=== PATIENT | male | born 1965 | race Caucasian/White ===

== ENCOUNTER 2018-05-28 10:03 | Emergency (ER) | payer OTHER, SELFPAY ==
[2018-05-28 10:16] VITALS: BP 144/79; PULSE 80; RESP 20; TEMP 36.7; O2SAT 100; BMI 21.6
--- NOTE | 2018-05-28 11:35 | ED.LOWEXIN ---
HPI - Extremity Injury (Lower) General Chief Complaint: Extremity Injury, Lower Stated Complaint: DEEP PAIN IN LEG AFTER SURGERY Time Seen by Provider: 05/28/18 11:19 Source: patient Mode of arrival: ambulatory Limitations: no limitations History of Present Illness HPI Narrative: Patient is a 52-year-old male who presents with left leg pain. He had the umbilical hernia surgery as an outpatient at [facility] 4 days ago. He also had some lipoma removed from his arms so an IV was placed in his left leg. He also compression socks and SCD's in place. He now has a spasm are sharp tingling in his left leg progressively is getting worse. He has no significant swelling in his legs. He denies fever or chills. Related Data Home Medications Medication Instructions Recorded Confirmed omeprazole 20 mg capsule,delayed 20 mg PO BID PRN cap 01/24/18 05/02/18 release Previous Rx's Medication Instructions Recorded pregabalin [Lyrica] 150 mg PO BID #60 cap 09/19/17 benzonatate 100 mg capsule 100 mg PO TID PRN #30 cap 12/20/17 beclomethasone dipropionate 80 1 puff INHALATION BID #8.7 gram 01/24/18 mcg/actuation aerosol inhaler ondansetron 8 mg disintegrating 8 mg PO TID PRN #30 tab 05/02/18 tablet zolpidem 10 mg tablet 10 mg PO HS #30 tab 05/18/18 Allergies Allergy/AdvReac Type Severity Reaction Status Date / Time amitriptyline [AMITRIPTYLINE] Allergy Unknown Verified 05/11/18 16:47 quetiapine [From SEROQUEL] Allergy Unknown Verified 05/11/18 16:47 tetracycline Allergy Verified 05/28/18 10:19 Review of Systems Review of Systems All systems reviewed & are unremarkable except as noted in HPI and below Constitutional Denies chills, Denies fever(s), Denies lethargy and Denies weakness Cardiovascular Denies chest pain, Denies irregular heart rhythm, Denies lightheadedness, Denies palpitations, Denies dyspnea, Denies dyspnea on exertion and Denies orthopnea Respiratory Denies cough, Denies dyspnea, Denies dyspnea on exertion and Denies wheezing Gastrointestinal Gastrointestinal: Denies abdominal pain, Denies change in bowel habits, Denies diarrhea, Denies nausea and Denies vomiting Musculoskeletal Reports as per HPI Integumentary/Breasts Denies pruritus, Denies erythema, Denies rash and Denies wounds Neurologic Denies weakness Endocrine Denies palpitations Allergic/Immunologic Denies wheezing [facility] Medical History Lipoma of arm (Acute) Umbilical hernia (Acute) Chronic back pain (Chronic Unknown) Elevated PSA (Chronic Unknown) GERD (gastroesophageal reflux disease) (Chronic Unknown) Insomnia (Chronic Unknown) Obstructive sleep apnea (Chronic Unknown) Restless leg syndrome (Chronic Unknown) Esophageal candidiasis (Resolved Unknown) Kidney stones (Resolved Unknown) Surgical History History of carpal tunnel release (Resolved) History of lumbar fusion (Resolved) History of tonsillectomy (Resolved) Social History Smoking Status: Never smoker alcohol intake: current (Rare) Exam Initial Vital Signs Initial Vital Signs: Vital Signs Temperature 98.1 F 05/28/18 10:16 Pulse Rate 80 05/28/18 10:16 Respiratory Rate 20 05/28/18 10:16 Blood Pressure 144/79 H 05/28/18 10:16 Pulse Oximetry 100 05/28/18 10:16 GENERAL: Well-appearing, well-nourished and in no acute distress. HEENT: Head atraumatic,EOMI, pupils reactive, face symmetric CARDIOVASCULAR: Regular rate and rhythm without murmurs, rubs or gallops. RESPIRATORY: Breath sounds equal bilaterally, no wheezes rales or rhonchi. ABDOMEN: Soft, nondistended incision site has clean dressing is no guarding no rebound normal bowel sounds. EXTREMITIES: Normal range of motion, no clubbing or edema. Neurovascularly intact. Left leg no significant swelling almost pinpoint like pain. There is no erythema. NEUROLOGICAL: Alert and oriented x4.Normal gait and speech. SKIN: Warm, dry, no laceration, no petechiae, no rashes or lesions. Course Orders Ordered: ED Orders 05/28/18 11:36 periph venous low extrem lt Stat Discontinued Medications Ibuprofen (Advil) 800 mg PO NOW ONE Stop: 05/28/18 11:37 Last Admin: 05/28/18 11:44 Dose: 800 mg Vital Signs - 8 hr 05/28/18 10:16 05/28/18 12:53 Temperature 98.1 F Pulse Rate 80 66 Respiratory Rate 20 15 Blood Pressure 144/79 H Blood Pressure [Left Arm] 148/86 H Pulse Oximetry 100 100 [facility] - Extremity Injury (Lower) Imaging Data Venous US: Radiologist's impression: PROCEDURE: US PERIPH VENOUS LOW EXTREM LT INDICATIONS: pain, recent surgery TECHNIQUE: Real-time imaging, as well as color and pulse Doppler interrogation, were performed of the lower extremity deep veins from the inguinal ligament to the popliteal fossa. COMPARISON: None. FINDINGS: The deep veins are normally compressible, and free of intraluminal thrombus. Color and pulse Doppler demonstrate normal phasic intraluminal flow. There is normal augmentation response to distal compression maneuver. IMPRESSION: No visualized deep venous thrombosis. Dictated by: Elizabeth Villareal M.D. on 05/28/2018 at 13:25 MDM Narrative Medical decision making narrative: MORE LIKELY TO BE OF NERVE OR MUSCLE IRRITATION. THERE IS NO OBVIOUS SWELLING ULTRASOUND IS NEGATIVE. INCISION SITES APPEAR CLEAN AND DRY. Discharge Plan Departure Patient Disposition: Home Clinical Impression: Acute pain of left lower extremity Discharge Date/Time: 05/28/18 13:03 Interventions: ED Discharge Assessment Last Done: 05/28/18 13:03 Instructions: DI for Leg Pain Activity Restrictions/Additional Instructions: *You have been diagnosed with left leg pain *What to do: Ultrasound is negative for blood, likely irritation from IV. Elevate, ice or heat as needed *Continue to take medications as directed Motrin 600 mg every 6-8 hours if needed *Follow up with your primary care provider in 2-3 days *Return to ER if you should have swelling, redness, pain or any new, worsening or concerning symptoms Prescriptions: No Action omeprazole 20 mg capsule,delayed release(DR/EC) 20 mg PO BID PRNRF: 0 beclomethasone dipropionate [Qvar] 80 mcg/actuation aerosol 1 puff INHALATION BID Qty: 8.7 RF: 2 benzonatate [Tessalon Perles] 100 mg capsule 100 mg PO TID PRN (Reason: cough) Qty: 30 RF: 1 ondansetron [Zofran ODT] 8 mg tablet,disintegrating 8 mg PO TID PRN (Reason: nausea and vomiting) Qty: 30 RF: 0 pregabalin [Lyrica] 150 MG capsule 150 mg PO BID Qty: 60 RF: 3 zolpidem [Ambien] 10 mg tablet 10 mg PO HS Qty: 30 RF: 3 Referrals: Haven Guerin DO [Primary Care Provider] -
[2018-05-28] MEDS: IBUPROFEN 400 MG TABLET 800 MG PO (11:44)
[2018-05-28 12:53] VITALS: BP 148/86; PULSE 66; RESP 15; O2SAT 100
--- NOTE | 2018-06-01 17:25 | PC.NURSE ---
Pt states that he has a blood clot in his leg,pt went to pcp to find that out. pt states that we messed up and missed a blood clot. Pt states that Tan Rothman did 300% better.
== END 2018-05-28 13:03 | disposition home or self-care (01) ==
PROVIDERS: Emergency Provider Emergency Medicine; PCP Family Medicine
DX: M79.605 Pain in left leg (principal)
CPT/HCPCS: 93971; 99282; 99284

== ENCOUNTER → 2018-09-02 09:37 | Outpatient (CLI) | payer OTHER, SELFPAY ==
[2018-09-02 10:42] LABS: Cholesterol 206 mg/dL (140-199); HDL Cholesterol 66 mg/dL (40-60); LDL Cholesterol Calculated 128 mg/dL (<100); Triglycerides 61 mg/dL (35-150)
== END ==
PROVIDERS: PCP Student in an Organized Health Care Education/Training Program; Visit Provider Internal Medicine Cardiovascular Disease
DX: Z12.5 Encounter for screening for malignant neoplasm of prostate (principal); R07.89 Other chest pain
CPT/HCPCS: 36415; 80061; 84153

== ENCOUNTER 2018-12-02 21:49 | Emergency (ER) | payer OTHER, SELFPAY ==
[2018-12-02 22:03] VITALS: BP 139/72; PULSE 81; RESP 28; O2SAT 98; BMI 21.9
--- NOTE | 2018-12-02 22:14 | DI.CT.S_ITS ---
PROCEDURE: CT HEAD/BRAIN WO CON INDICATIONS: Right-sided facial numbness TECHNIQUE: Noncontrast 4.5 mm thick angled axial sections acquired from the foramen magnum to the vertex, with coronal and sagittal reformats. For radiation dose reduction, the following was used: automated exposure control, adjustment of mA and/or kV according to patient size. COMPARISON: None. FINDINGS: Image quality: Excellent. CSF spaces: Basal cisterns are patent. No extra-axial fluid collections. Ventricles are normal in size and shape. Brain: No midline shift. No intracranial masses or hemorrhage. Shore-white matter interface is normal. Skull and face: Calvarium and visualized facial bones are intact, without suspicious lesions. Sinuses: Visualized sinuses and mastoids are clear. IMPRESSION: Mild microvascular atherosclerotic change in the deep white matter of each hemisphere but no acute disease. Depending on the clinical status followup by MR scanning may be warranted. Dictated by: Scott Kingsley M.D. on 12/03/2018 at 8:47 Approved by: Scott Kingsley M.D. on 12/03/2018 at 8:48
--- NOTE | 2018-12-02 22:14 | ED_ITS ---
HPI - Neuro Symptoms/Deficit General Chief Complaint: Neuro Symptoms/Deficit Stated Complaint: right side of face numbness Time Seen by Provider: 12/02/18 22:13 Source: patient Mode of arrival: ambulatory Limitations: no limitations History of Present Illness HPI Narrative: Patient is a 53-year-old male here for evaluation of multiple symptoms. He stated that yesterday he was not feeling well. He states that he had a migraine headache. he states that he went to sleep last night with a headache. When he woke up this morning he was ?unsure ?if he had a headache. He states that he is currently having the headache. He is unsure when the headache came on today. He states that he did not think about the headache because he was doing other things. He also states that he was waiting in line to pay at a store when he noticed he was drooling out of the right side of his mouth. The triage report states that he was complaining of right-sided facial numbness however he told me that he was not numb on the right side of his face he just had drool coming out the right side of his mouth. He states that has now resolved. He also states that he has pain in his left calf. He states that it feels like a prior DVT that he had in the past. He is not currently on any anticoagulation. He states that the pain feels similar to his prior DVT but not as bad as when he was diagnosed with a DVT. Difficult to obtain HPI from the patient as he is fairly vague on his symptoms and very often states ?I do not know? or ?I do not remember ?when asked about onset of symptoms in other associated symptoms. On Anticoagulants: No Related Data Previous Rx's Medication Instructions Recorded ondansetron 8 mg disintegrating 8 mg PO TID PRN #30 tab 05/02/18 tablet pregabalin 150 mg capsule 150 mg PO BID #60 cap 07/05/18 apixaban 5 mg tablet 5 mg PO BID #60 tab 08/09/18 benzonatate 100 mg capsule 100 mg PO TID PRN #30 cap 08/09/18 omeprazole 20 mg capsule,delayed 20 mg PO BID #60 cap 08/09/18 release zolpidem 10 mg tablet 10 mg PO BEDTIME PRN #30 tab 09/15/18 beclomethasone dipropionate 80 1 mcg INHALATION BID #8.7 gram 10/12/18 mcg/actuation aerosol inhaler Allergies Allergy/AdvReac Type Severity Reaction Status Date / Time amitriptyline [AMITRIPTYLINE] Allergy Unknown Verified 08/09/18 16:14 quetiapine [From SEROQUEL] Allergy Unknown Verified 08/09/18 16:14 tetracycline Allergy Verified 08/09/18 16:14 Review of Systems Constitutional Reports fatigue, Denies fever(s), Denies frequent falls, Reports headache(s) and Denies weakness Eyes Denies change in vision and Denies itchy eyes ENT Ears, Nose, Mouth, and Throat: Denies dizziness, Reports headache(s), Denies disequilibrium and Denies sore throat Cardiovascular Denies chest pain, Denies syncope and Denies dyspnea Respiratory Denies dyspnea Gastrointestinal Gastrointestinal: Denies abdominal pain, Denies nausea and Denies vomiting Musculoskeletal Comments: Pain in his left calf Integumentary/Breasts Denies rash Neurologic Denies behavioral changes, Denies burning sensations, Denies confusion, Denies dizziness, Denies syncope, Denies frequent falls, Reports headache(s), Denies radicular pain, Denies restless legs, Denies sensory deficit, Denies paresthesias, Denies disequilibrium and Denies weakness Psychiatric Denies behavioral changes and Denies confusion Endocrine Reports fatigue Hematologic/Lymphatic Denies easy bleeding and Denies easy bruising Allergic/Immunologic Denies itchy eyes [facility] Medical History Lipoma of arm (Acute) Umbilical hernia (Acute) Chronic back pain (Chronic Unknown) Elevated PSA (Chronic Unknown) GERD (gastroesophageal reflux disease) (Chronic Unknown) Insomnia (Chronic Unknown) Obstructive sleep apnea (Chronic Unknown) Restless leg syndrome (Chronic Unknown) Esophageal candidiasis (Resolved Unknown) Kidney stones (Resolved Unknown) Surgical History History of carpal tunnel release (Resolved) History of lumbar fusion (Resolved) History of tonsillectomy (Resolved) Social History Smoking Status: Never smoker alcohol intake: current (Rare) Social History Smoking Status: Never smoker alcohol intake: current (Rare) Exam Initial Vital Signs Initial Vital Signs: Vital Signs Pulse Rate 81 12/02/18 22:03 Respiratory Rate 28 H 12/02/18 22:03 Blood Pressure 139/72 12/02/18 22:03 Pulse Oximetry 98 12/02/18 22:03 Const General: cooperative, healthy appearing, comfortable, well developed, well groomed and No acute distress Orientation: alert, awake and oriented x3 HENMT Head: normal to inspection and normocephalic Ears: hearing grossly normal bilaterally Nose: external nose normal Face and sinus: normal facial exam Mouth: oral mucosae normal Eyes Pupils: PERRL EOM: EOM intact bilaterally Resp Effort & Inspection: normal respiratory effort Auscultation: clear to auscultation bilaterally Cardio Rate: regular rate Rhythm: regular rhythm GI Inspection: non-distended Palpation: soft, No firm and No tender Skin Lesions: no lesions Rashes: no rashes Neuro General: alert, awake and oriented x3 Cranial Nerves: CN's II-XI intact bilaterally Cognition: normal cognition Speech: speech normal Gait: normal gait Motor: muscle tone normal throughout Sensory Exam: no sensory deficits noted Extrem General: normal to inspection, capillary refill normal and No edema Psych Appearance: grossly normal and well kempt Course Orders Ordered: ED Orders 12/02/18 22:14 CT head/brain wo con Stat 12/02/18 23:06 US periph venous low extrem lt Stat Vital Signs - 8 hr 12/02/18 22:03 12/03/18 00:57 Temperature 97.9 F Pulse Rate 81 73 Respiratory Rate 28 H 19 Blood Pressure 139/72 106/59 L Pulse Oximetry 98 97 MDM - Neuro Symptoms/Deficit Imaging Data CT scan - head: Radiologist's impression: No acute intracranial disease. Bilateral white matter low attenuation noted, chronic in appearance, distributed mostly in the frontal and parietal lobes: Overall mild. Considerations would include sequela of remote trauma or information, or early onset chronic ischemic demyelination. Other considerations would include demyelinating disease including multiple sclerosis. Consider MRI brain without and with contrast when clinically appropriate Venous US: Radiologist's impression: No DVT noted right lower extremity MDM Narrative Medical decision making narrative: Patient has a normal neurologic exam here in the emergency department. I did discuss his CT scan findings with him and informed him he needed to follow up with his primary doctor regarding these to obtain an outpatient MRI. He has no left lower extremity DVT however this was a proximal venous study. Informed him that he needed to talk to his primary doctor about a full vascular ultrasound of his symptoms worsen. Will hold on further workup for now. Low suspicion for CVA. Patient was given return precautions. He expressed understanding and agreement with plan. Discharge Plan Departure Patient Disposition: Home Clinical Impression: Headache Qualifiers: Headache type: unspecified Headache chronicity pattern: unspecified pattern Intractability: not intractable Qualified Code(s): R51 - Headache Discharge Date/Time: 12/03/18 01:02 Interventions: ED Discharge Assessment Last Done: 12/03/18 00:57 Instructions: DI for Headache Activity Restrictions/Additional Instructions: Continue all of your medications as directed. Contact your primary doctor on Tuesday for a follow-up. Return to the emergency department for any new or worse gera symptoms Prescriptions: No Action ondansetron [Zofran ODT] 8 mg tablet,disintegrating 8 mg PO TID PRN (Reason: nausea and vomiting) Qty: 30 RF: 0 pregabalin [Lyrica] 150 mg capsule 150 mg PO BID Qty: 60 RF: 3 zolpidem 10 mg tablet 10 mg PO BEDTIME PRN (Reason: insomnia) Qty: 30 RF: 5 Qvar 80 mcg/actuation aerosol 1 mcg INHALATION BID Qty: 8.7 RF: 3 apixaban [Eliquis] 5 mg tablet 5 mg PO BID Qty: 60 RF: 0 benzonatate [Tessalon Perles] 100 mg capsule 100 mg PO TID PRN (Reason: cough) Qty: 30 RF: 1 omeprazole 20 mg capsule,delayed release(DR/EC) 20 mg PO BID Qty: 60 RF: 5 Referrals: Garry Regan MD [Primary Care Provider] -
--- NOTE | 2018-12-02 23:06 | DI.US.S_ITS ---
PROCEDURE: US [facility] VENOUS LOW EXTREM LT INDICATIONS: LEFT LEG PAIN; HISTORY DVT TECHNIQUE: Real-time imaging, as well as color and pulse Doppler interrogation, were performed of the lower extremity deep veins from the inguinal ligament to the popliteal fossa. COMPARISON: [facility], [facility] VENOUS LOW EXTREM LT, 05/28/2018, 12:39. FINDINGS: The common femoral, femoral and popliteal veins are normally compressible, and free of intraluminal thrombus. Color and pulse Doppler demonstrate normal phasic intraluminal flow. There is normal augmentation response to distal compression maneuver. IMPRESSION: No DVT found. Note: These findings are concordant with the preliminary interpretation. Dictated by: Scott Kingsley M.D. on 12/03/2018 at 8:48 Approved by: Scott Kingsley M.D. on 12/03/2018 at 8:48
[2018-12-03 00:57] VITALS: BP 106/59; PULSE 73; RESP 19; TEMP 36.6; O2SAT 97
== END 2018-12-03 01:02 | disposition home or self-care (01) ==
PROVIDERS: Emergency Provider Emergency Medicine; PCP Student in an Organized Health Care Education/Training Program
DX: R51 Headache (principal); M79.662 Pain in left lower leg; R20.0 Anesthesia of skin
CPT/HCPCS: 70450; 93971; 99283; 99284; 99291

== ENCOUNTER 2018-12-04 16:52 | Emergency (ER) | payer OTHER, SELFPAY ==
[2018-12-04 16:58] VITALS: BP 128/76; PULSE 99; RESP 14; TEMP 36.8; O2SAT 97
--- NOTE | 2018-12-04 17:04 | DI.CT.S_ITS ---
PROCEDURE: CT HEAD/BRAIN WO CON INDICATIONS: sudden onset headache / difficulty verbalizing history TECHNIQUE: Noncontrast 4.5 mm thick angled axial sections acquired from the foramen magnum to the vertex, with coronal and sagittal reformats. For radiation dose reduction, the following was used: automated exposure control, adjustment of mA and/or kV according to patient size. COMPARISON: [facility], CT, CT HEAD/BRAIN WO CON, 12/02/2018, 22:15. FINDINGS: Image quality: Excellent. CSF spaces: Basal cisterns are patent. No extra-axial fluid collections. Ventricles are normal in size and shape. Brain: No midline shift. No intracranial masses or hemorrhage. Shore-white matter interface is normal. Skull and face: Calvarium and visualized facial bones are intact, without suspicious lesions. Sinuses: Visualized sinuses and mastoids are clear. IMPRESSION: No acute intracranial disease process. Dictated by: Renuka العلي MD, PhD on 12/04/2018 at 17:34 Approved by: Renuka العلي MD, PhD on 12/04/2018 at 17:35
[2018-12-04 18:15] LABS: Bacteria Urine None Seen; WBC Urine None Seen (0-5/HPF)
[2018-12-04 18:24] LABS: Culture Indicated Urine Cult Not Indicated; RBC Urine 0-1/HPF (0-5/HPF)
[2018-12-04 20:30] VITALS: BP 131/81; PULSE 66; RESP 12; O2SAT 97
--- NOTE | 2018-12-04 20:42 | ED.HA ---
HPI - Headache <RAQUEL Cueva - Last Filed: 12/04/18 22:42> General Chief Complaint: Headache Stated Complaint: MIGRAINE Time Seen by Provider: 12/04/18 20:20 Source: patient Mode of arrival: ambulatory Limitations: no limitations History of Present Illness HPI Narrative: The patient is a 53-year-old male with history of hernia repair who presents for a chief complaint of a headache. He states he does not have a history of headaches, but have 1 today. However chart review a straight that he was seen in this facility yesterday for headache. he states he had a sudden headache, but denies thunderclap sensation. He does have various other complaints including chest pain, swollen throat, light sensitivity. The patient did drive himself here. Upon interview, the patient states ?I do not know when symptoms started and replies ?I do not know regarding his history. He is very unclear is for as when his symptoms started. He does complain of lower back pain, but then states that this has been going on for weeks. He states he goes up and down his legs. He states this comes and goes, staying for weeks. He states that this has been going on for years. He did recently stop taking Lyrica in July. He does take Ambien and states that is his only daily medication. Related Data Home Medications Medication Instructions Recorded Confirmed beclomethasone dipropionate [Qvar 1 puff INHALATION BID 12/04/18 12/04/18 RediHaler] nitroglycerin 0.4 mg SUBLINGUAL PRN PRN 12/04/18 12/04/18 Previous Rx's Medication Instructions Recorded pregabalin 150 mg capsule 150 mg PO BID #60 cap 07/05/18 omeprazole 20 mg capsule,delayed 20 mg PO BID #60 cap 08/09/18 release zolpidem 10 mg tablet 10 mg PO BEDTIME PRN #30 tab 09/15/18 Allergies Allergy/AdvReac Type Severity Reaction Status Date / Time amitriptyline [AMITRIPTYLINE] Allergy Unknown Verified 08/09/18 16:14 quetiapine [From SEROQUEL] Allergy Unknown Verified 08/09/18 16:14 tetracycline Allergy Verified 08/09/18 16:14 Review of Systems <RAQUEL Cueva - Last Filed: 12/04/18 22:42> Review of Systems GENERAL: See HPI HEENT: Denies sinus pain, ear pain, sore throat, difficulty swallowing, dizziness. RESPIRATORY: Denies dyspnea, cough, wheezing, hemoptysis, sputum. CARDIOVASCULAR: See HPI GASTROINTESTINAL: Denies nausea, vomiting, abdominal pain, diarrhea, constipation, melena. : Denies dysuria, frequency, incontinence, hematuria, urinary retention. MUSCULOSKELETAL: denies weakness, joint pain, or bony pain SKIN: Denies rash, skin lesions, or other NEUROLOGIC: See HPI PSYCHIATRIC: No concerning psychosocial issues. 12 point review of systems is negative except for those stated above PFSH <RAQUEL Cueva - Last Filed: 12/04/18 22:42> Medical History Lipoma of arm (Acute) Umbilical hernia (Acute) Chronic back pain (Chronic Unknown) Elevated PSA (Chronic Unknown) GERD (gastroesophageal reflux disease) (Chronic Unknown) Insomnia (Chronic Unknown) Obstructive sleep apnea (Chronic Unknown) Restless leg syndrome (Chronic Unknown) Esophageal candidiasis (Resolved Unknown) Kidney stones (Resolved Unknown) Surgical History History of carpal tunnel release (Resolved) History of lumbar fusion (Resolved) History of tonsillectomy (Resolved) Social History Smoking Status: Never smoker alcohol intake: current (Rare) Social History Smoking Status: Never smoker alcohol intake: current (Rare) Exam <RAQUEL Cueva - Last Filed: 12/04/18 22:42> Narrative Exam Narrative: GENERAL: Thin male lying on stretcher HEAD: Atraumatic. Normocephalic. No temporal or scalp tenderness. EYES: Pupils equal round and reactive. Extraocular motions intact. No scleral icterus. No injection or drainage. no nystagmus. ENT: Nose without bleeding, purulent drainage or septal hematoma. Throat without erythema, tonsillar hypertrophy or exudate. Uvula midline. Airway patent. NECK: Trachea midline. No JVD or lymphadenopathy. Supple, nontender, no meningeal signs. CARDIOVASCULAR: Regular rate and rhythm without murmurs, gallops, or rubs. RESPIRATORY: Clear to auscultation. Breath sounds equal bilaterally. No wheezes, rales, or rhonchi. No cough. No increased respiratory effort. GASTROINTESTINAL: Abdomen soft, non-tender, nondistended. No hepato-splenomegaly, or palpable masses. No guarding. active bowel sounds. EXTREMITIES: No clubbing, cyanosis, or edema. No joint tenderness, effusion, or edema noted. BACK: Nontender without deformity or crepitance. No flank tenderness. NEURO: AOx3. Strength is equal upper and lower extremities bilaterally. no cranial nerve deficits. Steady gait. SKIN: No rash or erythema. Initial Vital Signs Initial Vital Signs: Vital Signs Temperature 98.3 F 12/04/18 16:58 Pulse Rate 99 H 12/04/18 16:58 Respiratory Rate 14 12/04/18 16:58 Blood Pressure 128/76 12/04/18 16:58 Pulse Oximetry 97 12/04/18 16:58 <Kevin Estes MD - Last Filed: 12/05/18 02:04> Initial Vital Signs Initial Vital Signs: Vital Signs Temperature 98.3 F 12/04/18 16:58 Pulse Rate 99 H 12/04/18 16:58 Respiratory Rate 14 12/04/18 16:58 Blood Pressure 128/76 12/04/18 16:58 Pulse Oximetry 97 12/04/18 16:58 Course <JAHAIRA Cueva-BC - Last Filed: 12/04/18 22:42> Orders Ordered: ED Orders 12/04/18 17:50 Urine Microscopic Stat 12/04/18 18:30 Urine Drug Screen, Rapid Stat 12/04/18 20:48 EKG-12 Lead Stat 12/04/18 21:05 Complete Blood Count AUTO DIFF Stat Comprehensive Metabolic Panel Stat Ethanol (ETOH) Stat Lactate (Lactic Acid) Stat Troponin & CK Cardiac Panel Stat Discontinued Medications Dexamethasone (Decadron) 10 mg IV NOW ONE Stop: 12/04/18 21:58 Last Admin: 12/04/18 22:04 Dose: 10 mg Sodium Chloride (Normal Saline 0.9%) 1,000 mls @ 1,000 mls/hr IV BOLUS ONE Stop: 12/04/18 21:47 Last Infusion: 12/04/18 22:32 Dose: 0 mls/hr Admin: 12/04/18 21:15 Dose: 1,000 mls/hr Ketorolac Tromethamine (Toradol) 30 mg IV NOW ONE Stop: 12/04/18 20:49 Last Admin: 12/04/18 21:15 Dose: 30 mg Ondansetron HCl (Zofran) 4 mg IV NOW ONE Stop: 12/04/18 20:49 Last Admin: 12/04/18 21:15 Dose: 4 mg Vital Signs - 8 hr 12/04/18 20:30 12/04/18 21:01 12/04/18 22:00 Pulse Rate 66 67 65 Respiratory Rate 12 20 8 L Blood Pressure [Right Arm] 131/81 140/93 H 125/85 Pulse Oximetry 97 100 99 <Kevin Estes MD - Last Filed: 12/05/18 02:04> Orders Ordered: ED Orders 12/04/18 17:50 Urine Microscopic Stat 12/04/18 18:30 Urine Drug Screen, Rapid Stat 12/04/18 20:48 EKG-12 Lead Stat 12/04/18 21:05 Complete Blood Count AUTO DIFF Stat Comprehensive Metabolic Panel Stat Ethanol (ETOH) Stat Lactate (Lactic Acid) Stat Troponin & CK Cardiac Panel Stat Discontinued Medications Dexamethasone (Decadron) 10 mg IV NOW ONE Stop: 12/04/18 21:58 Last Admin: 12/04/18 22:04 Dose: 10 mg Sodium Chloride (Normal Saline 0.9%) 1,000 mls @ 1,000 mls/hr IV BOLUS ONE Stop: 12/04/18 21:47 Last Infusion: 12/04/18 22:32 Dose: 0 mls/hr Admin: 12/04/18 21:15 Dose: 1,000 mls/hr Ketorolac Tromethamine (Toradol) 30 mg IV NOW ONE Stop: 12/04/18 20:49 Last Admin: 12/04/18 21:15 Dose: 30 mg Ondansetron HCl (Zofran) 4 mg IV NOW ONE Stop: 12/04/18 20:49 Last Admin: 12/04/18 21:15 Dose: 4 mg Vital Signs - 8 hr 12/04/18 20:30 12/04/18 21:01 12/04/18 22:00 Pulse Rate 66 67 65 Respiratory Rate 12 20 8 L Blood Pressure [Right Arm] 131/81 140/93 H 125/85 Pulse Oximetry 97 100 99 MDM - Headache <Catherine Jackson, [employer]- - Last Filed: 12/04/18 22:42> Lab Data Result diagrams: 12/04/18 21:05 12/04/18 21:05 Lab Results 12/04/18 12/04/18 12/04/18 Range/Units 17:50 18:30 21:05 WBC 6.0 (4.5-11.0) X10^3/uL RBC 4.77 (4.5-5.9) X10^6/uL Hgb 14.5 (13.5-17.5) g/dL Hct 42.4 (41-53) % MCV 89.1 (80-100) fL MCH 30.5 (26-34) PG MCHC 34.3 (30-36) % RDW 13.8 (11.6-14.8) % Plt Count 282 (150-400) X10^3/uL Neut % (Auto) 55.3 (50-75) % Lymph % (Auto) 36.1 (25-40) % [place] % (Auto) 6.5 (3-14) % Eos % (Auto) 1.5 L (2-4) % Baso % (Auto) 0.6 (0-2) % Neut # (Auto) 3300 (1259-3007) /uL Lymph # (Auto) 2200 (2872-6369) /uL [place] # (Auto) 400 (0-900) /uL Eos # (Auto) 100 (0-450) /uL Baso # (Auto) 0 (0-100) /uL Sodium (137-145) mmol/L Potassium (3.4-5.1) mmol/L Chloride (98-107) mmol/L Carbon Dioxide (22-32) mmol/L BUN (9-20) mg/dL Creatinine (0.66-1.25) mg/dL Estimated GFR (>60) mL/min BUN/Creatinine Ratio (6-22) Glucose (70-100) mg/dL Lactate (0.7-2.1) mmol/L Calcium (8.4-10.2) mg/dL Total Bilirubin (0.2-1.3) mg/dL AST (17-59) IU/L ALT (21-72) IU/L Alkaline Phosphatase (38-126) U/L Total Creatine Kinase (55-170) U/L CK-MB (CK-2) CK-MB (CK-2) Rel Index Troponin I (0.01-0.034) ng/mL Total Protein (6.3-8.2) g/dL Albumin (3.5-5.0) g/dL Globulin (1.7-4.1) g/dL Albumin/Globulin Ratio (1.0-2.8) Urine RBC 0-1/hpf (0-5/HPF) Urine WBC None seen (0-5/HPF) Urine Bacteria None seen (None) Ur Culture Indicated? Cult not indicated Urine Opiates Screen Negative (Negative) Ur Oxycodone Screen Negative (Negative) Urine Methadone Screen Negative (Negative) Ur Barbiturates Screen Negative (Negative) U Tricyclic Antidepress Negative (Negative) Ur Phencyclidine Scrn Negative (Negative) Ur Amphetamines Screen Negative (Negative) U Methamphetamines Scrn Negative (Negative) Ur MDMA Scrn (Ecstasy) Negative (Negative) U Benzodiazepines Scrn Negative (Negative) Urine Cocaine Screen Negative (Negative) U Marijuana (THC) Screen Negative (Negative) Ethyl Alcohol mg/dL 12/04/18 12/04/18 12/04/18 Range/Units 21:05 21:05 21:05 WBC (4.5-11.0) X10^3/uL RBC (4.5-5.9) X10^6/uL Hgb (13.5-17.5) g/dL Hct (41-53) % MCV (80-100) fL MCH (26-34) PG MCHC (30-36) % RDW (11.6-14.8) % Plt Count (150-400) X10^3/uL Neut % (Auto) (50-75) % Lymph % (Auto) (25-40) % [place] % (Auto) (3-14) % Eos % (Auto) (2-4) % Baso % (Auto) (0-2) % Neut # (Auto) (5035-3236) /uL Lymph # (Auto) (1339-5013) /uL [place] # (Auto) (0-900) /uL Eos # (Auto) (0-450) /uL Baso # (Auto) (0-100) /uL Sodium 138 (137-145) mmol/L Potassium 3.8 (3.4-5.1) mmol/L Chloride 102 (98-107) mmol/L Carbon Dioxide 26 (22-32) mmol/L BUN 10 (9-20) mg/dL Creatinine 0.80 (0.66-1.25) mg/dL Estimated GFR > 60.0 (>60) mL/min BUN/Creatinine Ratio 12.5 (6-22) Glucose 89 (70-100) mg/dL Lactate 0.8 (0.7-2.1) mmol/L Calcium 9.5 (8.4-10.2) mg/dL Total Bilirubin 0.9 (0.2-1.3) mg/dL AST 19 (17-59) IU/L ALT 23 (21-72) IU/L Alkaline Phosphatase 57 (38-126) U/L Total Creatine Kinase 80 (55-170) U/L CK-MB (CK-2) TNP CK-MB (CK-2) Rel Index TNP Troponin I < 0.012 (0.01-0.034) ng/mL Total Protein 7.4 (6.3-8.2) g/dL Albumin 4.6 (3.5-5.0) g/dL Globulin 2.8 (1.7-4.1) g/dL Albumin/Globulin Ratio 1.6 (1.0-2.8) Urine RBC (0-5/HPF) Urine WBC (0-5/HPF) Urine Bacteria (None) Ur Culture Indicated? Urine Opiates Screen (Negative) Ur Oxycodone Screen (Negative) Urine Methadone Screen (Negative) Ur Barbiturates Screen (Negative) U Tricyclic Antidepress (Negative) Ur Phencyclidine Scrn (Negative) Ur Amphetamines Screen (Negative) U Methamphetamines Scrn (Negative) Ur MDMA Scrn (Ecstasy) (Negative) U Benzodiazepines Scrn (Negative) Urine Cocaine Screen (Negative) U Marijuana (THC) Screen (Negative) Ethyl Alcohol < 10 mg/dL Urine Dip Bedside Urine Glucose Negative Bedside Urine Bilirubin - Negative Bedside Urine Ketone - Negative Urine Specific [place] 1.015 Bedside Urine Occult Blood +/- Bedside Urine pH 6.0 Bedside Urine Protein - Negative Bedside Urine Urobilinogen - Negative Bedside Urine Nitrite - Negative Bedside Urine Leukocytes - Negative Esterase Imaging Data CT scan - head: Radiologist's impression: [address] [address] [address] Scan Report Signed Patient: Kervin Webb BMR#: [id number] : 1965Acct:[id number] Age/Sex: 53 / MDate of Service: 12/04/18 Loc: ED Accession Number: [id number] Procedure: CT head/brain wo con Ordering Provider: Catherine Blake D.O. PROCEDURE: CT HEAD/BRAIN WO CON INDICATIONS: sudden onset headache / difficulty verbalizing history TECHNIQUE: Noncontrast 4.5 mm thick angled axial sections acquired from the foramen magnum to the vertex, with coronal and sagittal reformats. For radiation dose reduction, the following was used: automated exposure control, adjustment of mA and/or kV according to patient size. COMPARISON: [facility], CT, CT HEAD/BRAIN WO CON, 12/02/2018, 22:15. FINDINGS: Image quality: Excellent. CSF spaces: Basal cisterns are patent. No extra-axial fluid collections. Ventricles are normal in size and shape. Brain: No midline shift. No intracranial masses or hemorrhage. Shore-white matter interface is normal. Skull and face: Calvarium and visualized facial bones are intact, without suspicious lesions. Sinuses: Visualized sinuses and mastoids are clear. IMPRESSION: No acute intracranial disease process. Dictated by: Renuka العلي MD, PhD on 12/04/2018 at 17:34 Approved by: Renuka العلي MD, PhD on 12/04/2018 at 17:35 ECG Data Interpretation: Sinus rhythm. Ventricular rate 65. No ST elevation or depression noted. No ectopy noted. artifact present. MDM Narrative Medical decision making narrative: The patient is a 53-year-old male who presents with chief complaint of headache and very symptoms. He had a normal lactate, normal EKG negative troponin normal CBC and CMP. He had a normal CT scan. He also had a normal neurologic exam throughout his stay in the emergency department. I elected to treat his headache with Zofran, Toradol and dexamethasone and the patient felt much improved after this cocktail medications. It is possible that he is having a migraine. Chart review illustrates that Dr. Morrell spoke with him yesterday regarding following up with his primary care provider for an outpatient MRI. I discussed this with him again and ensure that he would follow up with his PCP. Patient does not want any further workup tonight and does not want any invasive procedures done at this point time. Discussed at length return precautions of concern of heart attack or stroke. Patient has no questions or concerns upon discharge. <Kevin Estes MD - Last Filed: 12/05/18 02:04> Lab Data Lab Results 12/04/18 12/04/18 12/04/18 Range/Units 17:50 18:30 21:05 WBC 6.0 (4.5-11.0) X10^3/uL RBC 4.77 (4.5-5.9) X10^6/uL Hgb 14.5 (13.5-17.5) g/dL Hct 42.4 (41-53) % MCV 89.1 (80-100) fL MCH 30.5 (26-34) PG MCHC 34.3 (30-36) % RDW 13.8 (11.6-14.8) % Plt Count 282 (150-400) X10^3/uL Neut % (Auto) 55.3 (50-75) % Lymph % (Auto) 36.1 (25-40) % [place] % (Auto) 6.5 (3-14) % Eos % (Auto) 1.5 L (2-4) % Baso % (Auto) 0.6 (0-2) % Neut # (Auto) 3300 (6717-9630) /uL Lymph # (Auto) 2200 (7433-0854) /uL [place] # (Auto) 400 (0-900) /uL Eos # (Auto) 100 (0-450) /uL Baso # (Auto) 0 (0-100) /uL Sodium (137-145) mmol/L Potassium (3.4-5.1) mmol/L Chloride (98-107) mmol/L Carbon Dioxide (22-32) mmol/L BUN (9-20) mg/dL Creatinine (0.66-1.25) mg/dL Estimated GFR (>60) mL/min BUN/Creatinine Ratio (6-22) Glucose (70-100) mg/dL Lactate (0.7-2.1) mmol/L Calcium (8.4-10.2) mg/dL Total Bilirubin (0.2-1.3) mg/dL AST (17-59) IU/L ALT (21-72) IU/L Alkaline Phosphatase (38-126) U/L Total Creatine Kinase (55-170) U/L CK-MB (CK-2) CK-MB (CK-2) Rel Index Troponin I (0.01-0.034) ng/mL Total Protein (6.3-8.2) g/dL Albumin (3.5-5.0) g/dL Globulin (1.7-4.1) g/dL Albumin/Globulin Ratio (1.0-2.8) Urine RBC 0-1/hpf (0-5/HPF) Urine WBC None seen (0-5/HPF) Urine Bacteria None seen (None) Ur Culture Indicated? Cult not indicated Urine Opiates Screen Negative (Negative) Ur Oxycodone Screen Negative (Negative) Urine Methadone Screen Negative (Negative) Ur Barbiturates Screen Negative (Negative) U Tricyclic Antidepress Negative (Negative) Ur Phencyclidine Scrn Negative (Negative) Ur Amphetamines Screen Negative (Negative) U Methamphetamines Scrn Negative (Negative) Ur MDMA Scrn (Ecstasy) Negative (Negative) U Benzodiazepines Scrn Negative (Negative) Urine Cocaine Screen Negative (Negative) U Marijuana (THC) Screen Negative (Negative) Ethyl Alcohol mg/dL 12/04/18 12/04/18 12/04/18 Range/Units 21:05 21:05 21:05 WBC (4.5-11.0) X10^3/uL RBC (4.5-5.9) X10^6/uL Hgb (13.5-17.5) g/dL Hct (41-53) % MCV (80-100) fL MCH (26-34) PG MCHC (30-36) % RDW (11.6-14.8) % Plt Count (150-400) X10^3/uL Neut % (Auto) (50-75) % Lymph % (Auto) (25-40) % [place] % (Auto) (3-14) % Eos % (Auto) (2-4) % Baso % (Auto) (0-2) % Neut # (Auto) (8491-8022) /uL Lymph # (Auto) (3642-5396) /uL [place] # (Auto) (0-900) /uL Eos # (Auto) (0-450) /uL Baso # (Auto) (0-100) /uL Sodium 138 (137-145) mmol/L Potassium 3.8 (3.4-5.1) mmol/L Chloride 102 (98-107) mmol/L Carbon Dioxide 26 (22-32) mmol/L BUN 10 (9-20) mg/dL Creatinine 0.80 (0.66-1.25) mg/dL Estimated GFR > 60.0 (>60) mL/min BUN/Creatinine Ratio 12.5 (6-22) Glucose 89 (70-100) mg/dL Lactate 0.8 (0.7-2.1) mmol/L Calcium 9.5 (8.4-10.2) mg/dL Total Bilirubin 0.9 (0.2-1.3) mg/dL AST 19 (17-59) IU/L ALT 23 (21-72) IU/L Alkaline Phosphatase 57 (38-126) U/L Total Creatine Kinase 80 (55-170) U/L CK-MB (CK-2) TNP CK-MB (CK-2) Rel Index TNP Troponin I < 0.012 (0.01-0.034) ng/mL Total Protein 7.4 (6.3-8.2) g/dL Albumin 4.6 (3.5-5.0) g/dL Globulin 2.8 (1.7-4.1) g/dL Albumin/Globulin Ratio 1.6 (1.0-2.8) Urine RBC (0-5/HPF) Urine WBC (0-5/HPF) Urine Bacteria (None) Ur Culture Indicated? Urine Opiates Screen (Negative) Ur Oxycodone Screen (Negative) Urine Methadone Screen (Negative) Ur Barbiturates Screen (Negative) U Tricyclic Antidepress (Negative) Ur Phencyclidine Scrn (Negative) Ur Amphetamines Screen (Negative) U Methamphetamines Scrn (Negative) Ur MDMA Scrn (Ecstasy) (Negative) U Benzodiazepines Scrn (Negative) Urine Cocaine Screen (Negative) U Marijuana (THC) Screen (Negative) Ethyl Alcohol < 10 mg/dL Urine Dip Bedside Urine Glucose Negative Bedside Urine Bilirubin - Negative Bedside Urine Ketone - Negative Urine Specific [place] 1.015 Bedside Urine Occult Blood +/- Bedside Urine pH 6.0 Bedside Urine Protein - Negative Bedside Urine Urobilinogen - Negative Bedside Urine Nitrite - Negative Bedside Urine Leukocytes - Negative Esterase Discharge Plan Departure Patient Disposition: Home Clinical Impression: Headache Qualifiers: Headache type: unspecified Headache chronicity pattern: acute headache Intractability: not intractable Qualified Code(s): R51 - Headache Discharge Date/Time: 12/04/18 23:02 Interventions: ED Discharge Assessment Last Done: 12/04/18 23:02 Instructions: DI for Migraine, DI for Headache Activity Restrictions/Additional Instructions: Please go home and rest. It is imperative that you follow up with your primary care provider. Please call them tomorrow. Please come back to emergency department for any acute concerns such as chest pain or shortness of breath. please rest and push fluids. Prescriptions: No Action pregabalin [Lyrica] 150 mg capsule 150 mg PO BID Qty: 60 RF: 3 zolpidem 10 mg tablet 10 mg PO BEDTIME PRN (Reason: insomnia) Qty: 30 RF: 5 omeprazole 20 mg capsule,delayed release(DR/EC) 20 mg PO BID Qty: 60 RF: 5 nitroglycerin 0.4 mg tablet, sublingual 0.4 mg Sublingual PRN PRN (Reason: Chest Pain) RF: 0 Qvar RediHaler 80 mcg/actuation HFA aerosol breath activated 1 puff Inhalation BID RF: 0 Referrals: Garry Regan MD [Primary Care Provider] - <Kevin Estes MD - Last Filed: 12/05/18 02:04> Cosign ED Attending Jayceature Attestation: I was present in the ER at the time this patient's care. I was available for consultation or to see the patient directly if required. I agree with the evaluation, assessment and treatment plan.
[2018-12-04 21:01] VITALS: BP 140/93; PULSE 67; RESP 20; O2SAT 100
[2018-12-04] MEDS: KETOROLAC 60 MG/2 ML VIAL 30 MG IV (21:15)
[2018-12-04] MEDS: SODIUM CHLORIDE 0.9% 1,000 ML 1000 ML IV (21:15)
[2018-12-04] MEDS: ONDANSETRON 4 MG/2 ML INJ IV (21:15)
[2018-12-04 21:19] LABS: Add Manual Diff / Slide Review NO; Basophils Absolute Auto 0 /uL (0-100); Basophils Percent Auto 0.6 % (0-2); Eosinophils Absolute Auto 100 /uL (0-450); Eosinophils Percent Auto 1.5 % (2-4); Hematocrit 42.4 % (41-53); Hemoglobin 14.5 g/dL (13.5-17.5); Lymphocytes Absolute Auto 2200 /uL (1100-4500); Lymphocytes Percent Auto 36.1 % (25-40); Mean Corpuscular HGB Conc 34.3 % (30-36); Mean Corpuscular Hemoglobin 30.5 PG (26-34); Mean Corpuscular Volume 89.1 fL (80-100); Monocytes Absolute Auto 400 /uL (0-900); Monocytes Percent Auto 6.5 % (3-14); Neutrophils Absolute Auto 3300 /uL (1500-7000); Neutrophils Percent Auto 55.3 % (50-75); Platelet Count 282 X10^3/uL (150-400); Red Blood Cell Count 4.77 X10^6/uL (4.5-5.9); Red Cell Distribution Width 13.8 % (11.6-14.8)
[2018-12-04 21:24] LABS: Lactate (Lactic Acid) 0.8 mmol/L (0.7-2.1)
[2018-12-04 21:25] LABS: Alanine Aminotransferase 23 IU/L (21-72); Albumin 4.6 g/dL (3.5-5.0); Albumin Globulin Ratio 1.6 (1.0-2.8); Alkaline Phosphatase 57 U/L (38-126); Aspartate Aminotransferase 19 IU/L (17-59); BUN Creatinine Ratio 12.5 (6-22); Bilirubin Total 0.9 mg/dL (0.2-1.3); Blood Urea Nitrogen 10 mg/dL (9-20); Calcium 9.5 mg/dL (8.4-10.2); Carbon Dioxide 26 mmol/L (22-32); Chloride 102 mmol/L (98-107); Creatine Kinase 80 U/L (55-170); Estimated Glomerular Filt Rate > 60.0 mL/min (>60); Globulin 2.8 g/dL (1.7-4.1); Glucose 89 mg/dL (70-100); HEMOLYSIS < 15 (0-50); Potassium 3.8 mmol/L (3.4-5.1); Sodium 138 mmol/L (137-145); Total Protein 7.4 g/dL (6.3-8.2)
[2018-12-04 21:32] LABS: Ethanol (ETOH) < 10 mg/dL
[2018-12-04 21:36] LABS: Troponin I < 0.012 ng/mL (0.01-0.034)
[2018-12-04 22:00] VITALS: BP 125/85; PULSE 65; RESP 8; O2SAT 99
[2018-12-04 22:01] LABS: Urine Amphetamines Negative (Negative); Urine Barbiturates Negative (Negative); Urine Benzodiazepines Negative (Negative); Urine Cocaine Negative (Negative); Urine MDMA Negative (Negative); Urine Methadone Negative (Negative); Urine Methamphetamines Negative (Negative); Urine Morphine/Opi cutoff 2000 Negative (Negative); Urine Oxycodone Negative (Negative); Urine Phencyclidine Negative (Negative); Urine Tetrahydrocannabinol Negative (Negative); Urine Tricyclic Antidepressant Negative (Negative)
[2018-12-04] MEDS: DEXAMETHASONE 10 MG/ML VIAL IV (22:04)
== END 2018-12-04 23:02 | disposition home or self-care (01) ==
PROVIDERS: Emergency Medicine; Emergency Provider Nurse Practitioner Family; PCP Student in an Organized Health Care Education/Training Program
DX: R51 Headache (principal); R07.89 Other chest pain; J02.9 Acute pharyngitis, unspecified; H53.71 Glare sensitivity
CPT/HCPCS: 36591; 70450; 80053; 80305; 80320; 81003; 81015; 82550; 83605; 84484; 85025; 93005; 93010; 96361; 96374; 96375; 99283; 99285; J1100; J1885; J2405

== ENCOUNTER → 2018-12-18 16:55 | Outpatient (CLI) | payer OTHER, SELFPAY ==
--- NOTE | 2018-12-18 16:56 | DI.MRI.S_ITS ---
PROCEDURE: MR HEAD/BRAIN WO CON INDICATIONS: Headache, right facial paralysis, altered mental status TECHNIQUE: Noncontrast axial T1 spin echo, axial T2 fast spin echo, sagittal and axial FLAIR, coronal T2 fast spin echo, axial gradient echo, axial diffusion and ADC through the brain. COMPARISON: None. FINDINGS: Image quality: Excellent. CSF Spaces: Basal cisterns are patent. No extra-axial fluid collections. Ventricles are normal in size and shape. Brain: No intracranial masses or hemorrhage. There is mild diffuse cerebral volume loss. There are mild periventricular and subcortical white matter chronic microvascular ischemic changes. Shore/white matter interface is normal. Brainstem appears normal. Diffusion-weighted images demonstrate no acute ischemic insult. No chronic ischemic insults. Normal intravascular flow voids are present. Skull and face: Calvarium has normal marrow signal. Orbits appear normal. Sinuses: Sinuses and mastoids are clear. IMPRESSION: 1. No acute intracranial disease process. 2. No intracranial hemorrhage. 3. Mild, diffuse cerebral white loss. 4. Mild periventricular and subcortical white matter chronic microvascular ischemic changes. Dictated by: Renuka العلي MD, PhD on 12/18/2018 at 17:44 Approved by: Renuka العلي MD, PhD on 12/18/2018 at 17:47
== END ==
PROVIDERS: PCP Student in an Organized Health Care Education/Training Program; Visit Provider Student in an Organized Health Care Education/Training Program
DX: R41.82 Altered mental status, unspecified (principal); R51 Headache; G51.0 Bell's palsy
CPT/HCPCS: 70551

== ENCOUNTER → 2019-05-17 16:30 | Outpatient (CLI) | payer OTHER, SELFPAY ==
[2019-05-17 19:07] LABS: Hep C Virus Ab w/Reflex Quant NEGATIVE s/c (NEGATIVE)
== END ==
PROVIDERS: PCP Student in an Organized Health Care Education/Training Program; Visit Provider Urology
DX: R97.20 Elevated prostate specific antigen [PSA] (principal)
CPT/HCPCS: 36415; 84153; 86803

== ENCOUNTER 2019-07-11 13:31 | Day surgery (SDC) | payer OTHER, SELFPAY ==
[2019-07-11] VITALS (7 sets, daily range): BP systolic 99–137; BP diastolic 65–87; PULSE 68–77; RESP 15–16; TEMP 36.4–36.7; O2SAT 97–99; BMI 20.9
[2019-07-11] MEDS: SODIUM CHLORIDE 0.9% 1,000 ML 21 ML IV (14:04)
--- NOTE | 2019-07-11 14:46 | PM.HP.1 ---
History of Present Illness History of Present Illness Date Patient Seen: 07/11/19 Time Patient Seen: 14:47 Chief complaint: [id number] Narrative: GE reflux with a family history of esophageal cancer and need for colorectal cancer screening Patient History Family & Social History Tobacco & Substance use: Smoking Status Never smoker alcohol intake current alcohol intake frequency holiday/special occasion Substance Use Type does not use Meds Home Medications and Allergies Home Medications Medication Instructions Recorded Confirmed Type zolpidem 10 mg tablet 10 mg PO BEDTIME PRN #30 tab 03/16/19 07/11/19 Rx Allergies Allergy/AdvReac Type Severity Reaction Status Date / Time amitriptyline [AMITRIPTYLINE] Allergy Unknown Verified 07/11/19 13:51 quetiapine [From SEROQUEL] Allergy Unknown Verified 07/11/19 13:51 tetracycline Allergy Blister Verified 07/11/19 13:51 Exam Vital Signs (past 8 hours): - 07/11/19 13:52 Temperature 97.5 F L Pulse Rate 75 Respiratory Rate 16 Blood Pressure 125/87 Pulse Oximetry 98 Oxygen Delivery Method Room Air Narrative Exam Narrative: Oropharynx free of lesions Chest clear to auscultation percussion Cardiac exam reveals no S3 or murmur Assessment & Plan Assessment & Plan narrative: We will plan to perform EGD and colonoscopy under anesthesia. He has had difficulty with sedation in the past. Risks, benefits, alternatives have been explained.
--- NOTE | 2019-07-11 14:48 | PM.OP.ENDO ---
Operative Date/Time/Diagnoses Date of procedure: 07/11/19 Time of procedure: 14:48 Pre-op diagnosis: See indication and findings Procedure & Clinicians Study performed: EGD and colonoscopy Indications: GE reflux and family history of esophageal cancer in his father, need for colorectal cancer screening Surgeon: Karthik Hills Procedure Notes Procedure in detail: After informed consent was obtained the patient was placed in left lateral decubitus position. The video upper scope was placed into the oropharynx and with the patient's health swallowed into the esophagus. The esophagus, stomach, duodenum were carefully examined. On withdrawal, retroflexed view the GE junction was performed. The scope was removed. The patient tolerated the procedure well. Then the patient was turned and the colonoscope was substituted. This was introduced to the rectum easily passed the cecum. Preparation was good. On slow withdrawal mucosa was carefully examined. The scope was removed. The patient tolerated procedure well. Blood loss none Complications none Sedation MAC with anesthesia support Findings EGD 1. Cervical inlet patch with protestant. There was no clear ulceration here. Biopsies taken to rule out oxyntic mucosa 2. Grade B esophagitis at the GE junction with least 2 erosions present 3. Sensation of some esophageal rings present in the distal esophagus biopsies taken to rule out eosinophilic esophagitis 4. No substantial intra arytenoid erythema 5. Normal stomach 6. Normal duodenal bulb and sweep Colonoscopy 1. Moderate sigmoid left-sided diverticular disease 2. Otherwise negative colonoscopy to cecum other than a scar on the IC valve from previous polypectomy Will await biopsies and discuss with patient by telephone. He should have follow-up colonoscopy in 5 years.
--- NOTE | 2019-07-11 16:58 | SUR.PHASEII ---
verbal order received from avtar Suero for pt to be dc to home via taxi. pt left via taxi in stable condition, vss.
--- NOTE | 2019-07-27 | PATH_ITS ---
[facility] Accession Number: [id number] . 01 Material submitted: . PART A: esophagus - PROXIMAL ESOPHAGEAL PART B: esophagus - ESOPHAGEAL BIOPSY . 02 Diagnosis: A. Proximal Esophagus, Biopsy: Squamous mucosa with no diagnostic abnormality. Negative for intestinal metaplasia. Negative for dysplasia and malignancy. . B. Esophagus, Biopsy: Squamous mucosa with no diagnostic abnormality. Intraepithelial eosinophils are not increased. Negative for dysplasia and malignancy. MRV 07/13/2019 0944 Local . 02 Electronically signed: . Luz Garnett MD, Pathologist NPI- [id number] . 01 Gross description: . Part A: PROXIMAL ESOPHAGEAL: Received in formalin are 2 fragment(s) of mcallister, soft tissue measuring 0.2 x 0.1 x 0.1 cm to 0.1 x 0.1 x 0.1 cm submitted entirely in 1 cassette(s) Part B: ESOPHAGEAL BIOPSY: Received in formalin are 2 fragment(s) of mcallister, soft tissue measuring 0.2 x 0.1 x 0.1 cm to 0.1 x 0.1 x 0.1 cm submitted entirely in 1 cassette(s) /QBJ 07/12/2019 0711 Local . 02 Pathologist provided ICD-10: R13.10 . 02 CPT . 109087, [id number] Performed at: 01 [facility] [address] [facility], [place], [place] [id number] MD Anthony Hammond MD Phone: [phone] Performed at: 02 [facility] [address] [place], [place] [id number] MD Luz Garnett MD Phone: [phone]
== END 2019-07-11 16:59 | disposition home or self-care (01) ==
PROVIDERS: Family Provider Student in an Organized Health Care Education/Training Program; PCP Student in an Organized Health Care Education/Training Program; Visit Provider Internal Medicine Gastroenterology
PROC: 0DJ08ZZ Inspection of Upper Intestinal Tract, Via Natural or Artificial Opening Endoscopic (ICD-10-PCS; CPT 43235; principal; 2019-07-11 15:00)
PROC: 0DJD8ZZ Inspection of Lower Intestinal Tract, Via Natural or Artificial Opening Endoscopic (ICD-10-PCS; CPT 45378; 2019-07-11 15:00)
DX: Z12.11 Encounter for screening for malignant neoplasm of colon (principal); K57.30 Diverticulosis of large intestine without perforation or abscess without bleeding; Z80.0 Family history of malignant neoplasm of digestive organs; K20.9 Esophagitis, unspecified; J45.909 Unspecified asthma, uncomplicated; K21.9 Gastro-esophageal reflux disease without esophagitis
CPT/HCPCS: 43239; 45378; J2250; J2704; J3010

== ENCOUNTER → 2020-04-12 12:31 | Outpatient (CLI) | payer OTHER, SELFPAY ==
[2020-04-12 13:53] LABS: Prostate Specific Antigen 4.86 ng/mL (0.10-4.00)
[2020-04-12 13:53] LABS: TSH w/ Reflex to FT4 1.09 uIU/mL (0.47-4.68)
[2020-04-14 10:25] LABS: Cholesterol 235 mg/dL (140-199); HDL Cholesterol 62 mg/dL (40-60); LDL Cholesterol Calculated 147 mg/dL (<100); Triglycerides 132 mg/dL (35-150)
== END ==
PROVIDERS: Family Provider Student in an Organized Health Care Education/Training Program; PCP Student in an Organized Health Care Education/Training Program; Referring Provider Urology; Visit Provider Urology
DX: R97.20 Elevated prostate specific antigen [PSA] (principal); R68.89 Other general symptoms and signs; Z12.5 Encounter for screening for malignant neoplasm of prostate
CPT/HCPCS: 36415; 80061; 84153; 84443

== ENCOUNTER → 2021-04-13 07:03 | Outpatient (CLI) | payer OTHER, SELFPAY ==
--- NOTE | 2021-04-13 | DI.MRI.S_ITS ---
PROCEDURE: MR LUMBAR SPINE WO CON INDICATIONS: Postlaminectomy syndrome, not elsewhere classified TECHNIQUE: Noncontrast sagittal T1 spin echo and T2 fast echo, sagittal STIR, axial T1 and T2 fast spin echo through the lumbar spine. In cases with scoliosis, additional coronal T2 fast spin echo may be performed. COMPARISON: [facility] , , LUMBAR SPINE W/O CONTRAST, 02/26/2009, 15:22. [facility], CR, SPINE LUMB 2 OR 3VW, 11/16/2012, 18:26. FINDINGS: Image quality: Excellent. Alignment and Curvature: 5 lumbar type vertebral bodies are present by plain film. Mild grade 1 retrolisthesis of L1 on L2, L2 on L3, and L3 on L4. Mild lower thoracic kyphosis. Bone Marrow: Marrow is of normal overall signal. No acute vertebral body compression fractures. Posterior fusion of L4-S1, as before. Mild reactive signal within the endplates adjacent to the T10-T11, T11-T12, T12-L1, L1-L2, L2-L3, and L3-L4 intervertebral discs. Spinal Cord: Conus medullaris terminates at the L1-L2 disc space level. Visualized cord demonstrates normal signal and size. Paraspinous Soft Tissues: No paravertebral masses. T12-L1: Moderate disc height loss and desiccation. Mild diffuse disc bulge. Mild facet and ligamentum flavum hypertrophy. Mild canal stenosis. No foraminal stenosis. No significant change. L1-L2: Moderate disc height loss and desiccation. Mild diffuse disc bulge. Mild facet and ligamentum flavum hypertrophy. Mild canal stenosis. Mild bilateral foraminal stenosis. No significant change. L2-L3: Moderate disc height loss and desiccation. Mild diffuse disc bulge. Mild facet and ligamentum flavum hypertrophy. Mild canal stenosis. Mild bilateral foraminal stenosis. No significant change. L3-L4: Moderate disc height loss and desiccation. Mild diffuse disc bulge/osteophyte. Mild bilateral facet hypertrophy. Increased, mild canal stenosis. Increased, moderate bilateral foraminal stenosis. L4-L5: Status post fusion. No significant canal, or foraminal stenosis. No significant change. L5-S1: Status post fusion. Mild bilateral facet hypertrophy. No significant canal stenosis. Mild bilateral foraminal stenosis. No significant change. IMPRESSION: 1. Postsurgical sequelae. 2. Multilevel degenerative disc and facet disease, as well as ligamentum flavum hypertrophy and epidural lipomatosis. 3. Mild multilevel canal stenosis. 4. Multilevel foraminal stenosis, worst at L3-L4, where there are moderate foraminal stenoses. Dictated by: Robert Bryan M.D. on 04/13/2021 at 9:39 Approved by: Robert Bryan M.D. on 04/13/2021 at 9:42
== END ==
PROVIDERS: Family Provider Student in an Organized Health Care Education/Training Program; PCP Student in an Organized Health Care Education/Training Program; Referring Provider Anesthesiology Pain Medicine; Visit Provider Anesthesiology Pain Medicine
DX: M96.1 Postlaminectomy syndrome, not elsewhere classified (principal); M51.36 Other intervertebral disc degeneration, lumbar region; M48.061 Spinal stenosis, lumbar region without neurogenic claudication; M48.07 Spinal stenosis, lumbosacral region; Z98.1 Arthrodesis status
CPT/HCPCS: 72148

== ENCOUNTER → 2021-04-24 13:37 | Outpatient (CLI) | payer OTHER, SELFPAY ==
--- NOTE | 2021-04-24 | DI.MRI.S_ITS ---
PROCEDURE: MR CERVICAL SPINE WO CON INDICATIONS: Cervicalgia TECHNIQUE: Noncontrast sagittal T1 spin echo and T2 fast spin echo, sagittal STIR, foraminal oblique sagittal T2 fast spin echo, and axial gradient echo or T2 fast spin echo through the cervical spine. COMPARISON: None. FINDINGS: Image quality: Excellent. Alignment and Curvature: Trace retrolisthesis of C4 on C5 Bone Marrow: Multilevel degenerative endplate sclerosis and spurring. Diffuse facet arthropathy. No evidence of acute fracture Spinal Cord: Visualized spinal cord has normal size and signal. No cerebellar tonsillar herniation. Paraspinous Soft Tissues: No paravertebral masses. Prevertebral soft tissues are normal in thickness. C2-C3: Normal appearance. C3-C4: Normal appearance. C4-C5: Mild canal narrowing with effacement of the anterior thecal sac and slight mass effect on the cord. Moderate right foraminal stenosis. Severe left foraminal stenosis with nerve root compression. C5-C6: Minimal canal narrowing. Moderate foraminal stenosis. Severe left foraminal stenosis with nerve root compression. C6-C7: No definite high-grade canal stenosis. Mild to moderate foraminal narrowing. Severe left foraminal stenosis with nerve root compression C7-T1: No canal or right foraminal stenosis. Mild left foraminal narrowing. IMPRESSION: Mild C4-C5 canal narrowing. Severe left C4-C5 and C5-C6 foraminal narrowing. Dictated by: Bryan Carpio M.D. on 04/24/2021 at 16:00 Approved by: Bryan Carpio M.D. on 04/24/2021 at 16:06
== END ==
PROVIDERS: Family Provider Student in an Organized Health Care Education/Training Program; PCP Student in an Organized Health Care Education/Training Program; Referring Provider Anesthesiology Pain Medicine; Visit Provider Anesthesiology Pain Medicine
DX: M54.2 Cervicalgia (principal); M48.02 Spinal stenosis, cervical region
CPT/HCPCS: 72141

== ENCOUNTER 2022-03-16 03:58 | Emergency (ER) | payer OTHER, MEDICAID, SELFPAY ==
[2022-03-16 04:05] VITALS: BP 155/95; PULSE 72; RESP 20; TEMP 36.6; O2SAT 96
--- NOTE | 2022-03-16 04:10 | ED.MALEGU ---
HPI - Male Genitourinary General Chief complaint: Back Pain/Injury Stated complaint: kidney stone Time Seen by Provider: 03/16/22 04:02 History of Present Illness HPI Narrative: 56-year-old male nonsmoker with history of kidney stones presents with a chief complaint of severe left flank pain that started a few hours ago. Denies obvious provocation or palliation and states it radiates around his side and into his groin. He states it feels like prior kidney stones. He took no medications at home. He is not dizzy nor weak or lightheaded. He denies nausea or vomiting. Denies fever or chills. Related Data Home Medications Medication Instructions Recorded Confirmed pantoprazole 20 mg tablet,delayed 20 mg PO DAILY 05/25/21 08/10/21 release Previous Rx's Medication Instructions Recorded duloxetine 20 mg capsule,delayed 20 mg PO BID #180 caps 06/19/21 release (Cymbalta) pregabalin 75 mg capsule (Lyrica) 75 mg PO TID #90 caps 02/02/22 flurazepam 30 mg capsule 30 mg PO BEDTIME PRN insomnia #30 02/05/22 caps Parking Permit... #1 ea 02/11/22 hydrocodone 5 mg-acetaminophen 325 1 tab PO Q4-6H PRN pain #10 tabs 03/16/22 mg tablet ketorolac 10 mg tablet 10 mg PO Q6H PRN pain #14 tabs 03/16/22 ondansetron 4 mg disintegrating 4 mg PO TID-QID PRN nausea and 03/16/22 tablet vomiting #10 tabs tamsulosin 0.4 mg capsule (Flomax) 0.4 mg PO DAILY #30 caps 03/16/22 Allergies Allergy/AdvReac Type Severity Reaction Status Date / Time amitriptyline [AMITRIPTYLINE] Allergy Unknown Verified 08/10/21 15:26 quetiapine [From SEROQUEL] Allergy Unknown Verified 08/10/21 15:26 tetracycline Allergy Blister Verified 08/10/21 15:26 Review of Systems Review of Systems Narrative: GENERAL: Denies chills, fatigue, malaise, fever, sweats. HEENT: Denies sinus pain, ear pain, sore throat, difficulty swallowing, dizziness. RESPIRATORY: Denies dyspnea, cough, wheezing, hemoptysis, sputum. CARDIOVASCULAR: Denies chest pain, palpitations, orthopnea, edema, GASTROINTESTINAL: Denies nausea, vomiting, abdominal pain, diarrhea, constipation, melena. : See HPI MUSCULOSKELETAL: denies weakness, joint pain, or bony pain SKIN: Denies rash, skin lesions, or other NEUROLOGIC: Denies weakness, headache, numbness, change in speech, confusion, seizures, incoordination. PSYCHIATRIC: No concerning psychosocial issues. 12 point review of systems is negative except for those stated above Patient History Medical History Chronic back pain (Unknown) DVT of leg (deep venous thrombosis) Elevated PSA (Unknown) Esophageal candidiasis (Unknown) GERD (gastroesophageal reflux disease) (Unknown) Insomnia (Unknown) Kidney stones (Unknown) Lipoma of arm Obstructive sleep apnea (Unknown) Restless leg syndrome (Unknown) Umbilical hernia Surgical History History of carpal tunnel release History of lumbar fusion History of tonsillectomy Social History Smoking Status: Never smoker alcohol intake: current (Rare) Smoking Status: Never smoker alcohol intake frequency: holidays/special occasions only Substance Use Type: does not use Exam Narrative Exam Narrative: GENERAL: [56] year old patient appears stated age. Well-developed patient, in mild distress. Obviously uncomfortable, pacing in his room and rubbing his left flank HEAD: Atraumatic. Normocephalic. EYES: Pupils equal round and reactive. Extraocular motions intact. No scleral icterus. No injection or drainage. ENT: Nose without bleeding, purulent drainage. Throat without erythema, tonsillar hypertrophy or exudate. Airway patent. NECK: Trachea midline. Non tender CARDIOVASCULAR: Regular rate and rhythm without murmurs, gallops, or rubs. RESPIRATORY: Clear to auscultation. Breath sounds equal bilaterally. No wheezes, rales, or rhonchi. GASTROINTESTINAL: Abdomen soft, non-tender, nondistended. EXTREMITIES: No edema or joint tenderness. BACK: Nontender without deformity or crepitance. No flank tenderness. NEURO: AOx3. SKIN: No rash or erythema of visible areas Initial Vital Signs Initial Vital Signs: Vital Signs Temperature 97.9 F 03/16/22 04:05 Pulse Rate 72 07/26/22 04:05 Respiratory Rate 20 03/16/22 04:05 Blood Pressure 155/95 H 03/16/22 04:05 Pulse Oximetry 96 03/16/22 04:05 Oxygen Delivery Method 03/16/22 04:05 Course Orders Ordered: ED Orders 03/16/22 04:10 Urinalysis and Microscopic Stat 03/16/22 04:11 CT kidney ureter bladder (KUB) Stat 03/16/22 04:20 Complete Blood Count AUTO DIFF Stat Comprehensive Metabolic Panel Stat Discontinued Medications Hydrocodone Bitart/Acetaminophen (Hydrocodone/Acet 5/325 Prepack) 1 bottle MISC SEEINSTR ONE Stop: 03/16/22 05:12 Sodium Chloride (Normal Saline 0.9%) 1,000 mls @ 1,000 mls/hr IV BOLUS ONE Stop: 03/16/22 05:09 Last Admin: 03/16/22 04:35 Dose: 1,000 mls/hr Documented By: ENMANUEL Ketorolac Tromethamine (Ketorolac 30 Mg/Ml Vial) 15 mg IV NOW ONE Stop: 03/16/22 04:11 Last Admin: 03/16/22 04:35 Dose: 15 mg Documented By: ENMANUEL Ondansetron HCl (Ondansetron 4 Mg Odt Prepack) 1 bottle MISC SEEINSTR ONE Stop: 03/16/22 05:12 Tamsulosin HCl (Tamsulosin 0.4 Mg Capsule) 0.4 mg PO NOW ONE Stop: 03/16/22 04:57 Vital Signs Vital signs: Vital Signs - 8 hr 03/16/22 04:05 Temperature 97.9 F Pulse Rate 72 Respiratory Rate 20 Blood Pressure 155/95 H Pulse Oximetry 96 Oxygen Delivery Method Room Air MDM - Male Genitourinary Lab Data Result diagrams: 03/16/22 04:20 03/16/22 04:20 Labs: Lab Results 03/16/22 03/16/22 03/16/22 Range/Units 04:10 04:20 04:20 WBC 5.7 (4.5-11.0) X10^3/uL RBC 4.61 (4.5-5.9) X10^6/uL Hgb 14.3 (13.5-17.5) g/dL Hct 41.6 (41-53) % MCV 90.4 (80-100) fL MCH 31.1 (26-34) PG MCHC 34.4 (30-36) % RDW 13.9 (11.6-14.8) % Plt Count 256 (150-400) X10^3/uL Neut % (Auto) 45.8 L (50-75) % Lymph % (Auto) 36.3 (25-40) % [place] % (Auto) 8.1 (3-14) % Eos % (Auto) 8.8 H (2-4) % Baso % (Auto) 1.0 (0-2) % Neut # (Auto) 2600 (7202-6246) /uL Lymph # (Auto) 2100 (6181-7975) /uL [place] # (Auto) 500 (0-900) /uL Eos # (Auto) 500 H (0-450) /uL Baso # (Auto) 100 (0-100) /uL Sodium 138 (137-145) mmol/L Potassium 3.9 (3.4-5.1) mmol/L Chloride 100 (98-107) mmol/L Carbon Dioxide 27 (22-32) mmol/L BUN 23 H (9-20) mg/dL Creatinine 1.09 (0.66-1.25) mg/dL Estimated GFR > 60 (>60) mL/min BUN/Creatinine Ratio 21.1 (6-22) Glucose 90 (70-100) mg/dL Calcium 8.9 (8.4-10.2) mg/dL Total Bilirubin 0.7 (0.2-1.3) mg/dL AST 25 (17-59) IU/L ALT 17 (<50) IU/L Alkaline Phosphatase 74 (38-126) U/L Total Protein 7.2 (6.3-8.2) g/dL Albumin 4.4 (3.5-5.0) g/dL Globulin 2.8 (1.7-4.1) g/dL Albumin/Globulin Ratio 1.6 (1.0-2.8) Urine Color Dark yellow Urine Appearance Slightly cloudy Urine pH 5.5 (4.5-8.0) Ur Specific [place] 1.025 (1.000-1.035) Urine Protein 1+ H (Negative) Urine Glucose (UA) Negative (Negative) g/dL Urine Ketones Negative (NEGATIVE) Urine Occult Blood 3+ H (Negative) Urine Nitrate Negative (Negative) Urine Bilirubin Negative (NEGATIVE) Urine Urobilinogen 1.0 (0.2) E.U./dL Ur Leukocyte Esterase Negative (NEGATIVE) Urine RBC 30-100/hpf H (0-5/HPF) Urine WBC None seen (0-5/HPF) Ur Squamous Epith Cells 0-1 /hpf (0-5/HPF) Ur Transition Epith Cell 0-1/hpf (0-5/HPF) Calcium Oxalate Crystal Occasional H Urine Bacteria None seen (None) Urine Mucus 1+ H (Negative) Ur Culture Indicated? Cult not indicated Urine Dip Bedside Urine Glucose Negative Bedside Urine Bilirubin + 1 Bedside Urine Ketone - Negative Urine Specific [place] 1.030 Bedside Urine Occult Blood +++ Bedside Urine pH 6.0 Bedside Urine Protein + 30 Bedside Urine Urobilinogen +/- 1mg Bedside Urine Nitrite - Negative Bedside Urine Leukocytes - Negative Esterase Imaging Data CT scan - abdomen/pelvis: Radiologist's Impression: Moderate left hydroureteronephrosis and perinephric inflammatory change with an obstructing 5 mm mid ureteral calculus MDM Narrative Medical decision making narrative: Patient with reassuring history and physical exam shows no signs of sepsis, pain is well controlled and he is tolerating oral hydration. There is no alteration in renal function. Patient given return precautions and questions answered to his apparent satisfaction Discharge Plan Departure Patient Disposition: Home Clinical Impression: Kidney stone on left side Instructions: DI for Kidney Stones Activity Restrictions/Additional Instructions: *You have been diagnosed with [left-sided kidney stone measuring 5 mm and causing moderate hydronephrosis. There is no evidence of infection or decreased kidney function.] *What to do: *Please continue to take your regular medications as directed. [x ] New medication prescriptions sent to your pharmacy: [ [facility]] [ ] New medication written as a paper prescription [ ] No new medications given *Please follow up with your primary care provider in 2-3 days, call for an appointment. Let them know you were seen in the Emergency Department and that we ask that you be seen in follow up. We will electronically transmit a record of today's note if your PCP is in our system *If you do not have a primary care provider please contact the [facility] Resource line at [phone]. They will ask some questions about your medical history and help get you set up with a doctor in the community. *Return to Emergency Department if you should have any new, worsening or concerning symptoms, such as [fever greater than 101 F, shaking chills, worsening pain, persistent vomiting or other bothersome symptoms] Prescriptions: New hydrocodone-acetaminophen 5-325 mg tablet 1 tab PO Q4-6H PRN (Reason: pain) Qty: 10 0RF ketorolac 10 mg tablet 10 mg PO Q6H PRN (Reason: pain) Qty: 14 0RF tamsulosin [Flomax] 0.4 mg capsule 0.4 mg PO DAILY Qty: 30 0RF ondansetron 4 mg tablet,disintegrating 4 mg PO TID-QID PRN (Reason: nausea and vomiting) Qty: 10 0RF No Action pregabalin [Lyrica] 75 mg capsule 75 mg PO TID Qty: 90 3RF flurazepam 30 mg capsule 30 mg PO BEDTIME PRN (Reason: insomnia) Qty: 30 3RF (DME) Parking Permit... See Rx Instructions .ROUTE .MEDSUPPLY Qty: 1 0RF Rx Instructions: As directed pantoprazole 20 mg tablet,delayed release (DR/EC) 20 mg PO DAILY duloxetine [Cymbalta] 20 mg capsule,delayed release(DR/EC) 20 mg PO BID Qty: 180 3RF Referrals: Garry Regan MD [Primary Care Provider] - Maurice Ruiz MD [Physician] -
--- NOTE | 2022-03-16 04:11 | DI.CT.S_ITS ---
PROCEDURE: CT KIDNEY URETER BLADDER (KUB) INDICATIONS: severe flank pain, hx of stones TECHNIQUE: Axial sections were acquired from the lung bases to the pubic symphysis. Coronal and sagittal reformats were performed. For radiation dose reduction, the following was used: automated exposure control, adjustment of mA and/or kV according to patient size. COMPARISON: [facility], CT, CT ANGIO CHEST PE, 06/13/2018, 20:05. FINDINGS: Image quality: Excellent. Lung bases: Mild bibasilar atelectasis. Heart: No significant findings. Size appears normal. Small hiatal hernia. URINARY: Right Kidney: A few punctate nonobstructing renal stones identified in the right kidney measuring up to 3 mm in size. No perinephric stranding. A 2.3 cm partially exophytic renal hypodensity measures fluid attenuation is compatible with a renal cyst. Right Ureter: No hydroureter. No ureteral stone. Left Kidney/ureter: A few punctate left-sided renal stones are present measuring up to 4 mm in size. Mild-moderate left hydroureteronephrosis secondary to an obstructing 5 mm distal left ureteral stone which measures 550 Hounsfield units. Minimal perinephric and periureteral stranding. Bladder: Normal wall thickness. No stones. ABDOMEN: Liver: Unremarkable. Gallbladder: Unremarkable Biliary ducts: Unremarkable. Pancreas: Unremarkable. Spleen: Unremarkable. Adrenal Glands: Stable subcentimeter left adrenal nodule. Adrenal glands are otherwise unremarkable. Stomach and Bowel: Stomach, small bowel loops, and colon are unremarkable. Scattered colonic diverticulosis without acute diverticulitis. Normal appearing appendix. Peritoneum: No abnormal intraperitoneal fluid. No free air. Ventral Wall: There is a fat-containing umbilical hernia without acute inflammation. Abdominal Nodes: No enlarged retroperitoneal or mesenteric lymph nodes. Vessels: Aorta and inferior vena cava are normal in size. PELVIS: Pelvic Organs: Prostate is prominent in size measuring 5.4 x 4.3 cm in axial cross-sectional dimension. Coarse prosthetic calcifications are present. Pelvic Nodes: Unremarkable. Miscellaneous: No inguinal hernias are seen. Bones: No acute vertebral body compression fractures. Multilevel spondylitic changes throughout the imaged spine. No suspicious osseous lesions. Status post fusion L4 through S1. IMPRESSION: 1. Obstructing 5 mm distal left ureteral stone with associated mild-moderate left hydroureteronephrosis. Additional nonobstructing punctate left renal stones measuring up to 4 mm in size. 2. Multiple nonobstructing right renal stones measuring up to 3 mm. 3. Colonic diverticulosis without acute diverticulitis. 4. Normal appendix. Other chronic findings as above. No significant discrepancy with the caustic cresylate shift superintendent radiology preliminary report. Dictated by: Elijah Mello M.D. on 03/16/2022 at 7:22 Approved by: Elijah Mello M.D. on 03/16/2022 at 7:32
[2022-03-16 04:23] LABS: Bilirubin Urine UA NEGATIVE (NEGATIVE); Glucose Urine UA NEGATIVE (Negative); Ketones Urine UA NEGATIVE (NEGATIVE); Leukocyte Esterase Urine UA NEGATIVE (NEGATIVE); Nitrite Urine UA NEGATIVE (Negative); Occult Blood Urine UA 3+ (Negative); Protein Urine UA 1+ (Negative); Specific Gravity Urine UA 1.025 (1.000-1.035); pH Urine UA 5.5 (4.5-8.0)
[2022-03-16 04:25] LABS: Appearance Urine UA Slightly Cloudy; Color Urine UA Dark Yellow
[2022-03-16 04:32] LABS: Calcium Oxalate Crystals Urine Occasional; RBC Urine 30-100/HPF (0-5/HPF); WBC Urine None Seen (0-5/HPF)
[2022-03-16 04:33] LABS: Bacteria Urine None Seen; Culture Indicated Urine Cult Not Indicated; Mucus Urine 1+ (Negative); Squamous Epithelial Cell Urine 0-1 /HPF (0-5/HPF); Transitional Epi Cells Urine 0-1/HPF (0-5/HPF)
[2022-03-16 04:33] LABS: Add Manual Diff / Slide Review NO; Basophils Absolute Auto 100 /uL (0-100); Eosinophils Absolute Auto 500 /uL (0-450); Eosinophils Percent Auto 8.8 % (2-4); Hematocrit 41.6 % (41-53); Hemoglobin 14.3 g/dL (13.5-17.5); Lymphocytes Absolute Auto 2100 /uL (1100-4500); Lymphocytes Percent Auto 36.3 % (25-40); Mean Corpuscular HGB Conc 34.4 % (30-36); Mean Corpuscular Hemoglobin 31.1 PG (26-34); Mean Corpuscular Volume 90.4 fL (80-100); Monocytes Absolute Auto 500 /uL (0-900); Monocytes Percent Auto 8.1 % (3-14); Neutrophils Absolute Auto 2600 /uL (1500-7000); Neutrophils Percent Auto 45.8 % (50-75); Platelet Count 256 X10^3/uL (150-400); Red Blood Cell Count 4.61 X10^6/uL (4.5-5.9); Red Cell Distribution Width 13.9 % (11.6-14.8); White Blood Cell Count 5.7 X10^3/uL (4.5-11.0)
[2022-03-16] MEDS: SODIUM CHLORIDE 0.9% 1,000 ML 1000 ML IV (04:35)
[2022-03-16] MEDS: KETOROLAC 30 MG/ML VIAL 15 MG IV (04:35)
[2022-03-16 04:48] LABS: Alanine Aminotransferase 17 IU/L (<50); Albumin 4.4 g/dL (3.5-5.0); Albumin Globulin Ratio 1.6 (1.0-2.8); Alkaline Phosphatase 74 U/L (38-126); Aspartate Aminotransferase 25 IU/L (17-59); BUN Creatinine Ratio 21.1 (6-22); Bilirubin Total 0.7 mg/dL (0.2-1.3); Blood Urea Nitrogen 23 mg/dL (9-20); Calcium 8.9 mg/dL (8.4-10.2); Carbon Dioxide 27 mmol/L (22-32); Chloride 100 mmol/L (98-107); Estimated Glomerular Filt Rate > 60 mL/min (>60); Globulin 2.8 g/dL (1.7-4.1); Glucose 90 mg/dL (70-100); HEMOLYSIS < 15 (0-50); Potassium 3.9 mmol/L (3.4-5.1); Sodium 138 mmol/L (137-145); Total Protein 7.2 g/dL (6.3-8.2)
[2022-03-16] MEDS: HYDROCODONE/ACET 5/325 PREPACK 1 BOTTLE MISC (05:16)
[2022-03-16] MEDS: TAMSULOSIN 0.4 MG CAPSULE PO (05:16)
[2022-03-16] MEDS: ONDANSETRON 4 MG ODT PREPACK 1 BOTTLE MISC (05:16)
[2022-03-16 05:28] VITALS: PULSE 76; RESP 18; O2SAT 97
== END 2022-03-16 05:36 | disposition home or self-care (01) ==
PROVIDERS: Emergency Provider Emergency Medicine; Family Provider Student in an Organized Health Care Education/Training Program; PCP Student in an Organized Health Care Education/Training Program
DX: N20.0 Calculus of kidney (principal)
CPT/HCPCS: 36415; 74176; 80053; 81001; 81003; 85025; 96361; 96374; 99284; J1885

== ENCOUNTER → 2022-04-22 14:56 | Outpatient (CLI) | payer OTHER, MEDICAID, SELFPAY ==
--- NOTE | 2022-04-22 14:58 | DI.RAD.S_ITS ---
PROCEDURE: XR KUB INDICATIONS: kidney stones TECHNIQUE: One view of the abdomen acquired. COMPARISON: [facility], CT, CT KIDNEY URETER BLADDER (KUB), 03/16/2022, 4:26. FINDINGS: Surgical changes and devices: Lower lumbar spine fixation hardware incompletely evaluated. Bowel: Bowel gas pattern is normal. Soft tissues: No suspicious abdominal calcifications. Visualized solid organ contours appear normal in size. Bones: No suspicious bony lesions. IMPRESSION: No radiopaque renal, ureteral or bladder calculi. Dictated by: Ean Vazquez [facility] Interpreted: Luis Carlos Billingsley MD on 04/22/2022 at 15:48 Approved by: Luis Carlos Billingsley M.D. on 04/22/2022 at 16:34
== END ==
PROVIDERS: Family Provider Student in an Organized Health Care Education/Training Program; PCP Student in an Organized Health Care Education/Training Program; Referring Provider Urology; Visit Provider Urology
DX: N20.0 Calculus of kidney (principal)
CPT/HCPCS: 74018

== ENCOUNTER → 2022-04-23 11:40 | Outpatient (CLI) | payer OTHER, MEDICAID, SELFPAY ==
[2022-04-24 07:47] LABS: PSA Free % 13.6 % (.); PSA, Total 10.3 ng/mL (0.0-4.0)
== END ==
PROVIDERS: Family Provider Student in an Organized Health Care Education/Training Program; PCP Student in an Organized Health Care Education/Training Program; Referring Provider Urology; Visit Provider Urology
DX: R97.20 Elevated prostate specific antigen [PSA] (principal)
CPT/HCPCS: 36415; 84153; 84154

== ENCOUNTER → 2022-05-12 12:40 | Outpatient (CLI) | payer OTHER, MEDICAID, SELFPAY ==
--- NOTE | 2022-05-12 12:43 | DI.MRI.S_ITS ---
PROCEDURE: MR PELVIS WO/W CON INDICATIONS: Elevated/rising PSA rule out PI-RADS lesion TECHNIQUE: Coronal HASTE, axial T1 FSE with fat saturation, 3-plane nonbreath-hold T2 FSE. After the administration of contrast, dynamic axial, delayed axial and coronal VIBE or 2-D FLASH with fat saturation through the pelvis. Optional diffusion weighted imaging and ADC may be performed. COMPARISON: [facility], CT, CT KIDNEY URETER BLADDER (KUB), 03/16/2022, 4:26. [facility], CT, CT IVP A/P W/WO, 05/12/2022, 13:24. FINDINGS: Image quality: Diffusion weighted and dynamic contrast enhanced images are diagnostic. Prostate: Gland size is 5.4 x 3.6 x 5.5 cm; ellipsoid gland volume is 56 mL. Mild linear and wedge-shaped ADC hypointensities present within the prostate peripheral zone with indistinct T2 correlates (PI-RADS 2 findings). Enlargement of the prostate transitional zone with findings typical of benign prostatic hyperplasia. No large lesion strongly stands out against background parenchymal changes of BPH on T2 weighted images (PI-RADS 2 findings). Genitourinary system: Bladder wall thickness is normal. Distal ureters are non distended. Bowel and peritoneum: No pathologic free pelvic fluid. Inferior colon and small bowel loops are normal in caliber. Nodes and vessels: No pelvic or inguinal adenopathy by size criteria. Iliac vessels are normal in caliber. Soft tissues: No inguinal hernias. Bones: Marrow demonstrates normal overall signal, without lesions to suggest metastases. Lower lumbar fusion hardware is present. IMPRESSION: 1. No large or highly suspicious focal prostate lesion to direct biopsy. There is enlargement of the prostate transitional zone with findings typical of benign prostatic hyperplasia, with prostate volume estimated at 56 cc. 2. No suspicious lymph nodes visualized in the imaged pelvis. Dictated by: Osman Canas M.D. on 05/12/2022 at 15:56 Approved by: Osman Canas M.D. on 05/12/2022 at 16:16
--- NOTE | 2022-05-12 12:43 | DI.CT.S_ITS ---
PROCEDURE: CT IVP A/P W/WO INDICATIONS: Kidney stones history of left ureteral calculus TECHNIQUE: Optional 5 mm thick noncontrast images acquired from the diaphragm to the symphysis pubis. After the administration of intravenous contrast, 5 mm thick images acquired from the diaphragm to the symphysis pubis after a 10-minute delay. 2 mm thick coronal and sagittal reformats were then performed of the kidneys and ureters. For radiation dose reduction, the following was used: automated exposure control, adjustment of mA and/or kV according to patient size. COMPARISON: [facility], CT, CT KIDNEY URETER BLADDER (KUB), 03/16/2022, 4:26. FINDINGS: Image quality: Excellent. Lung bases: Mild posterior dependent atelectasis in the lung bases. Urinary system: Both kidneys are normal in size. A 3 mm nonobstructing calculus is seen in the inferior pole of the right kidney. There is a 3 mm nonobstructing calculus at the inferior pole of the left kidney. Additional faint calcifications are seen in the renal calices bilaterally that likely represent smaller calculi. No hydronephrosis. No perinephric fat stranding. There is normal bilateral renal enhancement. Bilateral simple renal cysts are present. Renal calyces appear normal in morphology when filled with contrast. Opacified portions of both ureters demonstrate normal caliber. Bladder wall thickness is normal. A 5 mm calculus is seen in the left posterior bladder that likely corresponds to the previously seen left ureteral calculus on CT from 03/16/2022. Attenuation values within this calculus are approximately 600-700 Hounsfield units. Other solid organs: Subcentimeter hypodensity in the central liver is too small to characterize, but is most likely a cyst. Gallbladder is unremarkable. Biliary system is non dilated. Pancreas enhances normally. Spleen is normal in size and enhancement. Subcentimeter nodular thickening of the left adrenal gland is seen, which is hypoattenuating on non-contrast images. Peritoneum and bowel: Multiple diverticula are seen in the colon without signs of acute diverticulitis. Small bowel loops and stomach are unremarkable. No free fluid or air. Nodes and vessels: No retroperitoneal or mesenteric adenopathy by size criteria. Aorta and inferior vena cava are normal in size. Abdominal wall: No ventral hernias. Pelvis: Prostate is mildly enlarged. No pathologic free pelvic fluid. No inguinal hernias or adenopathy. Bones: Postsurgical changes are seen in the spine from L4 through S1. Multilevel degenerative changes are seen in the remainder of the spine. IMPRESSION: 1. Previously seen left distal ureteral 5 mm calculus now appears to be located in the left posterior bladder. No hydronephrosis. 2. Additional nonobstructing bilateral renal calculi measuring up to 3 mm in each kidney. 3. No suspicious urothelial lesion. 4. Mild prostatomegaly. 5. Colonic diverticulosis. Dictated by: Osman Angela M.D. on 05/12/2022 at 15:16 Approved by: Osman Angela M.D. on 05/12/2022 at 15:38
== END ==
PROVIDERS: Family Provider Student in an Organized Health Care Education/Training Program; PCP Student in an Organized Health Care Education/Training Program; Referring Provider Urology; Visit Provider Urology
DX: N20.0 Calculus of kidney (principal); N21.0 Calculus in bladder; N40.0 Benign prostatic hyperplasia without lower urinary tract symptoms; R97.20 Elevated prostate specific antigen [PSA]; K57.90 Diverticulosis of intestine, part unspecified, without perforation or abscess without bleeding
CPT/HCPCS: 72197; 74178; Q9967

== ENCOUNTER → 2022-05-13 07:36 | Outpatient (CLI) | payer OTHER, MEDICAID, SELFPAY ==
--- NOTE | 2022-05-13 07:37 | DI.MRI.S_ITS ---
PROCEDURE: MR CERVICAL SPINE WO CON INDICATIONS: reassess cervical radiculopathy TECHNIQUE: Noncontrast sagittal T1 spin echo and T2 fast spin echo, sagittal STIR, foraminal oblique sagittal T2 fast spin echo, and axial gradient echo or T2 fast spin echo through the cervical spine. COMPARISON: [facility], MR, MR CERVICAL SPINE WO CON, 04/24/2021, 13:50. FINDINGS: Image quality: Excellent. Alignment and Curvature: There is mild retrolisthesis seen at C4-C5. Bone Marrow: Marrow demonstrates normal overall signal. Spinal Cord: Visualized spinal cord has normal size and signal. No cerebellar tonsillar herniation. Paraspinous Soft Tissues: No paravertebral masses. Prevertebral soft tissues are normal in thickness. C2-C3: Normal appearance. C3-C4: No significant abnormality is seen. C4-C5: Moderate loss of disc height is seen. Loss of disc signal is seen. Moderate disc osteophyte complex is seen, which is eccentric to the right. Uncovertebral joint hypertrophy is seen at this level. Moderate facet joint hypertrophy is seen. There is moderate to severe right-sided and moderate left-sided neural foraminal narrowing. Moderate central canal narrowing is seen. There is associated mass effect upon the ventral spinal cord. When comparison is made with the prior images, these findings are similar. C5-C6: Moderate loss of disc height is seen. Loss of disc signal is seen. Moderate generalized disc osteophyte complex is seen. Moderate facet hypertrophy is seen, left worse than right. There is at least moderate right-sided and moderate to severe left-sided neural foraminal narrowing. Mild central canal narrowing is seen. C6-C7: Twmb-gy-rfjhaffs loss of disc height and disc signal can be seen. Moderate generalized disc osteophyte complex is seen. Moderate facet joint hypertrophy is seen. There is moderate to severe bilateral neural foraminal narrowing seen. No significant central canal narrowing is seen at this level. When comparison is made with the prior images, these findings are similar. C7-T1: No significant abnormality is seen. IMPRESSION: Multiple levels of cervical spine degenerative change are seen, which are overall worst at the C4-C5 level. No significant progression can be seen compared to 2020. Dictated by: Redd Arauz M.D. on 05/13/2022 at 10:41 Approved by: Redd Arauz M.D. on 05/13/2022 at 10:45
== END ==
PROVIDERS: Family Provider Student in an Organized Health Care Education/Training Program; PCP Student in an Organized Health Care Education/Training Program; Referring Provider Student in an Organized Health Care Education/Training Program; Visit Provider Student in an Organized Health Care Education/Training Program
DX: M54.12 Radiculopathy, cervical region (principal); R41.3 Other amnesia; N20.0 Calculus of kidney; R97.20 Elevated prostate specific antigen [PSA]; R39.9 Unspecified symptoms and signs involving the genitourinary system
CPT/HCPCS: 36415; 72141; 81002; 82365; 82607; 82652; 82746; 84443; 99214

== ENCOUNTER → 2022-05-13 08:22 | Outpatient (CLI) | payer OTHER, MEDICAID, SELFPAY ==
[2022-05-13 11:20] LABS: Thyroid Stimulating Hormone 1.36 uIU/mL (0.47-4.68)
[2022-05-13 11:50] LABS: Folate 7.4 ng/mL (2.76-20.0); Vitamin B12 326 pg/mL (239-931)
[2022-05-18 17:45] LABS: Ca oxalate dihydrate 50 % (.); Ca oxalate monohydr 50 % (.); Size 7x6 mm (.)
[2022-05-21 17:06] LABS: 1,25-Dihydroxy, Vitamin D-2 <10 pg/mL (.)
== END ==
PROVIDERS: Urology; Family Provider Student in an Organized Health Care Education/Training Program; PCP Student in an Organized Health Care Education/Training Program; Referring Provider Psychiatry & Neurology Neurology; Visit Provider Psychiatry & Neurology Neurology
DX: R41.3 Other amnesia (principal); N20.0 Calculus of kidney
CPT/HCPCS: 36415; 82365; 82607; 82652; 82746; 84443

== ENCOUNTER → 2022-06-12 12:42 | Outpatient (CLI) | payer OTHER, MEDICAID, SELFPAY ==
--- NOTE | 2022-06-12 13:08 | DI.MRI.S_ITS ---
PROCEDURE: MR HEAD/BRAIN WO CON INDICATIONS: MEMORY LOSS TECHNIQUE: Noncontrast axial T1 spin echo, axial T2 fast spin echo, sagittal and axial FLAIR, coronal T2 fast spin echo, axial gradient echo, axial diffusion and ADC through the brain. COMPARISON: [facility], CT, CT HEAD/BRAIN WO CON, 12/04/2018, 17:20. [facility], MR, MR HEAD/BRAIN WO CON, 12/18/2018, 17:15. [facility], CT, CT HEAD/BRAIN WO CON, 12/02/2018, 22:15. FINDINGS: Image quality: Excellent. CSF Spaces: Basal cisterns are patent. No extra-axial fluid collections. Ventricles are normal in size and shape. Brain: No intracranial masses or hemorrhage. Shore/white matter interface is normal. Brainstem appears normal. Diffusion-weighted images demonstrate no acute ischemic insult. Brain parenchymal volume loss and chronic small vessel ischemic change can be seen. No prior territorial infarcts can be seen. Normal intravascular flow voids are present. Skull and face: Calvarium has normal marrow signal. Orbits appear normal. Sinuses: Focal moderate to prominent mucosal thickening can be seen within the left frontal sinuses. Moderate mucosal thickening is seen within the anterior left ethmoid air cells. Mild mucosal thickening is seen elsewhere within the paranasal sinuses. A small amount of left mastoid air cell fluid can be seen. IMPRESSION: Brain parenchymal volume loss and chronic small vessel ischemic change are seen, which are slightly more prominent than would be expected for a patient of this age. The appearance is similar to 2019. Incidental note is made of: Left-sided paranasal sinus disease Dictated by: Redd Arauz M.D. on 06/14/2022 at 8:33 Approved by: Redd Arauz M.D. on 06/14/2022 at 8:37
== END ==
PROVIDERS: Family Provider Student in an Organized Health Care Education/Training Program; PCP Student in an Organized Health Care Education/Training Program; Referring Provider Psychiatry & Neurology Neurology; Visit Provider Psychiatry & Neurology Neurology
DX: R41.3 Other amnesia (principal)
CPT/HCPCS: 70551

== ENCOUNTER → 2022-09-01 16:02 | Outpatient (CLI) | payer OTHER, MEDICAID, SELFPAY ==
--- NOTE | 2022-09-01 16:05 | DI.RAD.S_ITS ---
PROCEDURE: XR KUB INDICATIONS: Kidney stone TECHNIQUE: One view of the abdomen acquired. COMPARISON: [facility], CR, XR KUB, 04/22/2022, 15:02. FINDINGS: Surgical changes and devices: Patient is status post fusion of lower lumbar spine at L4 through S1 levels. Bowel: Bowel gas pattern is normal. Soft tissues: No suspicious abdominal calcifications. Visualized solid organ contours appear normal in size. Bones: No suspicious bony lesions. IMPRESSION: No gross renal calcification is seen. No bowel obstruction or gross free air. Dictated by: Wes Small M.D. on 09/01/2022 at 17:14 Approved by: Wes Small M.D. on 09/01/2022 at 17:15
[2022-09-03 16:12] LABS: PSA Free % 21.8 % (.); PSA, Total 4.5 ng/mL (0.0-4.0)
== END ==
PROVIDERS: Family Provider Student in an Organized Health Care Education/Training Program; PCP Student in an Organized Health Care Education/Training Program; Referring Provider Urology; Visit Provider Urology
DX: N20.0 Calculus of kidney (principal); R97.20 Elevated prostate specific antigen [PSA]
CPT/HCPCS: 36415; 74018; 84153; 84154

== ENCOUNTER → 2022-12-21 12:17 | Outpatient (CLI) | payer OTHER, MEDICAID, SELFPAY | PROVIDERS: Family Provider Student in an Organized Health Care Education/Training Program; PCP Student in an Organized Health Care Education/Training Program; Referring Provider Otolaryngology Facial Plastic Surgery; Visit Provider Otolaryngology Facial Plastic Surgery | DX: J30.1 Allergic rhinitis due to pollen (principal); J30.89 Other allergic rhinitis | CPT/HCPCS: 86003 ==

== ENCOUNTER 2023-02-10 16:23 | Emergency (ER) | payer OTHER, MEDICAID, SELFPAY ==
[2023-02-10 16:27] VITALS: BP 142/82; PULSE 82; RESP 18; O2SAT 99
--- NOTE | 2023-03-09 11:26 | ED.SKABFB ---
HPI - Skin/Abscess/Foreign Bdy <Tim Cobos PA-C - Last Filed: 03/09/23 11:28> General Chief complaint: Skin/Abscess/Foreign Body Stated complaint: possible infection lt elbow, diarrhea,head pain Time Seen by Provider: 02/10/23 16:25 Source: patient Mode of arrival: Ambulatory Limitations: no limitations History of Present Illness HPI narrative: Patient elected to leave against medical advice during triage. Related Data Home Medications Medication Instructions Recorded Confirmed apixaban 5 mg tablet (Eliquis) 5 mg PO BID 03/02/23 03/07/23 Previous Rx's Medication Instructions Recorded tamsulosin 0.4 mg capsule 0.4 mg PO DAILY #30 caps 04/29/22 pregabalin 100 mg capsule 100 mg PO TID #90 caps 10/23/22 duloxetine 60 mg capsule,delayed 60 mg PO DAILY #90 caps 11/02/22 release trazodone 50 mg tablet 50 - 100 mg PO BEDTIME PRN 11/02/22 insomnia #60 tabs temazepam 30 mg capsule 30 mg PO BEDTIME PRN sleep #30 caps 01/12/23 loratadine 10 mg tablet (Claritin) 10 mg PO DAILY PRN allergy 01/13/23 symptoms #30 tabs olopatadine 0.1 % eye drops 1 drp EYE-BOTH ONCE allergy eyes 01/13/23 #5 mL Disabled Parking Permit #1 ea 01/20/23 montelukast 10 mg tablet 10 mg PO DAILY allergies #90 tabs 02/09/23 (Singulair) ondansetron HCl 4 mg tablet 4 mg PO QID #120 tabs 02/10/23 azithromycin 250 mg tablet See Rx Instructions PO .COMPLEX #6 03/03/23 tabs Allergies Allergy/AdvReac Type Severity Reaction Status Date / Time amitriptyline [AMITRIPTYLINE] Allergy Unknown Verified 03/07/23 13:59 quetiapine [From SEROQUEL] Allergy Unknown Verified 03/07/23 13:59 tetracycline Allergy Blister Verified 03/07/23 13:59 Patient History <Tim Cobos PA-C - Last Filed: 03/09/23 11:28> Medical History (Updated 03/03/23 @ 10:48 by Jose Miguel Scott MD) Acute joint pain Allergic conjunctivitis Allergic rhinitis Bronchitis Chronic back pain (Unknown) Costochondritis Diverticulitis DVT of leg (deep venous thrombosis) Elevated PSA Esophageal candidiasis (Unknown) Fatigue GERD (gastroesophageal reflux disease) (Unknown) History of depression History of DVT (deep vein thrombosis) Hx of nephrolithotomy with removal of calculi Insomnia (Unknown) Kidney stones (Unknown) Lipoma of arm Lower urinary tract symptoms Obstructive sleep apnea (Unknown) Phlebitis Restless leg syndrome (Unknown) Umbilical hernia Surgical History History of carpal tunnel release History of lumbar fusion History of tonsillectomy History of ureter stent Hx of circumcision Hx of hernia repair Family History Father Cancer Migraine Kidney stones Mother Hearing impairment Inflammatory bowel disease Urinary tract infection Brother Diabetes mellitus Hyperlipidemia Migraine Kidney stones Social History marital status: Smoking Status: Never smoker alcohol intake: never caffeine: Yes Type(s) of exercise: none Smoking Status: Never smoker alcohol intake frequency: holidays/special occasions only Substance Use Type: does not use Exam <Tim Cobos PA-C - Last Filed: 03/09/23 11:28> Initial Vital Signs Initial Vital Signs: Vital Signs Pulse Rate 82 02/10/23 16:27 Respiratory Rate 18 02/10/23 16:27 Blood Pressure 142/82 H 02/10/23 16:27 Pulse Oximetry 99 02/10/23 16:27 Oxygen Delivery Method Room Air 02/10/23 16:27 <Catherine Blake DO - Last Filed: 03/09/23 19:53> Initial Vital Signs Initial Vital Signs: Vital Signs Pulse Rate 82 02/10/23 16:27 Respiratory Rate 18 02/10/23 16:27 Blood Pressure 142/82 H 02/10/23 16:27 Pulse Oximetry 99 02/10/23 16:27 Oxygen Delivery Method Room Air 02/10/23 16:27 Discharge Plan Departure Patient Disposition: Left Against Medical Advice Clinical Impression: Cellulitis Prescriptions: No Action Eliquis 5 mg tablet 5 mg PO BID pregabalin 100 mg capsule 100 mg PO TID Qty: 90 5RF temazepam 30 mg capsule 30 mg PO BEDTIME PRN (Reason: sleep) Qty: 30 1RF (DME) Disabled Parking Permit See Rx Instructions .ROUTE .MEDSUPPLY Qty: 1 0RF Rx Instructions: Patient qualifies for disabled parking as per the attached form. montelukast [Singulair] 10 mg tablet 10 mg PO DAILY Qty: 90 0RF Rx Instructions: Call for #90 scripts if helps and tolerated over a month olopatadine 0.1 % drops 1 drp EYE-BOTH ONCE Qty: 5 3RF loratadine [Claritin] 10 mg tablet 10 mg PO DAILY PRN (Reason: allergy symptoms) Qty: 30 3RF ondansetron HCl 4 mg tablet 4 mg PO QID Qty: 120 0RF azithromycin 250 mg tablet See Rx Instructions PO .COMPLEX Qty: 6 0RF Rx Instructions: For 250 mg dose pack: take 500 mg today (day 1), then 250 mg for 4 days (days 2-5) duloxetine 60 mg capsule,delayed release(DR/EC) 60 mg PO DAILY Qty: 90 3RF trazodone 50 mg tablet 50 - 100 mg PO BEDTIME PRN (Reason: insomnia) Qty: 60 5RF tamsulosin 0.4 mg capsule 0.4 mg PO DAILY Qty: 30 12RF Stand Alone Forms: Against Medical Advice <Catherine Blake DO - Last Filed: 03/09/23 19:53> Cosign ED Attending Cosignature Attestation: Patient left without being seen.
== END 2023-02-10 16:43 | disposition left against medical advice (07) ==
PROVIDERS: Emergency Provider Physician Assistant Medical; Family Provider Student in an Organized Health Care Education/Training Program; PCP Pediatrics
DX: R19.7 Diarrhea, unspecified (principal)
CPT/HCPCS: 99281

== ENCOUNTER → 2023-02-14 16:26 | Outpatient (CLI) | payer OTHER, MEDICAID, SELFPAY ==
[2023-02-14 17:47] LABS: Appearance Urine UA CLEAR; Bilirubin Urine UA NEGATIVE (NEGATIVE); Color Urine UA YELLOW; Glucose Urine UA NEGATIVE (Negative); Ketones Urine UA NEGATIVE (NEGATIVE); Leukocyte Esterase Urine UA NEGATIVE (NEGATIVE); Nitrite Urine UA NEGATIVE (Negative); Occult Blood Urine UA NEGATIVE (Negative); Protein Urine UA NEGATIVE (Negative); Urobilinogen Urine UA 0.2 E.U./dL (0.2)
[2023-02-14 17:48] LABS: Erythrocyte Sedimentation Rate 12 MM/HR (0-15)
[2023-02-14 17:49] LABS: C-Reactive Protein Quant < 0.5 mg/dL (<1.0)
[2023-02-14 18:03] LABS: INR 0.9 (0.9-1.3); Prothrombin Time 10.6 SECONDS (10.1-12.7)
[2023-02-14 18:05] LABS: D Dimer 1625 ng/ml (<500)
[2023-02-14 18:18] LABS: Bacteria Urine None Seen; Culture Indicated Urine Cult Not Indicated; RBC Urine 0-1/HPF (0-5/HPF); Squamous Epithelial Cell Urine 0-1 /HPF (0-5/HPF); TSH w/ Reflex to FT4 0.72 uIU/mL (0.47-4.68); WBC Urine 0-1/HPF (0-5/HPF)
[2023-02-17 16:51] LABS: PSA Free % 20.2 % (.); PSA, Total 4.8 ng/mL (0.0-4.0)
== END ==
PROVIDERS: Family Provider Student in an Organized Health Care Education/Training Program; PCP Pediatrics; Referring Provider Pediatrics; Visit Provider Pediatrics
DX: M25.50 Pain in unspecified joint (principal); R53.83 Other fatigue; I80.9 Phlebitis and thrombophlebitis of unspecified site; F41.1 Generalized anxiety disorder; R97.20 Elevated prostate specific antigen [PSA]; Z86.718 Personal history of other venous thrombosis and embolism; G47.00 Insomnia, unspecified; K21.9 Gastro-esophageal reflux disease without esophagitis
CPT/HCPCS: 36415; 81001; 84153; 84154; 84443; 85379; 85610; 85651; 86140

== ENCOUNTER 2023-03-02 11:58 | Emergency (ER) | payer OTHER, MEDICAID, SELFPAY ==
[2023-03-02 12:02] VITALS: BP 118/70; PULSE 70; RESP 18; TEMP 36.5; O2SAT 98; BMI 22.5
--- NOTE | 2023-03-02 12:07 | DI.RAD.S_ITS ---
PROCEDURE: XR CHEST 1V INDICATIONS: chest pain TECHNIQUE: One view of the chest was acquired. COMPARISON: [facility], CR, XR CHEST 2V, 12/21/2017, 15:31. FINDINGS: Surgical changes and devices: None. Lungs and pleura: Lungs are clear. No pleural effusions or pneumothorax. Mediastinum: Mediastinal contours appear normal. Heart size is normal. Bones and chest wall: No suspicious bony lesions. Overlying soft tissues appear unremarkable. IMPRESSION: No acute cardiopulmonary pathology. Dictated by: Wes Small M.D. on 03/02/2023 at 13:14 Approved by: Wes Small M.D. on 03/02/2023 at 13:14
[2023-03-02 12:39] LABS: Add Manual Diff / Slide Review NO; Basophils Absolute Auto 0 /uL (0-100); Basophils Percent Auto 0.3 % (0-2); Eosinophils Absolute Auto 100 /uL (0-450); Eosinophils Percent Auto 1.9 % (2-4); Hematocrit 40.7 % (41-53); Hemoglobin 13.9 g/dL (13.5-17.5); Lymphocytes Absolute Auto 1100 /uL (1100-4500); Lymphocytes Percent Auto 14.9 % (25-40); Mean Corpuscular HGB Conc 34.2 % (30-36); Mean Corpuscular Hemoglobin 30.5 PG (26-34); Mean Corpuscular Volume 89.2 fL (80-100); Monocytes Absolute Auto 500 /uL (0-900); Monocytes Percent Auto 6.7 % (3-14); Neutrophils Absolute Auto 5800 /uL (1500-7000); Neutrophils Percent Auto 76.2 % (50-75); Platelet Count 256 X10^3/uL (150-400); Red Blood Cell Count 4.56 X10^6/uL (4.5-5.9); Red Cell Distribution Width 13.8 % (11.6-14.8); White Blood Cell Count 7.6 X10^3/uL (4.5-11.0)
[2023-03-02 12:41] LABS: INR 1.1 (0.9-1.3); Prothrombin Time 12.1 SECONDS (10.1-12.7)
[2023-03-02 12:44] LABS: PTT Partial Thromboplastin Tim 33 SECONDS (26-36)
[2023-03-02 13:01] LABS: Alanine Aminotransferase 19 IU/L (<50); Albumin 4.1 g/dL (3.5-5.0); Albumin Globulin Ratio 1.4 (1.0-2.8); Alkaline Phosphatase 79 U/L (38-126); Aspartate Aminotransferase 26 IU/L (17-59); BUN Creatinine Ratio 14.6 (6-22); Bilirubin Total 0.9 mg/dL (0.2-1.3); Blood Urea Nitrogen 12 mg/dL (9-20); Calcium 9.1 mg/dL (8.4-10.2); Carbon Dioxide 25 mmol/L (22-32); Chloride 106 mmol/L (98-107); Creatine Kinase 73 U/L (55-170); Estimated Glomerular Filt Rate > 60 mL/min (>60); Glucose 87 mg/dL (70-100); HEMOLYSIS < 15 (0-50); Lipase 79 U/L (23-300); Magnesium 2.4 mg/dL (1.6-2.3); Potassium 4.2 mmol/L (3.4-5.1); Sodium 138 mmol/L (137-145); Total Protein 7.1 g/dL (6.3-8.2)
[2023-03-02 13:11] LABS: Troponin I < 0.012 ng/mL (0.01-0.034)
[2023-03-02 14:00] VITALS: BP 118/76; PULSE 63; RESP 16; O2SAT 99
[2023-03-02 14:30] VITALS: BP 125/81; PULSE 63; RESP 16; O2SAT 99
--- NOTE | 2023-03-02 14:58 | PC.NURSE ---
patient reports epigastric pain that radiates into throat. Known DVT, on blood clots.
[2023-03-02 15:00] VITALS: BP 117/76; PULSE 61; RESP 20; O2SAT 99
--- NOTE | 2023-03-02 18:53 | ED.CHESTPAIN ---
HPI - Chest Pain <Sandee Guerrero PA-C - Last Filed: 03/02/23 19:06> General Chief Complaint: Chest Pain Stated Complaint: sent by wic/blood clots/weakness Time Seen by Provider: 03/02/23 13:27 History of Present Illness HPI narrative: 57-year-old male with past medical history DVT, phlebitis, kidney stones, neurocognitive disorder, GERD, cervical radiculopathy, lumbar radiculopathy presents to the ED with weakness and throat discomfort. Patient states that he has been having diarrhea for the past several weeks, has been checked out by his doctor for it. Patient also has a longstanding history of GERD, has had throat discomfort and globus sensation in the past. Patient has been evaluated for it by his PCP Lorene Mason, who has ordered a EGD for further evaluation. Patient is waiting for the EGD which is scheduled for the 14 of March. Patient denies fever, chills, chest pain, shortness of breath, nausea, vomiting, abdominal pain, lightheadedness, dizziness, syncope. Related Data Home Medications Medication Instructions Recorded Confirmed apixaban 5 mg tablet (Eliquis) 5 mg PO BID 03/02/23 03/02/23 Previous Rx's Medication Instructions Recorded tamsulosin 0.4 mg capsule 0.4 mg PO DAILY #30 caps 04/29/22 pregabalin 100 mg capsule 100 mg PO TID #90 caps 10/23/22 duloxetine 60 mg capsule,delayed 60 mg PO DAILY #90 caps 11/02/22 release trazodone 50 mg tablet 50 - 100 mg PO BEDTIME PRN 11/02/22 insomnia #60 tabs temazepam 30 mg capsule 30 mg PO BEDTIME PRN sleep #30 caps 01/12/23 loratadine 10 mg tablet (Claritin) 10 mg PO DAILY PRN allergy 01/13/23 symptoms #30 tabs olopatadine 0.1 % eye drops 1 drp EYE-BOTH ONCE allergy eyes 01/13/23 #5 mL Disabled Parking Permit #1 ea 01/20/23 montelukast 10 mg tablet 10 mg PO DAILY allergies #90 tabs 02/09/23 (Singulair) ondansetron HCl 4 mg tablet 4 mg PO QID #120 tabs 02/10/23 Allergies Allergy/AdvReac Type Severity Reaction Status Date / Time amitriptyline [AMITRIPTYLINE] Allergy Unknown Verified 03/02/23 12:07 quetiapine [From SEROQUEL] Allergy Unknown Verified 03/02/23 12:07 tetracycline Allergy Blister Verified 03/02/23 12:07 Review of Systems <Sandee Gurerero PA-C - Last Filed: 03/02/23 19:06> Review of Systems ROS Unobtainable: All systems reviewed & are unremarkable except as noted in HPI and below Constitutional Constitutional: Denies chills, Reports fatigue, Denies fever(s), Denies frequent falls, Denies lethargy and Reports weakness Eyes Eyes: Denies change in vision, Denies eye discharge, Denies irritation and Denies loss of vision ENT Ears, Nose, Mouth, and Throat: Denies change in voice, Denies dizziness, Denies neck pain, Reports sore throat and Denies throat swelling Cardiovascular Cardiovascular: Denies chest pain, Denies irregular heart rhythm, Denies lightheadedness, Denies palpitations, Denies dyspnea, Denies dyspnea on exertion and Denies orthopnea Respiratory Respiratory: Denies cough, Denies dyspnea, Denies dyspnea on exertion and Denies wheezing Gastrointestinal Gastrointestinal: Denies abdominal pain, Denies change in bowel habits, Denies diarrhea, Denies nausea and Denies vomiting Genitourinary Genitourinary: Denies hematuria, Denies flank pain, Denies urinary incontinence and Denies urinary urgency Musculoskeletal Musculoskeletal: Denies back pain, Denies muscle weakness, Denies neck pain, Denies numbness and Denies tingling Integumentary/Breasts Skin/Breast: Denies pruritus, Denies erythema, Denies rash and Denies wounds Neurologic Neurologic: Denies behavioral changes, Denies confusion, Denies dizziness, Denies frequent falls, Denies loss of vision, Denies numbness, Denies tingling and Reports weakness Psychiatric Psychiatric: Denies anxiety, Denies behavioral changes, Denies confusion, Denies depression, Denies homicidal ideation and Denies suicidal ideation Endocrine Endocrine: Reports fatigue, Denies flushing and Denies palpitations Hematologic/Lymphatic Hematologic/Lymphatic: Denies easy bruising Allergic/Immunologic Allergic/Immunologic: Denies urticaria, Denies throat swelling and Denies wheezing Patient History <Sandee Guerrero PA-C - Last Filed: 03/02/23 19:06> Medical History Acute joint pain Allergic conjunctivitis Allergic rhinitis Chronic back pain (Unknown) Diverticulitis DVT of leg (deep venous thrombosis) Elevated PSA Esophageal candidiasis (Unknown) Fatigue GERD (gastroesophageal reflux disease) (Unknown) History of depression History of DVT (deep vein thrombosis) Hx of nephrolithotomy with removal of calculi Insomnia (Unknown) Kidney stones (Unknown) Lipoma of arm Lower urinary tract symptoms Obstructive sleep apnea (Unknown) Phlebitis Restless leg syndrome (Unknown) Umbilical hernia Surgical History History of carpal tunnel release History of lumbar fusion History of tonsillectomy History of ureter stent Hx of circumcision Hx of hernia repair Family History Father Cancer Migraine Kidney stones Mother Hearing impairment Inflammatory bowel disease Urinary tract infection Brother Diabetes mellitus Hyperlipidemia Migraine Kidney stones Social History marital status: Smoking Status: Never smoker alcohol intake: never caffeine: Yes Type(s) of exercise: none Smoking Status: Never smoker alcohol intake frequency: holidays/special occasions only Substance Use Type: does not use Exam <Sandee Guerrero PA-C - Last Filed: 03/02/23 19:06> Narrative Exam Narrative: Const General:?cooperative, healthy appearing and comfortable [facility] Head:?normal to inspection Ears:?hearing grossly normal bilaterally Nose:?external nose normal Face and sinus:?normal facial exam and sinuses nontender Mouth:?oral mucosae normal Throat:?posterior oropharynx normal Eyes General:?appearance normal, both eyes and all related structures Neck Neck:?normal visual inspection and no lymphadenopathy noted Resp Effort & Inspection:?normal respiratory effort Auscultation:?clear to auscultation bilaterally Cardio Rate:?regular rate Rhythm:?regular rhythm GI Abdomen is soft, nondistended, nontender to palpation. Neuro General:?patient alert, patient awake and patient oriented x3 Initial Vital Signs Initial Vital Signs: Vital Signs Temperature 97.7 F 03/02/23 12:02 Pulse Rate 70 03/02/23 12:02 Respiratory Rate 18 03/02/23 12:02 Blood Pressure 118/70 07/12/23 12:02 Pulse Oximetry 98 03/02/23 12:02 Oxygen Delivery Method Room Air 03/02/23 12:02 <DO Graciela Pimentel Last Filed: 03/02/23 19:14> Initial Vital Signs Initial Vital Signs: Vital Signs Temperature 97.7 F 03/02/23 12:02 Pulse Rate 70 03/02/23 12:02 Respiratory Rate 18 03/02/23 12:02 Blood Pressure 118/70 03/02/23 12:02 Pulse Oximetry 98 03/02/23 12:02 Oxygen Delivery Method Room Air 03/02/23 12:02 Course <Sandee Guerrero PA-C - Last Filed: 03/02/23 19:06> Orders Ordered: ED Orders 03/02/23 12:07 XR chest 1V Stat 03/02/23 12:10 Complete Blood Count AUTO DIFF Stat Comprehensive Metabolic Panel Stat Lipase Stat Magnesium Stat PTT Partial Thromboplastin Balaji Stat Prothrombin Time INR Stat Troponin & CK Cardiac Panel Stat 03/02/23 12:14 EKG-12 Lead Stat Vital Signs Vital signs: Vital Signs - 8 hr 03/02/23 12:02 03/02/23 14:00 03/02/23 14:30 Temperature 97.7 F Pulse Rate 70 63 63 Respiratory Rate 18 16 16 Blood Pressure 118/70 118/76 125/81 Pulse Oximetry 98 99 99 Oxygen Delivery Method Room Air 03/02/23 15:00 Temperature Pulse Rate 61 Respiratory Rate 20 Blood Pressure 117/76 Pulse Oximetry 99 Oxygen Delivery Method Room Air <DO Graciela Pimentel Last Filed: 03/02/23 19:14> Orders Ordered: ED Orders 03/02/23 12:07 XR chest 1V Stat 03/02/23 12:10 Complete Blood Count AUTO DIFF Stat Comprehensive Metabolic Panel Stat Lipase Stat Magnesium Stat PTT Partial Thromboplastin Balaji Stat Prothrombin Time INR Stat Troponin & CK Cardiac Panel Stat 03/02/23 12:14 EKG-12 Lead Stat Vital Signs Vital signs: Vital Signs - 8 hr 03/02/23 12:02 03/02/23 14:00 03/02/23 14:30 Temperature 97.7 F Pulse Rate 70 63 63 Respiratory Rate 18 16 16 Blood Pressure 118/70 118/76 125/81 Pulse Oximetry 98 99 99 Oxygen Delivery Method Room Air 03/02/23 15:00 Temperature Pulse Rate 61 Respiratory Rate 20 Blood Pressure 117/76 Pulse Oximetry 99 Oxygen Delivery Method Room Air MDM - Chest Pain <Sandee Guerrero PA-C - Last Filed: 03/02/23 19:06> Lab Data 03/02/23 12:10 03/02/23 12:10 Labs: Lab Results 03/02/23 03/02/23 03/02/23 Range/Units 12:10 12:10 12:10 WBC 7.6 (4.5-11.0) X10^3/uL RBC 4.56 (4.5-5.9) X10^6/uL Hgb 13.9 (13.5-17.5) g/dL Hct 40.7 L (41-53) % MCV 89.2 (80-100) fL MCH 30.5 (26-34) PG MCHC 34.2 (30-36) % RDW 13.8 (11.6-14.8) % Plt Count 256 (150-400) X10^3/uL Neut % (Auto) 76.2 H (50-75) % Lymph % (Auto) 14.9 L (25-40) % [place] % (Auto) 6.7 (3-14) % Eos % (Auto) 1.9 L (2-4) % Baso % (Auto) 0.3 (0-2) % Neut # (Auto) 5800 (3981-8206) /uL Lymph # (Auto) 1100 (4679-0373) /uL [place] # (Auto) 500 (0-900) /uL Eos # (Auto) 100 (0-450) /uL Baso # (Auto) 0 (0-100) /uL PT 12.1 (10.1-12.7) SECONDS INR 1.1 (0.9-1.3) APTT 33 (26-36) SECONDS Sodium 138 (137-145) mmol/L Potassium 4.2 (3.4-5.1) mmol/L Chloride 106 (98-107) mmol/L Carbon Dioxide 25 (22-32) mmol/L BUN 12 (9-20) mg/dL Creatinine 0.82 (0.66-1.25) mg/dL Estimated GFR > 60 (>60) mL/min BUN/Creatinine Ratio 14.6 (6-22) Glucose 87 (70-100) mg/dL Calcium 9.1 (8.4-10.2) mg/dL Magnesium 2.4 H (1.6-2.3) mg/dL Total Bilirubin 0.9 (0.2-1.3) mg/dL AST 26 (17-59) IU/L ALT 19 (<50) IU/L Alkaline Phosphatase 79 (38-126) U/L Total Creatine Kinase 73 (55-170) U/L Troponin I < 0.012 (0.01-0.034) ng/mL Total Protein 7.1 (6.3-8.2) g/dL Albumin 4.1 (3.5-5.0) g/dL Globulin 3.0 (1.7-4.1) g/dL Albumin/Globulin Ratio 1.4 (1.0-2.8) Lipase 79 (23-300) U/L MDM Narrative Medical decision making narrative: 57-year-old male with past medical history DVT, phlebitis, kidney stones, neurocognitive disorder, GERD, cervical radiculopathy, lumbar radiculopathy presents to the ED with weakness and throat discomfort. Concern for dehydration versus pharyngitis versus globus sensation due to GERD versus electrolyte derangements versus other. Obtained labs, EKG, chest x-ray, KUB x-ray, UA. Workup largely unremarkable. EKG is normal sinus rhythm with no acute ST-T changes. Chest x-ray without acute findings. Labs were within normal limits. UA without UTI. KUB x-ray with no nephrolithiasis. Patient's weakness likely due to prolonged diarrhea and dehydration. Recommend good hydration, possible supplementation with electrolytes. Throat discomfort likely due to globus sensation from GERD or other etiology. Recommend follow-up with the GI specialist for the EGD as scheduled. ED return precautions were discussed with patient. Patient verbalized understanding. Medical records reviewed: Yes <Catherine Blake, - Last Filed: 03/02/23 19:14> Lab Data Labs: Lab Results 03/02/23 03/02/23 03/02/23 Range/Units 12:10 12:10 12:10 WBC 7.6 (4.5-11.0) X10^3/uL RBC 4.56 (4.5-5.9) X10^6/uL Hgb 13.9 (13.5-17.5) g/dL Hct 40.7 L (41-53) % MCV 89.2 (80-100) fL MCH 30.5 (26-34) PG MCHC 34.2 (30-36) % RDW 13.8 (11.6-14.8) % Plt Count 256 (150-400) X10^3/uL Neut % (Auto) 76.2 H (50-75) % Lymph % (Auto) 14.9 L (25-40) % [place] % (Auto) 6.7 (3-14) % Eos % (Auto) 1.9 L (2-4) % Baso % (Auto) 0.3 (0-2) % Neut # (Auto) 5800 (9896-3344) /uL Lymph # (Auto) 1100 (4378-3478) /uL [place] # (Auto) 500 (0-900) /uL Eos # (Auto) 100 (0-450) /uL Baso # (Auto) 0 (0-100) /uL PT 12.1 (10.1-12.7) SECONDS INR 1.1 (0.9-1.3) APTT 33 (26-36) SECONDS Sodium 138 (137-145) mmol/L Potassium 4.2 (3.4-5.1) mmol/L Chloride 106 (98-107) mmol/L Carbon Dioxide 25 (22-32) mmol/L BUN 12 (9-20) mg/dL Creatinine 0.82 (0.66-1.25) mg/dL Estimated GFR > 60 (>60) mL/min BUN/Creatinine Ratio 14.6 (6-22) Glucose 87 (70-100) mg/dL Calcium 9.1 (8.4-10.2) mg/dL Magnesium 2.4 H (1.6-2.3) mg/dL Total Bilirubin 0.9 (0.2-1.3) mg/dL AST 26 (17-59) IU/L ALT 19 (<50) IU/L Alkaline Phosphatase 79 (38-126) U/L Total Creatine Kinase 73 (55-170) U/L Troponin I < 0.012 (0.01-0.034) ng/mL Total Protein 7.1 (6.3-8.2) g/dL Albumin 4.1 (3.5-5.0) g/dL Globulin 3.0 (1.7-4.1) g/dL Albumin/Globulin Ratio 1.4 (1.0-2.8) Lipase 79 (23-300) U/L Discharge Plan Departure Patient Disposition: Home Clinical Impression: Weakness, Globus sensation Instructions: DI for Dehydration -- Adult, DI for Gastroesophageal Reflux Disease (GERD) Activity Restrictions/Additional Instructions: You were evaluated in the ED today for throat discomfort, weakness. It appears that you have several days of diarrhea for which you have already been evaluated by your doctor. Your weakness is most likely related to dehydration from the diarrhea. Please continue to drink lots of water and supplement with Gatorade. It appears that the throat discomfort that you are experiencing has also been evaluated by your PCP, an endoscopy has been ordered. The endoscopy will be done by your microelectronics assembler. The throat discomfort can also sometimes be caused by acid reflux or GERD which you have been diagnosed with as well. Please follow-up with your PCP and GI specialist as soon as possible. The ED if you experience chest pain, shortness of breath. Prescriptions: No Action Eliquis 5 mg tablet 5 mg PO BID pregabalin 100 mg capsule 100 mg PO TID Qty: 90 5RF temazepam 30 mg capsule 30 mg PO BEDTIME PRN (Reason: sleep) Qty: 30 1RF (DME) Disabled Parking Permit See Rx Instructions .ROUTE .MEDSUPPLY Qty: 1 0RF Rx Instructions: Patient qualifies for disabled parking as per the attached form. montelukast [Singulair] 10 mg tablet 10 mg PO DAILY Qty: 90 0RF Rx Instructions: Call for #90 scripts if helps and tolerated over a month olopatadine 0.1 % drops 1 drp EYE-BOTH ONCE Qty: 5 3RF loratadine [Claritin] 10 mg tablet 10 mg PO DAILY PRN (Reason: allergy symptoms) Qty: 30 3RF ondansetron HCl 4 mg tablet 4 mg PO QID Qty: 120 0RF duloxetine 60 mg capsule,delayed release(DR/EC) 60 mg PO DAILY Qty: 90 3RF trazodone 50 mg tablet 50 - 100 mg PO BEDTIME PRN (Reason: insomnia) Qty: 60 5RF tamsulosin 0.4 mg capsule 0.4 mg PO DAILY Qty: 30 12RF Referrals: Jose Miguel Scott MD [Primary Care Provider] - Stand Alone Forms: Patient Portal/API <Catherine Blake DO - Last Filed: 03/02/23 19:14> Cosign ED Attending Anthony Attestation: I was immediately available in the department for consultation. Documentation has been reviewed.
== END 2023-03-02 15:21 | disposition home or self-care (01) ==
PROVIDERS: Emergency Medicine; Emergency Provider Student in an Organized Health Care Education/Training Program; Family Provider Student in an Organized Health Care Education/Training Program; PCP Pediatrics
DX: R53.1 Weakness (principal); R09.89 Other specified symptoms and signs involving the circulatory and respiratory systems; R19.7 Diarrhea, unspecified; N20.0 Calculus of kidney; Z98.1 Arthrodesis status
CPT/HCPCS: 36415; 71045; 74018; 80053; 82550; 83690; 83735; 84484; 85025; 85610; 85730; 93005; 99283

== ENCOUNTER → 2023-03-02 12:44 | Outpatient (CLI) | payer OTHER, MEDICAID, SELFPAY ==
--- NOTE | 2023-03-02 12:47 | DI.RAD.S_ITS ---
PROCEDURE: XR KUB INDICATIONS: History of kidney stones TECHNIQUE: One view of the abdomen acquired. COMPARISON: [facility], CR, XR KUB, 09/01/2022, 16:43. [facility], CR, XR KUB, 04/22/2022, 15:02. FINDINGS: Surgical changes and devices: Patient is status post L4 through S1 posterior spinal fusion. Bowel: Bowel gas pattern is normal. Soft tissues: No suspicious abdominal calcifications. Visualized solid organ contours appear normal in size. Bones: No suspicious bony lesions. IMPRESSION: No definite renal calcifications are seen. No bowel obstruction. Dictated by: Shon Parra M.D. on 03/02/2023 at 16:30 Approved by: Shon Parra M.D. on 03/02/2023 at 16:31
== END ==
PROVIDERS: Family Provider Student in an Organized Health Care Education/Training Program; PCP Pediatrics; Referring Provider Urology; Visit Provider Urology
DX: N20.0 Calculus of kidney (principal); Z98.1 Arthrodesis status
CPT/HCPCS: 74018

== ENCOUNTER 2023-04-19 11:44 | Day surgery (SDC) | payer OTHER, MEDICAID, SELFPAY ==
--- NOTE | 2023-04-19 | PATH_ITS ---
[facility] Accession Number: [id number] No. of containers..02 Tissue . 01 Material submitted: . PART A: gastrointestinal site - GASTRIC BIOPSY PART B: esophagus - ESOPHAGEAL BIOPSY . 01 Diagnosis: A. Stomach, Biopsy: Gastric body mucosa with mild features of reactive gastropathy. Negative for Helicobacter organisms by immunohistochemistry. Negative for intestinal metaplasia. Negative for dysplasia or malignancy. . B. Esophagus, Biopsy: Squamous epithelium with increased intraepithelial eosinophils (up to 20 eosinophils per high-power field). Please see comment. Negative for dysplasia and malignancy. [facility] 04/28/2023 1627 Local . 01 Comment: B. In the proper clinical setting, the histopathologic appearance would support a clinical impression of eosinophilic esophagitis. The differential diagnosis includes drug reaction, gastroesophageal reflux, and food allergies. . . 01 Electronically signed: . Corby Henry MD, PhD, Pathologist NPI- [id number] . 01 Gross description: . Part A: GASTRIC BIOPSY: Received in formalin is 1 fragment(s) of mcallister, soft tissue measuring 0.2 x 0.2 x 0.1 cm submitted entirely in 1 cassette(s) Part B: ESOPHAGEAL BIOPSY: Received in formalin are 2 fragment(s) of mcallister, soft tissue measuring 0.2 x 0.2 x 0.2 cm to 0.4 x 0.3 x 0.2 cm submitted entirely in 1 cassette(s) /LINDA 04/21/2023 0036 Local . 01 Microscopic: . A. An immunohistochemical stain is performed to evaluate for Helicobacter organisms, and is negative. A control stain shows appropriate reactivity. . B. An AB/PAS stain is performed to evaluate for fungal organisms and is negative. A control stain shows appropriate reactivity. . * This test was developed and its performance characteristics determined by [facility]. It has not been cleared or approved by the U.S. Food and Drug Administration. The FDA has determined that such clearance or approval is not necessary. This test is used for clinical purposes. It should not be regarded as investigational or for research. . 01 Pathologist provided ICD-10: K29.60, K20.0 . 01 CPT . 705654, 920093, F54628, 782183 Specimen Comment: A courtesy copy of this report has been sent to [phone] Performed at: 01 [facility] [address] [place] [address] [id number] MD Anthony Hammond MD Phone: [phone]
[2023-04-19 12:10] VITALS: BP 130/92; PULSE 82; RESP 20; TEMP 36.9; O2SAT 100; BMI 23.0
[2023-04-19] MEDS: LACTATED RINGERS 1,000 ML 42 ML IV (12:28)
--- NOTE | 2023-04-19 12:50 | P.HP_ITS ---
History of Present Illness History of Present Illness Date Patient Seen: 04/19/23 Time Patient Seen: 12:50 Chief complaint: EGD/Colonoscopy Narrative: 57-year-old man with difficulty swallowing and chronic diarrhea here for diagnostic EGD and colonoscopy. Please refer to the H and P from January 2023 for further detail. [facility] Medical History Acute joint pain Allergic conjunctivitis Allergic rhinitis Bronchitis Chronic back pain (Unknown) Costochondritis Diverticulitis DVT of leg (deep venous thrombosis) Elevated PSA Esophageal candidiasis (Unknown) Fatigue GERD (gastroesophageal reflux disease) (Unknown) History of depression History of DVT (deep vein thrombosis) Hx of nephrolithotomy with removal of calculi Insomnia (Unknown) Kidney stones (Unknown) Lipoma of arm Lower urinary tract symptoms Obstructive sleep apnea (Unknown) Phlebitis Restless leg syndrome (Unknown) Umbilical hernia Surgical History History of carpal tunnel release History of lumbar fusion History of tonsillectomy History of ureter stent Hx of circumcision Hx of hernia repair Family History Father Cancer Migraine Kidney stones Mother Hearing impairment Inflammatory bowel disease Urinary tract infection Brother Diabetes mellitus Hyperlipidemia Migraine Kidney stones Social History marital status: household members: none lives independently: Yes occupational status: other Smoking Status: Never smoker alcohol intake: former substance use type: does not use caffeine: Yes Type(s) of exercise: none Meds Home Medications and Allergies Home Medications Medication Instructions Recorded Confirmed Type tamsulosin 0.4 mg capsule 0.4 mg PO DAILY #30 caps 04/29/22 04/19/23 Rx trazodone 50 mg tablet 50 - 100 mg PO BEDTIME PRN 11/02/22 04/19/23 Rx insomnia #60 tabs loratadine 10 mg tablet (Claritin) 10 mg PO DAILY PRN allergy 01/13/23 04/19/23 Rx symptoms #30 tabs olopatadine 0.1 % eye drops 1 drp EYE-BOTH ONCE allergy eyes 01/13/23 04/19/23 Rx #5 mL Disabled Parking Permit #1 ea 01/20/23 03/11/23 Rx montelukast 10 mg tablet 10 mg PO DAILY allergies #90 tabs 02/09/23 04/19/23 Rx (Singulair) ondansetron HCl 4 mg tablet 4 mg PO QID #120 tabs 02/10/23 04/19/23 Rx apixaban 5 mg tablet (Eliquis) 5 mg PO BID #180 tabs 03/16/23 04/19/23 Rx duloxetine 60 mg capsule,delayed 60 mg PO DAILY #90 caps 03/18/23 04/19/23 Rx release pregabalin 100 mg capsule 100 mg PO TID #90 caps 03/18/23 04/19/23 Rx temazepam 30 mg capsule 30 mg PO BEDTIME PRN sleep #30 caps 04/14/23 04/19/23 Rx Allergies Allergy/AdvReac Type Severity Reaction Status Date / Time amitriptyline [AMITRIPTYLINE] Allergy Unknown Verified 04/19/23 12:03 quetiapine [From SEROQUEL] Allergy Unknown Verified 04/19/23 12:03 tetracycline Allergy Blister Verified 04/19/23 12:03 Exam Vital Signs (past 8 hours): - 04/19/23 12:10 Temperature 98.4 F Pulse Rate 82 Respiratory Rate 20 Blood Pressure 130/92 H Pulse Oximetry 100 Oxygen Delivery Method Room Air Oxygen Delivery Method Room Air Narrative Exam Narrative: General adult man alert oriented no acute distress Abdomen soft nontender nondistended Assessment & Plan Assessment and plan (1) Globus sensation: Status: Acute Assessment & Plan narrative: 57-year-old male with chronic diarrhea, globus sensation and esophageal dysphagia here for diagnostic EGD and colonoscopy. Overview of the procedure was discussed. Procedural risks including hemorrhage, missed diagnosis, intestinal injury discussed. Questions have been answered he is in agreement with this plan.
[2023-04-19 13:18] VITALS: BP 103/58; PULSE 71; RESP 22; TEMP 36.1; O2SAT 91
[2023-04-19 13:23] VITALS: BP 111/65; PULSE 72; RESP 18; O2SAT 92
--- NOTE | 2023-04-19 13:25 | PM.OP.EC ---
Operative Date/Time/Diagnoses Date of procedure: 04/19/23 Time of procedure: 13:25 Pre-op diagnosis: Esophageal dysphagia globus sensation diarrhea Post-op diagnosis: other (Mass pre epiglottic space, Gastritis) Procedure & Clinicians Study performed: Diagnostic esophagoduodenoscopy and colonoscopy Same procedure as scheduled: Yes Indications: 57-year-old man with globus sensation and esophageal dysphagia with a history of recent unprovoked DVT who is here for diagnostic esophagoduodenoscopy and colonoscopy Surgeon: Junior Pina Procedure Notes Procedure in detail: The history and physical was performed/updated and the patient is ASA class is 2. The procedure was discussed in detail with the patient. Potential risks complications including infection, bleeding, missed diagnosis, perforation, need for surgery, and were explained. Their questions were answered and informed consent was obtained. Patient placed in left lateral decubitus position. Time out was performed. Procedural sedation was administered by Anesthesia. A bite block was placed. the scope was inserted into the mouth and advanced through the esophagus and into the stomach. The stomach was notable for gastritis within the gastric body no distinct ulcer. Biopsies of the gastritis were performed with forceps.. The pylorus was intubated and the duodenum was normal to the 2nd portion. The scope was withdrawn into the esophagus the Z line was seen at 40 cm from the incisions. There was no Shaw's esophagitis, esophageal masses or strictures. Random esophageal biopsies were performed. The scope was slowly withdrawn and an approximately 1 cm mass was identified directly adjacent to the epiglottis. It does not appear to be emanating from the epiglottis but rather is distinct. No biopsy was performed at this time as this should be done within endotracheal tube in place and preferably by ENT. Examination began with a thorough inspection of the perianal area there was no evidence of fissures, fistulae, external hemorrhoids or cutaneous malignancy. The colonoscopy scope was then placed into the anal canal and was advanced to the cecum, which was identified by the ileocecal valve, the appendiceal orifice and the confluence of the taenia. The scope was then slowly withdrawn examining colon thoroughly in all directions, irrigating it of any residual stool. Normal colonoscopy. No masses or polyps The patient tolerated the procedure well. They will be discharged once criteria are met. The prep was of good/excellent quality. The withdrawl time was 6 minutes. Findings: gastritis and other findings (para epigglotic mass) Specimen(s): other (Gastric, esophageal biopsy) Impression: Pharyngeal mass Post-procedure Plan for aftercare: Urgent referral to ENT. Start omeprazole 20 mg daily Disposition: same day surgery
[2023-04-19 13:29] VITALS: BP 100/77; PULSE 66; RESP 22; O2SAT 91
[2023-04-19 13:33] VITALS: BP 124/81; PULSE 73; RESP 22; O2SAT 96
[2023-04-19] MEDS: ALBUTEROL/IPRATROPIUM 3 ML AMPUL INH (13:33)
[2023-04-19 13:45] VITALS: BP 111/82; PULSE 73; RESP 18; TEMP 36.6; O2SAT 95
== END 2023-04-19 14:50 | disposition home or self-care (01) ==
PROVIDERS: Family Provider Pediatrics; PCP Pediatrics; Referring Provider Surgery; Visit Provider Surgery
PROC: 0DJ08ZZ Inspection of Upper Intestinal Tract, Via Natural or Artificial Opening Endoscopic (ICD-10-PCS; CPT 43235; principal; 2023-04-19 12:45)
PROC: 0DJD8ZZ Inspection of Lower Intestinal Tract, Via Natural or Artificial Opening Endoscopic (ICD-10-PCS; CPT 45378; 2023-04-19 12:45)
DX: R19.7 Diarrhea, unspecified (principal); R13.10 Dysphagia, unspecified; K29.70 Gastritis, unspecified, without bleeding; K22.89 Other specified disease of esophagus; K31.9 Disease of stomach and duodenum, unspecified
CPT/HCPCS: 45378; 43239; J1100; J2405; J2704

== ENCOUNTER 2023-04-22 11:41 | Emergency (ER) | payer OTHER, MEDICAID, SELFPAY ==
[2023-04-22 11:45] VITALS: BP 123/81; PULSE 74; RESP 14; TEMP 36.5; O2SAT 97; BMI 22.7
--- NOTE | 2023-04-22 12:32 | DI.CT.S_ITS ---
PROCEDURE: CT SOFT TISSUE NECK W CON INDICATIONS: fullness in throat, recent EGD, sent by PCP for CT TECHNIQUE: After the administration of intravenous contrast, 3.0 mm axial sections acquired from the sella to the aortic arch. Additional oblique axial 3.0 mm sections acquired through the pharynx. 3 mm thick coronal and sagittal reformats were generated. For radiation dose reduction, the following was used: automated exposure control. COMPARISON: Merged With [facility], CT, CT ANGIO CHEST PE, 06/13/2018, 20:05. FINDINGS: Image quality: Excellent. Lymph nodes: No enlarged lymph nodes seen throughout the neck. Vessels: Visualized vasculature appears patent. Neck spaces: There is asymmetric appearance of the left piriform sinus, without left sided aeration. Right side is pneumatized. Glands: The parotid and submandibular glands appear normal. Thyroid gland is unremarkable. Miscellaneous: Visualized brain and orbits appear normal. Lung apices demonstrate patchy areas opacity in the left upper lobe. Superficial soft tissues appear normal. Bones: No suspicious bony lesions. Visualized sinuses and mastoids appear unremarkable. IMPRESSION: Asymmetric appearance of the piriform sinuses. Mass cannot be excluded. Direct visualization with ENT. Patchy left upper lobe opacity. Recommend interval followup to document resolution. Dictated by: Elizabeth Villareal M.D. on 04/22/2023 at 14:43 Approved by: Elizabeth Villareal M.D. on 04/22/2023 at 15:04
[2023-04-22 13:32] LABS: Add Manual Diff / Slide Review NO; Basophils Absolute Auto 0 /uL (0-100); Basophils Percent Auto 0.4 % (0-2); Eosinophils Absolute Auto 100 /uL (0-450); Eosinophils Percent Auto 1.7 % (2-4); Hematocrit 39.8 % (41-53); Hemoglobin 13.7 g/dL (13.5-17.5); Lymphocytes Absolute Auto 1500 /uL (1100-4500); Lymphocytes Percent Auto 20.9 % (25-40); Mean Corpuscular HGB Conc 34.4 % (30-36); Mean Corpuscular Hemoglobin 30.6 PG (26-34); Monocytes Absolute Auto 500 /uL (0-900); Monocytes Percent Auto 6.7 % (3-14); Neutrophils Absolute Auto 4900 /uL (1500-7000); Neutrophils Percent Auto 70.3 % (50-75); Platelet Count 231 X10^3/uL (150-400); Red Blood Cell Count 4.47 X10^6/uL (4.5-5.9); Red Cell Distribution Width 14.2 % (11.6-14.8); White Blood Cell Count 6.9 X10^3/uL (4.5-11.0)
[2023-04-22] MEDS: SODIUM CHLORIDE 0.9% 1,000 ML 1000 ML IV (13:41)
[2023-04-22 13:51] LABS: BUN Creatinine Ratio 13.1 (6-22); Blood Urea Nitrogen 11 mg/dL (9-20); Calcium 9.2 mg/dL (8.4-10.2); Carbon Dioxide 28 mmol/L (22-32); Chloride 103 mmol/L (98-107); Estimated Glomerular Filt Rate > 60 mL/min (>60); Glucose 77 mg/dL (70-100); HEMOLYSIS < 15 (0-50); Potassium 3.7 mmol/L (3.4-5.1); Sodium 137 mmol/L (137-145)
--- NOTE | 2023-04-22 14:35 | PC.NURSE ---
Addendum entered by Ti Holden R.N. 04/22/23 14:47: continued: Patient uses call light @ 1435 stating he has left sided chest pain. EKG was called immediately and I was in the assess patient. Patient describes 8/10 sharp and dull left sided chest pain which radiates under his left arm. Patient does not appear diaphoretic. Auscultated heart sounds and lung sounds but patient jerking away from my stethoscope on his chest. I asked patient if the weight of my stethoscope was causing pain, patient responded yes. Even on right side of chest patient had pain. He has a history of left sided arm blood clots and is taking eliquis for this. Provider was made aware of patients condition and EKG. No further orders at this time. Original Note: Patient
--- NOTE | 2023-04-22 15:02 | ED.RECABL ---
HPI - Recheck/Abnormal Lab/Rx General Chief Complaint: Recheck/Abnormal Lab/Rx Stated Complaint: dr ref/poss cancer in throat or infection Time Seen by Provider: 04/22/23 12:26 Mode of arrival: Ambulatory History of Present Illness HPI narrative: 57M nonsmoker with history of GERD, chronic cough, generalized anxiety disorder, cervical and lumbar radiculopathies and a recently diagnosed mass adjacent to his epiglottis. He had been having trouble with a fullness sensation in his throat, generalized weakness and even had been diagnosed with a DVT and is on anticoagulation. He recently had an EGD and colonoscopy and EGD demonstrates a 1 cm mass adjacent to his epiglottis. He has an upcoming appointment with ENT to discuss further options including possible procedure for tissue diagnosis. Patient is here because there was some discussion about whether this mass may be infectious versus a mass in his primary care provider was hoping to acquire a CT scan with IV contrast of the soft tissue and had been unsuccessful as an outpatient and feared extensive delay given the holiday weekend. The patient has a fullness but no inability to eat or drink. No fever or chills. No shortness of breath or cough. Related Data Previous Rx's Medication Instructions Recorded tamsulosin 0.4 mg capsule 0.4 mg PO DAILY #30 caps 04/29/22 trazodone 50 mg tablet 50 - 100 mg PO BEDTIME PRN 11/02/22 insomnia #60 tabs loratadine 10 mg tablet (Claritin) 10 mg PO DAILY PRN allergy 01/13/23 symptoms #30 tabs olopatadine 0.1 % eye drops 1 drp EYE-BOTH ONCE allergy eyes 01/13/23 #5 mL Disabled Parking Permit #1 ea 01/20/23 montelukast 10 mg tablet 10 mg PO DAILY allergies #90 tabs 02/09/23 (Singulair) ondansetron HCl 4 mg tablet 4 mg PO QID #120 tabs 02/10/23 apixaban 5 mg tablet (Eliquis) 5 mg PO BID #180 tabs 03/16/23 duloxetine 60 mg capsule,delayed 60 mg PO DAILY #90 caps 03/18/23 release pregabalin 100 mg capsule 100 mg PO TID #90 caps 03/18/23 temazepam 30 mg capsule 30 mg PO BEDTIME PRN sleep #30 caps 04/14/23 omeprazole 20 mg capsule,delayed 20 mg PO DAILY #30 caps 04/19/23 release Allergies Allergy/AdvReac Type Severity Reaction Status Date / Time amitriptyline [AMITRIPTYLINE] Allergy Unknown Verified 04/22/23 11:45 quetiapine [From SEROQUEL] Allergy Unknown Verified 04/22/23 11:45 tetracycline Allergy Blister Verified 04/22/23 11:45 Review of Systems Review of Systems Narrative: GENERAL: Denies chills, fatigue, malaise, fever, sweats. HEENT: See HPI RESPIRATORY: Denies dyspnea, cough, wheezing, hemoptysis, sputum. CARDIOVASCULAR: Denies chest pain, palpitations, orthopnea, edema, GASTROINTESTINAL: See HPI : Denies dysuria, frequency, incontinence, hematuria, urinary retention. MUSCULOSKELETAL: denies weakness, joint pain, or bony pain SKIN: Denies rash, skin lesions, or other NEUROLOGIC: Denies weakness, headache, numbness, change in speech, confusion, seizures, incoordination. PSYCHIATRIC: No concerning psychosocial issues. 12 point review of systems is negative except for those stated above Patient History Medical History Acute joint pain Allergic conjunctivitis Allergic rhinitis Bronchitis Chronic back pain (Unknown) Costochondritis Diverticulitis DVT of leg (deep venous thrombosis) Elevated PSA Esophageal candidiasis (Unknown) Fatigue GERD (gastroesophageal reflux disease) (Unknown) History of depression History of DVT (deep vein thrombosis) Hx of nephrolithotomy with removal of calculi Insomnia (Unknown) Kidney stones (Unknown) Lipoma of arm Lower urinary tract symptoms Neck mass Obstructive sleep apnea (Unknown) Phlebitis Restless leg syndrome (Unknown) Umbilical hernia Surgical History History of carpal tunnel release History of lumbar fusion History of tonsillectomy History of ureter stent Hx of circumcision Hx of hernia repair Family History Father Cancer Migraine Kidney stones Mother Hearing impairment Inflammatory bowel disease Urinary tract infection Brother Diabetes mellitus Hyperlipidemia Migraine Kidney stones Social History marital status: household members: none lives independently: Yes occupational status: other Smoking Status: Never smoker alcohol intake: former substance use type: does not use caffeine: Yes Type(s) of exercise: none Smoking Status: Never smoker alcohol intake frequency: holidays/special occasions only Substance Use Type: does not use Exam Narrative Exam Narrative: GENERAL: 57 year old patient appears stated age. Well-developed patient, in mild distress. HEAD: Atraumatic. Normocephalic. EYES: Pupils equal round and reactive. Extraocular motions intact. No scleral icterus. No injection or drainage. ENT: Nose without bleeding, purulent drainage. Throat without erythema, tonsillar hypertrophy or exudate. Airway patent. NECK: Trachea midline. Non tender CARDIOVASCULAR: Regular rate and rhythm without murmurs, gallops, or rubs. RESPIRATORY: Clear to auscultation. Breath sounds equal bilaterally. No wheezes, rales, or rhonchi. GASTROINTESTINAL: Abdomen soft, non-tender, nondistended. EXTREMITIES: No edema or joint tenderness. BACK: Nontender without deformity or crepitance. No flank tenderness. NEURO: AOx3. SKIN: No rash or erythema of visible areas Initial Vital Signs Initial Vital Signs: Vital Signs Temperature 97.7 F 04/22/23 11:45 Pulse Rate 74 04/22/23 11:45 Respiratory Rate 14 04/22/23 11:45 Blood Pressure 123/81 04/22/23 11:45 Pulse Oximetry 97 04/22/23 11:45 Oxygen Delivery Method Room Air 04/22/23 11:45 Course Orders Ordered: Discontinued Medications Sodium Chloride (Normal Saline 0.9%) 1,000 mls @ 1,000 mls/hr IV BOLUS ONE Stop: 04/22/23 13:31 Last Infusion: 04/22/23 14:52 Dose: 0 mls/hr Documented By: JOSE G Admin: 04/22/23 13:41 Dose: 1,000 mls/hr Documented By: [employer] Vital Signs Vital signs: Vital Signs - 8 hr 04/22/23 11:45 Temperature 97.7 F Pulse Rate 74 Respiratory Rate 14 Blood Pressure 123/81 Pulse Oximetry 97 Oxygen Delivery Method Room Air MDM - Recheck/Abnormal Lab/Rx Lab Data 04/22/23 13:25 04/22/23 13:25 Labs: Lab Results 04/22/23 04/22/23 Range/Units 13:25 13:25 WBC 6.9 (4.5-11.0) X10^3/uL RBC 4.47 L (4.5-5.9) X10^6/uL Hgb 13.7 (13.5-17.5) g/dL Hct 39.8 L (41-53) % MCV 89.0 (80-100) fL MCH 30.6 (26-34) PG MCHC 34.4 (30-36) % RDW 14.2 (11.6-14.8) % Plt Count 231 (150-400) X10^3/uL Neut % (Auto) 70.3 (50-75) % Lymph % (Auto) 20.9 L (25-40) % [place] % (Auto) 6.7 (3-14) % Eos % (Auto) 1.7 L (2-4) % Baso % (Auto) 0.4 (0-2) % Neut # (Auto) 4900 (1656-0181) /uL Lymph # (Auto) 1500 (5137-7458) /uL [place] # (Auto) 500 (0-900) /uL Eos # (Auto) 100 (0-450) /uL Baso # (Auto) 0 (0-100) /uL Sodium 137 (137-145) mmol/L Potassium 3.7 (3.4-5.1) mmol/L Chloride 103 (98-107) mmol/L Carbon Dioxide 28 (22-32) mmol/L BUN 11 (9-20) mg/dL Creatinine 0.84 (0.66-1.25) mg/dL Estimated GFR > 60 (>60) mL/min BUN/Creatinine Ratio 13.1 (6-22) Glucose 77 (70-100) mg/dL Calcium 9.2 (8.4-10.2) mg/dL [facility] Narrative Medical decision making narrative: [57] year old patient presents with throat mass Multiple etiologies for patient's symptoms considered including, but not limited to: [Mass versus infectious vs. other Prior Charts reviewed in our EMR Primary Historian: patient Labs reviewed and interpreted by myself: No significant abnormal findings Imaging reviewed: Asymmetric appearance of the piriform sinuses, mass can not be excluded, no sign of infection noted Consultations: Discussed with radiology (Dr. Villareal) see details in description of imaging findings Patient's symptoms improved over duration of stay with above-stated therapies. Findings and discharge diagnosis discussed with patient/family followed by verbalization of understanding Return precautions discussed with patient/family whom verbalize understanding of diagnosis and plan Discharge Plan Departure Patient Disposition: Home Clinical Impression: Mass of pyriform sinus Activity Restrictions/Additional Instructions: *You have been diagnosed with [mass in the piriform sinus, as we discussed there is no sign of an infectious process. ] *What to do: *Please continue to take your regular medications as directed. [ ] New medication prescriptions sent to your pharmacy: [ ] [ ] New medication written as a paper prescription [ ] No new medications given *Please follow up with Dr. Desai as previously planned next week, I will electronically transmitted a copy of today's note *Return to Emergency Department if you should have any new, worsening or concerning symptoms, such as [fever greater than 101 F, shaking chills, worsening pain, persistent vomiting or other bothersome symptoms] Prescriptions: No Action (DME) Disabled Parking Permit See Rx Instructions .ROUTE .MEDSUPPLY Qty: 1 0RF Rx Instructions: Patient qualifies for disabled parking as per the attached form. montelukast [Singulair] 10 mg tablet 10 mg PO DAILY Qty: 90 0RF Rx Instructions: Call for #90 scripts if helps and tolerated over a month Eliquis 5 mg tablet 5 mg PO BID Qty: 180 0RF duloxetine 60 mg capsule,delayed release(DR/EC) 60 mg PO DAILY Qty: 90 3RF pregabalin 100 mg capsule 100 mg PO TID Qty: 90 1RF temazepam 30 mg capsule 30 mg PO BEDTIME PRN (Reason: sleep) Qty: 30 0RF olopatadine 0.1 % drops 1 drp EYE-BOTH ONCE Qty: 5 3RF loratadine [Claritin] 10 mg tablet 10 mg PO DAILY PRN (Reason: allergy symptoms) Qty: 30 3RF ondansetron HCl 4 mg tablet 4 mg PO QID Qty: 120 0RF trazodone 50 mg tablet 50 - 100 mg PO BEDTIME PRN (Reason: insomnia) Qty: 60 5RF omeprazole 20 mg capsule,delayed release(DR/EC) 20 mg PO DAILY Qty: 30 3RF tamsulosin 0.4 mg capsule 0.4 mg PO DAILY Qty: 30 12RF Referrals: Garry Regan MD [Primary Care Provider] - Cuate Desai MD [Physician] - Stand Alone Forms: Patient Portal/API
[2023-04-22 15:28] VITALS: BP 148/84; PULSE 68; RESP 20; O2SAT 98
== END 2023-04-22 15:33 | disposition home or self-care (01) ==
PROVIDERS: Emergency Provider Emergency Medicine; Family Provider Pediatrics; PCP Student in an Organized Health Care Education/Training Program
DX: J34.89 Other specified disorders of nose and nasal sinuses (principal); R07.9 Chest pain, unspecified
CPT/HCPCS: 36415; 70491; 80048; 85025; 93005; 96360; 99284; Q9967

== ENCOUNTER 2023-04-28 16:48 | Outpatient (RCR) | payer OTHER, MEDICAID, SELFPAY ==
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
--- NOTE | 2023-04-29 08:04 | PT.OPPOC ---
Physical, Occupational & Speech Therapy At [facility] Current Diagnoses Cervicalgia (04/28/23) Low back pain, unspecified (04/28/23) Anesthesia of skin (04/28/23) Paresthesia of skin (04/28/23) Visit Care Team Role Provider Type Garry Regan MD Primary Care Provider Physician Specialty: Internal Medicine Address: [address] [place] [address], [address], [place], [address] Email: [email or web address] Jose Miguel Scott MD Family Provider Physician Specialty: Internal Medicine Pediatrics Address: [address] [place] [address], [address] Email: [email or web address] Kana Proctor DO Attending Provider Non-Staff Referring Provider Specialty: Orthopedic Surgery Address: [facility] Annika Villagomez, [place], [address] Email: Plan Of Care PT-OP-T Assessment and Plan Start: 04/28/23 16:49 Freq: Status: Active Protocol: Document 04/28/23 17:34 ED (Rec: 04/28/23 17:50 ED [id number]) Physical Therapy Plan Therapeutic Interventions Therapeutic Interventions Balance Training,Gait Training ,Home Exercise Program,Joint Mobilizations,Manual Therapy, Neuromuscular Re-education, Patient/Caregiver Education, Taping,Therapeutic Activities, Therapeutic Exercises Plan of Care Dates Plan of Care Start Date 04/28/23 Plan of Care End Date 07/27/23 Electronically Signed by: Samuel Thomas, PT 04/29/23 0804 If you are in agreement with this Plan of Care, please return a signed and dated copy. I have reviewed this Plan of Care and certify that the skilled therapy services above are required to meet the patient?s needs. Physician Signature Date Printed Name and Credentials Clinical Instructor Signature Printed Name and Credentials
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
== END 2023-05-11 13:19 ==
LOC: PHYS 16:48
PROVIDERS: Absent Provider Orthopaedic Surgery Orthopaedic Surgery of the Spine; Family Provider Pediatrics; PCP Student in an Organized Health Care Education/Training Program; Referring Provider Orthopaedic Surgery Orthopaedic Surgery of the Spine; Visit Provider Orthopaedic Surgery Orthopaedic Surgery of the Spine
DX: M54.2 Cervicalgia (principal); M54.50 Low back pain, unspecified; R20.0 Anesthesia of skin; R20.2 Paresthesia of skin
CPT/HCPCS: 97163

== ENCOUNTER → 2023-05-04 14:39 | Outpatient (CLI) | payer OTHER, MEDICAID, SELFPAY ==
[2023-05-04 15:23] LABS: Add Manual Diff / Slide Review NO; Basophils Absolute Auto 0 /uL (0-100); Basophils Percent Auto 0.7 % (0-2); Eosinophils Absolute Auto 100 /uL (0-450); Eosinophils Percent Auto 2.3 % (2-4); Hematocrit 40.8 % (41-53); Hemoglobin 13.9 g/dL (13.5-17.5); Lymphocytes Absolute Auto 1500 /uL (1100-4500); Mean Corpuscular HGB Conc 34.1 % (30-36); Mean Corpuscular Hemoglobin 30.5 PG (26-34); Mean Corpuscular Volume 89.5 fL (80-100); Monocytes Absolute Auto 400 /uL (0-900); Monocytes Percent Auto 7.7 % (3-14); Neutrophils Absolute Auto 3500 /uL (1500-7000); Neutrophils Percent Auto 62.3 % (50-75); Platelet Count 260 X10^3/uL (150-400); Red Blood Cell Count 4.56 X10^6/uL (4.5-5.9); Red Cell Distribution Width 14.2 % (11.6-14.8); White Blood Cell Count 5.6 X10^3/uL (4.5-11.0)
[2023-05-04 15:47] LABS: D Dimer 313 ng/ml (<500)
[2023-05-04 15:59] LABS: Alanine Aminotransferase 23 IU/L (<50); Albumin 4.2 g/dL (3.5-5.0); Albumin Globulin Ratio 1.6 (1.0-2.8); Alkaline Phosphatase 67 U/L (38-126); Aspartate Aminotransferase 24 IU/L (17-59); BUN Creatinine Ratio 14.4 (6-22); Blood Urea Nitrogen 14 mg/dL (9-20); C-Reactive Protein Quant < 0.5 mg/dL (<1.0); Calcium 9.6 mg/dL (8.4-10.2); Carbon Dioxide 26 mmol/L (22-32); Chloride 102 mmol/L (98-107); Estimated Glomerular Filt Rate > 60 mL/min (>60); Globulin 2.7 g/dL (1.7-4.1); Glucose 76 mg/dL (70-100); HEMOLYSIS < 15 (0-50); Potassium 4.4 mmol/L (3.4-5.1); Sodium 136 mmol/L (137-145); Total Protein 6.9 g/dL (6.3-8.2)
[2023-05-04 16:21] LABS: Prostate Specific Antigen 7.23 ng/mL (0.10-4.00)
[2023-05-04 16:55] LABS: Vitamin D 25 Hydroxy (D3) 50.2 ng/mL (30.0-100.0)
[2023-05-04 16:57] LABS: Vitamin B12 > 1000 pg/mL (239-931)
[2023-05-12 07:10] LABS: Vitamin B1 193.4 nmol/L (66.5-200.0)
== END ==
PROVIDERS: Family Provider Pediatrics; PCP Pediatrics; Referring Provider Psychiatry & Neurology Neurology; Visit Provider Psychiatry & Neurology Neurology
DX: R41.3 Other amnesia (principal); R53.83 Other fatigue; E55.9 Vitamin D deficiency, unspecified; K57.92 Diverticulitis of intestine, part unspecified, without perforation or abscess without bleeding; N20.0 Calculus of kidney; R41.9 Unspecified symptoms and signs involving cognitive functions and awareness; Z86.718 Personal history of other venous thrombosis and embolism; R97.20 Elevated prostate specific antigen [PSA]; I80.9 Phlebitis and thrombophlebitis of unspecified site; R39.9 Unspecified symptoms and signs involving the genitourinary system
CPT/HCPCS: 36415; 80053; 82306; 82607; 82746; 84153; 84425; 84443; 85025; 85379; 86140

== ENCOUNTER → 2023-06-10 11:00 | Outpatient (CLI) | payer MEDICARE, SELFPAY ==
--- NOTE | 2023-06-10 | DI.CT.S_ITS ---
PROCEDURE: CT SINUS SCREEN WO CON INDICATIONS: Chronic pansinusitis TECHNIQUE: Noncontrast 3.0 mm axial images acquired from the frontal sinuses to the mid-sella, with coronal and sagittal reformats. For radiation dose reduction, the following was used: automated exposure control, adjustment of mA and/or kV according to patient size. COMPARISON: [facility], CT, CT SOFT TISSUE NECK W CON, 04/22/2023, 14:03. FINDINGS: Image quality: Excellent. Maxillary Sinuses: No bony remodeling or destruction. The there is a likely mucous retention cyst seen within the inferior aspect of the right maxillary sinus. Sinuses are otherwise relatively clear. Ethmoid Air Cells: There is focal opacification seen involving the anterior left ethmoid air cells. Mild bony remodeling change can be seen. Sphenoid Sinuses: No bony remodeling or destruction. Sinuses are clear. Frontal Sinuses: There is complete opacification of the left frontal sinus. No significant bony remodeling change can be seen. The right frontal sinus appears clear. Ostiomeatal Complexes: The ostiomeatal complexes are patent, yet they are constitutionally narrowed, with bilateral Lori cells. Miscellaneous: Visualized intra-orbital contents are normal. There is a tiny right-sided kaye bullosa. There is moderate leftward nasal septal deviation, with a leftward directed bony nasal septal spur. IMPRESSION: Focal left frontal sinus disease, with involvement of the anterior left ethmoid air cells. The ostiomeatal complexes are patent, yet they are constitutionally narrowed, with bilateral Lori cells. There is moderate leftward nasal septal deviation, with a leftward directed bony nasal septal spur. Dictated by: Redd Arauz M.D. on 06/10/2023 at 10:38 Approved by: Redd Arauz M.D. on 06/10/2023 at 10:41
== END ==
PROVIDERS: Family Provider Pediatrics; PCP Pediatrics; Referring Provider Otolaryngology; Visit Provider Otolaryngology
DX: J32.4 Chronic pansinusitis (principal); J34.2 Deviated nasal septum; J34.89 Other specified disorders of nose and nasal sinuses
CPT/HCPCS: 70486

== ENCOUNTER → 2023-07-06 09:50 | Outpatient (CLI) | payer MEDICARE, MEDICAID, SELFPAY ==
--- NOTE | 2023-07-06 | DI.RAD.S_ITS ---
PROCEDURE: FL BARIUM SWALLOW W SPEECH INDICATIONS: Dysphagia, pharyngeal phase COMPARISON: None. TECHNIQUE: Examination was conducted in conjunction with speech pathology per standard protocol. In the lateral projection, filming was performed of the patient swallowing. AP projection filming may also be performed with patient swallowing. COMPARISON: FINDINGS: Function: The oral preparatory phase appears normal, with proper containment. The subsequent oral propulsive phase, pharyngeal phase, and esophageal phase of swallowing also appear normal with all proffered substances. No laryngotracheal penetration or aspiration. No pathologic vallecular pooling. Morphology: The left vallecular/supraglottic lesion seen on recent CT is not identified on this exam. Mild variable soft tissue prominence along the dorsal margin of the esophagus due to cervical spine osteophytes. No cricopharyngeal bar is identified. No cervical esophageal webs. No Zenker's diverticulum. No strictures. IMPRESSION: 1. No evidence of aspiration. 2. Supraglottic laryngeal mass on CT is not identified on this exam. Dictated by: Mariama Naik M.D. on 07/06/2023 at 12:33 Approved by: Mariama Naik M.D. on 07/06/2023 at 12:42
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
== END ==
PROVIDERS: Family Provider Pediatrics; PCP Family Medicine; Referring Provider Otolaryngology; Visit Provider Otolaryngology
DX: R13.13 Dysphagia, pharyngeal phase (principal)
CPT/HCPCS: 74230; 92611

== ENCOUNTER → 2023-07-07 10:54 | Outpatient (CLI) | payer MEDICARE, MEDICAID, SELFPAY ==
--- NOTE | 2023-07-07 | DI.CT.S_ITS ---
PROCEDURE: CT SINUS SCREEN WO CON INDICATIONS: Chronic frontal sinusitis TECHNIQUE: Noncontrast 3.0 mm axial images acquired from the frontal sinuses to the mid-sella, with coronal and sagittal reformats. For radiation dose reduction, the following was used: automated exposure control, adjustment of mA and/or kV according to patient size. COMPARISON: [facility], CT, CT HEAD/BRAIN WO CON, 12/04/2018, 17:20. [facility], CT, CT SOFT TISSUE NECK W CON, 04/22/2023, 14:03. [facility], CT, CT SINUS SCREEN WO CON, 06/10/2023, 11:05. FINDINGS: Image quality: Excellent. Maxillary Sinuses: No bony remodeling or destruction. Focal moderate mucosal thickening can be seen involving the inferior right maxillary sinus. Ethmoid Air Cells: There is moderate mucosal thickening within the anterior left ethmoid air cells. Mild bony demineralization can be seen. Sphenoid Sinuses: No bony remodeling or destruction. Sinuses are clear. Frontal Sinuses: There is complete opacification of the left frontal sinus. The right frontal sinus appears clear. No significant bony changes are seen. Ostiomeatal Complexes: The right ostiomeatal complex is patent, yet they are constitutionally narrowed, with bilateral Lori cells. The left ostiomeatal complex is not well seen. Miscellaneous: Visualized intra-orbital contents are normal. No kaye bullosa or paradoxical turbinate curvature. There is moderate left nasal septal deviation, with a mild leftward directed bony nasal septal spur. IMPRESSION: Paranasal sinus disease is seen, left worse than right. The degree of paranasal sinus disease is not significantly changed compared to 06/10/2023. The right ostiomeatal complex is constitutionally narrowed. The left ostiomeatal complex is not well seen and may be poorly formed or potentially previously resected. Dictated by: Redd Arauz M.D. on 07/07/2023 at 11:30 Approved by: Redd Arauz M.D. on 07/07/2023 at 11:35
== END ==
PROVIDERS: Family Provider Pediatrics; PCP Family Medicine; Referring Provider Otolaryngology; Visit Provider Otolaryngology
DX: J32.8 Other chronic sinusitis (principal); J34.89 Other specified disorders of nose and nasal sinuses
CPT/HCPCS: 70486

== ENCOUNTER → 2023-08-16 | Outpatient (CLI) | payer MEDICARE, MEDICAID, SELFPAY ==
--- NOTE | 2023-08-16 | DI.MRI.S_ITS ---
PROCEDURE: MR LUMBAR SPINE WO CON INDICATIONS: Spondylosis lumbar region Cervicalgia TECHNIQUE: Noncontrast sagittal T1 spin echo and T2 fast echo, sagittal STIR, and T2 fast spin echo through the lumbar spine. In cases with scoliosis, additional coronal T2 fast spin echo may be performed. COMPARISON: [facility], MR, MR CERVICAL SPINE WO CON, 08/16/2023, 15:47. [facility], CT, CT LUMBAR SPINE WO CON, 08/16/2023, 15:42. [facility], MR, MR LUMBAR SPINE WO CON, 04/13/2021, 7:35. FINDINGS: Image quality: There is artifact associated with the metallic hardware. This examination is limited by involuntary motion artifact. Alignment and Curvature: There is mild retrolisthesis seen at L1-L2, L2-L3, and L3-L4. Bone Marrow: Marrow is of normal overall signal. No acute vertebral body compression fractures. Spinal Cord: Conus medullaris terminates at the L1 level. Visualized cord demonstrates normal signal and size. Paraspinous Soft Tissues: No paravertebral masses. Bilateral renal cysts are incidentally noted, with the largest seen on the right medially, measuring 2.3 cm. Bilateral pedicle screws can be seen at L4, L5, and S1. Vertical fixation rods are seen. Disc spacers are seen at L4-L5 and L5-S1. T12-L1: Cvec-wp-ncullxmk loss of disc height and disc signal can be seen. Mild to moderate disc bulge is seen. Mild bilateral neural foraminal narrowing is seen. Mild central canal narrowing is seen. These imaging findings have progressed compared to the prior study. L1-L2: At least moderate loss of disc height and disc signal can be seen. Moderate generalized disc bulge is seen. There is a superimposed central disc protrusion. Moderate bilateral neural foraminal narrowing is seen. Mild central canal narrowing is seen. There is slight progression compared to the prior. L2-L3: Moderate loss of disc height is seen. Loss of disc signal is seen. Moderate generalized disc bulge is seen. There is a superimposed central disc protrusion. Mild facet joint hypertrophy is seen. Moderate bilateral neural foraminal narrowing is seen. Minimal central canal narrowing is seen. When comparison is made with the prior images, these findings are similar. L3-L4: At least moderate loss of disc height and disc signal can be seen, which is worst posteriorly. Moderate generalized disc bulge is seen. Moderate facet joint hypertrophy is seen. There is moderate to severe bilateral neural foraminal narrowing seen, with an associated a degree of compression seen upon the exiting nerve roots. Mild central canal narrowing is seen. When comparison is made with the prior images, these findings are similar. L4-L5: Postoperative changes are seen at this level. Mild generalized disc bulge is seen. Mild facet joint hypertrophy is seen. There is no significant neural foraminal narrowing. No central canal narrowing is seen. Stable from the prior study. L5-S1: Postoperative changes are seen at this level. No significant neural foraminal or central canal narrowing can be seen. Stable from the prior study. IMPRESSION: Multiple levels of lumbar spine degenerative change can be seen, which are slightly progressed superiorly compared to 202. Stable L4 through S1 postoperative change. Dictated by: Redd Arauz M.D. on 08/16/2023 at 16:33 Approved by: Redd Arauz M.D. on 08/16/2023 at 16:38
--- NOTE | 2023-08-16 | DI.MRI.S_ITS ---
PROCEDURE: MR CERVICAL SPINE WO CON INDICATIONS: Spondylosis lumbar region Cervicalgia TECHNIQUE: Noncontrast sagittal T1 spin echo and T2 fast spin echo, sagittal STIR, foraminal oblique sagittal T2 fast spin echo, and axial gradient echo or T2 fast spin echo through the cervical spine. COMPARISON: [facility], MR, MR CERVICAL SPINE WO CON, 05/13/2022, 7:53. [facility], MR, MR LUMBAR SPINE WO CON, 08/16/2023, 16:05. [facility], CT, CT LUMBAR SPINE WO CON, 08/16/2023, 15:42. [facility], MR, MR CERVICAL SPINE WO CON, 04/24/2021, 13:50. FINDINGS: Image quality: This examination is limited by involuntary motion artifact. Alignment and Curvature: There is mild retrolisthesis seen at the C4-C5 level. Bone Marrow: Marrow demonstrates normal overall signal. Spinal Cord: Visualized spinal cord has normal size and signal. No cerebellar tonsillar herniation. Paraspinous Soft Tissues: No paravertebral masses. Prevertebral soft tissues are normal in thickness. C2-C3: Normal appearance. C3-C4: The disc height is well-preserved. Loss of disc signal is seen at this level. No significant neural foraminal or central canal narrowing can be seen. When comparison is made with the prior images, these findings are similar. C4-C5: Moderate loss of disc height is seen. Loss of disc signal is seen. Reactive marrow endplate changes are seen, which are hyperintense on T1-weighted and T2-weighted imaging and most consistent with fatty metaplasia (Modic type II changes). Moderate generalized disc bulge is seen. Moderate facet joint hypertrophy is seen. There is moderate to severe right-sided and at least moderate left-sided neural foraminal narrowing. Moderate central canal narrowing is seen. There is associated mass effect upon the ventral spinal cord. These imaging findings have progressed compared to the prior study. C5-C6: Moderate loss of disc height is seen. Loss of disc signal is seen. Moderate generalized disc osteophyte complex is seen. Uncovertebral joint hypertrophy is seen at this level. Moderate facet joint hypertrophy is seen. There is at least moderate right-sided and moderate to severe left-sided neural foraminal narrowing. Mild central canal narrowing is seen. When comparison is made with the prior images, these findings are similar. C6-C7: The disc height is well-preserved. Loss of disc signal is seen at this level. A mild degree of generalized disc osteophyte complex is seen. Moderate facet joint hypertrophy is seen. There is moderate to severe bilateral neural foraminal narrowing seen, with an associated a degree of compression seen upon the exiting nerve roots. No significant central canal narrowing is seen. No significant change from the prior. C7-T1: Normal appearance. IMPRESSION: Multiple levels of cervical spine degenerative change can be seen, which are worst at the C4-C5 level. There is mild progression of degenerative change at C4-C5 compared to the prior MRI. Dictated by: Redd Arauz M.D. on 08/16/2023 at 16:05 Approved by: Redd Arauz M.D. on 08/16/2023 at 16:09
--- NOTE | 2023-08-16 15:43 | DI.CT.S_ITS ---
PROCEDURE: CT LUMBAR SPINE WO CON INDICATIONS: Spondylosis lumbar region Cervicalgia TECHNIQUE: Noncontrast 3 mm thick sections acquired from the T12 level to the sacrum. Sagittal and coronal reformats were constructed. For radiation dose reduction, the following was used: automated exposure control. COMPARISON: [facility], CT, CT KIDNEY URETER BLADDER (KUB), 03/16/2022, 4:26. [facility], MR, MR LUMBAR SPINE WO CON, 08/16/2023, 16:05. FINDINGS: Image quality: Excellent. Bones: No acute vertebral body compression fractures. No suspicious lytic or blastic bony lesions. No pars defects. L4 through S1 postoperative hardware is seen, with bilateral pedicle screws and vertical fixation rods. Disc spacers are seen at L4-L5 and L5-S1. No findings of hardware failure or hardware loosening are seen. There has been removal of portions of the posterior elements. Mild retrolisthesis can be seen at L1-L2, L2-L3, and L3-L4. Multiple levels of lumbar spine degenerative change can be seen, which are most prominent superiorly. No significant central canal narrowing or neural foraminal narrowing can be seen at L4-L5 and L5-S1. Soft tissues: No retroperitoneal masses or hematomas. Visualized aorta is normal in caliber. IMPRESSION: Intact L4 through S1 postoperative hardware. Multiple levels of lumbar spine degenerative change can be seen, which are worst superiorly and are better demonstrated on the accompanying lumbar spine MRI. Dictated by: Redd Arauz M.D. on 08/16/2023 at 16:39 Approved by: Redd Arauz M.D. on 08/16/2023 at 16:41
== END ==
LOC: CT 15:30
PROVIDERS: Family Provider Pediatrics; PCP Family Medicine; Referring Provider Orthopaedic Surgery Orthopaedic Surgery of the Spine; Visit Provider Orthopaedic Surgery Orthopaedic Surgery of the Spine
DX: M47.812 Spondylosis without myelopathy or radiculopathy, cervical region (principal); M47.816 Spondylosis without myelopathy or radiculopathy, lumbar region; M54.2 Cervicalgia; Z98.1 Arthrodesis status
CPT/HCPCS: 72131; 72141; 72148

== ENCOUNTER → 2023-09-01 13:40 | Outpatient (CLI) | payer MEDICARE, MEDICAID, SELFPAY ==
--- NOTE | 2023-09-01 13:46 | DI.RAD.S_ITS ---
PROCEDURE: XR KUB INDICATIONS: Follow-up kidney stones TECHNIQUE: One view of the abdomen acquired. COMPARISON: [facility], CR, XR KUB, 03/02/2023, 13:02. FINDINGS: Surgical changes and devices: Lumbosacral fixation hardware is unchanged. Bowel: Bowel gas pattern is normal. Soft tissues: No suspicious abdominal calcifications. Visualized solid organ contours appear normal in size. Bones: No suspicious bony lesions. IMPRESSION: No suspicious soft tissue calcifications. Dictated by: Chiqui Beltran M.D. on 09/01/2023 at 16:36 Approved by: Chiqui Beltran M.D. on 09/01/2023 at 16:38
[2023-09-06 07:13] LABS: PSA Free % 18.6 % (.); PSA, Total 4.3 ng/mL (0.0-4.0)
== END ==
LOC: RAD 13:44
PROVIDERS: Family Provider Pediatrics; PCP Family Medicine; Referring Provider Urology; Visit Provider Urology
DX: N20.0 Calculus of kidney (principal); R97.20 Elevated prostate specific antigen [PSA]
CPT/HCPCS: 36415; 74018; 84153; 84154

== ENCOUNTER 2023-09-16 13:14 | Day surgery (SDC) | payer MEDICARE, MEDICAID, SELFPAY ==
--- NOTE | 2023-09-16 | PATH_ITS ---
[facility] Accession Number: [id number] No. of containers..01 Tissue . 01 Material submitted: . esophagus - BIOPSY ESOPHAGUS . 01 Diagnosis: Esophagus, Biopsy: Squamous epithelium with increased intraepithelial eosinophils Negative for dysplasia and malignancy. [facility] 09/20/2023 1133 Local . 01 Electronically signed: . Gina Mercado MD, Pathologist NPI- [id number] . 01 Gross description: . The specimen is received in formalin labeled with the patient's name, , and esophagus biopsy, and consists of four fragments of white-mcallister soft tissue ranging from 0.2 to 0.5 cm in greatest dimension. The tissue is entirely submitted in cassette A1. ([id number]) /ELEAZAR 09/19/2023 1132 Local . 01 Pathologist provided ICD-10: K20.0 . 01 CPT . 390275 Specimen Comment: A courtesy copy of this report has been sent to [phone] Performed at: 01 [facility] [address] [place] [address], [place], [place] [id number] MD Anthony Hammond MD Phone: [phone]
[2023-09-16 14:26] VITALS: BP 125/78; PULSE 82; RESP 16; TEMP 36.8; O2SAT 96
[2023-09-16] MEDS: LACTATED RINGERS 1,000 ML 42 ML IV (14:32)
--- NOTE | 2023-09-16 14:45 | PM.PREOP ---
Pre-operative Note Interval Note History & Physical reviewed/Exam performed by Physician: Yes Changes to H&P: No
[2023-09-16 15:06] VITALS: BP 122/81; PULSE 87; RESP 20; TEMP 36.9; O2SAT 94
[2023-09-16 15:11] VITALS: BP 124/83; PULSE 71; RESP 20; O2SAT 93
--- NOTE | 2023-09-16 15:11 | SUR.PHASEI ---
Received to PACU after MAC. Report from PETROS Tong and Dr Spicer. O2 sats 90% on room air despite cough and deep breath. Placed on 2LNC.
[2023-09-16 15:16] VITALS: BP 130/84; PULSE 69; RESP 20; O2SAT 95
[2023-09-16 15:21] VITALS: BP 136/83; PULSE 64; RESP 20; O2SAT 94
--- NOTE | 2023-09-16 15:22 | PM.OP.EGD ---
Operative Date/Time/Diagnoses Date of procedure: 09/16/23 Time of procedure: 15:22 Pre-op diagnosis: Globus sensation Post-op diagnosis: other (Esophagitis) Procedure & Clinicians Study performed: Esophagoduodenoscopy Same procedure as scheduled: Yes Indications: History eosinophilic esophagitis Globus sensation Surgeon: Junior Pina Procedure Notes Procedure in detail: The history and physical was performed/updated and the patient is ASA class is 2. The procedure was discussed in detail with the patient. Potential risks complications including infection, bleeding, missed diagnosis, perforation, need for surgery, and were explained. Their questions were answered and informed consent was obtained. Patient was positioned supine on the bed. Time out was performed. Procedural sedation was administered by Anesthesia. A bite block was placed. the scope was inserted into the mouth and advanced through the esophagus and into the stomach. The pylorus was intubated and the duodenum was examined to the 2nd portion. The scope was then withdrawn into the stomach and was retroflexed. The stomach was decompressed and scope was withdrawn slowly through the esophagus. FINDINGS GE junction 40 cm from teeth Mild distal esophagitis. Biopsies performed with forceps. Small hiatal hernia The patient tolerated the procedure well and will be discharged when they meet criteria. Specimen(s): other (Esophageal biopsy) Impression: Esophagitis Post-procedure Plan for aftercare: Continue omeprazole and fluticasone Disposition: same day surgery
[2023-09-16 15:23] VITALS: BP 131/86; PULSE 65; RESP 18; TEMP 36.9; O2SAT 95
== END 2023-09-16 16:07 | disposition home or self-care (01) ==
PROVIDERS: Family Provider Pediatrics; PCP Family Medicine; Referring Provider Surgery; Visit Provider Surgery
PROC: 0DJ08ZZ Inspection of Upper Intestinal Tract, Via Natural or Artificial Opening Endoscopic (ICD-10-PCS; CPT 43235; principal; 2023-09-16 14:15)
DX: K20.0 Eosinophilic esophagitis (principal); K44.9 Diaphragmatic hernia without obstruction or gangrene
CPT/HCPCS: 43239; J2704

== ENCOUNTER 2023-11-16 12:25 | Day surgery (SDC) | payer MEDICARE, MEDICAID, SELFPAY ==
[2023-11-14 12:02] VITALS: BMI 23.3
[2023-11-16] VITALS (7 sets, daily range): BP systolic 121–137; BP diastolic 77–89; PULSE 60–80; RESP 13–18; TEMP 36.6; O2SAT 94–98; BMI 23.5
--- NOTE | 2023-11-16 | PATH_ITS ---
[facility] Accession Number: [id number] No. of containers..01 Tissue . 01 Material submitted: . gallbladder - GALLBLADDER . 01 Diagnosis: GALLBLADDER, CHOLECYSTECTOMY: Chronic cholecystitis, cholesterolosis, and cholelithiasis. [facility] 11/21/2023 1123 Local . 01 Electronically signed: . Gina Mercado MD, Pathologist NPI- [id number] . 01 Gross description: . Received in formalin with two identifiers and gallbladder, is an intact gallbladder measuring 8.1 x 4.0 x 3.5 cm with an unremarkable external surface. The cystic duct margin is inked blue, and no pericystic lymph node is identified. The lumen contains dark green viscous bile with multiple yellow polypoid structures measuring up to 0.3 cm in greatest dimension. The mucosa is green and velvety with no additional lesions identified. The blancas average 0.2 cm thick. Song [employer] sections to include the cystic duct margin and full thickness sections with polyps are submitted in cassette A1. ([id number]) /MRV 11/17/2023 1248 Local . 01 Pathologist provided ICD-10: K81.1, K80.10 . 01 CPT . 306591 Specimen Comment: A courtesy copy of this report has been sent to [phone] Performed at: 01 [facility] [address] [place] [address], [place], [place] [id number] MD Anthony Hammond MD Phone: [phone]
[2023-11-16] MEDS: LACTATED RINGERS 1,000 ML 21 ML IV (12:43)
--- NOTE | 2023-11-16 13:36 | PM.PREOP ---
Pre-operative Note Interval Note History & Physical reviewed/Exam performed by Physician: Yes Changes to H&P: No
[2023-11-16] MEDS: CEFAZOLIN 2 GM/100 ML PREMIX 100 ML IV (14:32)
--- NOTE | 2023-11-16 14:41 | SUR.OPER ---
Supine on padded OR bed, head on pillow, RIGHT arm secured on padded arm board at <90 degrees abduction, LEFT ARM PADDED AND TUCKED AT PATIENTS SIDE. legs uncrossed, safety belt at thigh, tape over blanket over lower legs.
[2023-11-16] MEDS: BUPIVACAINE 0.25% (PF) VIAL 30 ML INJ (14:47)
--- NOTE | 2023-11-16 15:10 | P.OP_ITS ---
Operative Date/Time/Diagnoses Date of procedure: 11/16/23 Time of procedure: 15:10 Pre-op diagnosis: Biliary colic Post-op diagnosis: same Procedure & Clinicians Procedure: Laparoscopic cholecystectomy Same procedure as scheduled: Yes Indications: 58-year-old man with symptoms and radiographic findings consistent with biliary colic Surgeon: Junior [employer] Associate: Duncan Rodríguez Anesthesia Type: General Operative Notes Findings: Critical view of safety established. No signs of acute cholecystitis Specimen(s): other (Gallbladder) Estimated Blood Loss (mL): 20 Procedure in detail: The patient was placed supine on the table and bilateral lower extremity compression devices were applied. Anesthesia was induced they were intubated with an endotracheal tube and received 2g of Ancef. A time-out was performed. They were prepped and draped in sterile fashion. An infraumbilical incision was made. The fascia was elevated incised and the abdomen was entered atraumatically. A blunt tip 12mm balloon trocar was then inserted, pneumoperitoneum was established and inspection of the abdomen demonstrated no evidence of injury. They were placed head up and right side up and then a 11 mm port was placed high in the epigastrium and two 5mm in the right upper quadrant. The gallbladder was grasped by the fundus and retracted over the liver and retracted laterally by the infundibulum. Using electrocautery the lateral plane between the gallbladder and the liver was opened towards the fundus. The gallbladder was then retracted laterally and the medial plane was developed in the same manner. With the gallbladder mobilized the bottom of the cystic plate was visualized. The hepatocystic triangle was meticulosly skeletonized with blunt dissection of fat and fibrous tissue from both the front and the back. Only two structures were then clearly seen entering the gallbladder the cystic duct and the cystic artery. With the critical view of safety fully established the cystic duct was clipped twice proximally and once distally using the 10 mm Weck hemoclip applied under direct visualization and then sharply divided. The cystic artery was divided in the same fashion. The gallbladder was removed from the liver bed using electro cautery. The liver bed was then inspected for he mostasis and this was achieved. The abdomen was irrigated with sterile saline and inspection was made that showed the clips in good position. The specimen was removed using Endo-Catch. The abdomen was desufflated. The umbilical fascia was closed with 0 Vicryl in a [id number] fashion under direct visualization. Skin incisions were irrigated and closed with 4-0 Monocryl. 30 ml of 0.25% bupivacaine was infiltrated into the subcutaneous tissue of the incisions. The wounds were sealed with Dermabond. Patient emerged from anesthesia was extubated and transferred to recovery in stable condition. The sponge and instrument count at the end of the operation was correct. Complications: none Post-operative Condition: stable Disposition: same day surgery
[2023-11-16] MEDS: fentaNYL 100 MCG/2 ML INJ IV (15:45)
[2023-11-16] MEDS: OXYCODONE IR 5 MG TABLET PO ×2 (15:45→16:16)
[2023-11-16] MEDS: HYDROMORPHONE 1 MG INJ IV (15:46)
[2023-11-16] MEDS: ONDANSETRON 4 MG/2 ML INJ IV (16:30)
== END 2023-11-16 17:04 | disposition home or self-care (01) ==
PROVIDERS: Family Provider Pediatrics; PCP Internal Medicine; Referring Provider Surgery; Visit Provider Surgery
PROC: 0FT44ZZ Resection of Gallbladder, Percutaneous Endoscopic Approach (ICD-10-PCS; CPT 47562; principal; 2023-11-16 13:45)
DX: K80.10 Calculus of gallbladder with chronic cholecystitis without obstruction (principal); D68.51 Activated protein C resistance; G47.33 Obstructive sleep apnea (adult) (pediatric); Z86.718 Personal history of other venous thrombosis and embolism; Z79.01 Long term (current) use of anticoagulants
CPT/HCPCS: 47562; J0690; J1100; J1170; J2250; J2405; J2704; J3010

== ENCOUNTER → 2024-01-11 16:46 | Outpatient (CLI) | payer MEDICARE, MEDICAID, SELFPAY ==
--- NOTE | 2024-01-11 16:52 | DI.RAD.S_ITS ---
PROCEDURE: XR KUB INDICATIONS: kidney stones TECHNIQUE: One view of the abdomen acquired. COMPARISON: [facility], CT, CT ABDOMEN PELVIS WITH CONTRAST, 01/02/2024, 15:19. [facility], CR, XR KUB, 09/01/2023, 13:47. FINDINGS: Surgical changes and devices: L4 through S1 fusion hardware. Bowel: Bowel gas pattern is normal. Soft tissues: Calcification is present overlying the left renal shadow. The left renal shadow is obscured by significant colonic stool. Visualized solid organ contours appear normal in size. Bones: No suspicious bony lesions. IMPRESSION: Focus of calcification is identified overlying the right renal shadow. It is noted 2 calcifications were present on the 01/02/2024 exam. Left Kidney is unable to be assessed secondary to significant overlying stool filled bowel loops. Dictated by: Elizabeth Villareal M.D. on 01/12/2024 at 11:21 Approved by: Elizabeth Villareal M.D. on 01/12/2024 at 11:23
== END ==
PROVIDERS: Family Provider Pediatrics; PCP Internal Medicine; Referring Provider Urology; Visit Provider Urology
DX: R31.29 Other microscopic hematuria (principal); Z87.442 Personal history of urinary calculi; Z98.1 Arthrodesis status
CPT/HCPCS: 74018

== ENCOUNTER 2024-01-14 02:28 | Emergency (ER) | payer MEDICARE, MEDICAID, SELFPAY ==
[2024-01-14] VITALS (8 sets, daily range): BP systolic 136–150; BP diastolic 84–87; PULSE 59–78; RESP 12–24; TEMP 36.9; O2SAT 94–100; BMI 23.5
--- NOTE | 2024-01-14 02:46 | ED.ABDPAIN ---
HPI - Abdominal Pain General Chief Complaint: Abdominal Pain Stated Complaint: right side abdominal pain Time Seen by Provider: 01/14/24 02:45 Source: patient Mode of arrival: Ambulatory Limitations: no limitations History of Present Illness HPI narrative: 58-year-old male with history of factor 5 Leiden with prior DVT on Eliquis, kidney stones, neurocognitive disorder, GERD, cervical and lumbar radiculopathy with recent cholecystectomy for gallstone 2 months ago. Patient had the surgery performed in [place]. Patient states he has been having pain for approximately a week he describes it as right upper quadrant/lateral belly. He states occasionally it goes to his back but is mostly in the front. States it seems to be more localized area. Worse when he pushes on it. Has been increasing over the past week. He took his regularly Lyrica pregabalin tonight without any improvement. He did take a [place] 1st thing in the morning yesterday. Patient denies any fevers or chills. He denies any nausea or vomiting. Denies any chest pain or shortness of breath. States that he has not had a bowel movement about 2 days, states he has been passing gas. He states he does have issues with weak stream when urinating but no dysuria, urgency or frequency otherwise. He has had hematuria on and off but has had known kidney stones which he states all seemed to be on the left. He states this does feel different than his typical kidney stones. Patient has had cholecystectomy for gallstone 2 months ago, he has had prior back surgeries with lower lumbar fusion, orthopedic surgeries but no other intra-abdominal surgeries. Patient states no tobacco, no regular alcohol or recreational drugs. His primary care is Dr. Lopez. He is accompanied by his fiancee. He is in process of following up with Urology. Related Data Home Medications Medication Instructions Recorded Confirmed montelukast 10 mg tablet 10 mg PO DAILY PRN for allergies 11/08/23 12/01/23 olopatadine 0.1 % eye drops 1 drp EYE-BOTH ONCE PRN allergy 11/08/23 12/01/23 eyes ondansetron HCl 4 mg tablet 4 mg PO QID PRN Nausea 11/08/23 12/01/23 trazodone 100 mg tablet 100 mg PO BEDTIME PRN Insomnia 11/08/23 12/01/23 Previous Rx's Medication Instructions Recorded Disabled Parking Permit #1 ea 01/20/23 apixaban 5 mg tablet (Eliquis) 5 mg PO BID #180 tabs 09/09/23 loratadine 10 mg tablet (Claritin) 10 mg PO DAILY PRN allergy 09/09/23 symptoms #90 tabs omeprazole 20 mg capsule,delayed 20 mg PO BID #180 caps 09/09/23 release tamsulosin 0.4 mg capsule 0.4 mg PO DAILY #90 caps 09/20/23 duloxetine 60 mg capsule,delayed 60 mg PO BID #180 caps 11/08/23 release hydrocodone 5 mg-acetaminophen 325 1 tab PO Q12H PRN pain #30 tabs 11/08/23 mg tablet lorazepam 2 mg tablet 2 mg PO BEDTIME PRN sleep #30 tabs 11/08/23 acetaminophen 325 mg capsule 650 mg (2 x 325 mg) PO QID PRN 11/16/23 (Tylenol) pain #60 caps docusate sodium 100 mg capsule 100 mg PO BID #30 caps 11/16/23 (Colace) oxycodone 5 mg tablet 5 mg PO Q6H PRN pain #20 tabs 11/16/23 fluticasone furoate 200 1 inh inhalation DAILY #90 ea 12/06/23 mcg/actuation blister powder for inhalation (Arnuity Ellipta) pregabalin 100 mg capsule 100 mg PO TID #90 caps 12/06/23 Wheelchair lift for car #1 ea 12/13/23 nortriptyline 10 mg capsule 10 mg PO BEDTIME #90 caps 12/22/23 apixaban 5 mg tablet (Eliquis) 5 mg PO BID #6 tabs 12/29/23 Allergies Allergy/AdvReac Type Severity Reaction Status Date / Time amitriptyline [AMITRIPTYLINE] Allergy Unknown Verified 12/01/23 10:03 quetiapine [From SEROQUEL] Allergy Unknown Verified 12/01/23 10:03 tetracycline Allergy Blister Verified 12/01/23 10:03 celecoxib [From Celebrex] AdvReac Severe lose his Verified 12/01/23 10:03 voice fluoxetine [From Prozac] AdvReac Unknown No Verified 12/01/23 10:03 emotion, pain becomes really sharp Review of Systems Review of Systems ROS Unobtainable: All systems reviewed & are unremarkable except as noted in HPI and below Patient History Medical History Microscopic hematuria History of kidney stones Cholelithiasis Chronic, continuous use of opioids Chronic embolism and thrombosis of unspecified deep veins of right lower extremity Major depressive disorder, single episode, mild Primary osteoarthritis involving multiple joints Chronic anticoagulation Bladder outlet obstruction Eosinophilic esophagitis Factor 5 Leiden mutation, heterozygous Neck mass Bronchitis Costochondritis History of DVT (deep vein thrombosis) Diverticulitis Allergic conjunctivitis Allergic rhinitis Hx of nephrolithotomy with removal of calculi History of depression Elevated PSA Lipoma of arm Umbilical hernia Chronic back pain (Unknown) Insomnia (Unknown) Restless leg syndrome (Unknown) Obstructive sleep apnea (Unknown) GERD (gastroesophageal reflux disease) (Unknown) Surgical History Hx of circumcision History of ureter stent Hx of hernia repair History of lumbar fusion History of carpal tunnel release History of tonsillectomy Family History Father Cancer Migraine Kidney stones Mother Hearing impairment Inflammatory bowel disease Urinary tract infection Brother Diabetes mellitus Hyperlipidemia Migraine Kidney stones Social History marital status: unknown details: Mary Ann Sierar) household members: significant other, none and other lives independently: Yes occupational status: previously employed and disabled Smoking Status: Never smoker alcohol intake: current substance use type: does not use caffeine: Yes Type(s) of exercise: none Smoking Status: Never smoker alcohol intake frequency: holidays/special occasions only Substance Use Type: does not use Exam Narrative Exam Narrative: GENERAL: Alert and oriented x three, male in mild distress. HEENT: Head normocephalic, atraumatic, EOMI, pupils reactive, face symmetric, moist mucous membranes NECK: Supple, full range of motion CARDIOVASCULAR: Regular rate and rhythm without murmurs, rubs or gallops. RESPIRATORY: Breath sounds equal bilaterally, no wheezes rales or rhonchi. ABDOMEN: Soft, patient is slightly distended. He is quite tender in his right upper quadrant, no real tenderness in the right lower quadrant or left lower upper quadrant. No obvious hernias. Normoactive bowel sounds all 4 quadrants. No guarding or rebound, rigidity, no mass, no rash, erythema, no vesicles. : No CVA tenderness bilaterally. EXTREMITIES: Normal range of motion, no clubbing or edema. Neurovascularly intact NEUROLOGICAL: Cranial nerves II through XII grossly intact. Moving all extremities SKIN: Warm, dry, no petechiae, no rashes or lesions. Initial Vital Signs Initial Vital Signs: Vital Signs Temperature 98.5 F 01/14/24 02:38 Pulse Rate 72 01/14/24 02:38 Respiratory Rate 16 01/14/24 02:38 Blood Pressure 150/86 H 01/14/24 02:38 Pulse Oximetry 97 01/14/24 02:38 Oxygen Delivery Method Room Air 01/14/24 02:38 Course Orders Ordered: ED Orders 01/14/24 03:02 CT abdomen pelvis w con Stat 01/14/24 03:15 Complete Blood Count AUTO DIFF Stat Comprehensive Metabolic Panel Stat Lipase Stat Troponin & CK Cardiac Panel Stat 01/14/24 03:51 EKG-12 Lead Stat Discontinued Medications Sodium Chloride (Normal Saline 0.9%) 1,000 mls @ 1,000 mls/hr IV BOLUS ONE Stop: 01/14/24 04:01 Last Infusion: 01/14/24 04:28 Dose: Infused Documented By: Admin: 01/14/24 03:21 Dose: 1,000 mls/hr Documented By: BAUTISTA Morphine Sulfate (Morphine 4 Mg/Ml Inj) 4 mg IV NOW ONE Stop: 01/14/24 03:03 Last Admin: 01/14/24 03:21 Dose: 4 mg Documented By: BAUTISTA Ondansetron HCl (Ondansetron 4 Mg/2 Ml Inj) 4 mg IV NOW ONE Stop: 01/14/24 03:03 Last Admin: 01/14/24 03:21 Dose: 4 mg Documented By: BAUTISTA Pantoprazole Sodium (Pantoprazole 40 Mg Vial) 40 mg IV NOW ONE Stop: 01/14/24 03:03 Last Admin: 01/14/24 03:20 Dose: 40 mg Documented By: BAUTISTA Vital Signs Vital signs: Vital Signs - 8 hr 01/14/24 02:38 01/14/24 02:43 01/14/24 03:00 Temperature 98.5 F Pulse Rate 72 71 78 Respiratory Rate 16 Blood Pressure 150/86 H Pulse Oximetry 97 96 99 Oxygen Delivery Method Room Air 01/14/24 03:00 01/14/24 03:35 01/14/24 04:00 Temperature Pulse Rate 74 65 Respiratory Rate Blood Pressure 140/87 Pulse Oximetry 100 100 Oxygen Delivery Method 01/14/24 04:31 01/14/24 04:32 01/14/24 04:32 Temperature Pulse Rate 59 L 60 Respiratory Rate 24 21 Blood Pressure 148/85 H Pulse Oximetry 94 100 Oxygen Delivery Method 01/14/24 05:00 01/14/24 05:00 Temperature Pulse Rate 59 L Respiratory Rate 12 Blood Pressure 136/84 Pulse Oximetry 96 Oxygen Delivery Method MDM - Abdominal Pain Lab Data 01/14/24 03:15 01/14/24 03:15 Labs: Lab Results 01/14/24 Range/Units 03:15 WBC 5.7 (4.5-11.0) X10^3/uL RBC 4.35 L (4.5-5.9) X10^6/uL Hgb 13.4 L (13.5-17.5) g/dL Hct 39.5 L (41-53) % MCV 90.8 (80-100) fL MCH 30.8 (26-34) PG MCHC 33.9 (30-36) % RDW 14.3 (11.6-14.8) % Plt Count 270 (150-400) X10^3/uL Neut % (Auto) 50.2 (50-75) % Lymph % (Auto) 35.9 (25-40) % Osborne % (Auto) 9.1 (3-14) % Eos % (Auto) 3.3 (2-4) % Baso % (Auto) 1.5 (0-2) % Neut # (Auto) 2800 (1856-8335) /uL Lymph # (Auto) 2000 (0348-9248) /uL Osborne # (Auto) 500 (0-900) /uL Eos # (Auto) 200 (0-450) /uL Baso # (Auto) 100 (0-100) /uL Sodium 135 L (137-145) mmol/L Potassium 4.2 (3.4-5.1) mmol/L Chloride 104 (98-107) mmol/L Carbon Dioxide 24 (22-32) mmol/L BUN 17 (9-20) mg/dL Creatinine 1.12 (0.66-1.25) mg/dL Estimated GFR > 60 (>60) mL/min BUN/Creatinine Ratio 15.2 (6-22) Glucose 101 (80-110) mg/dL Calcium 9.0 (8.4-10.2) mg/dL Total Bilirubin 0.5 (0.2-1.3) mg/dL AST 28 (17-59) IU/L ALT 20 (<50) IU/L Alkaline Phosphatase 71 (38-126) U/L Total Creatine Kinase 96 (55-170) U/L Troponin I < 0.012 (0.01-0.034) ng/mL Total Protein 6.7 (6.3-8.2) g/dL Albumin 4.1 (3.5-5.0) g/dL Globulin 2.6 (1.7-4.1) g/dL Albumin/Globulin Ratio 1.6 (1.0-2.8) Lipase 95 (23-300) U/L Point of care testing: Urine Dip Bedside Urine Glucose Negative Bedside Urine Bilirubin - Negative Bedside Urine Ketone +/- 5 Urine Specific Kaiser 1.005 Bedside Urine Occult Blood - Negative Bedside Urine pH 7 Bedside Urine Protein - Negative Bedside Urine Urobilinogen - Negative Bedside Urine Nitrite - Negative Bedside Urine Leukocytes - Negative Esterase Imaging Data CT scan - abdomen/pelvis: Radiologist's Impression: Rad read, slightly dependent atelectasis, 1 point cm lesion with discontinuous nodular peripheral enhancement inferior posterior segment right lobe liver unchanged in size compared to hypodense lesion on prior noncontrast CT probably hemangioma, couple other tiny hypodensity in the liver probably cyst or hemangioma has been nonspecific. Eighteen point sent 4 cm mild hepatomegaly inflammatory infiltration. Renal cysts no hydro, 0.2 cm nodule left adrenal gland slightly increased. Minimal umbilical hernia contains fat only. Subcutaneous stranding umbilicus not seen on prior study maybe scarring can not exclude inflammatory or infectious process. Minimally patulous inguinal canals with no herniated bowel, large prostate slightly increased. No diverticulitis, redundant colon with moderate to moderately severe fecal retention increased. He unremarkable appendix. Infusion unchanged. Spondylosis. ECG Data Attestation: I personally reviewed and interpreted this ECG as follows: Prior ECG tracings: available for review Interpretation: NSR rate of 62, OK 180, QRS 96, Qtc 410. No acute ST changes. Patient has prior from 04/22/2023 appears similar. MDM Narrative Medical decision making narrative: This is a 58-year-old male with complaint of abdominal pain that he describes as right-sided. Patient notes he had a cholecystectomy and resolved for 7 cm gallstone, he states that they had [place] with the ultrasound and CT but did not find it and then was found in [place] while visiting. His surgery was 2 months ago. Labs show white count of 5.7 hemoglobin of 13 platelets of 270, sodium 135 potassium of 4.2, chloride of 104 CO2 of 24 BUN 17 creatinine 1.12, glucose is 101, LFTs are negative, troponin was negative. EKG was no acute change. CT shows some subcutaneous stranding in the umbilicus patient did have fairly recent surgery does not have any obvious inflammatory infectious changes on examination show possible lesion on the liver likely hemangioma, mild hepatomegaly and fatty infiltration. 0.2 cm left adrenal gland slightly increased. Enlarged prostate slightly increased. No other clear source of patient's pain but does have moderate to moderately severe fecal retention as well. Patient states that his symptoms have improved significantly he thinks he may have passed a kidney stone. Patient is feeling much improved here in the department. Reviewed his labs as well as imaging changes. Reviewed has incidental findings as well that are less likely to be source of his pain including likely hemangioma, some mild hepatomegaly and fatty infiltrate, renal cysts, 1.2 cm nodule left adrenal gland slightly increased large prostate. Patient has been concerned about his PSA level but we did clarify his level and he had read some of the comments for the lab level and misunderstood that it med he should have a radical prostatectomy but we discussed that it is reading that he should have negative levels if he had had a radical prostatectomy. Discharge Plan Departure Patient Disposition: Home Clinical Impression: Abdominal pain Instructions: DI for Abdominal Pain-Adult Activity Restrictions/Additional Instructions: Follow-up with your physician. Your imaging today did show some changes in her likely hemangioma and some mild hepatomegaly, left adrenal gland is slightly increased in size, prostate is enlarged on her imaging, and there is moderate to severe fecal retention. You may continue with your home medications as prescribed. Make sure staying well hydrated, if you are having any stools that are harder or smaller amounts so would recommend a stool softener 1 or 2 times daily. Please return for fevers, rapidly worsening pain new rashes or skin changes, passing out, persistent vomiting, black or bloody stools or other new or concerning changes. Prescriptions: No Action (DME) Disabled Parking Permit See Rx Instructions .ROUTE .MEDSUPPLY Qty: 1 0RF Rx Instructions: Patient qualifies for disabled parking as per the attached form. Eliquis 5 mg tablet 5 mg PO BID Qty: 180 3RF loratadine [Claritin] 10 mg tablet 10 mg PO DAILY PRN (Reason: allergy symptoms) Qty: 90 3RF omeprazole 20 mg capsule,delayed release(DR/EC) 20 mg PO BID Qty: 180 3RF Arnuity Ellipta 200 mcg/actuation blister with device 1 inh inhalation DAILY Qty: 90 3RF pregabalin 100 mg capsule 100 mg PO TID Qty: 90 1RF (DME) Wheelchair lift for car See Rx Instructions .Route .MEDSUPPLY Qty: 1 0RF Rx Instructions: As directed nortriptyline 10 mg capsule 10 mg PO BEDTIME Qty: 90 3RF Eliquis 5 mg tablet 5 mg PO BID Qty: 6 0RF Rx Instructions: HOLD ELIQUIS X72 HOURS FOR INJECTION TREATMENT PER DR. RIVERA WITH [facility]. montelukast 10 mg tablet 10 mg PO DAILY PRN (Reason: for allergies) olopatadine 0.1 % drops 1 drp EYE-BOTH ONCE PRN (Reason: allergy eyes) ondansetron HCl 4 mg tablet 4 mg PO QID PRN (Reason: Nausea) trazodone 100 mg tablet 100 mg PO BEDTIME PRN (Reason: Insomnia) hydrocodone-acetaminophen 5-325 mg tablet 1 tab PO Q12H PRN (Reason: pain) Qty: 30 0RF duloxetine 60 mg capsule,delayed release(DR/EC) 60 mg PO BID Qty: 180 3RF lorazepam 2 mg tablet 2 mg PO BEDTIME PRN (Reason: sleep) Qty: 30 5RF docusate sodium [Colace] 100 mg capsule 100 mg PO BID Qty: 30 0RF oxycodone 5 mg tablet 5 mg PO Q6H PRN (Reason: pain) Qty: 20 0RF acetaminophen [Tylenol] 325 mg capsule 650 mg PO QID PRN (Reason: pain) Qty: 60 0RF tamsulosin 0.4 mg capsule 0.4 mg PO DAILY Qty: 90 3RF Referrals: Jerry Lopez MD [Primary Care Provider] - Stand Alone Forms: Patient Portal/API
--- NOTE | 2024-01-14 03:02 | DI.CT.S_ITS ---
PROCEDURE: CT ABDOMEN PELVIS W CON INDICATIONS: RUQ/flank pain x 1wk, s/p barry 2 months TECHNIQUE: After the administration of intravenous contrast, axial sections acquired from the lung bases to the pubic symphysis. Coronal and sagittal reformats were performed. For radiation dose reduction, the following was used: automated exposure control, adjustment of mA and/or kV according to patient size. COMPARISON: None. FINDINGS: Image quality: Diagnostic. Lower Chest: No significant findings. ABDOMEN: Liver: Vascular shunt at the liver dome. Segment 6 hemangioma. Additional subcentimeter hypoattenuating lesions, too small to characterize by CT. Gallbladder: Absent. Biliary ducts: No biliary dilation. Pancreas: No ductal dilation. Spleen: Size is within normal limits. Adrenal Glands: No adrenal nodules. Kidneys and Ureters: No hydronephrosis. No solid mass. No complex renal cystic lesion which requires follow up. Small burden of punctate nonobstructing right-sided nephrolithiasis. Stomach and Bowel: Normal colonic caliber, without significant wall thickening. Normal appendix. Moderate colonic stool load. Colonic diverticulosis without evidence of diverticulitis. Peritoneum: No abnormal intraperitoneal fluid. No free air. Ventral Wall: Small umbilical hernia containing fat. Trace fat stranding adjacent to the umbilicus. Abdominal Nodes: No retroperitoneal or mesenteric adenopathy by size criteria. Vessels: Aorta and inferior vena cava are normal in size. PELVIS: Pelvic Organs: Unremarkable. Bladder: No bladder wall thickening, accounting for underdistention. Pelvic Nodes: No enlarged lymph nodes. Miscellaneous: No inguinal hernias are seen. Fat within the proximal inguinal canals. Bones: No aggressive osseous abnormality. IMPRESSION: Trace fat stranding adjacent to the umbilicus, which could indicate cellulitis. Moderate colonic stool load. Colonic diverticulosis without evidence of diverticulitis. A couple of punctate nonobstructing right-sided nephrolithiasis. Agree with preliminary report. Dictated by: Ed Lam M.D. on 01/14/2024 at 7:36 Approved by: Ed Lam M.D. on 01/14/2024 at 7:39
[2024-01-14] MEDS: PANTOPRAZOLE 40 MG VIAL IV (03:20)
[2024-01-14] MEDS: SODIUM CHLORIDE 0.9% 1,000 ML 1000 ML IV (03:21)
[2024-01-14] MEDS: MORPHINE 4 MG/ML INJ IV (03:21)
[2024-01-14] MEDS: ONDANSETRON 4 MG/2 ML INJ IV (03:21)
[2024-01-14 03:24] LABS: Add Manual Diff / Slide Review NO; Basophils Absolute Auto 100 /uL (0-100); Basophils Percent Auto 1.5 % (0-2); Eosinophils Absolute Auto 200 /uL (0-450); Eosinophils Percent Auto 3.3 % (2-4); Hematocrit 39.5 % (41-53); Hemoglobin 13.4 g/dL (13.5-17.5); Lymphocytes Absolute Auto 2000 /uL (1100-4500); Lymphocytes Percent Auto 35.9 % (25-40); Mean Corpuscular HGB Conc 33.9 % (30-36); Mean Corpuscular Hemoglobin 30.8 PG (26-34); Mean Corpuscular Volume 90.8 fL (80-100); Monocytes Absolute Auto 500 /uL (0-900); Monocytes Percent Auto 9.1 % (3-14); Neutrophils Absolute Auto 2800 /uL (1500-7000); Neutrophils Percent Auto 50.2 % (50-75); Platelet Count 270 X10^3/uL (150-400); Red Blood Cell Count 4.35 X10^6/uL (4.5-5.9); Red Cell Distribution Width 14.3 % (11.6-14.8); White Blood Cell Count 5.7 X10^3/uL (4.5-11.0)
[2024-01-14 03:35] LABS: Alanine Aminotransferase 20 IU/L (<50); Albumin 4.1 g/dL (3.5-5.0); Albumin Globulin Ratio 1.6 (1.0-2.8); Alkaline Phosphatase 71 U/L (38-126); Aspartate Aminotransferase 28 IU/L (17-59); BUN Creatinine Ratio 15.2 (6-22); Bilirubin Total 0.5 mg/dL (0.2-1.3); Blood Urea Nitrogen 17 mg/dL (9-20); Carbon Dioxide 24 mmol/L (22-32); Chloride 104 mmol/L (98-107); Estimated Glomerular Filt Rate > 60 mL/min (>60); Globulin 2.6 g/dL (1.7-4.1); Glucose 101 mg/dL (80-110); HEMOLYSIS 19 (0-50); Lipase 95 U/L (23-300); Potassium 4.2 mmol/L (3.4-5.1); Sodium 135 mmol/L (137-145); Total Protein 6.7 g/dL (6.3-8.2)
--- NOTE | 2024-01-14 03:45 | PC.NURSE ---
called to room by , pt states he is having cp that is described as sharp in nature, with nothing making it worse or better Dr Blake notified and EKG obtained
--- NOTE | 2024-01-14 04:00 | PC.NURSE ---
called to pt's room by . pt now states he knows what the pain is, I know it is kidney stones, this feels like it did before and the pain is moving to my side and the pain makes it where it hurts to take a deep breathe informed pt will let Dr Blake aware
[2024-01-14 04:06] LABS: Creatine Kinase 96 U/L (55-170)
[2024-01-14 04:19] LABS: Troponin I < 0.012 ng/mL (0.01-0.034)
== END 2024-01-14 05:29 | disposition home or self-care (01) ==
PROVIDERS: Emergency Provider Emergency Medicine; Family Provider Pediatrics; PCP Internal Medicine
DX: R10.11 Right upper quadrant pain (principal); R03.0 Elevated blood-pressure reading, without diagnosis of hypertension; Z90.49 Acquired absence of other specified parts of digestive tract
CPT/HCPCS: 36415; 74177; 80053; 81003; 82550; 83690; 84484; 85025; 93005; 96374; 96375; 99284; C9113; J2270; J2405; Q9967

== ENCOUNTER → 2024-01-23 17:10 | Outpatient (CLI) | payer MEDICARE, MEDICAID, SELFPAY ==
[2024-01-23 18:43] LABS: Prostate Specific Antigen 6.36 ng/mL (0.10-4.00)
[2024-01-24 12:16] LABS: PSA Free % 18.3 % (.); PSA, Total 6.9 ng/mL (0.0-4.0)
== END ==
PROVIDERS: Family Provider Pediatrics; PCP Internal Medicine; Referring Provider Urology; Visit Provider Urology
DX: R97.20 Elevated prostate specific antigen [PSA] (principal)
CPT/HCPCS: 36415; 84153; 84154

== ENCOUNTER → 2024-03-13 13:18 | Outpatient (CLI) | payer MEDICARE, MEDICAID, SELFPAY ==
--- NOTE | 2024-03-13 13:20 | DI.RAD.S_ITS ---
PROCEDURE: XR KUB INDICATIONS: Follow-up kidney stones TECHNIQUE: One view of the abdomen acquired. COMPARISON: [facility], CR, XR KUB, 01/11/2024, 16:55. FINDINGS: Surgical changes and devices: None. Bowel: Bowel gas pattern is normal. Soft tissues: 2 mm calculus projected over the right kidney, unchanged from prior study of 01/11/24. . Visualized solid organ contours appear normal in size. Bones: With surgical hardware in the lower lumbar spine with posterior fusion from L4 to S1.. IMPRESSION: Non-obstructing 2 mm calculus in the right kidney. Dictated by: Aiden Mann M.D. on 03/13/2024 at 14:22 Approved by: Aiden Mann M.D. on 03/13/2024 at 14:26
[2024-03-15 07:37] LABS: PSA, Total 5.9 ng/mL (0.0-4.0)
== END ==
PROVIDERS: Family Provider Pediatrics; PCP Internal Medicine; Referring Provider Urology; Visit Provider Urology
DX: N20.0 Calculus of kidney (principal); Z87.442 Personal history of urinary calculi; R97.20 Elevated prostate specific antigen [PSA]
CPT/HCPCS: 36415; 74018; 84153; 84154

== ENCOUNTER → 2024-04-03 14:41 | Outpatient (CLI) | payer MEDICARE, MEDICAID, SELFPAY ==
[2024-04-03 15:40] LABS: C-Reactive Protein Quant 2.4 mg/dL (<1.0)
[2024-04-03 16:12] LABS: Erythrocyte Sedimentation Rate 9 MM/HR (0-15)
== END ==
LOC: LAB 14:44
PROVIDERS: Family Provider Pediatrics; PCP Internal Medicine; Referring Provider Internal Medicine; Visit Provider Internal Medicine
DX: K52.9 Noninfective gastroenteritis and colitis, unspecified (principal)
CPT/HCPCS: 36415; 85651; 86140

== ENCOUNTER → 2024-04-10 16:26 | Outpatient (CLI) | payer MEDICARE, MEDICAID, SELFPAY ==
[2024-04-10 17:36] LABS: Add Manual Diff / Slide Review NO; Basophils Absolute Auto 0 /uL (0-100); Basophils Percent Auto 0.6 % (0-2); Eosinophils Absolute Auto 100 /uL (0-450); Eosinophils Percent Auto 2.2 % (2-4); Hematocrit 41.7 % (41-53); Hemoglobin 13.8 g/dL (13.5-17.5); Lymphocytes Absolute Auto 1300 /uL (1100-4500); Lymphocytes Percent Auto 26.6 % (25-40); Mean Corpuscular HGB Conc 33.2 % (30-36); Mean Corpuscular Hemoglobin 30.6 PG (26-34); Mean Corpuscular Volume 92.2 fL (80-100); Monocytes Absolute Auto 300 /uL (0-900); Neutrophils Absolute Auto 3100 /uL (1500-7000); Neutrophils Percent Auto 64.6 % (50-75); Platelet Count 247 X10^3/uL (150-400); Red Blood Cell Count 4.53 X10^6/uL (4.5-5.9); Red Cell Distribution Width 13.7 % (11.6-14.8); White Blood Cell Count 4.8 X10^3/uL (4.5-11.0)
[2024-04-10 17:56] LABS: Alanine Aminotransferase 16 IU/L (<50); Albumin 4.3 g/dL (3.5-5.0); Albumin Globulin Ratio 1.7 (1.0-2.8); Alkaline Phosphatase 78 U/L (38-126); Aspartate Aminotransferase 21 IU/L (17-59); BUN Creatinine Ratio 9.9 (6-22); Bilirubin Total 0.5 mg/dL (0.2-1.3); Blood Urea Nitrogen 10 mg/dL (9-20); C-Reactive Protein Quant < 0.5 mg/dL (<1.0); Calcium 9.4 mg/dL (8.4-10.2); Carbon Dioxide 25 mmol/L (22-32); Chloride 105 mmol/L (98-107); Estimated Glomerular Filt Rate > 60 mL/min (>60); Globulin 2.5 g/dL (1.7-4.1); Glucose 105 mg/dL (80-110); HEMOLYSIS < 15 (0-50); Sodium 139 mmol/L (137-145); Total Protein 6.8 g/dL (6.3-8.2)
[2024-04-10 18:57] LABS: Erythrocyte Sedimentation Rate 6 MM/HR (0-15)
== END ==
PROVIDERS: Family Provider Pediatrics; PCP Internal Medicine; Referring Provider Internal Medicine; Visit Provider Internal Medicine
DX: I82.409 Acute embolism and thrombosis of unspecified deep veins of unspecified lower extremity (principal)
CPT/HCPCS: 36415; 80053; 82656; 83993; 85025; 85651; 86140

== ENCOUNTER → 2024-05-20 10:49 | Outpatient (CLI) | payer MEDICARE, MEDICAID, SELFPAY ==
--- NOTE | 2024-05-20 | DI.MRI.S_ITS ---
PROCEDURE: MR LUMBAR SPINE WO CON INDICATIONS: HX OF LUMBAR SURGERY,LUMBAR RADICULOPATHY TECHNIQUE: Noncontrast sagittal T1 spin echo and T2 fast echo, sagittal STIR, and T2 fast spin echo through the lumbar spine. In cases with scoliosis, additional coronal T2 fast spin echo may be performed. COMPARISON: [facility], , MR LUMBAR SPINE WO CON, 08/16/2023, 16:05. FINDINGS: Image quality: Excellent. Alignment and Curvature: Grade 1 retrolisthesis of L1 on L2, L2 on L3, L3 on L4 are unchanged. Posterior fusion at L4 through S1 is stable. Bone Marrow: Marrow is of normal overall signal. Reactive endplate changes are present L1-L2 with Schmorl's node slightly more prominent. No acute vertebral body compression fractures. Spinal Cord: Conus medullaris terminates at the L1 level. Visualized cord demonstrates normal signal and size. Paraspinous Soft Tissues: No paravertebral masses. Simple bilateral renal cysts. Discs: Multilevel moderate to severe disc desiccation. T12-L1: Mild disc bulge with mild spinal stenosis. Mild bilateral foraminal narrowing unchanged. L1-L2: Mild disc bulge with mild spinal stenosis. Moderate narrowing with facet and ligamentum flavum hypertrophy. No interval change. L2-L3: Mild disc bulge with minimal spinal stenosis. Moderate bilateral foraminal narrowing with facet and ligamentum flavum hypertrophy. No interval change. L3-L4: Mild disc bulge with mild spinal stenosis. Moderate to severe bilateral foraminal narrowing with mild compression of the exiting nerve roots bilaterally. Facet and ligamentum flavum hypertrophy are present. No interval change. L4-L5: Postsurgical changes are present. No significant spinal stenosis or foraminal narrowing. Interval change. L5-S1: Postsurgical changes are present. No significant spinal stenosis or foraminal narrowing. IMPRESSION: Stable postsurgical fusion from L4 through S1. Stable scattered areas of disc bulges, spinal stenosis and foraminal narrowing most severe at L3-4. Dictated by: Elizabeth Villareal M.D. on 05/21/2024 at 16:08 Approved by: Elizabeth Villareal M.D. on 05/21/2024 at 16:29
== END ==
LOC: MRI 10:50
PROVIDERS: Family Provider Pediatrics; PCP Internal Medicine; Referring Provider Orthopaedic Surgery Orthopaedic Surgery of the Spine; Visit Provider Orthopaedic Surgery Orthopaedic Surgery of the Spine
DX: M51.16 Intervertebral disc disorders with radiculopathy, lumbar region (principal); M47.26 Other spondylosis with radiculopathy, lumbar region; M48.061 Spinal stenosis, lumbar region without neurogenic claudication; Z98.890 Other specified postprocedural states; Z98.1 Arthrodesis status
CPT/HCPCS: 72148

== ENCOUNTER 2024-05-22 09:17 | Day surgery (SDC) | payer MEDICARE, SELFPAY ==
--- NOTE | 2024-05-22 | PATH_ITS ---
[facility] Accession Number: [id number] No. of containers..02 Tissue . 01 Material submitted: . PART A: esophagus - ESOPHAGEAL BIOPSIES PART B: esophagus, E-G Junction - GE JUNCTION . 01 Diagnosis: A. Esophageal, biopsies: - Benign squamous mucosa, negative for increased intraepithelial eosinophils. -- B. GE junction, biopsy: - Columnar epithelium, negative for intestinal metaplasia. - Squamous epithelium, negative for increased intraepithelial eosinophils. - Negative for dysplasia or malignancy. TXN 05/25/2024 1635 Local . 01 Electronically signed: . Tawpenny Smith MD, Pathologist NPI- [id number] . 01 Gross description: . A. Received in formalin with two patient identifiers and esophageal biopsies, are multiple mcallister soft tissue fragments aggregating to 0.8 x 0.4 x 0.1 cm. Filtered and submitted entirely in A1. B. Received in formalin with two patient identifiers and GE junction biopsies, are two mcallister soft tissue fragments, 0.4 cm each in greatest dimension. Submitted in B1. ([id number]) /MRV 05/23/2024 1822 Local . 01 Pathologist provided ICD-10: K21.9 . 01 CPT . 186655, [id number] Specimen Comment: A courtesy copy of this report has been sent to [phone] Performed at: [address] [id number] MD Anthony Hammond MD Phone: [phone]
[2024-05-22 09:47] VITALS: BP 139/85; PULSE 76; RESP 17; TEMP 36.9; O2SAT 96
[2024-05-22] MEDS: LACTATED RINGERS 1,000 ML 42 ML IV (09:59)
--- NOTE | 2024-05-22 10:25 | PM.PREOP ---
Pre-operative Note Interval Note History & Physical reviewed/Exam performed by Physician: Yes Changes to H&P: No
[2024-05-22 10:51] VITALS: BP 121/78; PULSE 69; RESP 20; TEMP 36.5; O2SAT 93
[2024-05-22 10:55] VITALS: BP 134/86; PULSE 72; RESP 18; O2SAT 99
--- NOTE | 2024-05-22 10:55 | PM.OP.EGD ---
Operative Date/Time/Diagnoses Date of procedure: 05/22/24 Time of procedure: 10:55 Pre-op diagnosis: Reflux, history of eosinophilic esophagitis Post-op diagnosis: other (Hiatal hernia) Procedure & Clinicians Study performed: Esophagogastroduodenoscopy Same procedure as scheduled: Yes Indications: 58-year-old man history of eosinophilic esophagitis and GERD here for upper endoscopy. Surgeon: Junior Pina Procedure Notes Procedure in detail: The history and physical was performed/updated and the patient is ASA class is 2. The procedure was discussed in detail with the patient. Potential risks complications including infection, bleeding, missed diagnosis, perforation, need for surgery, and were explained. Their questions were answered and informed consent was obtained. Patient placed in left lateral decubitus position. Time out was performed. Procedural sedation was administered by Anesthesia. A bite block was placed. the scope was inserted into the mouth and advanced through the esophagus and into the stomach. The pylorus was intubated and the duodenum was examined to the 2nd portion. The scope was then withdrawn into the stomach and was retroflexed. The stomach was decompressed and scope was withdrawn slowly through the esophagus. FINDINGS -Hiatal hernia Hill grade 2-3 -normal GE junction biopsied with forceps -no signs of esophagitis or linear erosions. Numerous biopsies of the mid and distal esophagus performed with forceps. The patient tolerated the procedure well and will be discharged when they meet criteria. Specimen(s): other (GE junction, random esophageal biopsies) Impression: Hiatal hernia Post-procedure Plan for aftercare: Follow up biopsy pathology Disposition: same day surgery
[2024-05-22 11:00] VITALS: BP 128/88; PULSE 68; RESP 16; O2SAT 98
[2024-05-22] MEDS: BENZOCAINE/MENTHOL 1 LOZ PKT 1 EACH PO (11:01)
[2024-05-22 11:08] VITALS: BP 125/90; PULSE 76; RESP 12; O2SAT 96
[2024-05-22] MEDS: OXYCODONE IR 5 MG TABLET PO (11:34)
== END 2024-05-22 11:45 | disposition home or self-care (01) ==
PROVIDERS: Family Provider Pediatrics; PCP Internal Medicine; Referring Provider Surgery; Visit Provider Surgery
PROC: 0DJ08ZZ Inspection of Upper Intestinal Tract, Via Natural or Artificial Opening Endoscopic (ICD-10-PCS; CPT 43235; principal; 2024-05-22 10:45)
DX: K21.9 Gastro-esophageal reflux disease without esophagitis (principal); Z87.19 Personal history of other diseases of the digestive system; K44.9 Diaphragmatic hernia without obstruction or gangrene
CPT/HCPCS: 43239; J2704

== ENCOUNTER 2024-05-26 00:23 | Emergency (ER) | payer MEDICARE, SELFPAY ==
[2024-05-26 00:27] VITALS: BP 148/90; PULSE 76; RESP 20; TEMP 36.5; O2SAT 99; BMI 23.5
--- NOTE | 2024-05-26 00:36 | PC.NURSE ---
Pt states that on 05/22/24 had a endoscopy, with biopsies. Waiting for authorization for Barium Swallow
--- NOTE | 2024-05-26 00:48 | ED.GENADULT ---
HPI - General Adult General Chief complaint: Dental/Oral Stated complaint: throat pain Time Seen by Provider: 05/26/24 00:33 Source: patient Mode of arrival: Ambulatory History of Present Illness HPI narrative: Patient a 58-year-old male 3 days ago underwent an upper endoscopy if more longstanding history of reflux disease. He was states he would multiple biopsies taken. Since that time he was had sore throat. Has tried sore throat lozenges and topical agents without improvement. He also took an oxycodone which does not help his symptoms either. No problems breathing. Does have pain with swallowing. No fevers. Related Data Home Medications Medication Instructions Recorded Confirmed montelukast 10 mg tablet 10 mg PO DAILY PRN for allergies 11/08/23 05/22/24 olopatadine 0.1 % eye drops 1 drp EYE-BOTH ONCE PRN allergy 11/08/23 04/26/24 eyes ondansetron HCl 4 mg tablet 4 mg PO QID PRN Nausea 11/08/23 05/22/24 L. acidophilus/Bifid. animalis 1 tab PO DAILY 01/24/24 04/26/24 [Daily Probiotic] omeprazole 40 mg capsule,delayed 40 mg PO BID 01/24/24 05/22/24 release colestipol 1 gram tablet 2 g PO BID 02/07/24 05/22/24 Previous Rx's Medication Instructions Recorded Disabled Parking Permit #1 ea 01/20/23 apixaban 5 mg tablet (Eliquis) 5 mg PO BID #180 tabs 09/09/23 loratadine 10 mg tablet (Claritin) 10 mg PO DAILY PRN allergy 09/09/23 symptoms #90 tabs tamsulosin 0.4 mg capsule 0.4 mg PO DAILY #90 caps 09/20/23 duloxetine 60 mg capsule,delayed 60 mg PO BID #180 caps 11/08/23 release Wheelchair lift for car #1 ea 12/13/23 nortriptyline 10 mg capsule 10 mg PO BEDTIME #90 caps 12/22/23 trazodone 100 mg tablet 100 mg PO BEDTIME PRN Insomnia #90 01/31/24 tabs hydrocodone 5 mg-acetaminophen 325 1 tab PO TID PRN pain #90 tabs 04/16/24 mg tablet fluticasone propionate 220 2 puff inhalation BID PRN SOB #36 05/11/24 mcg/actuation HFA aerosol inhaler grams lorazepam 2 mg tablet 2 mg PO BEDTIME PRN sleep #30 tabs 05/21/24 pregabalin 100 mg capsule 100 mg PO TID #90 caps 05/21/24 fluconazole 200 mg tablet 200 mg PO DAILY #15 tabs 05/25/24 sucralfate 100 mg/mL oral 10 ml PO QACHS #420 mL 05/26/24 suspension (Carafate) Allergies Allergy/AdvReac Type Severity Reaction Status Date / Time amitriptyline [AMITRIPTYLINE] Allergy Unknown Verified 04/26/24 11:36 quetiapine [From SEROQUEL] Allergy Unknown Verified 04/26/24 11:36 tetracycline Allergy Blister Verified 04/26/24 11:36 celecoxib [From Celebrex] AdvReac Severe lose his Verified 04/26/24 11:36 voice fluoxetine [From Prozac] AdvReac Unknown No Verified 04/26/24 11:36 emotion, pain becomes really sharp Review of Systems Review of Systems Narrative: See HPI Patient History Medical History Kidney stones Benign prostatic hyperplasia with lower urinary tract symptoms Microscopic hematuria History of kidney stones Slow transit constipation Cholelithiasis Chronic, continuous use of opioids Chronic embolism and thrombosis of unspecified deep veins of right lower extremity Major depressive disorder, single episode, mild Primary osteoarthritis involving multiple joints Chronic anticoagulation Bladder outlet obstruction Eosinophilic esophagitis Factor 5 Leiden mutation, heterozygous Neck mass Bronchitis Costochondritis History of DVT (deep vein thrombosis) Diverticulitis Allergic conjunctivitis Allergic rhinitis Hx of nephrolithotomy with removal of calculi History of depression Elevated PSA Lipoma of arm Umbilical hernia Chronic back pain (Unknown) Insomnia (Unknown) Restless leg syndrome (Unknown) Obstructive sleep apnea (Unknown) GERD (gastroesophageal reflux disease) (Unknown) Surgical History Hx of circumcision History of ureter stent Hx of hernia repair History of lumbar fusion History of carpal tunnel release History of tonsillectomy Family History Father Cancer Migraine Kidney stones Mother Hearing impairment Inflammatory bowel disease Urinary tract infection Brother Diabetes mellitus Hyperlipidemia Migraine Kidney stones Social History (Reviewed 05/26/24 @ 01:15 by LESLEY Keith marital status: unknown details: Mary Ann (Krupa) household members: significant other, none and other lives independently: Yes occupational status: previously employed and disabled Smoking Status: Never smoker alcohol intake: current substance use type: does not use caffeine: Yes Type(s) of exercise: none Smoking Status: Never smoker alcohol intake frequency: holidays/special occasions only Substance Use Type: does not use Exam Initial Vital Signs Initial Vital Signs: Vital Signs Temperature 97.7 F 05/26/24 00:27 Pulse Rate 76 05/26/24 00:27 Respiratory Rate 20 05/26/24 00:27 Blood Pressure 148/90 H 05/26/24 00:27 Pulse Oximetry 99 05/26/24 00:27 Oxygen Delivery Method Room Air 05/26/24 00:27 HENMT Mouth: oral mucosae normal and moist mucous membranes HENMT Other: posterior oropharynx has erythema and abrasions Resp Effort & Inspection: normal respiratory effort Course Orders Ordered: Discontinued Medications Sucralfate (Sucralfate 1 Gm/10 Ml Oral Susp) 1 gm PO NOW ONE Stop: 05/26/24 00:58 Last Admin: 05/26/24 01:00 Dose: 1 gm Documented By: AB Vital Signs Vital signs: Vital Signs - 8 hr 05/26/24 00:27 Temperature 97.7 F Pulse Rate 76 Respiratory Rate 20 Blood Pressure 148/90 H Pulse Oximetry 99 Oxygen Delivery Method Room Air Medical Decision Making MDM Narrative Medical decision making narrative: superficial abrasions to the posterior oropharynx that are consistent with his endoscopy that he had 3 days ago. There was no signs of infection. He was no chest pain. Does have painful swallowing. No fevers. No problems breathing. he stated that he has had a reaction in the past viscous lidocaine so he would like to avoid this. Will try Carafate to try to help soothe his sore throat and protect the esophagus. No indication for imaging studies I have low suspicion for any perforations. Will discharge patient home with return precautions. He expressed understanding and agreement. Discharge Plan Departure Patient Disposition: Home Clinical Impression: Sore throat Activity Restrictions/Additional Instructions: recommend that you continue to follow all of the postoperative instructions given to you by the general surgeons and keep all of your scheduled follow-up appointments. The Carafate can be used as directed for the next couple days. Once your feeling better you can either decrease the amount that you are using every day or stop it altogether. Return to the emergency department for new or worsening symptoms. Prescriptions: New sucralfate [Carafate] 100 mg/mL suspension 10 ml PO QACHS Qty: 420 0RF No Action (DME) Disabled Parking Permit See Rx Instructions .ROUTE .MEDSUPPLY Qty: 1 0RF Rx Instructions: Patient qualifies for disabled parking as per the attached form. Eliquis 5 mg tablet 5 mg PO BID Qty: 180 3RF loratadine [Claritin] 10 mg tablet 10 mg PO DAILY PRN (Reason: allergy symptoms) Qty: 90 3RF (DME) Wheelchair lift for car See Rx Instructions .Route .MEDSUPPLY Qty: 1 0RF Rx Instructions: As directed nortriptyline 10 mg capsule 10 mg PO BEDTIME Qty: 90 3RF trazodone 100 mg tablet 100 mg PO BEDTIME PRN (Reason: Insomnia) Qty: 90 3RF fluticasone propionate 220 mcg/actuation HFA aerosol inhaler 2 puff inhalation BID PRN (Reason: SOB) Qty: 36 6RF pregabalin 100 mg capsule 100 mg PO TID Qty: 90 1RF lorazepam 2 mg tablet 2 mg PO BEDTIME PRN (Reason: sleep) Qty: 30 5RF fluconazole 200 mg tablet 200 mg PO DAILY Qty: 15 0RF Rx Instructions: Day 1-Take 2 tabs 400 mg Day 2-14 Take 1 tab daily omeprazole 40 mg capsule,delayed release(DR/EC) 40 mg PO BID L. acidophilus/Bifid. animalis [Daily Probiotic] 1 tab PO DAILY montelukast 10 mg tablet 10 mg PO DAILY PRN (Reason: for allergies) olopatadine 0.1 % drops 1 drp EYE-BOTH ONCE PRN (Reason: allergy eyes) ondansetron HCl 4 mg tablet 4 mg PO QID PRN (Reason: Nausea) duloxetine 60 mg capsule,delayed release(DR/EC) 60 mg PO BID Qty: 180 3RF hydrocodone-acetaminophen 5-325 mg tablet 1 tab PO TID PRN (Reason: pain) Qty: 90 0RF colestipol 1 gram tablet 2 g PO BID tamsulosin 0.4 mg capsule 0.4 mg PO DAILY Qty: 90 3RF Referrals: Jerry Lopez MD [Primary Care Provider] - Stand Alone Forms: Patient Portal/API
[2024-05-26] MEDS: SUCRALFATE 1 GM/10 ML ORAL SUSP PO (01:00)
== END 2024-05-26 01:03 | disposition home or self-care (01) ==
PROVIDERS: Emergency Provider Emergency Medicine; Family Provider Pediatrics; PCP Internal Medicine
DX: J02.9 Acute pharyngitis, unspecified (principal)
CPT/HCPCS: 99283

== ENCOUNTER → 2024-06-11 11:15 | Outpatient (CLI) | payer MEDICARE, MEDICAID, SELFPAY ==
--- NOTE | 2024-06-11 11:16 | DI.RAD.S_ITS ---
PROCEDURE: [place] BARIUM SWALLOW INDICATIONS: Hiatal hernia COMPARISON: [facility], CT, CT ABDOMEN PELVIS W CON, 01/14/2024, 3:27. [facility], RF, [place] BARIUM SWALLOW W SPEECH, 07/06/2023, 11:42. FINDINGS: Function: There is normal esophageal peristalsis. No elicited gastroesophageal reflux. There is normal transit of a calibrated barium tablet through the esophagus into the stomach. Morphology: Possible tiny reducible hiatal hernia. Air-contrast images demonstrate normal mucosal morphology. Single contrast views show no esophageal strictures, extrinsic mass effects, or diverticula. Limited images of the stomach demonstrate normal appearance. IMPRESSION: Possible tiny reducible hiatal hernia. Otherwise, normal exam. Dictated by: Shon Parra M.D. on 06/11/2024 at 12:24 Approved by: Shon Parra M.D. on 06/11/2024 at 12:25
== END ==
PROVIDERS: Family Provider Pediatrics; PCP Internal Medicine; Referring Provider Surgery; Visit Provider Surgery
DX: K21.9 Gastro-esophageal reflux disease without esophagitis (principal)
CPT/HCPCS: 74220

== ENCOUNTER 2024-06-15 03:09 | Emergency (ER) | payer MEDICARE, MEDICAID, SELFPAY ==
[2024-06-15 03:17] VITALS: BP 171/88; PULSE 69; RESP 20; TEMP 36.7; O2SAT 95; BMI 23.5
--- NOTE | 2024-06-15 03:17 | ED_ITS ---
HPI - General Adult General Chief complaint: Shortness of Breath/Dyspnea Stated complaint: can't speak throat pain Time Seen by Provider: 06/15/24 03:13 History of Present Illness HPI narrative: 58-year-old male with history of gastroesophageal reflux, recurrent laryngitis felt to be due to erosions from acid reflux, recent visit with Otolaryngology, taking omeprazole and Carafate antacid regimen, this evening had sore throat discomfort and as a brackish taste in the back of his mouth, with increased shortness of breath. Occasional cough. He does not think he was choking on his secretions, no foreign body aspiration suspected. No injury or trauma. No recent cough. Related Data Home Medications Medication Instructions Recorded Confirmed montelukast 10 mg tablet 10 mg PO DAILY PRN for allergies 11/08/23 05/31/24 olopatadine 0.1 % eye drops 1 drp EYE-BOTH ONCE PRN allergy 11/08/23 05/31/24 eyes ondansetron HCl 4 mg tablet 4 mg PO QID PRN Nausea 11/08/23 05/31/24 L. acidophilus/Bifid. animalis 1 tab PO DAILY 01/24/24 05/31/24 [Daily Probiotic] omeprazole 40 mg capsule,delayed 40 mg PO BID 01/24/24 05/31/24 release colestipol 1 gram tablet 2 g PO BID 02/07/24 05/31/24 Previous Rx's Medication Instructions Recorded Disabled Parking Permit #1 ea 01/20/23 apixaban 5 mg tablet (Eliquis) 5 mg PO BID #180 tabs 09/09/23 loratadine 10 mg tablet (Claritin) 10 mg PO DAILY PRN allergy 09/09/23 symptoms #90 tabs tamsulosin 0.4 mg capsule 0.4 mg PO DAILY #90 caps 09/20/23 duloxetine 60 mg capsule,delayed 60 mg PO BID #180 caps 11/08/23 release Wheelchair lift for car #1 ea 12/13/23 nortriptyline 10 mg capsule 10 mg PO BEDTIME #90 caps 12/22/23 trazodone 100 mg tablet 100 mg PO BEDTIME PRN Insomnia #90 01/31/24 tabs hydrocodone 5 mg-acetaminophen 325 1 tab PO TID PRN pain #90 tabs 04/16/24 mg tablet fluticasone propionate 220 2 puff inhalation BID PRN SOB #36 05/11/24 mcg/actuation HFA aerosol inhaler grams lorazepam 2 mg tablet 2 mg PO BEDTIME PRN sleep #30 tabs 05/21/24 pregabalin 100 mg capsule 100 mg PO TID #90 caps 05/21/24 fluconazole 200 mg tablet 200 mg PO DAILY #15 tabs 05/25/24 sucralfate 100 mg/mL oral 10 ml PO QACHS #420 mL 05/26/24 suspension (Carafate) amoxicillin 875 mg tablet 875 mg PO BID dental infection 10 06/15/24 days #20 tabs amoxicillin 875 mg tablet 875 mg PO BID dental infection 7 06/15/24 days #14 tabs azithromycin 500 mg tablet See Rx Instructions PO .COMPLEX #3 06/15/24 (Zithromax TRI-GUICHO) tabs levofloxacin 500 mg tablet 500 mg PO DAILY #10 tabs 06/15/24 Allergies Allergy/AdvReac Type Severity Reaction Status Date / Time amitriptyline [AMITRIPTYLINE] Allergy Unknown Verified 05/31/24 08:53 quetiapine [From SEROQUEL] Allergy Unknown Verified 05/31/24 08:53 tetracycline Allergy Blister Verified 05/31/24 08:53 celecoxib [From Celebrex] AdvReac Severe lose his Verified 05/31/24 08:53 voice fluoxetine [From Prozac] AdvReac Unknown No Verified 05/31/24 08:53 emotion, pain becomes really sharp Review of Systems Review of Systems Narrative: see HPI Patient History Medical History (Updated 06/15/24 @ 05:01 by Tacho Goldstein MD) Hearing loss Kidney stones Benign prostatic hyperplasia with lower urinary tract symptoms Microscopic hematuria History of kidney stones Slow transit constipation Cholelithiasis Chronic, continuous use of opioids Chronic embolism and thrombosis of unspecified deep veins of right lower extremity Major depressive disorder, single episode, mild Primary osteoarthritis involving multiple joints Chronic anticoagulation Bladder outlet obstruction Eosinophilic esophagitis Factor 5 Leiden mutation, heterozygous Neck mass Bronchitis Costochondritis History of DVT (deep vein thrombosis) Diverticulitis Allergic conjunctivitis Allergic rhinitis Hx of nephrolithotomy with removal of calculi History of depression Elevated PSA Lipoma of arm Umbilical hernia Chronic back pain (Unknown) Insomnia (Unknown) Restless leg syndrome (Unknown) Obstructive sleep apnea (Unknown) GERD (gastroesophageal reflux disease) (Unknown) Surgical History Hx of circumcision History of ureter stent Hx of hernia repair History of lumbar fusion History of carpal tunnel release History of tonsillectomy Family History Father Cancer Migraine Kidney stones Mother Hearing impairment Inflammatory bowel disease Urinary tract infection Brother Diabetes mellitus Hyperlipidemia Migraine Kidney stones Social History marital status: unknown details: Mary Ann (Krupa) household members: significant other, none and other lives independently: Yes occupational status: previously employed and disabled Smoking Status: Never smoker alcohol intake: current substance use type: does not use caffeine: Yes Type(s) of exercise: none Smoking Status: Never smoker alcohol intake frequency: holidays/special occasions only Substance Use Type: does not use Exam Narrative Exam Narrative: GENERAL: Well-developed patient, in mild distress. Soft whisper voice HEAD: Atraumatic. Normocephalic. EYES: Pupils equal round and reactive. Extraocular motions intact. No scleral icterus. No injection or drainage. ENT: Nose without bleeding, purulent drainage. Throat without erythema, tonsillar hypertrophy or exudate. Airway patent. NECK: Trachea midline. Non tender. No abnormal masses, no asymmetry, moves neck well. Able to swallow his oral secretions CARDIOVASCULAR: Regular rate and rhythm without murmurs, gallops, or rubs. RESPIRATORY: Clear to auscultation. Breath sounds equal bilaterally. No wheezes, rales, or rhonchi. GASTROINTESTINAL: Abdomen soft, non-tender, nondistended. EXTREMITIES: No edema or joint tenderness. BACK: Nontender without deformity or crepitance. No flank tenderness. NEURO: AOx3. Motor functions grossly nonfocal SKIN: No rash or erythema of visible areas Initial Vital Signs Initial Vital Signs: Vital Signs Temperature 98.1 F 06/15/24 03:17 Pulse Rate 69 06/15/24 03:17 Respiratory Rate 20 06/15/24 03:17 Blood Pressure 171/88 H 06/15/24 03:17 Pulse Oximetry 95 06/15/24 03:17 Oxygen Delivery Method Room Air 06/15/24 03:17 Course Orders Ordered: ED Orders 06/15/24 03:30 Covid-19 + FLU A/B + RSV - PCR Stat Strep Grp A by PCR Rapid Stat Strep Screen Stat 06/15/24 04:02 XR chest 2V Stat Discontinued Medications Albuterol (Albuterol 2.5 Mg/3 Ml Neb (Adult)) 2.5 mg INH NOW ONE Stop: 06/15/24 03:25 Last Admin: 06/15/24 03:42 Dose: 2.5 mg Azithromycin (Azithromycin 250 Mg Tablet) 500 mg PO NOW ONE Stop: 06/15/24 05:29 Last Admin: 06/15/24 05:30 Dose: 500 mg Al Hydrox/Mg Hydrox/Simethicone 20 ml/ Lidocaine HCl 15 ml 0 ml PO NOW ONE Stop: 06/15/24 03:30 Last Admin: 06/15/24 03:41 Dose: 35 ml Levofloxacin (Levofloxacin 250 Mg Tablet) 500 mg PO NOW ONE Stop: 06/15/24 04:56 Last Admin: 06/15/24 05:05 Dose: Not Given Pantoprazole Sodium (Pantoprazole Dr 20 Mg Tablet) 20 mg PO NOW ONE Stop: 06/15/24 03:25 Last Admin: 06/15/24 03:28 Dose: 20 mg Vital Signs Vital signs: Vital Signs - 8 hr 06/15/24 03:17 06/15/24 05:32 Temperature 98.1 F 99.2 F Pulse Rate 69 87 Respiratory Rate 20 19 Blood Pressure 171/88 H 133/78 Pulse Oximetry 95 98 Oxygen Delivery Method Room Air Room Air Medical Decision Making Lab Data Labs: Lab Results 06/15/24 Range/Units 03:30 SARS-CoV-2 (PCR) Negative (Negative) Influenza A (RT-PCR) Flu a negative (NEGATIVE) Influenza B (RT-PCR) Flu b negative (NEGATIVE) RSV (PCR) Negative (Negative) Group A Strep (PCR) Negative (Negative) MDM Narrative Medical decision making narrative: 58-year-old male with laryngitis, vocal cord erosions due to severe GE reflux, on PPI/Carafate oral antacid regimen, with laryngitis tonight, cough, shortness of breath. DDx suspect related to refractory reflux irritation of the vocal cords, consider associated bronchospasm, consider aspiration pneumonia, consider primary viral illness, other. COVID/flu swab, chest x-ray, oral GI cocktail solution, oral Protonix dose, SVN albuterol. Rapid strep screen negative. COVID/influenza/RSV negative. Chest x-ray PA and lateral study. Impressions: ?Multifocal bilateral pulmonary infiltrates. Follow up chest radiograph after appropriate treatment to document resolution.? See teleradiology report Speaking more comfortably after GI cocktail and oral Protonix doses prior. History of tetracycline allergy, avoid doxycycline. Consider levofloxacin, patient refused as he believes this will interact with his medications. Patient has had azithromycin antibiotics before, also has had amoxicillin before, we will give these antibiotics. Amoxicillin and azithromycin prescription sent to his pharmacy. Discharge Plan Departure Patient Disposition: Home Clinical Impression: Laryngitis, GERD (gastroesophageal reflux disease), Sore throat, Pneumonia Activity Restrictions/Additional Instructions: Shortness of breath, sore throat symptoms, history of severe reflux. Chest x- ray suspicious for pneumonia. Oral antibiotics amoxicillin and azithromycin, prescription sent to pharmacy. Take your anti-reflux medications as planned. Follow up with Otolaryngology as planned. Recheck lung symptoms Tuesday early this week with your regular doctor. Return earlier this/nearest emergency department for any change worsening symptoms or any concerns prior Prescriptions: New levofloxacin 500 mg tablet 500 mg PO DAILY Qty: 10 0RF azithromycin [Zithromax TRI-GUICHO] 500 mg tablet See Rx Instructions PO .COMPLEX Qty: 3 0RF Rx Instructions: For 500 mg dose pack: take 500 mg once daily for 3 days amoxicillin 875 mg tablet 875 mg PO BID 7 Days Qty: 14 0RF amoxicillin 875 mg tablet 875 mg PO BID 10 Days Qty: 20 0RF No Action (DME) Disabled Parking Permit See Rx Instructions .ROUTE .MEDSUPPLY Qty: 1 0RF Rx Instructions: Patient qualifies for disabled parking as per the attached form. Eliquis 5 mg tablet 5 mg PO BID Qty: 180 3RF loratadine [Claritin] 10 mg tablet 10 mg PO DAILY PRN (Reason: allergy symptoms) Qty: 90 3RF (DME) Wheelchair lift for car See Rx Instructions .Route .MEDSUPPLY Qty: 1 0RF Rx Instructions: As directed nortriptyline 10 mg capsule 10 mg PO BEDTIME Qty: 90 3RF trazodone 100 mg tablet 100 mg PO BEDTIME PRN (Reason: Insomnia) Qty: 90 3RF fluticasone propionate 220 mcg/actuation HFA aerosol inhaler 2 puff inhalation BID PRN (Reason: SOB) Qty: 36 6RF pregabalin 100 mg capsule 100 mg PO TID Qty: 90 1RF lorazepam 2 mg tablet 2 mg PO BEDTIME PRN (Reason: sleep) Qty: 30 5RF fluconazole 200 mg tablet 200 mg PO DAILY Qty: 15 0RF Rx Instructions: Day 1-Take 2 tabs 400 mg Day 2-14 Take 1 tab daily omeprazole 40 mg capsule,delayed release(DR/EC) 40 mg PO BID L. acidophilus/Bifid. animalis [Daily Probiotic] 1 tab PO DAILY montelukast 10 mg tablet 10 mg PO DAILY PRN (Reason: for allergies) olopatadine 0.1 % drops 1 drp EYE-BOTH ONCE PRN (Reason: allergy eyes) ondansetron HCl 4 mg tablet 4 mg PO QID PRN (Reason: Nausea) duloxetine 60 mg capsule,delayed release(DR/EC) 60 mg PO BID Qty: 180 3RF hydrocodone-acetaminophen 5-325 mg tablet 1 tab PO TID PRN (Reason: pain) Qty: 90 0RF sucralfate [Carafate] 100 mg/mL suspension 10 ml PO QACHS Qty: 420 0RF colestipol 1 gram tablet 2 g PO BID tamsulosin 0.4 mg capsule 0.4 mg PO DAILY Qty: 90 3RF Referrals: Jerry Lopez MD [Primary Care Provider] - Stand Alone Forms: Patient Portal/API
[2024-06-15] MEDS: PANTOPRAZOLE DR 20 MG TABLET PO (03:28)
[2024-06-15] MEDS: MAG HYDROX/ALUMINUM/SIMETH SUS 20 ML, LIDOCAINE VISCOUS 2% 15 ML PO (03:41)
[2024-06-15] MEDS: ALBUTEROL 2.5 MG/3 ML NEB (ADULT) INH (03:42)
[2024-06-15 03:52] LABS: Strep Grp A by PCR Rapid Negative (Negative)
--- NOTE | 2024-06-15 04:02 | DI.RAD.S_ITS ---
PROCEDURE: XR CHEST 2V INDICATIONS: dyspnea TECHNIQUE: 2 views of the chest were acquired. COMPARISON: Located Within [facility], CR, XR CHEST 1V, 03/02/2023, 13:05. FINDINGS: Surgical changes and devices: None. Lungs and pleura: Subtle hazy opacities are seen scattered in right upper lobe and bilateral lower lung borges. No pleural effusions or pneumothorax. Mediastinum: Mildly tortuous thoracic aorta is seen.. Heart size is mildly enlarged. Bones and chest wall: No suspicious bony abnormalities. Soft tissues appear unremarkable. IMPRESSION: Finding is concerning for subtle scattered bilateral multilobar infiltrates. Clinical correlation and follow-up is recommended. No pleural effusion or pneumothorax. No significant discrepancies. Dictated by: Wes Small M.D. on 06/15/2024 at 8:39 Approved by: Wes Small M.D. on 06/15/2024 at 8:41
[2024-06-15 04:16] LABS: Influenza A - CEPHEID Flu A NEGATIVE (NEGATIVE); Influenza B - CEPHEID Flu B NEGATIVE (NEGATIVE); Respiratory Syncytial Virus Negative (Negative)
[2024-06-15 04:22] LABS: COVID-19 CEPHEID 4-PLEX PCR Negative (Negative)
[2024-06-15] MEDS: AZITHROMYCIN 250 MG TABLET 500 MG PO (05:30)
[2024-06-15 05:32] VITALS: BP 133/78; PULSE 87; RESP 19; TEMP 37.3; O2SAT 98
== END 2024-06-15 05:33 | disposition home or self-care (01) ==
PROVIDERS: Emergency Provider Emergency Medicine; Family Provider Pediatrics; PCP Internal Medicine
DX: J18.9 Pneumonia, unspecified organism (principal); J02.9 Acute pharyngitis, unspecified; K21.9 Gastro-esophageal reflux disease without esophagitis; Z11.52 Encounter for screening for COVID-19; Z79.01 Long term (current) use of anticoagulants
CPT/HCPCS: 0241U; 71046; 87081; 87651; 99283; J7613

== ENCOUNTER 2024-06-16 17:24 | Emergency (ER) | payer MEDICARE, SELFPAY ==
[2024-06-16] VITALS (12 sets, daily range): BP systolic 118–142; BP diastolic 68–104; PULSE 71–81; RESP 15–24; TEMP 36.6; O2SAT 92–99; BMI 25.0
--- NOTE | 2024-06-16 18:02 | ED.SOB ---
HPI - SOB/Dyspnea General Chief Complaint: Shortness of Breath/Dyspnea Stated Complaint: pneumonia/coughing up blood x3 days Time Seen by Provider: 06/16/24 18:01 History of Present Illness HPI Narrative: 58-year-old male with chart PMHx of neurocognitive disorder seen by me here yesterday with laryngitis and shortness of breath recent cough, chest x-ray at that time showed bilateral lung infiltrates per radiology report, has numerous drug allergies, was discharged ultimately on regimen of amoxicillin and azithromycin, filled his Rx for azithromycin, complains of increasing cough and shortness of breath today, believes he is spitting up blood now, unclear if he is coughing up blood. He has not been vomiting. No abdominal discomfort. Has increased shortness of breath since yesterday. And some chest discomfort particularly with coughing. He takes Eliquis chronic anticoagulation. No blunt trauma or injuries. Related Data Home Medications Medication Instructions Recorded Confirmed montelukast 10 mg tablet 10 mg PO DAILY PRN for allergies 11/08/23 05/31/24 olopatadine 0.1 % eye drops 1 drp EYE-BOTH ONCE PRN allergy 11/08/23 05/31/24 eyes ondansetron HCl 4 mg tablet 4 mg PO QID PRN Nausea 11/08/23 05/31/24 L. acidophilus/Bifid. animalis 1 tab PO DAILY 01/24/24 05/31/24 [Daily Probiotic] omeprazole 40 mg capsule,delayed 40 mg PO BID 01/24/24 05/31/24 release colestipol 1 gram tablet 2 g PO BID 02/07/24 05/31/24 Previous Rx's Medication Instructions Recorded Disabled Parking Permit #1 ea 01/20/23 apixaban 5 mg tablet (Eliquis) 5 mg PO BID #180 tabs 09/09/23 loratadine 10 mg tablet (Claritin) 10 mg PO DAILY PRN allergy 09/09/23 symptoms #90 tabs tamsulosin 0.4 mg capsule 0.4 mg PO DAILY #90 caps 09/20/23 duloxetine 60 mg capsule,delayed 60 mg PO BID #180 caps 11/08/23 release Wheelchair lift for car #1 ea 12/13/23 nortriptyline 10 mg capsule 10 mg PO BEDTIME #90 caps 12/22/23 trazodone 100 mg tablet 100 mg PO BEDTIME PRN Insomnia #90 01/31/24 tabs hydrocodone 5 mg-acetaminophen 325 1 tab PO TID PRN pain #90 tabs 04/16/24 mg tablet fluticasone propionate 220 2 puff inhalation BID PRN SOB #36 05/11/24 mcg/actuation HFA aerosol inhaler grams lorazepam 2 mg tablet 2 mg PO BEDTIME PRN sleep #30 tabs 05/21/24 pregabalin 100 mg capsule 100 mg PO TID #90 caps 05/21/24 fluconazole 200 mg tablet 200 mg PO DAILY #15 tabs 05/25/24 sucralfate 100 mg/mL oral 10 ml PO QACHS #420 mL 05/26/24 suspension (Carafate) amoxicillin 875 mg tablet 875 mg PO BID dental infection 10 06/15/24 days #20 tabs amoxicillin 875 mg tablet 875 mg PO BID dental infection 7 06/15/24 days #14 tabs azithromycin 500 mg tablet See Rx Instructions PO .COMPLEX #3 06/15/24 (Zithromax TRI-GUICHO) tabs levofloxacin 500 mg tablet 500 mg PO DAILY #10 tabs 06/15/24 albuterol sulfate 90 mcg/actuation 2 puff inhalation Q6H PRN 06/16/24 aerosol inhaler shortness of breath or wheezing #8.5 grams azithromycin 250 mg tablet 250 mg PO DAILY four more days 4 06/16/24 days #4 tabs benzonatate 200 mg capsule 200 mg PO BID-TID PRN cough #20 06/16/24 caps Allergies Allergy/AdvReac Type Severity Reaction Status Date / Time amitriptyline [AMITRIPTYLINE] Allergy Unknown Verified 05/31/24 08:53 quetiapine [From SEROQUEL] Allergy Unknown Verified 05/31/24 08:53 tetracycline Allergy Blister Verified 05/31/24 08:53 celecoxib [From Celebrex] AdvReac Severe lose his Verified 05/31/24 08:53 voice fluoxetine [From Prozac] AdvReac Unknown No Verified 05/31/24 08:53 emotion, pain becomes really sharp Review of Systems Review of Systems Narrative: see HPI Patient History Medical History (Updated 06/16/24 @ 23:33 by Tacho Goldstein MD) Hearing loss Kidney stones Benign prostatic hyperplasia with lower urinary tract symptoms Microscopic hematuria History of kidney stones Slow transit constipation Cholelithiasis Chronic, continuous use of opioids Chronic embolism and thrombosis of unspecified deep veins of right lower extremity Major depressive disorder, single episode, mild Primary osteoarthritis involving multiple joints Chronic anticoagulation Bladder outlet obstruction Eosinophilic esophagitis Factor 5 Leiden mutation, heterozygous Neck mass Bronchitis Costochondritis History of DVT (deep vein thrombosis) Diverticulitis Allergic conjunctivitis Allergic rhinitis Hx of nephrolithotomy with removal of calculi History of depression Elevated PSA Lipoma of arm Umbilical hernia Chronic back pain (Unknown) Insomnia (Unknown) Restless leg syndrome (Unknown) Obstructive sleep apnea (Unknown) GERD (gastroesophageal reflux disease) (Unknown) Surgical History Hx of circumcision History of ureter stent Hx of hernia repair History of lumbar fusion History of carpal tunnel release History of tonsillectomy Family History Father Cancer Migraine Kidney stones Mother Hearing impairment Inflammatory bowel disease Urinary tract infection Brother Diabetes mellitus Hyperlipidemia Migraine Kidney stones Social History marital status: unknown details: Mary Ann (Krupa) household members: significant other, none and other lives independently: Yes occupational status: previously employed and disabled Smoking Status: Never smoker alcohol intake: current substance use type: does not use caffeine: Yes Type(s) of exercise: none Smoking Status: Never smoker alcohol intake frequency: holidays/special occasions only Substance Use Type: does not use Exam Narrative Exam Narrative: GENERAL: Well-developed patient, in mild distress. HEAD: Atraumatic. Normocephalic. EYES: Pupils equal round and reactive. Extraocular motions intact. No scleral icterus. No injection or drainage. ENT: Nose without bleeding, purulent drainage. Throat without erythema, tonsillar hypertrophy or exudate. Airway patent. NECK: Trachea midline. Non tender CARDIOVASCULAR: Regular rate and rhythm without murmurs, gallops, or rubs. RESPIRATORY: Clear to auscultation. Breath sounds equal bilaterally. No wheezes, rales, or rhonchi. GASTROINTESTINAL: Abdomen soft, non-tender, nondistended. EXTREMITIES: No edema or joint tenderness. BACK: Nontender without deformity or crepitance. No flank tenderness. NEURO: AOx3. Motor functions grossly nonfocal SKIN: No rash or erythema of visible areas Initial Vital Signs Initial Vital Signs: Vital Signs Temperature 97.8 F 06/16/24 17:35 Pulse Rate 76 06/16/24 17:35 Respiratory Rate 16 06/16/24 17:35 Blood Pressure 118/74 06/16/24 17:35 Pulse Oximetry 97 06/16/24 17:35 Oxygen Delivery Method Room Air 06/16/24 17:35 Course Orders Ordered: Discontinued Medications Albuterol (Albuterol 2.5 Mg/3 Ml Neb (Adult)) 2.5 mg INH NOW ONE Stop: 06/16/24 18:06 Last Admin: 06/16/24 18:18 Dose: 2.5 mg Documented By: RANDY Benzonatate (Benzonatate 100 Mg Capsule) 100 mg PO NOW ONE Stop: 06/16/24 18:07 Last Admin: 06/16/24 18:15 Dose: 100 mg Documented By: TYLOR Hydroxyzine HCl (Hydroxyzine Hcl 25 Mg Tablet) 50 mg PO NOW ONE Stop: 06/16/24 21:27 Last Admin: 06/16/24 21:47 Dose: Not Given Documented By: TYLOR Vital Signs Vital signs: Vital Signs - 8 hr 06/16/24 17:35 06/16/24 18:18 06/16/24 18:30 Temperature 97.8 F Pulse Rate 76 76 81 Respiratory Rate 16 16 24 Blood Pressure 118/74 122/77 Pulse Oximetry 97 96 93 Oxygen Delivery Method Room Air Room Air Room Air 06/16/24 18:45 06/16/24 19:00 06/16/24 19:00 Temperature Pulse Rate 78 79 Respiratory Rate 23 15 Blood Pressure 123/72 Pulse Oximetry 92 98 Oxygen Delivery Method 06/16/24 19:30 06/16/24 20:00 Temperature Pulse Rate 72 71 Respiratory Rate Blood Pressure 125/75 120/68 Pulse Oximetry 99 98 Oxygen Delivery Method Room Air MDM - SOB/Dyspnea Lab Data Attestation: I reviewed the patient's lab results. Lab results narrative: White blood cell count 7900, hemoglobin 13.6, platelets adequate. Basic metabolic panel unremarkable. LFTs normal. Lactate normal 06/16/24 18:30 06/16/24 18:30 Labs: Lab Results 06/16/24 Range/Units 18:30 WBC 7.9 (4.5-11.0) X10^3/uL RBC 4.41 L (4.5-5.9) X10^6/uL Hgb 13.6 (13.5-17.5) g/dL Hct 40.8 L (41-53) % MCV 92.3 (80-100) fL MCH 30.8 (26-34) PG MCHC 33.4 (30-36) % RDW 13.8 (11.6-14.8) % Plt Count 204 (150-400) X10^3/uL Neut % (Auto) 77.7 H (50-75) % Lymph % (Auto) 13.8 L (25-40) % Harney % (Auto) 5.8 (3-14) % Eos % (Auto) 2.4 (2-4) % Baso % (Auto) 0.3 (0-2) % Neut # (Auto) 6200 (1764-0559) /uL Lymph # (Auto) 1100 (0119-2202) /uL Harney # (Auto) 500 (0-900) /uL Eos # (Auto) 200 (0-450) /uL Baso # (Auto) 0 (0-100) /uL PT 11.0 (9.4-12.5) SECONDS INR 1.0 (0.9-1.3) Sodium 137 (137-145) mmol/L Potassium 4.4 (3.4-5.1) mmol/L Chloride 103 (98-107) mmol/L Carbon Dioxide 28 (22-32) mmol/L BUN 9 (9-20) mg/dL Creatinine 0.99 (0.66-1.25) mg/dL Estimated GFR > 60 (>60) mL/min BUN/Creatinine Ratio 9.1 (6-22) Glucose 95 (80-110) mg/dL Lactate 1.2 (0.7-2.1) mmol/L Calcium 9.0 (8.4-10.2) mg/dL Total Bilirubin 0.6 (0.2-1.3) mg/dL AST 27 (17-59) IU/L ALT 29 (<50) IU/L Alkaline Phosphatase 89 (38-126) U/L Troponin I < 0.012 (0.01-0.034) ng/mL Total Protein 6.6 (6.3-8.2) g/dL Albumin 4.1 (3.5-5.0) g/dL Globulin 2.5 (1.7-4.1) g/dL Albumin/Globulin Ratio 1.6 (1.0-2.8) Imaging Data Chest x-ray: Radiologist's Impression: [address] [address] XRay Report Signed Patient: Kervin Webb MR#: [id number] : 1965 Acct:[id number] Age/Sex: 58 / M Date of Service: 06/16/24 Loc: ED Accession Number: [id number] Procedure: XR chest 1V Ordering Provider: Tacho Goldstein MD PROCEDURE: XR CHEST 1V INDICATIONS: SOBG, dx pneumonia on 06/15 TECHNIQUE: One view of the chest was acquired. COMPARISON: [facility], CR, XR CHEST 2V, 06/15/2024, 4:21. [facility], CR, XR CHEST 1V, 03/02/2023, 13:05. FINDINGS: Surgical changes and devices: None. Lungs and pleura: Lungs are clear. No pleural effusions or pneumothorax. Mediastinum: Mediastinal contours appear normal. Heart size is normal. Bones and chest wall: No suspicious bony lesions. Overlying soft tissues appear unremarkable. IMPRESSION: No acute cardiopulmonary abnormality is seen. Dictated by: Ed Lam M.D. on 06/16/2024 at 19:12 Approved by: Ed Lam M.D. on 06/16/2024 at 19:12 CT angiogram chest: Radiologist's Impression: [address] [address] [address] Scan Report Signed Patient: Kervin Webb MR#: [id number] : 1965 Acct:[id number] Age/Sex: 58 / M Date of Service: 06/16/24 Loc: ED Accession Number: [id number] Procedure: CT angio chest Ordering Provider: Tacho Goldstein MD PROCEDURE: CT ANGIO CHEST PE PROTOCOL INDICATIONS: hemoptysis, recent dx pneumonia, eliquis TECHNIQUE: After the administration of intravenous contrast, 2 mm thick sections acquired from the pulmonary apices to the posterior costophrenic angles. 3-dimensional maximum intensity projection (MIP) coronal and sagittal reformats were then acquired through the thorax. For radiation dose reduction, the following was used: automated exposure control, adjustment of mA and/or kV according to patient size. COMPARISON: None. FINDINGS: Image quality: Diagnostic. Pulmonary arteries: Pulmonary arteries are normal in size, and demonstrate no intraluminal filling defects to suggest central pulmonary embolism. Lower Neck: No enlarged lymph nodes. Thyroid: No thyroid nodules which require sonographic follow up, per consensus guidelines. Axillae: No enlarged lymph nodes. Chest Wall: Unremarkable. Bones: Unremarkable. Lungs and Pleura: No pneumothorax or pleural effusions. Bronchial thickening. No consolidation. Heart: Heart size is enlarged. No pericardial effusion. Three-vessel coronary calcifications. Thoracic Vessels: No aortic aneurysm. Mediastinum and Malorie: No enlarged lymph nodes. Esophagus: No wall thickening. Small hiatal hernia. Upper Abdomen: lobulation of the kidneys. IMPRESSION: No pulmonary embolus. Bronchial thickening, which may indicate infectious or inflammatory bronchitis or early pulmonary edema. Marked coronary artery calcifications for age. Correlate with risk factors and advise counseling. Dictated by: Ed Lam M.D. on 06/16/2024 at 20:03 Approved by: Ed Lam M.D. on 06/16/2024 at 20:05 CT soft tissue neck with IV contrast: Radiologist's Impression: Close Soft Tissue Neck CT (Signed) Ed Lam - 06/16/24 Chest CTA (Signed) Ed Lam - 06/16/24 Chest X-Ray (Signed) Ed Lam - 06/16/24 Launch?[place] [address] CT Scan Report Signed Patient: Kervin Webb MR#: [id number] : 1965 Acct:[id number] Age/Sex: 58 / M Date of Service: 06/16/24 Loc: ED Accession Number: [id number] Procedure: CT soft tissue neck w con Ordering Provider: Tacho Goldstein MD PROCEDURE: CT SOFT TISSUE NECK W CON INDICATIONS: sore throat, cough or spitting up blood, on Eliquis TECHNIQUE: After the administration of intravenous contrast, 3.0 mm axial sections acquired from the sella to the aortic arch. Additional oblique axial 3.0 mm sections acquired through the pharynx. 3 mm thick coronal and sagittal reformats were generated. For radiation dose reduction, the following was used: automated exposure control. COMPARISON: [facility], CT, CT SOFT TISSUE NECK W CON, 04/22/2023, 14:03. FINDINGS: Image quality: Excellent. Lymph nodes: No enlarged lymph nodes seen throughout the neck. Vessels: Visualized vasculature appears patent. Neck spaces: The oropharynx, nasopharynx, and pharynx demonstrate no mucosal lesions. The vocal cords, false vocal cords, pyriform sinuses, epiglottis, vallecula, and tongue base all appear normal. Extramucosal spaces appear unremarkable. Glands: The parotid and submandibular glands appear normal. Thyroid gland is unremarkable. Miscellaneous: Visualized brain and orbits appear normal. Lung apices appear clear. Superficial soft tissues appear normal. Bones: No suspicious bony lesions. Visualized sinuses and mastoids appear unremarkable. IMPRESSION: No tonsillar or peritonsillar abscess. No cervical adenopathy by size criteria. Dictated by: Ed Lam M.D. on 06/16/2024 at 20:06 Approved by: Ed Lam M.D. on 06/16/2024 at 20:08 ECG Data Attestation: I personally reviewed and interpreted this ECG as follows: Interpretation: Normal sinus rhythm with rate of 68, no obvious ST segment elevation or depression changes. T-wave flattening in lead 3, upright in leads 2 and F. ME 170, QRS 96, QTC 433. [facility] Narrative Medical decision making narrative: 58-year-old male diagnosed by chest x-ray yesterday with bilateral infiltrates, started on amoxicillin and azithromycin, numerous other drug allergies or intolerances. He takes Eliquis blood thinner medication. Denies trauma to chest or neck. He has been coughing or spitting up blood last night. History of anxiety noted. We will repeat chest x-ray. Labs pending. Chest x-ray read as negative today, showed infiltrates yesterday. Renal function adequate. CTA chest PE protocol requested. Patient thinks he had laryngitis and throat pain, unclear if he is spitting up blood from neck source. CT soft tissue neck with IV contrast ordered as well. No hemoptysis or respiratory distress or laryngitis or stridor evident now. Trial of breathing treatment. SVN albuterol. CTA chest shows no infiltrates or pulmonary embolus, possible bronchitis changes. See radiology report. CT soft tissue neck IV contrast, no lesions masses noted. See radiology report. Patient requesting something for anxiety, given dose of oral hydroxyzine. No coughing or respiratory distress here. We will add albuterol/spacer to use as outpatient regimen. Patient encouraged to continue his oral azithromycin course, prescribed yesterday. Hold Eliquis for the next couple of days, recheck with his regular doctor advised on Tuesday for possible restart then. Return precautions discussed. Discharge Plan Departure Patient Disposition: Home Clinical Impression: Cough with hemoptysis, Bronchitis Activity Restrictions/Additional Instructions: Recent diagnosis pneumonia by chest x-ray, having started azithromycin antibiotic yesterday, taking chronic blood thinner medication Eliquis, still coughing, having cough or spitting up of blood. Chest x-ray today showed no infiltrates. CT angiogram of the chest showed bronchitis like changes but no blood clots to the lungs or masses or tumors or infiltrate pneumonia like changes, but did show bronchitis like changes. You had concerned that you might be spitting up blood, had laryngitis yesterday, CT soft tissue neck imaging with IV contrast was also done, no lesions noted. You were observed in the emergency department for multiple hours and had no coughing up of blood. You might be having some expectorated coughing up of blood due to bronchitis in context of Eliquis use. Continue the antibiotic azithromycin for now. Hold your Eliquis for the next couple of days and then likely restart. Use albuterol to help with control of coughing. Tessalon to help control coughing. Recheck symptoms with your regular doctor Tuesday or Tuesday early next week. Return to this/nearest emergency department for any change worsening symptoms or any concerns prior You need further refills of your azithromycin, 4 day course sent to your pharmacy. Do not take the amoxicillin. Did not take the levofloxacin. Prescriptions: New benzonatate 200 mg capsule 200 mg PO BID-TID PRN (Reason: cough) Qty: 20 0RF albuterol sulfate 90 mcg/actuation HFA aerosol inhaler 2 puff inhalation Q6H PRN (Reason: shortness of breath or wheezing) Qty: 8.5 0RF azithromycin 250 mg tablet 250 mg PO DAILY 4 Days Qty: 4 0RF Rx Instructions: start on day 2 of therapy No Action (DME) Disabled Parking Permit See Rx Instructions .ROUTE .MEDSUPPLY Qty: 1 0RF Rx Instructions: Patient qualifies for disabled parking as per the attached form. Eliquis 5 mg tablet 5 mg PO BID Qty: 180 3RF loratadine [Claritin] 10 mg tablet 10 mg PO DAILY PRN (Reason: allergy symptoms) Qty: 90 3RF (DME) Wheelchair lift for car See Rx Instructions .Route .MEDSUPPLY Qty: 1 0RF Rx Instructions: As directed nortriptyline 10 mg capsule 10 mg PO BEDTIME Qty: 90 3RF trazodone 100 mg tablet 100 mg PO BEDTIME PRN (Reason: Insomnia) Qty: 90 3RF fluticasone propionate 220 mcg/actuation HFA aerosol inhaler 2 puff inhalation BID PRN (Reason: SOB) Qty: 36 6RF pregabalin 100 mg capsule 100 mg PO TID Qty: 90 1RF lorazepam 2 mg tablet 2 mg PO BEDTIME PRN (Reason: sleep) Qty: 30 5RF fluconazole 200 mg tablet 200 mg PO DAILY Qty: 15 0RF Rx Instructions: Day 1-Take 2 tabs 400 mg Day 2-14 Take 1 tab daily omeprazole 40 mg capsule,delayed release(DR/EC) 40 mg PO BID L. acidophilus/Bifid. animalis [Daily Probiotic] 1 tab PO DAILY montelukast 10 mg tablet 10 mg PO DAILY PRN (Reason: for allergies) olopatadine 0.1 % drops 1 drp EYE-BOTH ONCE PRN (Reason: allergy eyes) ondansetron HCl 4 mg tablet 4 mg PO QID PRN (Reason: Nausea) duloxetine 60 mg capsule,delayed release(DR/EC) 60 mg PO BID Qty: 180 3RF hydrocodone-acetaminophen 5-325 mg tablet 1 tab PO TID PRN (Reason: pain) Qty: 90 0RF levofloxacin 500 mg tablet 500 mg PO DAILY Qty: 10 0RF azithromycin [Zithromax TRI-GUICHO] 500 mg tablet See Rx Instructions PO .COMPLEX Qty: 3 0RF Rx Instructions: For 500 mg dose pack: take 500 mg once daily for 3 days amoxicillin 875 mg tablet 875 mg PO BID 7 Days Qty: 14 0RF amoxicillin 875 mg tablet 875 mg PO BID 10 Days Qty: 20 0RF sucralfate [Carafate] 100 mg/mL suspension 10 ml PO QACHS Qty: 420 0RF colestipol 1 gram tablet 2 g PO BID tamsulosin 0.4 mg capsule 0.4 mg PO DAILY Qty: 90 3RF Referrals: Jerry Lopez MD [Primary Care Provider] - Stand Alone Forms: Patient Portal/API
--- NOTE | 2024-06-16 18:07 | DI.RAD.S_ITS ---
PROCEDURE: XR CHEST 1V INDICATIONS: SOBG, dx pneumonia on 06/15 TECHNIQUE: One view of the chest was acquired. COMPARISON: [facility], CR, XR CHEST 2V, 06/15/2024, 4:21. [facility], CR, XR CHEST 1V, 03/02/2023, 13:05. FINDINGS: Surgical changes and devices: None. Lungs and pleura: Lungs are clear. No pleural effusions or pneumothorax. Mediastinum: Mediastinal contours appear normal. Heart size is normal. Bones and chest wall: No suspicious bony lesions. Overlying soft tissues appear unremarkable. IMPRESSION: No acute cardiopulmonary abnormality is seen. Dictated by: Ed Lam M.D. on 06/16/2024 at 19:12 Approved by: Ed Lam M.D. on 06/16/2024 at 19:12
--- NOTE | 2024-06-16 18:07 | PC.NURSE ---
Patient was here yesterday for throat pain and coughing up blood, dx with pneumonia and sent home with amoxicillin and azithromycin. Patient took all of their z-pack and thinks that they came in 3 days ago
[2024-06-16] MEDS: BENZONATATE 100 MG CAPSULE PO (18:15)
[2024-06-16] MEDS: ALBUTEROL 2.5 MG/3 ML NEB (ADULT) INH (18:18)
--- NOTE | 2024-06-16 18:23 | DI.CT.S_ITS ---
PROCEDURE: CT ANGIO CHEST PE PROTOCOL INDICATIONS: hemoptysis, recent dx pneumonia, eliquis TECHNIQUE: After the administration of intravenous contrast, 2 mm thick sections acquired from the pulmonary apices to the posterior costophrenic angles. 3-dimensional maximum intensity projection (MIP) coronal and sagittal reformats were then acquired through the thorax. For radiation dose reduction, the following was used: automated exposure control, adjustment of mA and/or kV according to patient size. COMPARISON: None. FINDINGS: Image quality: Diagnostic. Pulmonary arteries: Pulmonary arteries are normal in size, and demonstrate no intraluminal filling defects to suggest central pulmonary embolism. Lower Neck: No enlarged lymph nodes. Thyroid: No thyroid nodules which require sonographic follow up, per consensus guidelines. Axillae: No enlarged lymph nodes. Chest Wall: Unremarkable. Bones: Unremarkable. Lungs and Pleura: No pneumothorax or pleural effusions. Bronchial thickening. No consolidation. Heart: Heart size is enlarged. No pericardial effusion. Three-vessel coronary calcifications. Thoracic Vessels: No aortic aneurysm. Mediastinum and Malorie: No enlarged lymph nodes. Esophagus: No wall thickening. Small hiatal hernia. Upper Abdomen: lobulation of the kidneys. IMPRESSION: No pulmonary embolus. Bronchial thickening, which may indicate infectious or inflammatory bronchitis or early pulmonary edema. Marked coronary artery calcifications for age. Correlate with risk factors and advise counseling. Dictated by: Ed Lam M.D. on 06/16/2024 at 20:03 Approved by: Ed Lam M.D. on 06/16/2024 at 20:05
--- NOTE | 2024-06-16 18:24 | EKG_ITS ---
[address] [address] Test Date: 2024-06-16 Pat Name: Kervin Webb Department: Room: Gender: Male [employer]: AMALIA : 1965 Requested By: Order Number: [id number] Reading MD: Kana Watson Measurements Intervals Garita Rate: 68 P: 37 UT: 170 QRS: 18 QRSD: 96 T: 39 QT: 408 QTc: 433 Interpretive Statements Normal sinus rhythm Electronically Signed On 06-19-2024 14:43:11 PDT by Kana Watson
--- NOTE | 2024-06-16 18:25 | DI.CT.S_ITS ---
PROCEDURE: CT SOFT TISSUE NECK W CON INDICATIONS: sore throat, cough or spitting up blood, on Eliquis TECHNIQUE: After the administration of intravenous contrast, 3.0 mm axial sections acquired from the sella to the aortic arch. Additional oblique axial 3.0 mm sections acquired through the pharynx. 3 mm thick coronal and sagittal reformats were generated. For radiation dose reduction, the following was used: automated exposure control. COMPARISON: [facility], CT, CT SOFT TISSUE NECK W CON, 04/22/2023, 14:03. FINDINGS: Image quality: Excellent. Lymph nodes: No enlarged lymph nodes seen throughout the neck. Vessels: Visualized vasculature appears patent. Neck spaces: The oropharynx, nasopharynx, and pharynx demonstrate no mucosal lesions. The vocal cords, false vocal cords, pyriform sinuses, epiglottis, vallecula, and tongue base all appear normal. Extramucosal spaces appear unremarkable. Glands: The parotid and submandibular glands appear normal. Thyroid gland is unremarkable. Miscellaneous: Visualized brain and orbits appear normal. Lung apices appear clear. Superficial soft tissues appear normal. Bones: No suspicious bony lesions. Visualized sinuses and mastoids appear unremarkable. IMPRESSION: No tonsillar or peritonsillar abscess. No cervical adenopathy by size criteria. Dictated by: Ed Lam M.D. on 06/16/2024 at 20:06 Approved by: Ed Lam M.D. on 06/16/2024 at 20:08
[2024-06-16 18:46] LABS: Add Manual Diff / Slide Review NO; Basophils Absolute Auto 0 /uL (0-100); Basophils Percent Auto 0.3 % (0-2); Eosinophils Absolute Auto 200 /uL (0-450); Eosinophils Percent Auto 2.4 % (2-4); Hematocrit 40.8 % (41-53); Hemoglobin 13.6 g/dL (13.5-17.5); Lymphocytes Absolute Auto 1100 /uL (1100-4500); Lymphocytes Percent Auto 13.8 % (25-40); Mean Corpuscular HGB Conc 33.4 % (30-36); Mean Corpuscular Hemoglobin 30.8 PG (26-34); Mean Corpuscular Volume 92.3 fL (80-100); Monocytes Absolute Auto 500 /uL (0-900); Monocytes Percent Auto 5.8 % (3-14); Neutrophils Absolute Auto 6200 /uL (1500-7000); Neutrophils Percent Auto 77.7 % (50-75); Platelet Count 204 X10^3/uL (150-400); Red Blood Cell Count 4.41 X10^6/uL (4.5-5.9); Red Cell Distribution Width 13.8 % (11.6-14.8); White Blood Cell Count 7.9 X10^3/uL (4.5-11.0)
[2024-06-16 18:54] LABS: Alanine Aminotransferase 29 IU/L (<50); Albumin 4.1 g/dL (3.5-5.0); Albumin Globulin Ratio 1.6 (1.0-2.8); Alkaline Phosphatase 89 U/L (38-126); Aspartate Aminotransferase 27 IU/L (17-59); BUN Creatinine Ratio 9.1 (6-22); Bilirubin Total 0.6 mg/dL (0.2-1.3); Blood Urea Nitrogen 9 mg/dL (9-20); Carbon Dioxide 28 mmol/L (22-32); Chloride 103 mmol/L (98-107); Estimated Glomerular Filt Rate > 60 mL/min (>60); Globulin 2.5 g/dL (1.7-4.1); Glucose 95 mg/dL (80-110); HEMOLYSIS < 15 (0-50); Lactate (Lactic Acid) 1.2 mmol/L (0.7-2.1); Potassium 4.4 mmol/L (3.4-5.1); Sodium 137 mmol/L (137-145); Total Protein 6.6 g/dL (6.3-8.2)
[2024-06-16 19:06] LABS: Troponin I < 0.012 ng/mL (0.01-0.034)
--- NOTE | 2024-06-16 21:14 | PC.NURSE ---
Patient requesting food, provider ok'd clear liquids until he could be seen
--- NOTE | 2024-06-16 21:47 | PC.NURSE ---
patient reports that antihistamines make him jittery and shakey and exacerbate his anxiety, refused med see MAR
== END 2024-06-17 00:04 | disposition home or self-care (01) ==
PROVIDERS: Emergency Provider Emergency Medicine; Family Provider Pediatrics; PCP Internal Medicine
DX: R04.2 Hemoptysis (principal); J40 Bronchitis, not specified as acute or chronic; R07.9 Chest pain, unspecified; Z79.01 Long term (current) use of anticoagulants; Z79.899 Other long term (current) drug therapy
CPT/HCPCS: 36415; 70491; 71045; 71275; 80053; 83605; 84484; 85025; 85610; 93005; 94640; 99284; J7613; Q9967

== ENCOUNTER → 2024-06-29 11:18 | Outpatient (CLI) | payer MEDICARE, MEDICAID, SELFPAY ==
--- NOTE | 2024-06-29 11:19 | DI.MRI.S_ITS ---
PROCEDURE: MR CERVICAL SPINE WO CON INDICATIONS: SPONDYLOSIS OF CERVICAL SPINE TECHNIQUE: Noncontrast sagittal T1 spin echo and T2 fast spin echo, sagittal STIR, foraminal oblique sagittal T2 fast spin echo, and axial gradient echo or T2 fast spin echo through the cervical spine. COMPARISON: [facility], MR, MR CERVICAL SPINE WO CON, 05/13/2022, 7:53. [facility], CR, XR CERVICAL SPINE 2 OR 3 VIEWS, 04/25/2024, 14:43. [facility], MR, MR CERVICAL SPINE WO CON, 08/16/2023, 15:47. [facility], CT, CT SOFT TISSUE NECK W CON, 04/22/2023, 14:03. [facility], CT, CT SOFT TISSUE NECK W CON, 06/16/2024, 19:04. FINDINGS: Image quality: Excellent. Alignment and Curvature: There is mild retrolisthesis seen at the C4-C5 level. Bone Marrow: Marrow demonstrates normal overall signal. Spinal Cord: Visualized spinal cord has normal size and signal. No cerebellar tonsillar herniation. Paraspinous Soft Tissues: No paravertebral masses. Prevertebral soft tissues are normal in thickness. C2-C3: Normal appearance. C3-C4: The disc height is well-preserved. Loss of disc signal is seen at this level. A mild degree of generalized disc osteophyte complex is seen. Mild facet joint hypertrophy is seen. No significant neural foraminal or central canal narrowing can be seen. Stable from the prior study. C4-C5: Moderate loss of disc height is seen. Loss of disc signal is seen. Reactive marrow endplate changes are seen, which are hyperintense on T1-weighted and T2-weighted imaging and most consistent with fatty metaplasia (Modic type II changes). Moderate generalized disc osteophyte complex is seen. There is a central/right disc osteophyte protrusion. Uncovertebral joint hypertrophy is seen at this level. Moderate facet joint hypertrophy is seen. There is moderate to severe bilateral neural foraminal narrowing seen. At least moderate central canal narrowing is seen, with associated mass effect upon the ventral spinal cord. No significant change from the prior. C5-C6: Moderate loss of disc height is seen. Loss of disc signal is seen. Moderate generalized disc osteophyte complex is seen. There is a central disc osteophyte protrusion. There is mild right-sided and moderate left-sided facet hypertrophy seen. Moderate loss of disc height is seen. Loss of disc signal is seen. There is moderate to severe bilateral neural foraminal narrowing seen, left worse than right. Moderate central canal narrowing is seen. When comparison is made with the prior images, these findings are similar. C6-C7: Moderate loss of disc height is seen. Loss of disc signal is seen. Moderate disc osteophyte complex is seen, which is eccentric to the right side. Mild facet joint hypertrophy is seen. There is moderate to severe bilateral neural foraminal narrowing. Minimal central canal narrowing is seen. When comparison is made with the prior images, these findings are similar. C7-T1: No significant abnormality is seen. IMPRESSION: Multiple levels of cervical spine degenerative change can be seen, without significant progression compared to the prior MRI. Dictated by: Redd Arauz M.D. on 07/02/2024 at 16:41 Approved by: Redd Arauz M.D. on 07/02/2024 at 16:46
== END ==
PROVIDERS: Family Provider Internal Medicine; PCP Internal Medicine; Referring Provider Orthopaedic Surgery Orthopaedic Surgery of the Spine; Visit Provider Orthopaedic Surgery Orthopaedic Surgery of the Spine
DX: M47.812 Spondylosis without myelopathy or radiculopathy, cervical region (principal)
CPT/HCPCS: 72141

== ENCOUNTER → 2024-07-10 14:44 | Outpatient (CLI) | payer MEDICARE, MEDICAID, SELFPAY ==
--- NOTE | 2024-07-10 14:50 | DI.RAD.S_ITS ---
PROCEDURE: XR KUB INDICATIONS: Kidney Stones TECHNIQUE: One view of the abdomen acquired. COMPARISON: [facility], CR, XR BARIUM SWALLOW, 07/09/2024, 15:16. [facility], CR, XR KUB, 03/13/2024, 12:32. [facility], CR, XR KUB, 01/11/2024, 16:55. FINDINGS: Surgical changes and devices: L4-S1 pedicle screw fixation. Bowel: There is scattered oral contrast in the colon, more so in the proximal colon. No dilated loops of bowel identified. Soft tissues: Possible small kidney stone at the superior pole the right kidney. No suspicious abdominal calcifications. Visualized solid organ contours appear normal in size. Bones: No suspicious bony lesions. IMPRESSION: Scattered oral contrast in the colon. Possible small kidney stone at the superior pole the right kidney. Dictated by: Edwin Cifuentes M.D. on 07/10/2024 at 23:33 Approved by: Edwin Cifuentes M.D. on 07/10/2024 at 23:35
[2024-07-10 15:50] LABS: Cholesterol 235 mg/dL (140-199); HDL Cholesterol 58 mg/dL (40-60); LDL Cholesterol Calculated 139 mg/dL (<100); Triglycerides 192 mg/dL (35-150)
[2024-07-11 08:12] LABS: PSA Free % 19.8 % (.); PSA, Total 4.4 ng/mL (0.0-4.0)
== END ==
PROVIDERS: Urology; Family Provider Internal Medicine; PCP Internal Medicine; Referring Provider Internal Medicine; Visit Provider Internal Medicine
DX: E78.2 Mixed hyperlipidemia (principal); N20.0 Calculus of kidney; Z87.442 Personal history of urinary calculi; R97.20 Elevated prostate specific antigen [PSA]; K21.9 Gastro-esophageal reflux disease without esophagitis; K59.01 Slow transit constipation; D68.51 Activated protein C resistance
CPT/HCPCS: 36415; 74018; 80061; 84153; 84154

== ENCOUNTER 2024-07-17 01:18 | Inpatient (IN) | payer MEDICARE, MEDICAID, SELFPAY ==
[2024-07-17] VITALS (58 sets, daily range): BP systolic 76–181; BP diastolic 50–84; PULSE 37–78; RESP 11–25; TEMP 36.3–36.4; O2SAT 89–99; BMI 24.4
--- NOTE | 2024-07-17 01:37 | ED_ITS ---
HPI - General Adult General Chief complaint: Dizziness Stated complaint: low blood pressure Time Seen by Provider: 07/17/24 01:35 Source: patient, RN notes reviewed and old records reviewed Mode of arrival: Family Vehicle Limitations: no limitations History of Present Illness HPI narrative: 58-year-old male with chart history of neurocognitive disorder, history of DVT, dyslipidemia on apixaban patient presents with complaint of hypotension and feeling dizzy. Patient states he started feeling bad this evening. [place] dizzy checked his blood pressure was low he drank some water rechecked it was still low reached out to in the nursing line who encouraged him to come by ambulance and patient drove himself. States he feels dizzy no syncope. No headache, no chest pain. No shortness of breath. No nausea or vomiting. No abdominal pain. Does note some low back pain for the last 3 days, states he is chronic low back pain but has been a little bit worse. Does not radiate down his legs. No issues with bowel movements or urination. No black or bloody stools. No incontinence. Denies any swelling in his extremities. States he has had some issues on and off with hypotension in the past but not persistently has not been seen in the emergency department for it. Is on apixaban takes Eliquis daily with a history of blood clot for factor 5 Leiden, recently started on a statin for dyslipidemia. Patient has several medication allergies. No tobacco, occasional alcohol, no recreational drugs. States he does not take anything for blood pressure. Dr. Lopez is his primary care physician. Related Data Home Medications Medication Instructions Recorded Confirmed montelukast 10 mg tablet 10 mg PO DAILY PRN for allergies 11/08/23 07/10/24 olopatadine 0.1 % eye drops 1 drp EYE-BOTH ONCE PRN allergy 11/08/23 07/10/24 eyes L. acidophilus/Bifid. animalis 1 tab PO DAILY 01/24/24 07/10/24 [Daily Probiotic] omeprazole 40 mg capsule,delayed 40 mg PO BID 01/24/24 07/10/24 release colestipol 1 gram tablet 2 g PO BID 02/07/24 07/10/24 tizanidine 4 mg tablet 4 mg PO 3XD 07/10/24 07/10/24 Previous Rx's Medication Instructions Recorded Disabled Parking Permit #1 ea 01/20/23 apixaban 5 mg tablet (Eliquis) 5 mg PO BID #180 tabs 09/09/23 loratadine 10 mg tablet (Claritin) 10 mg PO DAILY PRN allergy 09/09/23 symptoms #90 tabs duloxetine 60 mg capsule,delayed 60 mg PO BID #180 caps 11/08/23 release Wheelchair lift for car #1 ea 12/13/23 nortriptyline 10 mg capsule 10 mg PO BEDTIME #90 caps 12/22/23 trazodone 100 mg tablet 100 mg PO BEDTIME PRN Insomnia #90 01/31/24 tabs fluticasone propionate 220 2 puff inhalation BID PRN SOB #36 05/11/24 mcg/actuation HFA aerosol inhaler grams lorazepam 2 mg tablet 2 mg PO BEDTIME PRN sleep #30 tabs 05/21/24 fluconazole 200 mg tablet 200 mg PO DAILY #15 tabs 05/25/24 sucralfate 100 mg/mL oral 10 ml PO QACHS #420 mL 05/26/24 suspension (Carafate) azithromycin 500 mg tablet See Rx Instructions PO .COMPLEX #3 06/15/24 (Zithromax TRI-GUICHO) tabs levofloxacin 500 mg tablet 500 mg PO DAILY #10 tabs 06/15/24 albuterol sulfate 90 mcg/actuation 2 puff inhalation Q6H PRN 06/16/24 aerosol inhaler shortness of breath or wheezing #8.5 grams benzonatate 200 mg capsule 200 mg PO BID-TID PRN cough #20 06/16/24 caps hydrocodone 5 mg-acetaminophen 325 1 tab PO TID PRN pain #90 tabs 07/10/24 mg tablet rosuvastatin 10 mg tablet 10 mg PO DAILY #90 tabs 07/10/24 hydrocodone 5 mg-acetaminophen 325 1 tab PO TID PRN pain #180 tabs 07/12/24 mg tablet ondansetron HCl 4 mg tablet 4 mg PO QID PRN Nausea #30 tabs 07/12/24 tamsulosin 0.4 mg capsule 0.4 mg PO DAILY #90 caps 07/13/24 pregabalin 100 mg capsule 100 mg PO TID #90 caps 07/16/24 Allergies Allergy/AdvReac Type Severity Reaction Status Date / Time amitriptyline [AMITRIPTYLINE] Allergy Unknown Verified 07/10/24 14:05 quetiapine [From SEROQUEL] Allergy Unknown Verified 07/10/24 14:05 tetracycline Allergy Blister Verified 07/10/24 14:05 celecoxib [From Celebrex] AdvReac Severe lose his Verified 07/10/24 14:05 voice fluoxetine [From Prozac] AdvReac Unknown No Verified 07/10/24 14:05 emotion, pain becomes really sharp Review of Systems Review of Systems ROS Unobtainable: All systems reviewed & are unremarkable except as noted in HPI and below Patient History Medical History Mixed hyperlipidemia Coronary artery calcification Irritable bowel syndrome with constipation and diarrhea Hearing loss Kidney stones Benign prostatic hyperplasia with lower urinary tract symptoms Microscopic hematuria History of kidney stones Slow transit constipation Cholelithiasis Chronic, continuous use of opioids Chronic embolism and thrombosis of unspecified deep veins of right lower extremity Major depressive disorder, single episode, mild Primary osteoarthritis involving multiple joints Chronic anticoagulation Bladder outlet obstruction Eosinophilic esophagitis Factor 5 Leiden mutation, heterozygous Neck mass Bronchitis Costochondritis History of DVT (deep vein thrombosis) Diverticulitis Allergic conjunctivitis Allergic rhinitis Hx of nephrolithotomy with removal of calculi History of depression Elevated PSA Lipoma of arm Umbilical hernia Chronic back pain (Unknown) Insomnia (Unknown) Restless leg syndrome (Unknown) Obstructive sleep apnea (Unknown) GERD (gastroesophageal reflux disease) (Unknown) Surgical History Hx of circumcision History of ureter stent Hx of hernia repair History of lumbar fusion History of carpal tunnel release History of tonsillectomy Family History Father Cancer Migraine Kidney stones Mother Hearing impairment Inflammatory bowel disease Urinary tract infection Brother Diabetes mellitus Hyperlipidemia Migraine Kidney stones Social History marital status: unknown details: Mary Ann Sierra) household members: significant other, none and other lives independently: Yes occupational status: previously employed and disabled Smoking Status: Never smoker alcohol intake: current substance use type: does not use caffeine: Yes Type(s) of exercise: none Smoking Status: Never smoker alcohol intake frequency: holidays/special occasions only Substance Use Type: does not use Exam Narrative Exam Narrative: GEN: well nourished, male, alert and oriented x 3, patient appears to be in mild distress. No pallor, no diaphoresis. HEENT: Atraumatic, pupils are equal round reactive to light, extraocular movements are intact, nares are clear, TMs are clear with no fluid, there is no conjunctival pallor. Throat is clear without any exudates, erythema, tonsillar enlargement or uvular deviation HEART: Regular rate and rhythm without murmur, clicks, rubs. No carotid bruits, pulses are equal in upper and lower extremities LUNGS:Lungs clear to auscultation, no wheezes, rales, crackles, chest moves symmetrically ABD:bowel sounds normal, soft, non-tender, no guarding, rebound, rigidity, no masses noted, no hepatosplenomegaly, no bruit or pulsatile mass. :No CVA tenderness MSCL: Non-tender, no muscle atrophy, muscles strength 5/5 upper and lower extremities, full range of motion, normal gait NEURO:CN 2-12 intact, sensation normal SKIN: No rash, erythema or other skin changes noted Initial Vital Signs Initial Vital Signs: Vital Signs Temperature 97.4 F L 07/17/24 01:29 Pulse Rate 72 07/17/24 01:29 Respiratory Rate 16 07/17/24 01:29 Blood Pressure 76/53 L 07/17/24 01:29 Pulse Oximetry 97 07/17/24 01:29 Oxygen Delivery Method Room Air 07/17/24 01:29 Course Orders Ordered: ED Orders 07/17/24 Basic Metabolic Panel Routine Complete Blood Count AUTO DIFF Routine 07/17/24 01:36 EKG-12 Lead Stat 07/17/24 01:38 Complete Blood Count AUTO DIFF Stat Comprehensive Metabolic Panel Stat Lactate (Lactic Acid) Stat Lipase Stat NT-proBNP (BNP-Adult 18+) Stat Procalcitonin Stat Troponin & CK Cardiac Panel Stat 07/17/24 01:57 CT angio chest abdomen pelvis Stat XR chest 1V Stat 07/17/24 02:36 Blood Culture Stat Type and Screen Stat 07/17/24 03:40 Urine Microscopic Stat 07/17/24 04:32 EKG-12 Lead Stat 07/17/24 04:39 Education, smoking cessation ONGOING 07/17/24 04:41 Consult After Hours PICC Line RN Stat NOREPINEPHRINE BITARTRATE/D5W (Levophed) 4 mg in 250 mls @ 26.535 mls/hr IV TITRATE LE; Protocol Last Admin: 07/17/24 04:20 Dose: 0.1 mcg/kg/min, 26.535 mls/hr Documented By: TEGAN Discontinued Medications Sodium Chloride (Normal Saline 0.9%) 1,000 mls @ 1,000 mls/hr IV BOLUS ONE Stop: 07/17/24 02:36 Last Infusion: 07/17/24 02:51 Dose: Infused Documented By: Admin: 07/17/24 01:39 Dose: 1,000 mls/hr Documented By: TEGAN Piperacillin Sod/Tazobactam (Sod 4.5 gm/ Sodium Chloride) 100 mls @ 200 mls/hr IV NOW ONE Stop: 07/17/24 03:28 Last Admin: 07/17/24 03:43 Dose: 200 mls/hr Documented By: TEGAN Sodium Chloride (Normal Saline 0.9%) 1,000 mls @ 1,000 mls/hr IV BOLUS ONE Stop: 07/17/24 04:27 Last Admin: 07/17/24 03:42 Dose: 1,000 mls/hr Documented By: TEGAN Vital Signs Vital signs: Vital Signs - 8 hr 07/17/24 01:29 07/17/24 02:01 07/17/24 02:30 Temperature 97.4 F L Pulse Rate 72 66 Respiratory Rate 16 18 Blood Pressure 76/53 L 85/53 L Pulse Oximetry 97 94 Oxygen Delivery Method Room Air Room Air 07/17/24 02:30 07/17/24 02:51 07/17/24 02:51 Temperature Pulse Rate 62 62 Respiratory Rate 18 16 Blood Pressure 83/50 L Pulse Oximetry 95 92 Oxygen Delivery Method Room Air Room Air Medical Decision Making Lab Data 07/17/24 01:38 07/17/24 01:38 Labs: Lab Results 07/17/24 07/17/24 07/17/24 Range/Units 01:38 02:36 03:40 WBC 5.5 (4.5-11.0) X10^3/uL RBC 4.72 (4.5-5.9) X10^6/uL Hgb 14.7 (13.5-17.5) g/dL Hct 43.2 (41-53) % MCV 91.3 (80-100) fL MCH 31.2 (26-34) PG MCHC 34.2 (30-36) % RDW 13.2 (11.6-14.8) % Plt Count 251 (150-400) X10^3/uL Neut % (Auto) 45.4 L (50-75) % Lymph % (Auto) 44.4 H (25-40) % [place] % (Auto) 6.6 (3-14) % Eos % (Auto) 2.7 (2-4) % Baso % (Auto) 0.9 (0-2) % Neut # (Auto) 2500 (8306-9538) /uL Lymph # (Auto) 2500 (6787-6864) /uL [place] # (Auto) 400 (0-900) /uL Eos # (Auto) 200 (0-450) /uL Baso # (Auto) 100 (0-100) /uL Sodium 137 (137-145) mmol/L Potassium 3.4 (3.4-5.1) mmol/L Chloride 101 (98-107) mmol/L Carbon Dioxide 26 (22-32) mmol/L BUN 16 (9-20) mg/dL Creatinine 1.51 H (0.66-1.25) mg/dL Estimated GFR 53 L (>60) mL/min BUN/Creatinine Ratio 10.6 (6-22) Glucose 131 H (80-110) mg/dL Lactate 1.9 (0.7-2.1) mmol/L Calcium 9.4 (8.4-10.2) mg/dL Total Bilirubin 1.2 (0.2-1.3) mg/dL AST 58 (17-59) IU/L ALT 62 H (<50) IU/L Alkaline Phosphatase 85 (38-126) U/L Total Creatine Kinase 90 (55-170) U/L Troponin I < 0.012 (0.01-0.034) ng/mL NT-Pro-B Natriuret Pep 53 (<125) pg/mL Total Protein 7.4 (6.3-8.2) g/dL Albumin 4.7 (3.5-5.0) g/dL Globulin 2.7 (1.7-4.1) g/dL Albumin/Globulin Ratio 1.7 (1.0-2.8) Lipase 130 (23-300) U/L Procalcitonin 0.064 (<0.5) ng/mL Urine RBC 1-5/hpf (0-5/HPF) Urine WBC None seen (0-5/HPF) Ur Squamous Epith Cells None seen (0-5/HPF) Urine Bacteria Occasional (0-1) (None) Ur Culture Indicated? Cult not indicated Vol Urine Centrifuged 10ml (spun) Blood Type A Positive Antibody Screen Negative Urine Dip Bedside Urine Glucose Negative Bedside Urine Bilirubin - Negative Bedside Urine Ketone - Negative Urine Specific [place] 1.005 Bedside Urine Occult Blood - Negative Bedside Urine pH 6.0 Bedside Urine Protein +/- 15 Bedside Urine Urobilinogen - Negative Bedside Urine Nitrite - Negative Bedside Urine Leukocytes - Negative Esterase Point of care testing: Urine Dip Bedside Urine Glucose Negative Bedside Urine Bilirubin - Negative Bedside Urine Ketone - Negative Urine Specific [place] 1.005 Bedside Urine Occult Blood - Negative Bedside Urine pH 6.0 Bedside Urine Protein +/- 15 Bedside Urine Urobilinogen - Negative Bedside Urine Nitrite - Negative Bedside Urine Leukocytes - Negative Esterase ECG Data Attestation: I personally reviewed and interpreted this ECG as follows: Prior ECG tracings: not available for review Interpretation: Sinus rhythm rate of 67 OK 156 QRS [address] elevation or depression noted. No change from prior. Repeat EKGs sinus bradycardia first-degree AV block, rate of 53, OK 260 QRS 86 QTC of 426. No acute ST changes. [facility] Narrative Medical decision making narrative: 58-year-old male comes in with complaint of dizziness does note some low back pain for the last 3 days and hypotension patient states he checked his blood pressure at home was low drank some water was still low and presents after driving himself. Labs white count of 5.5 hemoglobin of 14 platelets of 251 predominance of lymphocytes. Creatinine is 1.15 was 0.99 on June 16, 2024 has typically ranges between about 1 and 0.9, BUN 16 electrolytes are otherwise appropriate glucose is 131 lactate 1.9. calcium is 9.4 LFTs show an ALT is 62 but normal AST bilirubin and lipase. Troponin is less than 0.012 BNP 53. Procalcitonin 0.064 EKG shows sinus rhythm no acute ST changes CT chest abdomen and pelvis no aortic aneurysm, pulmonary embolism or aortic dissection. Vesicular inflammatory changes can be sitting in his sitting on infection or cystitis. Point of care urine positive for protein, urine microscopy Patient received 1 L of fluid blood pressure improved to 85 systolic with 250mL of NS, received 1L total. Had improvement but still some persistent hypotension. Patient was given an additional L also covered with the antibiotics. Patient systolic consistently 80's after 1.5L normal saline. Finishing L but will start norepinehrine. Patient is started on norepinephrine, blood pressure 1 up to 180 almost immediately. Was paused patient is continuing to get his [address] Canas, he is going to see patient but plan for ICU. Discussed central line versus PICC line feels comfortable having PICC line placed he would like patient to continue fluids at this time. Critical Care Time Critical Care Time Critical Care Time: Yes Total Critical Care Time: 45 Attestation: The high probability of a clinically significant, sudden or life threatening deterioration of the cardiac/pulmonary system(s) required my full and direct attention, intervention and personal management. The aggregate critical care time was [--] minutes. This time is in addition to time spent performing reported procedures but includes the following: [x] Data Review and interpretation [x] Patient assessment and monitoring of vital signs [x] Documentation [x] Medication orders and management Discharge Plan Departure Patient Disposition: Admitted As Inpatient Clinical Impression: Hypotension, YUKO (acute kidney injury) Prescriptions: No Action (DME) Disabled Parking Permit See Rx Instructions .ROUTE .MEDSUPPLY Qty: 1 0RF Rx Instructions: Patient qualifies for disabled parking as per the attached form. Eliquis 5 mg tablet 5 mg PO BID Qty: 180 3RF loratadine [Claritin] 10 mg tablet 10 mg PO DAILY PRN (Reason: allergy symptoms) Qty: 90 3RF (DME) Wheelchair lift for car See Rx Instructions .Route .MEDSUPPLY Qty: 1 0RF Rx Instructions: As directed nortriptyline 10 mg capsule 10 mg PO BEDTIME Qty: 90 3RF trazodone 100 mg tablet 100 mg PO BEDTIME PRN (Reason: Insomnia) Qty: 90 3RF fluticasone propionate 220 mcg/actuation HFA aerosol inhaler 2 puff inhalation BID PRN (Reason: SOB) Qty: 36 6RF lorazepam 2 mg tablet 2 mg PO BEDTIME PRN (Reason: sleep) Qty: 30 5RF fluconazole 200 mg tablet 200 mg PO DAILY Qty: 15 0RF Rx Instructions: Day 1-Take 2 tabs 400 mg Day 2-14 Take 1 tab daily ondansetron HCl 4 mg tablet 4 mg PO QID PRN (Reason: Nausea) Qty: 30 0RF hydrocodone-acetaminophen 5-325 mg tablet 1 tab PO TID PRN (Reason: pain) Qty: 180 0RF Rx Instructions: Patient plans 2 month travel to [place] starting 07/29/2024 and returning 09/26/2024 tamsulosin 0.4 mg capsule 0.4 mg PO DAILY Qty: 90 3RF pregabalin 100 mg capsule 100 mg PO TID Qty: 90 1RF omeprazole 40 mg capsule,delayed release(DR/EC) 40 mg PO BID L. acidophilus/Bifid. animalis [Daily Probiotic] 1 tab PO DAILY tizanidine 4 mg tablet 4 mg PO 3XD hydrocodone-acetaminophen 5-325 mg tablet 1 tab PO TID PRN (Reason: pain) Qty: 90 0RF rosuvastatin 10 mg tablet 10 mg PO DAILY Qty: 90 3RF montelukast 10 mg tablet 10 mg PO DAILY PRN (Reason: for allergies) olopatadine 0.1 % drops 1 drp EYE-BOTH ONCE PRN (Reason: allergy eyes) duloxetine 60 mg capsule,delayed release(DR/EC) 60 mg PO BID Qty: 180 3RF levofloxacin 500 mg tablet 500 mg PO DAILY Qty: 10 0RF azithromycin [Zithromax TRI-GUICHO] 500 mg tablet See Rx Instructions PO .COMPLEX Qty: 3 0RF Rx Instructions: For 500 mg dose pack: take 500 mg once daily for 3 days sucralfate [Carafate] 100 mg/mL suspension 10 ml PO QACHS Qty: 420 0RF benzonatate 200 mg capsule 200 mg PO BID-TID PRN (Reason: cough) Qty: 20 0RF albuterol sulfate 90 mcg/actuation HFA aerosol inhaler 2 puff inhalation Q6H PRN (Reason: shortness of breath or wheezing) Qty: 8.5 0RF colestipol 1 gram tablet 2 g PO BID Referrals: Jerry Lopez MD [Primary Care Provider] - Admit Date/Time: 07/17/24 04:44 Admit Provider: Modesto Canas
[2024-07-17] MEDS: SODIUM CHLORIDE 0.9% 1,000 ML 1000 ML IV ×2 (01:39→03:42)
--- NOTE | 2024-07-17 01:42 | EKG_ITS ---
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
--- NOTE | 2024-07-17 01:57 | DI.CT.S_ITS ---
PROCEDURE: CT ANGIO CHEST ABDOMEN PELVIS INDICATIONS: hypotension, low back pain TECHNIQUE: Precontrast 5 mm thick sections acquired from the lung apices to the iliac crests. After the administration of intravenous contrast, 2.5 mm thick sections again acquired from the lung apices to the iliac crests. Maximum intensity projection (MIP) oblique sagittal and coronal reformats were then acquired. For radiation dose reduction, the following was used: automated exposure control. COMPARISON: [facility], CT, CT ANGIO CHEST PE PROTOCOL, 06/16/2024, 18:30. [facility], CT, CT ABDOMEN PELVIS W CON, 01/14/2024, 3:27. FINDINGS: Image quality: Diagnostic. AORTA: No aortic aneurysm. No acute aortic syndrome. No aortic dissection. CHEST: Lower Neck: No enlarged lymph nodes. Thyroid: No thyroid nodules which require sonographic evaluation. Axillae: No enlarged lymph nodes. Chest Wall: Unremarkable. Lungs and Pleura: No pneumothorax or pleural effusions. No consolidation or suspicious nodules. Mild dependent atelectasis. The previously seen bronchial wall thickening is decreased. The central airways are clear. Heart: Heart size is normal. [id number] coronary artery calcifications. No pericardial effusion. Thoracic Vessels: Pulmonary arteries demonstrate normal size. No central pulmonary embolism. Mediastinum and Malorie: No enlarged lymph nodes. Esophagus: No wall thickening. No hiatal hernia. ABDOMEN: Liver: No solid mass. Gallbladder: Absent. Biliary ducts: No biliary dilation. Pancreas: No ductal dilation. Spleen: Size is within normal limits. Adrenal Glands: Minimal thickening of the left adrenal gland, unchanged. Kidneys and Ureters: No hydronephrosis. Small nonobstructing kidney stones bilaterally. No solid mass. No complex renal cystic lesion which requires follow up. Stomach and Bowel: Stomach is distended. Normal colonic caliber, without significant wall thickening. Diverticulosis with retained barium. No diverticulitis. Normal appendix. Peritoneum: No abnormal intraperitoneal fluid. No free air. Ventral Wall: No hernia. Abdominal Nodes: No retroperitoneal or mesenteric adenopathy by size criteria. Vessels: Inferior vena cava is normal in size. No aortic aneurysm. No dissection. Mesenteric arteries are patent. PELVIS: Pelvic Organs: Prostatomegaly. Bladder: Decompressed. No stone. Minimal stranding near the bladder. Pelvic Nodes: No enlarged lymph nodes. Miscellaneous: No inguinal hernias are seen. Bones: L4-S1 pedicle screw fixation. No suspicious osseous lesion. No compression fracture. IMPRESSION: 1. No acute aortic syndrome. No dissection. No central pulmonary embolism. 2. Minimal stranding near the urinary bladder. This could be seen in the setting of cystitis. 3. Stomach is distended. No small bowel obstruction. No free fluid. 4. Small nonobstructing kidney stones. No hydronephrosis. This report is concordant with the overnight preliminary interpretation. Dictated by: Edwin Cifuentes M.D. on 07/17/2024 at 8:28 Approved by: Edwin Cifuentes M.D. on 07/17/2024 at 8:41
--- NOTE | 2024-07-17 01:57 | DI.RAD.S_ITS ---
PROCEDURE: XR CHEST 1V INDICATIONS: hypotension TECHNIQUE: One view of the chest was acquired. COMPARISON: [facility], CR, XR CHEST 1V, 06/16/2024, 18:27. [facility], CR, XR CHEST 2V, 06/15/2024, 4:21. FINDINGS: Surgical changes and devices: None. Lungs and pleura: Lungs are clear. No pleural effusions or pneumothorax. Mediastinum: Mediastinal contours appear normal. Heart size is normal. Bones and chest wall: No suspicious bony lesions. Overlying soft tissues appear unremarkable. IMPRESSION: No acute cardiopulmonary abnormality is seen. Dictated by: Mina Lyons M.D. on 07/17/2024 at 8:16 Approved by: Mina Lyons M.D. on 07/17/2024 at 8:17
[2024-07-17 02:14] LABS: Add Manual Diff / Slide Review NO; Basophils Absolute Auto 100 /uL (0-100); Basophils Percent Auto 0.9 % (0-2); Eosinophils Absolute Auto 200 /uL (0-450); Eosinophils Percent Auto 2.7 % (2-4); Hematocrit 43.2 % (41-53); Hemoglobin 14.7 g/dL (13.5-17.5); Lymphocytes Absolute Auto 2500 /uL (1100-4500); Lymphocytes Percent Auto 44.4 % (25-40); Mean Corpuscular HGB Conc 34.2 % (30-36); Mean Corpuscular Hemoglobin 31.2 PG (26-34); Mean Corpuscular Volume 91.3 fL (80-100); Monocytes Absolute Auto 400 /uL (0-900); Monocytes Percent Auto 6.6 % (3-14); Neutrophils Absolute Auto 2500 /uL (1500-7000); Neutrophils Percent Auto 45.4 % (50-75); Platelet Count 251 X10^3/uL (150-400); Red Blood Cell Count 4.72 X10^6/uL (4.5-5.9); Red Cell Distribution Width 13.2 % (11.6-14.8); White Blood Cell Count 5.5 X10^3/uL (4.5-11.0)
--- NOTE | 2024-07-17 02:15 | PC.NURSE ---
Pt to imaging via stretcher with tech
[2024-07-17 02:21] LABS: Lactate (Lactic Acid) 1.9 mmol/L (0.7-2.1)
[2024-07-17 02:22] LABS: Alanine Aminotransferase 62 IU/L (<50); Albumin 4.7 g/dL (3.5-5.0); Albumin Globulin Ratio 1.7 (1.0-2.8); Alkaline Phosphatase 85 U/L (38-126); Aspartate Aminotransferase 58 IU/L (17-59); BUN Creatinine Ratio 10.6 (6-22); Bilirubin Total 1.2 mg/dL (0.2-1.3); Blood Urea Nitrogen 16 mg/dL (9-20); Calcium 9.4 mg/dL (8.4-10.2); Carbon Dioxide 26 mmol/L (22-32); Chloride 101 mmol/L (98-107); Creatine Kinase 90 U/L (55-170); Estimated Glomerular Filt Rate 53 mL/min (>60); Globulin 2.7 g/dL (1.7-4.1); Glucose 131 mg/dL (80-110); Lipase 130 U/L (23-300); Potassium 3.4 mmol/L (3.4-5.1); Sodium 137 mmol/L (137-145); Total Protein 7.4 g/dL (6.3-8.2)
[2024-07-17 02:24] LABS: HEMOLYSIS < 15 (0-50)
[2024-07-17 02:34] LABS: Troponin I < 0.012 ng/mL (0.01-0.034)
[2024-07-17 02:39] LABS: Procalcitonin 0.064 ng/mL (<0.5)
[2024-07-17 02:48] LABS: NT-proBNP (BNP-Adult 18+) 53 pg/mL (<125)
--- NOTE | 2024-07-17 02:55 | PC.NURSE ---
Pt resting quietly with eyes closed, resps even and not labored. No distress noted at this time. Pt remains connected to cardiac, resp, pulse ox, and blood pressure monitors with alarms on and audible. Call light within reach. Room near nurses station with frequent nurse rounding.
[2024-07-17] MEDS: PIPERACILLIN/TAZO 4.5 GM in SODIUM CHLORIDE 0.9% 100 ML IV (03:43)
[2024-07-17] MEDS: NOREPINEPHRINE BITARTRATE/D5W 4 MG/250 ML PLAST..BAG 26.535 MG IV (04:20)
[2024-07-17 04:21] LABS: RBC Urine 1-5/HPF (0-5/HPF); Urine Volume 10mL (spun); WBC Urine None Seen (0-5/HPF)
[2024-07-17 04:22] LABS: Bacteria Urine Occasional (0-1); Culture Indicated Urine Cult Not Indicated; Squamous Epithelial Cell Urine None Seen (0-5/HPF)
--- NOTE | 2024-07-17 04:36 | EKG_ITS ---
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
[2024-07-17 06:35] LABS: Add Manual Diff / Slide Review NO; Basophils Absolute Auto 0 /uL (0-100); Basophils Percent Auto 0.6 % (0-2); Eosinophils Absolute Auto 100 /uL (0-450); Eosinophils Percent Auto 3.6 % (2-4); Hematocrit 33.2 % (41-53); Hemoglobin 11.5 g/dL (13.5-17.5); Lymphocytes Absolute Auto 1200 /uL (1100-4500); Lymphocytes Percent Auto 34.1 % (25-40); Mean Corpuscular HGB Conc 34.5 % (30-36); Mean Corpuscular Hemoglobin 31.5 PG (26-34); Mean Corpuscular Volume 91.2 fL (80-100); Monocytes Absolute Auto 300 /uL (0-900); Monocytes Percent Auto 7.8 % (3-14); Neutrophils Absolute Auto 2000 /uL (1500-7000); Neutrophils Percent Auto 53.9 % (50-75); Platelet Count 190 X10^3/uL (150-400); Red Blood Cell Count 3.64 X10^6/uL (4.5-5.9); Red Cell Distribution Width 13.6 % (11.6-14.8); White Blood Cell Count 3.6 X10^3/uL (4.5-11.0)
[2024-07-17 06:51] LABS: BUN Creatinine Ratio 12.7 (6-22); Blood Urea Nitrogen 14 mg/dL (9-20); Calcium 8.1 mg/dL (8.4-10.2); Carbon Dioxide 22 mmol/L (22-32); Chloride 109 mmol/L (98-107); Estimated Glomerular Filt Rate > 60 mL/min (>60); Glucose 112 mg/dL (80-110); HEMOLYSIS < 15 (0-50); Potassium 4.2 mmol/L (3.4-5.1); Sodium 137 mmol/L (137-145)
--- NOTE | 2024-07-17 07:27 | P.HP_ITS ---
History of Present Illness History of Present Illness Chief complaint: low blood pressure Narrative: 58 year-old male with past medical history of DVT on Eliquis, neurocognitive disorder and hyperlipidemia presents with complaints of low blood pressure and feeling lightheadedness. Per the patient report, the patient started to notice lightheadedness this evening. The patient did check his blood pressure and reported to be much lower than his normal. The patient does not take any medication for high blood pressure. Patient states that over the last two days the patient has has chronic back and neck so he did increasing is prn narcotics and muscle relaxant at home. Patient also states that due to pain, the patient did not eat or drink much fluid. Otherwise the patient denies any chest pain, syncope, fever, chills, dysuria, nausea, or diarrhea. The patient does take Eliquis for his DVT. In our emergency room, the patient systolic blood pressure was in the 70s. 1.5 L of IV bolus was given and the patient SBP was still hovering Around 80 to 90 systolic. Levophed was turn on peripherally for a very brief time and systolic blood pressure up to 180s. Cr also was 1.5 (baseline 0.9). Note lab did not shows any sign of infection. UA was not suggestive of UTI. Chest x-ray was pending. [facility] Medical History Mixed hyperlipidemia Coronary artery calcification Irritable bowel syndrome with constipation and diarrhea Hearing loss Kidney stones Benign prostatic hyperplasia with lower urinary tract symptoms Microscopic hematuria History of kidney stones Slow transit constipation Cholelithiasis Chronic, continuous use of opioids Chronic embolism and thrombosis of unspecified deep veins of right lower extremity Major depressive disorder, single episode, mild Primary osteoarthritis involving multiple joints Chronic anticoagulation Bladder outlet obstruction Eosinophilic esophagitis Factor 5 Leiden mutation, heterozygous Neck mass Bronchitis Costochondritis History of DVT (deep vein thrombosis) Diverticulitis Allergic conjunctivitis Allergic rhinitis Hx of nephrolithotomy with removal of calculi History of depression Elevated PSA Lipoma of arm Umbilical hernia Chronic back pain (Unknown) Insomnia (Unknown) Restless leg syndrome (Unknown) Obstructive sleep apnea (Unknown) GERD (gastroesophageal reflux disease) (Unknown) Surgical History Hx of circumcision History of ureter stent Hx of hernia repair History of lumbar fusion History of carpal tunnel release History of tonsillectomy Family History Father Cancer Migraine Kidney stones Mother Hearing impairment Inflammatory bowel disease Urinary tract infection Brother Diabetes mellitus Hyperlipidemia Migraine Kidney stones Social History marital status: unknown details: Mary Ann Sierra) household members: significant other, none and other lives independently: Yes occupational status: previously employed and disabled Smoking Status: Never smoker alcohol intake: current substance use type: does not use caffeine: Yes Type(s) of exercise: none Meds Home Medications and Allergies Home Medications Medication Instructions Recorded Confirmed Type Disabled Parking Permit #1 ea 01/20/23 07/10/24 Rx apixaban 5 mg tablet (Eliquis) 5 mg PO BID #180 tabs 09/09/23 07/10/24 Rx loratadine 10 mg tablet (Claritin) 10 mg PO DAILY PRN allergy 09/09/23 07/10/24 Rx symptoms #90 tabs duloxetine 60 mg capsule,delayed 60 mg PO BID #180 caps 11/08/23 07/10/24 Rx release montelukast 10 mg tablet 10 mg PO DAILY PRN for allergies 11/08/23 07/10/24 History olopatadine 0.1 % eye drops 1 drp EYE-BOTH ONCE PRN allergy 11/08/23 07/10/24 History eyes Wheelchair lift for car #1 ea 12/13/23 07/10/24 Rx nortriptyline 10 mg capsule 10 mg PO BEDTIME #90 caps 12/22/23 07/10/24 Rx L. acidophilus/Bifid. animalis 1 tab PO DAILY 01/24/24 07/10/24 History [Daily Probiotic] omeprazole 40 mg capsule,delayed 40 mg PO BID 01/24/24 07/10/24 History release trazodone 100 mg tablet 100 mg PO BEDTIME PRN Insomnia #90 01/31/24 07/10/24 Rx tabs colestipol 1 gram tablet 2 g PO BID 02/07/24 07/10/24 History fluticasone propionate 220 2 puff inhalation BID PRN SOB #36 05/11/24 07/10/24 Rx mcg/actuation HFA aerosol inhaler grams lorazepam 2 mg tablet 2 mg PO BEDTIME PRN sleep #30 tabs 05/21/24 07/10/24 Rx fluconazole 200 mg tablet 200 mg PO DAILY #15 tabs 05/25/24 07/10/24 Rx sucralfate 100 mg/mL oral 10 ml PO QACHS #420 mL 05/26/24 07/10/24 Rx suspension (Carafate) azithromycin 500 mg tablet See Rx Instructions PO .COMPLEX #3 06/15/24 07/10/24 Rx (Zithromax TRI-GUICHO) tabs levofloxacin 500 mg tablet 500 mg PO DAILY #10 tabs 06/15/24 07/10/24 Rx albuterol sulfate 90 mcg/actuation 2 puff inhalation Q6H PRN 06/16/24 07/10/24 Rx aerosol inhaler shortness of breath or wheezing #8.5 grams benzonatate 200 mg capsule 200 mg PO BID-TID PRN cough #20 06/16/24 07/10/24 Rx caps hydrocodone 5 mg-acetaminophen 325 1 tab PO TID PRN pain #90 tabs 07/10/24 07/10/24 Rx mg tablet rosuvastatin 10 mg tablet 10 mg PO DAILY #90 tabs 07/10/24 07/10/24 Rx tizanidine 4 mg tablet 4 mg PO 3XD 07/10/24 07/10/24 History hydrocodone 5 mg-acetaminophen 325 1 tab PO TID PRN pain #180 tabs 07/12/24 Rx mg tablet ondansetron HCl 4 mg tablet 4 mg PO QID PRN Nausea #30 tabs 07/12/24 Rx tamsulosin 0.4 mg capsule 0.4 mg PO DAILY #90 caps 07/13/24 Rx pregabalin 100 mg capsule 100 mg PO TID #90 caps 07/16/24 Rx Allergies Allergy/AdvReac Type Severity Reaction Status Date / Time amitriptyline [AMITRIPTYLINE] Allergy Unknown Verified 07/10/24 14:05 quetiapine [From SEROQUEL] Allergy Unknown Verified 07/10/24 14:05 tetracycline Allergy Blister Verified 07/10/24 14:05 celecoxib [From Celebrex] AdvReac Severe lose his Verified 07/10/24 14:05 voice fluoxetine [From Prozac] AdvReac Unknown No Verified 07/10/24 14:05 emotion, pain becomes really sharp Review of Systems Review of Systems ROS: Yes All systems reviewed with the patient and are negative except as otherwise documented Exam Vital Signs (past 8 hours): - 07/17/24 01:29 07/17/24 02:01 07/17/24 02:30 Temperature 97.4 F L Pulse Rate 72 66 Respiratory Rate 16 18 Blood Pressure 76/53 L 85/53 L Pulse Oximetry 97 94 Oxygen Delivery Method Room Air Room Air 07/17/24 02:30 07/17/24 02:51 07/17/24 02:51 Temperature Pulse Rate 62 62 Respiratory Rate 18 16 Blood Pressure 83/50 L Pulse Oximetry 95 92 Oxygen Delivery Method Room Air Room Air 07/17/24 03:00 07/17/24 03:00 07/17/24 03:30 Temperature Pulse Rate 62 Respiratory Rate Blood Pressure 76/52 L 80/50 L Pulse Oximetry 91 Oxygen Delivery Method 07/17/24 03:30 07/17/24 03:39 07/17/24 03:39 Temperature Pulse Rate 69 69 Respiratory Rate Blood Pressure 95/57 L Pulse Oximetry 91 98 Oxygen Delivery Method 07/17/24 04:00 07/17/24 04:00 07/17/24 04:15 Temperature Pulse Rate 58 L Respiratory Rate Blood Pressure 77/51 L 82/53 L Pulse Oximetry 91 Oxygen Delivery Method 07/17/24 04:15 07/17/24 04:20 07/17/24 04:20 Temperature Pulse Rate 58 L 62 Respiratory Rate Blood Pressure 81/53 L Pulse Oximetry 92 93 Oxygen Delivery Method 07/17/24 04:25 07/17/24 04:25 07/17/24 04:30 Temperature Pulse Rate 64 37 L Respiratory Rate 13 Blood Pressure 84/53 L Pulse Oximetry 91 98 Oxygen Delivery Method 07/17/24 04:30 07/17/24 04:32 07/17/24 04:32 Temperature Pulse Rate 44 L Respiratory Rate 18 Blood Pressure 178/81 H 181/84 H Pulse Oximetry 99 Oxygen Delivery Method 07/17/24 04:35 07/17/24 04:35 07/17/24 04:45 Temperature Pulse Rate 52 L 58 L Respiratory Rate 17 20 Blood Pressure 143/68 H Pulse Oximetry 97 97 Oxygen Delivery Method 07/17/24 04:45 07/17/24 04:50 07/17/24 04:50 Temperature Pulse Rate 54 L Respiratory Rate 11 L Blood Pressure 105/61 106/60 Pulse Oximetry 97 Oxygen Delivery Method 07/17/24 04:55 07/17/24 04:55 07/17/24 05:00 Temperature Pulse Rate 59 L Respiratory Rate 18 Blood Pressure 110/58 L 101/58 L Pulse Oximetry 98 Oxygen Delivery Method Room Air 07/17/24 05:00 07/17/24 05:05 07/17/24 05:05 Temperature Pulse Rate 71 55 L Respiratory Rate 20 25 H Blood Pressure 103/61 Pulse Oximetry 91 95 Oxygen Delivery Method 07/17/24 05:10 07/17/24 05:10 07/17/24 05:15 Temperature Pulse Rate 58 L Respiratory Rate 17 Blood Pressure 98/58 L 89/54 L Pulse Oximetry 93 Oxygen Delivery Method 07/17/24 05:15 07/17/24 05:20 07/17/24 05:20 Temperature Pulse Rate 59 L 62 Respiratory Rate 16 14 Blood Pressure 87/53 L Pulse Oximetry 94 92 Oxygen Delivery Method 07/17/24 05:25 07/17/24 05:25 07/17/24 05:30 Temperature Pulse Rate 63 Respiratory Rate 14 Blood Pressure 88/54 L 91/54 L Pulse Oximetry 92 Oxygen Delivery Method 07/17/24 05:30 07/17/24 05:35 07/17/24 05:35 Temperature Pulse Rate 71 74 Respiratory Rate 17 25 H Blood Pressure 83/57 L Pulse Oximetry 92 93 Oxygen Delivery Method 07/17/24 05:40 07/17/24 05:40 07/17/24 05:45 Temperature Pulse Rate 74 69 Respiratory Rate 25 H 19 Blood Pressure 91/56 L Pulse Oximetry 92 96 Oxygen Delivery Method 07/17/24 05:45 07/17/24 05:50 07/17/24 05:50 Temperature Pulse Rate 72 Respiratory Rate 20 Blood Pressure 99/58 L 99/52 L Pulse Oximetry 94 Oxygen Delivery Method 07/17/24 05:55 07/17/24 05:55 07/17/24 06:00 Temperature Pulse Rate 69 70 Respiratory Rate 18 18 Blood Pressure 89/52 L Pulse Oximetry 92 94 Oxygen Delivery Method 07/17/24 06:00 07/17/24 06:05 07/17/24 06:05 Temperature Pulse Rate 69 Respiratory Rate 17 Blood Pressure 89/52 L 87/52 L Pulse Oximetry 92 Oxygen Delivery Method 07/17/24 06:10 07/17/24 06:10 07/17/24 06:15 Temperature Pulse Rate 67 66 Respiratory Rate 19 17 Blood Pressure 88/53 L Pulse Oximetry 92 92 Oxygen Delivery Method 07/17/24 06:15 07/17/24 06:20 07/17/24 06:20 Temperature Pulse Rate 63 Respiratory Rate 16 Blood Pressure 88/51 L 82/51 L Pulse Oximetry 92 Oxygen Delivery Method 07/17/24 06:25 07/17/24 06:25 07/17/24 06:30 Temperature Pulse Rate 75 Respiratory Rate 24 Blood Pressure 81/50 L 86/56 L Pulse Oximetry 92 Oxygen Delivery Method 07/17/24 06:30 07/17/24 06:35 07/17/24 06:35 Temperature Pulse Rate 64 66 Respiratory Rate 18 16 Blood Pressure 82/52 L Pulse Oximetry 89 L 91 Oxygen Delivery Method 07/17/24 06:40 07/17/24 06:40 07/17/24 06:45 Temperature Pulse Rate 65 63 Respiratory Rate 14 15 Blood Pressure 89/52 L Pulse Oximetry 91 91 Oxygen Delivery Method 07/17/24 06:45 07/17/24 06:50 07/17/24 06:50 Temperature Pulse Rate 63 Respiratory Rate 15 Blood Pressure 80/52 L 80/52 L Pulse Oximetry 91 Oxygen Delivery Method 07/17/24 06:55 Temperature Pulse Rate 64 Respiratory Rate 15 Blood Pressure Pulse Oximetry 91 Oxygen Delivery Method Oxygen Delivery Method Room Air Narrative Exam Narrative: GENERAL: The patient is not in any acute distressed. Awake and alert. HEENT: Nonicteric sclerae, PERRLA, EOMI. Oropharynx clear. Moist mucous membranes. Conjunctivae appear well perfused. HEART: Regular rate and rhythm without murmurs. No lower extremities edema. LUNGS: Clear to auscultation bilaterally. No wheezing, crackles or rhonchi ABDOMEN: Soft, positive bowel sounds, nontender. SKIN: No rash, no excessive bruising, petechiae, or purpura. NEUROLOGIC: AxO x 3. Cranial nerves II-XII intact without motor/sensory deficit. Objective Labs 07/17/24 06:27 07/17/24 06:27 Labs: Laboratory Results - last 24 hr 07/17/24 07/17/2407/17/24 01:38 02:36 03:40 WBC 5.5 RBC 4.72 Hgb 14.7 Hct 43.2 MCV 91.3 MCH 31.2 MCHC 34.2 RDW 13.2 Plt Count 251 Neut % (Auto) 45.4 L Lymph % (Auto) 44.4 H Sharp % (Auto) 6.6 Eos % (Auto) 2.7 Baso % (Auto) 0.9 Neut # (Auto) 2500 Lymph # (Auto) 2500 Sharp # (Auto) 400 Eos # (Auto) 200 Baso # (Auto) 100 Sodium 137 Potassium 3.4 Chloride 101 Carbon Dioxide 26 BUN 16 Creatinine 1.51 H Estimated GFR 53 L BUN/Creatinine Ratio 10.6 Glucose 131 H Lactate 1.9 Calcium 9.4 Total Bilirubin 1.2 AST 58 ALT 62 H Alkaline Phosphatase 85 Total Creatine Kinase 90 Troponin I < 0.012 NT-Pro-B Natriuret Pep 53 Total Protein 7.4 Albumin 4.7 Globulin 2.7 Albumin/Globulin Ratio 1.7 Lipase 130 Procalcitonin 0.064 Urine RBC 1-5/hpf Urine WBC None seen Ur Squamous Epith Cells None seen Urine Bacteria Occasional (0-1) Ur Culture Indicated? Cult not indicated Vol Urine Centrifuged 10ml (spun) Blood Type A Positive Antibody Screen Negative 07/17/24 06:27 WBC 3.6 L RBC 3.64 L Hgb 11.5 L Hct 33.2 L MCV 91.2 MCH 31.5 MCHC 34.5 RDW 13.6 Plt Count 190 Neut % (Auto) 53.9 Lymph % (Auto) 34.1 Sharp % (Auto) 7.8 Eos % (Auto) 3.6 Baso % (Auto) 0.6 Neut # (Auto) 2000 Lymph # (Auto) 1200 Sharp # (Auto) 300 Eos # (Auto) 100 Baso # (Auto) 0 Sodium 137 Potassium 4.2 Chloride 109 H Carbon Dioxide 22 BUN 14 Creatinine 1.10 Estimated GFR > 60 BUN/Creatinine Ratio 12.7 Glucose 112 H Lactate Calcium 8.1 L Total Bilirubin AST ALT Alkaline Phosphatase Total Creatine Kinase Troponin I NT-Pro-B Natriuret Pep Total Protein Albumin Globulin Albumin/Globulin Ratio Lipase Procalcitonin Urine RBC Urine WBC Ur Squamous Epith Cells Urine Bacteria Ur Culture Indicated? Vol Urine Centrifuged Blood Type Antibody Screen Assessment & Plan Assessment & Plan narrative: Hypotension. Admit the patient to ICU. Patient's hypotension could be from volume depletion as well as increasing narcotics/muscle relaxant taken at home last two days. Note there's no clear signs of sepsis or any sign of infection. Patient now responded to IV fluid after 2 L of IVF bolus. Of note pressors were tried briefly peripherally but systolic went up to 180 and was stopped right away. Will continue to monitor patient closely and will place PICC line just in case patient become hypotensive again. Monitor for any source infection. YUKO. Cr today 1.5. Baseline .09. Likely from volume depletion. IV fluid monitor renal function. History of DVT on Eliquis. Continue home Eliquis. HLD. Resume home medications. DVT prophylaxis Eliquis Code status full code Disposition likely home in 1 to 2 days. Time-Based Coding :: [TOTAL MINUTES] spent with patient and on the chart (including review of chart, obtaining history, exam, reviewing outside data, placing orders, documenting exam and treatment plan, and counseling patient) on [DATE].
--- NOTE | 2024-07-17 07:38 | PM.HP.1 ---
History of Present Illness History of Present Illness Date Patient Seen: 07/17/24 Chief complaint: low blood pressure Narrative: From night doctor: 58 year-old male with past medical history of DVT on Eliquis, neurocognitive disorder and hyperlipidemia presents with complaints of low blood pressure and feeling lightheadedness. Per the patient report, the patient started to notice lightheadedness this evening. The patient did check his blood pressure and reported to be much lower than his normal. The patient does not take any medication for high blood pressure. Patient states that over the last two days the patient has has chronic back and neck so he did increasing is prn narcotics and muscle relaxant at home. Patient also states that due to pain, the patient did not eat or drink much fluid. Otherwise the patient denies any chest pain, syncope, fever, chills, dysuria, nausea, or diarrhea. The patient does take Eliquis for his DVT. In our emergency room, the patient systolic blood pressure was in the 70s. 1.5 L of IV bolus was given and the patient SBP was still hovering Around 80 to 90 systolic. Levophed was turn on peripherally for a very brief time and systolic blood pressure up to 180s. Cr also was 1.5 (baseline 0.9). Note lab did not shows any sign of infection. UA was not suggestive of UTI. Chest x-ray was pending. Additional information: He does believe that he was been somewhat dehydrated. He denies any diarrhea. He was having acute on chronic lower back pain which may have affected his oral fluid and food intake for several days. His urination was less frequent in the urine was darker. He does feel better today. 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 Major depressive disorder, single episode, mild Primary osteoarthritis involving multiple joints Chronic anticoagulation Bladder outlet obstruction Eosinophilic esophagitis Factor 5 Leiden mutation, heterozygous Neck mass Bronchitis Costochondritis History of DVT (deep vein thrombosis) Diverticulitis Allergic conjunctivitis Allergic rhinitis Hx of nephrolithotomy with removal of calculi History of depression Elevated PSA Lipoma of arm Umbilical hernia Chronic back pain (Unknown) Insomnia (Unknown) Restless leg syndrome (Unknown) Obstructive sleep apnea (Unknown) GERD (gastroesophageal reflux disease) (Unknown) Surgical History Hx of circumcision History of ureter stent Hx of hernia repair History of lumbar fusion History of carpal tunnel release History of tonsillectomy Family History Father Cancer Migraine Kidney stones Mother Hearing impairment Inflammatory bowel disease Urinary tract infection Brother Diabetes mellitus Hyperlipidemia Migraine Kidney stones Social History marital status: unknown details: Mary Ann (Krupa) household members: significant other, none and other lives independently: Yes occupational status: previously employed and disabled Smoking Status: Never smoker alcohol intake: current substance use type: does not use caffeine: Yes Type(s) of exercise: none Meds Home Medications and Allergies Home Medications Medication Instructions Recorded Confirmed Type Disabled Parking Permit #1 ea 01/20/23 07/17/24 Rx apixaban 5 mg tablet (Eliquis) 5 mg PO BID #180 tabs 09/09/23 07/17/24 Rx loratadine 10 mg tablet (Claritin) 10 mg PO DAILY PRN allergy 09/09/23 07/17/24 Rx symptoms #90 tabs montelukast 10 mg tablet 10 mg PO DAILY PRN for allergies 11/08/23 07/17/24 History olopatadine 0.1 % eye drops 1 drp EYE-BOTH ONCE PRN allergy 11/08/23 07/17/24 History eyes Wheelchair lift for car #1 ea 12/13/23 07/17/24 Rx nortriptyline 10 mg capsule 10 mg PO BEDTIME #90 caps 12/22/23 07/17/24 Rx L. acidophilus/Bifid. animalis 1 tab PO DAILY 01/24/24 07/17/24 History [Daily Probiotic] omeprazole 40 mg capsule,delayed 40 mg PO BID 01/24/24 07/17/24 History release trazodone 100 mg tablet 100 mg PO BEDTIME PRN Insomnia #90 01/31/24 07/17/24 Rx tabs colestipol 1 gram tablet 2 g PO BID 02/07/24 07/17/24 History fluticasone propionate 220 2 puff inhalation BID PRN SOB #36 05/11/24 07/17/24 Rx mcg/actuation HFA aerosol inhaler grams lorazepam 2 mg tablet 2 mg PO BEDTIME PRN sleep #30 tabs 05/21/24 07/17/24 Rx sucralfate 100 mg/mL oral 10 ml PO QACHS #420 mL 05/26/24 07/17/24 Rx suspension (Carafate) albuterol sulfate 90 mcg/actuation 2 puff inhalation Q6H PRN 06/16/24 07/17/24 Rx aerosol inhaler shortness of breath or wheezing #8.5 grams rosuvastatin 10 mg tablet 10 mg PO DAILY #90 tabs 07/10/24 07/17/24 Rx tizanidine 4 mg tablet 4 mg PO 3XD 07/10/24 07/17/24 History hydrocodone 5 mg-acetaminophen 325 1 tab PO TID PRN pain #180 tabs 07/12/24 07/17/24 Rx mg tablet ondansetron HCl 4 mg tablet 4 mg PO QID PRN Nausea #30 tabs 07/12/24 07/17/24 Rx tamsulosin 0.4 mg capsule 0.4 mg PO DAILY #90 caps 07/13/24 07/17/24 Rx pregabalin 100 mg capsule 100 mg PO TID #90 caps 07/16/24 07/17/24 Rx duloxetine 60 mg capsule,delayed 120 mg PO DAILY 07/17/24 07/17/24 History release Allergies Allergy/AdvReac Type Severity Reaction Status Date / Time amitriptyline [AMITRIPTYLINE] Allergy Unknown Verified 07/10/24 14:05 quetiapine [From SEROQUEL] Allergy Unknown Verified 07/10/24 14:05 tetracycline Allergy Blister Verified 07/10/24 14:05 celecoxib [From Celebrex] AdvReac Severe lose his Verified 07/10/24 14:05 voice fluoxetine [From Prozac] AdvReac Unknown No Verified 07/10/24 14:05 emotion, pain becomes really sharp Review of Systems Review of Systems Narrative: All else reviewed and otherwise unremarkable except as noted in the history and physical. Exam Vital Signs (past 8 hours): - 07/17/24 01:29 07/17/24 02:01 07/17/24 02:30 Temperature 97.4 F L Pulse Rate 72 66 Respiratory Rate 16 18 Blood Pressure 76/53 L 85/53 L Pulse Oximetry 97 94 Oxygen Delivery Method Room Air Room Air 07/17/24 02:30 07/17/24 02:51 07/17/24 02:51 Temperature Pulse Rate 62 62 Respiratory Rate 18 16 Blood Pressure 83/50 L Pulse Oximetry 95 92 Oxygen Delivery Method Room Air Room Air 07/17/24 03:00 07/17/24 03:00 07/17/24 03:30 Temperature Pulse Rate 62 Respiratory Rate Blood Pressure 76/52 L 80/50 L Pulse Oximetry 91 Oxygen Delivery Method 07/17/24 03:30 07/17/24 03:39 07/17/24 03:39 Temperature Pulse Rate 69 69 Respiratory Rate Blood Pressure 95/57 L Pulse Oximetry 91 98 Oxygen Delivery Method 07/17/24 04:00 07/17/24 04:00 07/17/24 04:15 Temperature Pulse Rate 58 L Respiratory Rate Blood Pressure 77/51 L 82/53 L Pulse Oximetry 91 Oxygen Delivery Method 07/17/24 04:15 07/17/24 04:20 07/17/24 04:20 Temperature Pulse Rate 58 L 62 Respiratory Rate Blood Pressure 81/53 L Pulse Oximetry 92 93 Oxygen Delivery Method 07/17/24 04:25 07/17/24 04:25 07/17/24 04:30 Temperature Pulse Rate 64 37 L Respiratory Rate 13 Blood Pressure 84/53 L Pulse Oximetry 91 98 Oxygen Delivery Method 07/17/24 04:30 07/17/24 04:32 07/17/24 04:32 Temperature Pulse Rate 44 L Respiratory Rate 18 Blood Pressure 178/81 H 181/84 H Pulse Oximetry 99 Oxygen Delivery Method 07/17/24 04:35 07/17/24 04:35 07/17/24 04:45 Temperature Pulse Rate 52 L 58 L Respiratory Rate 17 20 Blood Pressure 143/68 H Pulse Oximetry 97 97 Oxygen Delivery Method 07/17/24 04:45 07/17/24 04:50 07/17/24 04:50 Temperature Pulse Rate 54 L Respiratory Rate 11 L Blood Pressure 105/61 106/60 Pulse Oximetry 97 Oxygen Delivery Method 07/17/24 04:55 07/17/24 04:55 07/17/24 05:00 Temperature Pulse Rate 59 L Respiratory Rate 18 Blood Pressure 110/58 L 101/58 L Pulse Oximetry 98 Oxygen Delivery Method Room Air 07/17/24 05:00 07/17/24 05:05 07/17/24 05:05 Temperature Pulse Rate 71 55 L Respiratory Rate 20 25 H Blood Pressure 103/61 Pulse Oximetry 91 95 Oxygen Delivery Method 07/17/24 05:10 07/17/24 05:10 07/17/24 05:15 Temperature Pulse Rate 58 L Respiratory Rate 17 Blood Pressure 98/58 L 89/54 L Pulse Oximetry 93 Oxygen Delivery Method 07/17/24 05:15 07/17/24 05:20 07/17/24 05:20 Temperature Pulse Rate 59 L 62 Respiratory Rate 16 14 Blood Pressure 87/53 L Pulse Oximetry 94 92 Oxygen Delivery Method 07/17/24 05:25 07/17/24 05:25 07/17/24 05:30 Temperature Pulse Rate 63 Respiratory Rate 14 Blood Pressure 88/54 L 91/54 L Pulse Oximetry 92 Oxygen Delivery Method 07/17/24 05:30 07/17/24 05:35 07/17/24 05:35 Temperature Pulse Rate 71 74 Respiratory Rate 17 25 H Blood Pressure 83/57 L Pulse Oximetry 92 93 Oxygen Delivery Method 07/17/24 05:40 07/17/24 05:40 07/17/24 05:45 Temperature Pulse Rate 74 69 Respiratory Rate 25 H 19 Blood Pressure 91/56 L Pulse Oximetry 92 96 Oxygen Delivery Method 07/17/24 05:45 07/17/24 05:50 07/17/24 05:50 Temperature Pulse Rate 72 Respiratory Rate 20 Blood Pressure 99/58 L 99/52 L Pulse Oximetry 94 Oxygen Delivery Method 07/17/24 05:55 07/17/24 05:55 07/17/24 06:00 Temperature Pulse Rate 69 70 Respiratory Rate 18 18 Blood Pressure 89/52 L Pulse Oximetry 92 94 Oxygen Delivery Method 07/17/24 06:00 07/17/24 06:05 07/17/24 06:05 Temperature Pulse Rate 69 Respiratory Rate 17 Blood Pressure 89/52 L 87/52 L Pulse Oximetry 92 Oxygen Delivery Method 07/17/24 06:10 07/17/24 06:10 07/17/24 06:15 Temperature Pulse Rate 67 66 Respiratory Rate 19 17 Blood Pressure 88/53 L Pulse Oximetry 92 92 Oxygen Delivery Method 07/17/24 06:15 07/17/24 06:20 07/17/24 06:20 Temperature Pulse Rate 63 Respiratory Rate 16 Blood Pressure 88/51 L 82/51 L Pulse Oximetry 92 Oxygen Delivery Method 07/17/24 06:25 07/17/24 06:25 07/17/24 06:30 Temperature Pulse Rate 75 Respiratory Rate 24 Blood Pressure 81/50 L 86/56 L Pulse Oximetry 92 Oxygen Delivery Method 07/17/24 06:30 07/17/24 06:35 07/17/24 06:35 Temperature Pulse Rate 64 66 Respiratory Rate 18 16 Blood Pressure 82/52 L Pulse Oximetry 89 L 91 Oxygen Delivery Method 07/17/24 06:40 07/17/24 06:40 07/17/24 06:45 Temperature Pulse Rate 65 63 Respiratory Rate 14 15 Blood Pressure 89/52 L Pulse Oximetry 91 91 Oxygen Delivery Method 07/17/24 06:45 07/17/24 06:50 07/17/24 06:50 Temperature Pulse Rate 63 Respiratory Rate 15 Blood Pressure 80/52 L 80/52 L Pulse Oximetry 91 Oxygen Delivery Method 07/17/24 06:55 Temperature Pulse Rate 64 Respiratory Rate 15 Blood Pressure Pulse Oximetry 91 Oxygen Delivery Method Oxygen Delivery Method Room Air Narrative Exam Narrative: NAD, alert and oriented, fluent speech, calm. Normocephalic skull, EOMI, anicteric sclera, symmetric pupils. Oropharynx unremarkable, no droop. Neck supple, midline trachea, no adenopathy. Lungs clear, normal rate and effort. Heart regular, no murmur gallop or rub. Abdomen is soft, non distended and non tender. Extremities are free of edema. Skin is free of rash or lesions. Joints are not swollen or deformed. Judgment appears to be normal. Objective ECG Impression: Sinus bradycardia with 1st degree AV block Nonspecific ST and T wave abnormality Labs 07/17/24 06:27 07/17/24 06:27 Labs: Laboratory Results - last 24 hr 07/17/24 07/17/24 07/17/24 01:38 02:36 03:40 WBC 5.5 RBC 4.72 Hgb 14.7 Hct 43.2 MCV 91.3 MCH 31.2 MCHC 34.2 RDW 13.2 Plt Count 251 Neut % (Auto) 45.4 L Lymph % (Auto) 44.[address] [place] % (Auto) 6.6 Eos % (Auto) 2.7 Baso % (Auto) 0.9 Neut # (Auto) 2500 Lymph # (Auto) 2500 [facility] # (Auto) 400 Eos # (Auto) 200 Baso # (Auto) 100 Sodium 137 Potassium 3.4 Chloride 101 Carbon Dioxide 26 BUN 16 Creatinine 1.51 H Estimated GFR 53 L BUN/Creatinine Ratio 10.6 Glucose 131 H Lactate 1.9 Calcium 9.4 Total Bilirubin 1.2 AST 58 ALT 62 H Alkaline Phosphatase 85 Total Creatine Kinase 90 Troponin I < 0.012 NT-Pro-B Natriuret Pep 53 Total Protein 7.4 Albumin 4.7 Globulin 2.7 Albumin/Globulin Ratio 1.7 Lipase 130 Procalcitonin 0.064 Urine RBC 1-5/hpf Urine WBC None seen Ur Squamous Epith Cells None seen Urine Bacteria Occasional (0-1) Ur Culture Indicated? Cult not indicated Vol Urine Centrifuged 10ml (spun) Blood Type A Positive Antibody Screen Negative 07/17/24 06:27 WBC 3.6 L RBC 3.64 L Hgb 11.5 L Hct 33.2 L MCV 91.2 MCH 31.5 MCHC 34.5 RDW 13.6 Plt Count 190 Neut % (Auto) 53.9 Lymph % (Auto) 34.1 [facility] % (Auto) 7.8 Eos % (Auto) 3.6 Baso % (Auto) 0.6 Neut # (Auto) 2000 Lymph # (Auto) 1200 [facility] [place] # (Auto) 300 Eos # (Auto) 100 Baso # (Auto) 0 Sodium 137 Potassium 4.2 Chloride 109 H Carbon Dioxide 22 BUN 14 Creatinine 1.10 Estimated GFR > 60 BUN/Creatinine Ratio 12.7 Glucose 112 H Lactate Calcium 8.1 L Total Bilirubin AST ALT Alkaline Phosphatase Total Creatine Kinase Troponin I NT-Pro-B Natriuret Pep Total Protein Albumin Globulin Albumin/Globulin Ratio Lipase Procalcitonin Urine RBC Urine WBC Ur Squamous Epith Cells Urine Bacteria Ur Culture Indicated? Vol Urine Centrifuged Blood Type Antibody Screen Assessment & Plan Assessment & Plan narrative: 1. Hypovolemic shock, present on admission and improved. - Admit the patient to ICU. Patient's hypotension could be from volume depletion as well as increasing narcotics/muscle relaxant taken at home last two days. Note there's no clear signs of sepsis or any sign of infection. Patient now responded to IV fluid after 2 L of IVF bolus. Of note pressors were tried briefly peripherally but systolic went up to 180 and was stopped right away. Will continue to monitor patient closely and will place PICC line just in case patient become hypotensive again. Monitor for any source infection. 2. YUKO. Present on admission and improving. - Cr today 1.5. Baseline .09. Likely from volume depletion. - IV fluid monitor renal function. 3. History of DVT on Eliquis. Present on admission and stable. - Continue home Eliquis. 4. HLD. Present on admission and stable. - Resume home medications. PLAN: -cont IVF -monitor Cr DVT prophylaxis Eliquis Code status full code Anticipate a 2 midnight length of stay for hospital services. Time-Based Coding :: 35 min spent with patient and on the chart (including review of chart, obtaining history, exam, reviewing outside data, placing orders, documenting exam and treatment plan, and counseling patient) on 07/17. Quality MIPS - Admit The patient?s Advance Care plan is not present because I confirmed today that the patient does not wish or was not able to name a surrogate decision maker or provide an Advance Care Plan.: Yes MIPS - Meds 'Current medications' to include all prescriptions, [id number] products, herbals, cannabis/cannabidiol products, and vitamin/mineral/dietary (nutritional) supplements. I have utilized all available resources to obtain, update, or review the patient?s current medications. [If Yes, STOP here]: Yes
[2024-07-17] MEDS: SODIUM CHLORIDE 0.9% 1,000 ML 100 ML IV (09:42)
[2024-07-17 09:48] LABS: MRSA (Nasal) PCR NOT DETECTED (Not Detect)
[2024-07-17] MEDS: APIXABAN 5 MG TABLET PO (12:03)
[2024-07-17] MEDS: LORATADINE 10 MG TABLET PO (12:03)
[2024-07-17] MEDS: PREGABALIN 50 MG CAPSULE 100 MG PO (12:03)
[2024-07-17] MEDS: TIZANIDINE 4 MG TABLET PO (12:03)
[2024-07-17] MEDS: MONTELUKAST 10 MG TABLET PO (12:03)
[2024-07-17] MEDS: DULOXETINE 30 MG CAPSULE 120 MG PO (12:03)
[2024-07-17] MEDS: TAMSULOSIN 0.4 MG CAPSULE PO (12:03)
--- NOTE | 2024-07-17 15:00 | CM.DANOTE ---
Addendum entered by GREGORY Gil 07/17/24 15:51: per chart review, dc order in. HEAD ROSE GROWER messaged TCM OP team with updates. JOSE ANTONIO Original Note: DCP Assessment Note Pt is a 58yo M here with YUKO/hypotensive. PCP Jessica Lindquist [facility] and Medicaid HEAD ROSE GROWER reviewed EMR. Per hospitalist in morning rounds, may dc later today. Per chart review, baseline neurocognitive deficits. HEAD ROSE GROWER entered room and introduced self and role. Pt reports having an OP appt with speech therapy today, stress test tomorrow, and urology appt tomorrow. Pt reports he will contact the office to cancel stress test and urology appt. Pt reports he lives alone in his [place] here in [place] with two small dogs. Uses a walking stick/cane in and power w/c outside of . Son Monster lives in [place] but does not assist him with much. Pt reports having struggles getting food and cooking food. transports self but also uses paratransit. plans to drive self home. HEAD ROSE GROWER provided information for food brito/meals on wheels/local [employer] resources. pt denies other CM/HEAD ROSE GROWER resources at this time. HEAD ROSE GROWER discussed HH as potential option for dc. Pt reports he is going to [place] in Jul for two months to meet his fiance and bring his two dogs, therefore not homebound. No hx of HH. Pt met fiance online, fiance plans to return with him to [place] after two months in [place]. He met her online. Has not heard of community sonographer services, agreeable to referral at this time for home safety eval. HEAD ROSE GROWER updated speech therapist Antoinette that pt was admitted to the floor and to cancel OP appt for the day. HEAD ROSE GROWER spoke with Marlon Martinez Death Claim Clerk and placed online referral for in home safety assessment. P: anticipate return to RV when medically stable. CM team to alert TCM OP team at dc for f/u. CM team will continue to follow as needed GREGORY Gil Discharge Planning/Care Management CM Discharge Assessment Start: 07/17/24 14:54 Freq: Status: Active Protocol: Document 07/17/24 14:54 SL (Rec: 07/17/24 15:00 SL [id number]) Discharge Planning Assessment Assigned Chiropractic Care Nubia L., HEAD ROSE GROWER DPOA/Assigned Designee Name luis Hook Contact Information [phone] Advance Directives? No History Provided By Patient Prior Living Arrangements RV Household Members significant other,none,other Type of transporation used prior to Drives own vehicle admit Comment drives own vehicle but also uses paratransit Independent with ADL's Yes Is patient alert and oriented? Yes Needs Assistance With Home Chores / Shopping Community Services used prior to Speech Language Pathology admission: Comment OP speech therapy DME Already Rented / Owned FWW / [employer]rik Comment electric w/c Discharge Plan Home Transportation Arrangement self in [place] Referrals Initiated Other Additional Comment Marlon Martinez Death Claim Clerk Whiteboard Updated in Patient Room with Yes name and ext. # of Chiropractic Care Review Status In Process Please Provide Date Initial DC 07/17/24 Assessment Was Performed Next Review Type Continued Stay Review
--- NOTE | 2024-07-17 15:25 | P.DS_ITS ---
History of Present Illness History of Present Illness Chief complaint: low blood pressure Narrative: From night doctor: 58 year-old male with past medical history of DVT on Eliquis, neurocognitive disorder and hyperlipidemia presents with complaints of low blood pressure and feeling lightheadedness. Per the patient report, the patient started to notice lightheadedness this evening. The patient did check his blood pressure and reported to be much lower than his normal. The patient does not take any medication for high blood pressure. Patient states that over the last two days the patient has has chronic back and neck so he did increasing is prn narcotics and muscle relaxant at home. Patient also states that due to pain, the patient did not eat or drink much fluid. Otherwise the patient denies any chest pain, syncope, fever, chills, dysuria, nausea, or diarrhea. The patient does take Eliquis for his DVT. In our emergency room, the patient systolic blood pressure was in the 70s. 1.5 L of IV bolus was given and the patient SBP was still hovering Around 80 to 90 systolic. Levophed was turn on peripherally for a very brief time and systolic blood pressure up to 180s. Cr also was 1.5 (baseline 0.9). Note lab did not shows any sign of infection. UA was not suggestive of UTI. Chest x-ray was pending. Additional information: He does believe that he was been somewhat dehydrated. He denies any diarrhea. He was having acute on chronic lower back pain which may have affected his oral fluid and food intake for several days. His urination was less frequent in the urine was darker. He does feel better today. Discharge Providers Provider Date of admission: 07/17/24 04:44 Discharge Date: 07/17/24 Primary care physician: Jerry Lopez MD Consults: None. Discharge provider: Daljit Carr MD Summary Hospital Course Discharge Diagnosis: [address] [address] History & Physical Report Patient: Kervin Webb MR#: [id number] : 1965 Acct:[id number] Age/Sex: 58 / M Admit Date: 07/17/24 Provider: Daljit Carr MD History of Present Illness History of Present Illness Date Patient Seen: 07/17/24 Chief complaint: low blood pressure Narrative: From night doctor: 58 year-old male with past medical history of DVT on Eliquis, neurocognitive disorder and hyperlipidemia presents with complaints of low blood pressure and feeling lightheadedness. Per the patient report, the patient started to notice lightheadedness this evening. The patient did check his blood pressure and reported to be much lower than his normal. The patient does not take any medication for high blood pressure. Patient states that over the last two days the patient has has chronic back and neck so he did increasing is prn narcotics and muscle relaxant at home. Patient also states that due to pain, the patient did not eat or drink much fluid. Otherwise the patient denies any chest pain, syncope, fever, chills, dysuria, nausea, or diarrhea. The patient does take Eliquis for his DVT. In our emergency room, the patient systolic blood pressure was in the 70s. 1.5 L of IV bolus was given and the patient SBP was still hovering Around 80 to 90 systolic. Levophed was turn on peripherally for a very brief time and systolic blood pressure up to 180s. Cr also was 1.5 (baseline 0.9). Note lab did not shows any sign of infection. UA was not suggestive of UTI. Chest x-ray was pending. Additional information: He does believe that he was been somewhat dehydrated. He denies any diarrhea. He was having acute on chronic lower back pain which may have affected his oral fluid and food intake for several days. His urination was less frequent in the urine was darker. He does feel better today. 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 Major depressive disorder, single episode, mild Primary osteoarthritis involving multiple joints Chronic anticoagulation Bladder outlet obstruction Eosinophilic esophagitis Factor 5 Leiden mutation, heterozygous Neck mass Bronchitis Costochondritis History of DVT (deep vein thrombosis) Diverticulitis Allergic conjunctivitis Allergic rhinitis Hx of nephrolithotomy with removal of calculi History of depression Elevated PSA Lipoma of arm Umbilical hernia Chronic back pain (Unknown) Insomnia (Unknown) Restless leg syndrome (Unknown) Obstructive sleep apnea (Unknown) GERD (gastroesophageal reflux disease) (Unknown) Surgical History Hx of circumcision History of ureter stent Hx of hernia repair History of lumbar fusion History of carpal tunnel release History of tonsillectomy Family History Father Cancer Migraine Kidney stonesMother Hearing impairment Inflammatory bowel disease Urinary tract infectionBrother Diabetes mellitus Hyperlipidemia Migraine Kidney stones Social History marital status: unknown details: Mary Ann (Krupa) household members: significant other, none and other lives independently: Yes occupational status: previously employed and disabled Smoking Status: Never smoker alcohol intake: current substance use type: does not use caffeine: Yes Type(s) of exercise: none Meds Home Medications and Allergies Home Medications Medication Instructions Recorded Confirmed Type Disabled Parking Permit #1 ea 01/20/23 07/17/24 Rx apixaban 5 mg tablet (Eliquis) 5 mg PO BID #180 tabs 09/09/23 07/17/24 Rx loratadine 10 mg tablet (Claritin) 10 mg PO DAILY PRN allergy 09/09/23 07/17/24 Rx symptoms #90 tabs montelukast 10 mg tablet 10 mg PO DAILY PRN for allergies 11/08/23 07/17/24 History olopatadine 0.1 % eye drops 1 drp EYE-BOTH ONCE PRN allergy 11/08/23 07/17/24 History eyes Wheelchair lift for car #1 ea 12/13/23 07/17/24 Rx nortriptyline 10 mg capsule 10 mg PO BEDTIME #90 caps 12/22/23 07/17/24 Rx L. acidophilus/Bifid. animalis 1 tab PO DAILY 01/24/24 07/17/24 History [Daily Probiotic] omeprazole 40 mg capsule,delayed 40 mg PO BID 01/24/24 07/17/24 History release trazodone 100 mg tablet 100 mg PO BEDTIME PRN Insomnia #90 01/31/24 07/17/24 Rx tabs colestipol 1 gram tablet 2 g PO BID 02/07/24 07/17/24 History fluticasone propionate 220 2 puff inhalation BID PRN SOB #36 05/11/24 07/17/24 Rx mcg/actuation HFA aerosol inhaler grams lorazepam 2 mg tablet 2 mg PO BEDTIME PRN sleep #30 tabs 05/21/24 07/17/24 Rx sucralfate 100 mg/mL oral 10 ml PO QACHS #420 mL 05/26/24 07/17/24 Rx suspension (Carafate) albuterol sulfate 90 mcg/actuation 2 puff inhalation Q6H PRN 06/16/24 07/17/24 Rx aerosol inhaler shortness of breath or wheezing #8.5 grams rosuvastatin 10 mg tablet 10 mg PO DAILY #90 tabs 07/10/24 07/17/24 Rx tizanidine 4 mg tablet 4 mg PO 3XD 07/10/24 07/17/24 History hydrocodone 5 mg-acetaminophen 325 1 tab PO TID PRN pain #180 tabs 07/12/24 07/17/24 Rx mg tablet ondansetron HCl 4 mg tablet 4 mg PO QID PRN Nausea #30 tabs 07/12/24 07/17/24 Rx tamsulosin 0.4 mg capsule 0.4 mg PO DAILY #90 caps 07/13/24 07/17/24 Rx pregabalin 100 mg capsule 100 mg PO TID #90 caps 07/16/24 07/17/24 Rx duloxetine 60 mg capsule,delayed 120 mg PO DAILY 07/17/24 07/17/24 History release Allergies Allergy/AdvReac Type Severity Reaction Status Date / Time amitriptyline [AMITRIPTYLINE] Allergy Unknown Verified 07/10/24 14:05 quetiapine [From SEROQUEL] Allergy Unknown Verified 07/10/24 14:05 tetracycline Allergy Blister Verified 07/10/24 14:05 celecoxib [From Celebrex] AdvReac Severe lose his Verified 07/10/24 14:05 voice fluoxetine [From Prozac] AdvReac Unknown No Verified 07/10/24 14:05 emotion, pain becomes really sharp Review of Systems Review of Systems Narrative: All else reviewed and otherwise unremarkable except as noted in the history and physical. Exam Vital Signs (past 8 hours): - 07/17/2401:29 07/17/2402:01 07/17/2402:30 Temperature 97.4 F L Pulse Rate 72 66 Respiratory Rate 16 18 Blood Pressure 76/53 L 85/53 L Pulse Oximetry 97 94 Oxygen Delivery Method Room Air Room Air 07/17/2402:30 07/17/2402:51 07/17/2402:51 Temperature Pulse Rate 62 62 Respiratory Rate 18 16 Blood Pressure 83/50 L Pulse Oximetry 95 92 Oxygen Delivery Method Room Air Room Air 07/17/2403:00 07/17/2403:00 07/17/2403:30 Temperature Pulse Rate 62 Respiratory Rate Blood Pressure 76/52 L 80/50 L Pulse Oximetry 91 Oxygen Delivery Method 07/17/2403:30 07/17/2403:39 07/17/2403:39 Temperature Pulse Rate 69 69 Respiratory Rate Blood Pressure 95/57 L Pulse Oximetry 91 98 Oxygen Delivery Method 07/17/2404:00 07/17/2404:00 07/17/2404:15 Temperature Pulse Rate 58 L Respiratory Rate Blood Pressure 77/51 L 82/53 L Pulse Oximetry 91 Oxygen Delivery Method 07/17/2404:15 07/17/2404:20 07/17/2404:20 Temperature Pulse Rate 58 L 62 Respiratory Rate Blood Pressure 81/53 L Pulse Oximetry 92 93 Oxygen Delivery Method 07/17/2404:25 07/17/2404:25 07/17/2404:30 Temperature Pulse Rate 64 37 L Respiratory Rate 13 Blood Pressure 84/53 L Pulse Oximetry 91 98 Oxygen Delivery Method 07/17/2404:30 07/17/2404:32 07/17/2404:32 Temperature Pulse Rate 44 L Respiratory Rate 18 Blood Pressure 178/81 H 181/84 H Pulse Oximetry 99 Oxygen Delivery Method 07/17/2404:35 07/17/2404:35 07/17/2404:45 Temperature Pulse Rate 52 L 58 L Respiratory Rate 17 20 Blood Pressure 143/68 H Pulse Oximetry 97 97 Oxygen Delivery Method 07/17/2404:45 07/17/2404:50 07/17/2404:50 Temperature Pulse Rate 54 L Respiratory Rate 11 L Blood Pressure 105/61 106/60 Pulse Oximetry 97 Oxygen Delivery Method 07/17/2404:55 07/17/2404:55 07/17/2405:00 Temperature Pulse Rate 59 L Respiratory Rate 18 Blood Pressure 110/58 L 101/58 L Pulse Oximetry 98 Oxygen Delivery Method Room Air 07/17/2405:00 07/17/2405:05 07/17/2405:05 Temperature Pulse Rate 71 55 L Respiratory Rate 20 25 H Blood Pressure 103/61 Pulse Oximetry 91 95 Oxygen Delivery Method 07/17/2405:10 07/17/2405:10 07/17/2405:15 Temperature Pulse Rate 58 L Respiratory Rate 17 Blood Pressure 98/58 L 89/54 L Pulse Oximetry 93 Oxygen Delivery Method 07/17/2405:15 07/17/2405:20 07/17/2405:20 Temperature Pulse Rate 59 L 62 Respiratory Rate 16 14 Blood Pressure 87/53 L Pulse Oximetry 94 92 Oxygen Delivery Method 07/17/2405:25 07/17/2405:25 07/17/2405:30 Temperature Pulse Rate 63 Respiratory Rate 14 Blood Pressure 88/54 L 91/54 L Pulse Oximetry 92 Oxygen Delivery Method 07/17/2405:30 07/17/2405:35 07/17/2405:35 Temperature Pulse Rate 71 74 Respiratory Rate 17 25 H Blood Pressure 83/57 L Pulse Oximetry 92 93 Oxygen Delivery Method 07/17/2405:40 07/17/2405:40 07/17/2405:45 Temperature Pulse Rate 74 69 Respiratory Rate 25 H 19 Blood Pressure 91/56 L Pulse Oximetry 92 96 Oxygen Delivery Method 07/17/2405:45 07/17/2405:50 07/17/2405:50 Temperature Pulse Rate 72 Respiratory Rate 20 Blood Pressure 99/58 L 99/52 L Pulse Oximetry 94 Oxygen Delivery Method 07/17/2405:55 07/17/2405:55 07/17/2406:00 Temperature Pulse Rate 69 70 Respiratory Rate 18 18 Blood Pressure 89/52 L Pulse Oximetry 92 94 Oxygen Delivery Method 07/17/2406:00 07/17/2406:05 07/17/2406:05 Temperature Pulse Rate 69 Respiratory Rate 17 Blood Pressure 89/52 L 87/52 L Pulse Oximetry 92 Oxygen Delivery Method 07/17/2406:10 07/17/2406:10 07/17/2406:15 Temperature Pulse Rate 67 66 Respiratory Rate 19 17 Blood Pressure 88/53 L Pulse Oximetry 92 92 Oxygen Delivery Method 07/17/2406:15 07/17/2406:20 07/17/2406:20 Temperature Pulse Rate 63 Respiratory Rate 16 Blood Pressure 88/51 L 82/51 L Pulse Oximetry 92 Oxygen Delivery Method 07/17/2406:25 07/17/2406:25 07/17/2406:30 Temperature Pulse Rate 75 Respiratory Rate 24 Blood Pressure 81/50 L 86/56 L Pulse Oximetry 92 Oxygen Delivery Method 07/17/2406:30 07/17/2406:35 07/17/2406:35 Temperature Pulse Rate 64 66 Respiratory Rate 18 16 Blood Pressure 82/52 L Pulse Oximetry 89 L 91 Oxygen Delivery Method 07/17/2406:40 07/17/2406:40 07/17/2406:45 Temperature Pulse Rate 65 63 Respiratory Rate 14 15 Blood Pressure 89/52 L Pulse Oximetry 91 91 Oxygen Delivery Method 07/17/2406:45 07/17/2406:50 07/17/2406:50 Temperature Pulse Rate 63 Respiratory Rate 15 Blood Pressure 80/52 L 80/52 L Pulse Oximetry 91 Oxygen Delivery Method 07/17/2406:55 Temperature Pulse Rate 64 Respiratory Rate 15 Blood Pressure Pulse Oximetry 91 Oxygen Delivery Method Oxygen Delivery Method Room Air Narrative Exam Narrative: NAD, alert and oriented, fluent speech, calm. Normocephalic skull, EOMI, anicteric sclera, symmetric pupils. Oropharynx unremarkable, no droop. Neck supple, midline trachea, no adenopathy. Lungs clear, normal rate and effort. Heart regular, no murmur gallop or rub. Abdomen is soft, non distended and non tender. Extremities are free of edema. Skin is free of rash or lesions. Joints are not swollen or deformed. Judgment appears to be normal. Objective ECG Impression: Sinus bradycardia with 1st degree AV block Nonspecific ST and T wave abnormality Labs 07/17/24 06:27 07/17/24 06:27 Labs: Laboratory Results - last 24 hr 07/17/24 07/17/24 07/17/24 01:38 02:36 03:40 WBC 5.5 RBC 4.72 Hgb 14.7 Hct 43.2 MCV 91.3 MCH 31.2 MCHC 34.2 RDW 13.2 Plt Count 251 Neut % (Auto) 45.4 L Lymph % (Auto) 44.4 H [place] % (Auto) 6.6 Eos % (Auto) 2.7 Baso % (Auto) 0.9 Neut # (Auto) 2500 Lymph # (Auto) 2500 [place] # (Auto) 400 Eos # (Auto) 200 Baso # (Auto) 100 Sodium 137 Potassium 3.4 Chloride 101 Carbon Dioxide 26 BUN 16 Creatinine 1.51 H Estimated GFR 53 L BUN/Creatinine Ratio 10.6 Glucose 131 H Lactate 1.9 Calcium 9.4 Total Bilirubin 1.2 AST 58 ALT 62 H Alkaline Phosphatase 85 Total Creatine Kinase 90 Troponin I < 0.012 NT-Pro-B Natriuret Pep 53 Total Protein 7.4 Albumin 4.7 Globulin 2.7 Albumin/Globulin Ratio 1.7 Lipase 130 Procalcitonin 0.064 Urine RBC 1-5/hpf Urine WBC None seen Ur Squamous Epith Cells None seen Urine Bacteria Occasional (0-1) Ur Culture Indicated? Cult not indicated Vol Urine Centrifuged 10ml (spun) Blood Type A Positive Antibody Screen Negative 07/17/24 06:27 WBC 3.6 L RBC 3.64 L Hgb 11.5 L Hct 33.2 L MCV 91.2 MCH 31.5 MCHC 34.5 RDW 13.6 Plt Count 190 Neut % (Auto) 53.9 Lymph % (Auto) 34.1 [place] % (Auto) 7.8 Eos % (Auto) 3.6 Baso % (Auto) 0.6 Neut # (Auto) 2000 Lymph # (Auto) 1200 [place] # (Auto) 300 Eos # (Auto) 100 Baso # (Auto) 0 Sodium 137 Potassium 4.2 Chloride 109 H Carbon Dioxide 22 BUN 14 Creatinine 1.10 Estimated GFR > 60 BUN/Creatinine Ratio 12.7 Glucose 112 H Lactate Calcium 8.1 L Total Bilirubin AST ALT Alkaline Phosphatase Total Creatine Kinase Troponin I NT-Pro-B Natriuret Pep Total Protein Albumin Globulin Albumin/Globulin Ratio Lipase Procalcitonin Urine RBC Urine WBC Ur Squamous Epith Cells Urine Bacteria Ur Culture Indicated? Vol Urine Centrifuged Blood Type Antibody Screen Assessment & Plan Assessment & Plan narrative: 1. Hypovolemic shock, present on admission and improved. 2. YUKO. Present on admission and resolved. 3. History of DVT on Eliquis. Present on admission and stable. - Continue home Eliquis. 4. HLD. Present on admission and stable. - Resume home medications. Hospital Course: He was admitted for hypotension and treated with transient pressors and fluid resuscitation. He normalized his blood pressures and he was mild YUKO improved as well. He did seem clinically dehydrated and did seem to normalized with fluids and was able to ambulate without difficulty. He had no fevers and there was no evidence of infection in his workup including a procalcitonin. He was felt to be stable for discharge home with encouragement of fluids. Status at Discharge Cognitive/behavioral status at discharge: oriented Functional status at discharge: independent ambulation Overall status at discharge: patient is back to baseline Time Spent with Patient Time spent: Greater than 30 minutes Exam Vital Signs (past 8 hours): - 07/17/24 07:30 07/17/24 07:30 07/17/24 07:35 Temperature Pulse Rate 70 64 Respiratory Rate 16 15 Blood Pressure 90/55 L Pulse Oximetry 91 92 Oxygen Delivery Method 07/17/24 07:35 07/17/24 07:40 07/17/24 07:40 Temperature Pulse Rate 64 Respiratory Rate 14 Blood Pressure 85/52 L 86/53 L Pulse Oximetry 92 Oxygen Delivery Method 07/17/24 07:45 07/17/24 07:45 07/17/24 07:50 Temperature Pulse Rate 63 63 Respiratory Rate 14 15 Blood Pressure 90/54 L Pulse Oximetry 91 91 Oxygen Delivery Method 07/17/24 07:50 07/17/24 08:47 07/17/24 09:00 Temperature Pulse Rate Respiratory Rate Blood Pressure 89/52 L 103/62 101/63 Pulse Oximetry Oxygen Delivery Method 07/17/24 10:00 07/17/24 10:37 07/17/24 10:51 Temperature 97.6 F Pulse Rate Respiratory Rate Blood Pressure 103/61 Pulse Oximetry Oxygen Delivery Method Room Air 07/17/24 11:00 Temperature 97.6 F Pulse Rate Respiratory Rate 16 Blood Pressure 104/61 Pulse Oximetry Oxygen Delivery Method Oxygen Delivery Method Room Air Narrative Exam Narrative: NAD, alert and oriented. Fluent speech. Lungs are clear, normal rate and effort. Heart is regular, no murmur gallop or rub. Abdomen is soft, non distended. Extremities are free of edema. Objective ECG Impression: Sinus bradycardia with 1st degree AV block Nonspecific ST and T wave abnormality Imaging Multiple studies:: Radiologist's impression: Chest x-ray: No acute cardiopulmonary abnormality is seen. Chest, abdomen, pelvis CT: 1. No acute aortic syndrome. No dissection. No central pulmonary embolism. 2. Minimal stranding near the urinary bladder. This could be seen in the setting of cystitis. 3. Stomach is distended. No small bowel obstruction. No free fluid. 4. Small nonobstructing kidney stones. No hydronephrosis. Labs 07/17/24 06:27 07/17/24 06:27 Labs: Laboratory Results - last 24 hr 07/17/24 07/17/24 07/17/24 01:38 02:36 03:40 WBC 5.5 RBC 4.72 Hgb 14.7 Hct 43.2 MCV 91.3 MCH 31.2 MCHC 34.2 RDW 13.2 Plt Count 251 Neut % (Auto) 45.4 L Lymph % (Auto) 44.4 H [place] % (Auto) 6.6 Eos % (Auto) 2.7 Baso % (Auto) 0.9 Neut # (Auto) 2500 Lymph # (Auto) 2500 [place] # (Auto) 400 Eos # (Auto) 200 Baso # (Auto) 100 Sodium 137 Potassium 3.4 Chloride 101 Carbon Dioxide 26 BUN 16 Creatinine 1.51 H Estimated GFR 53 L BUN/Creatinine Ratio 10.6 Glucose 131 H Lactate 1.9 Calcium 9.4 Total Bilirubin 1.2 AST 58 ALT 62 H Alkaline Phosphatase 85 Total Creatine Kinase 90 Troponin I < 0.012 NT-Pro-B Natriuret Pep 53 Total Protein 7.4 Albumin 4.7 Globulin 2.7 Albumin/Globulin Ratio 1.7 Lipase 130 Procalcitonin 0.064 Urine RBC 1-5/hpf Urine WBC None seen Ur Squamous Epith Cells None seen Urine Bacteria Occasional (0-1) Ur Culture Indicated? Cult not indicated Vol Urine Centrifuged 10ml (spun) Nasal Screen MRSA (PCR) Blood Type A Positive Antibody Screen Negative 07/17/24 07/17/24 06:27 08:30 WBC 3.6 L RBC 3.64 L Hgb 11.5 L Hct 33.2 L MCV 91.2 MCH 31.5 MCHC 34.5 RDW 13.6 Plt Count 190 Neut % (Auto) 53.9 Lymph % (Auto) 34.1 [place] % (Auto) 7.8 Eos % (Auto) 3.6 Baso % (Auto) 0.6 Neut # (Auto) 2000 Lymph # (Auto) 1200 [place] # (Auto) 300 Eos # (Auto) 100 Baso # (Auto) 0 Sodium 137 Potassium 4.2 Chloride 109 H Carbon Dioxide 22 BUN 14 Creatinine 1.10 Estimated GFR > 60 BUN/Creatinine Ratio 12.7 Glucose 112 H Lactate Calcium 8.1 L Total Bilirubin AST ALT Alkaline Phosphatase Total Creatine Kinase Troponin I NT-Pro-B Natriuret Pep Total Protein Albumin Globulin Albumin/Globulin Ratio Lipase Procalcitonin Urine RBC Urine WBC Ur Squamous Epith Cells Urine Bacteria Ur Culture Indicated? 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 Major depressive disorder, single episode, mild Primary osteoarthritis involving multiple joints Chronic anticoagulation Bladder outlet obstruction Eosinophilic esophagitis Factor 5 Leiden mutation, heterozygous Neck mass Bronchitis Costochondritis History of DVT (deep vein thrombosis) Diverticulitis Allergic conjunctivitis Allergic rhinitis Hx of nephrolithotomy with removal of calculi History of depression Elevated PSA Lipoma of arm Umbilical hernia Chronic back pain (Unknown) Insomnia (Unknown) Restless leg syndrome (Unknown) Obstructive sleep apnea (Unknown) GERD (gastroesophageal reflux disease) (Unknown) Surgical History Hx of circumcision History of ureter stent Hx of hernia repair History of lumbar fusion History of carpal tunnel release History of tonsillectomy Family History Father Cancer Migraine Kidney stones Mother Hearing impairment Inflammatory bowel disease Urinary tract infection Brother Diabetes mellitus Hyperlipidemia Migraine Kidney stones Social History marital status: unknown details: Mary Ann Sierra) household members: significant other, none and other lives independently: Yes occupational status: previously employed and disabled Smoking Status: Never smoker alcohol intake: never substance use type: does not use caffeine: Yes Type(s) of exercise: none Discharge Assessment & Plan Assessment and Plan Assessment: 1. Hypovolemic shock, present on admission and improved. 2. YUKO. Present on admission and resolved. Plan of Treatment: Discharge home, encouraged a lot of fluids earlier several days. Close follow up with PCP if he was any recurrent issues. Discharge Plan Discharge Plan Patient Disposition: Home Provider Discharge Comment: Stable for discharge home, encouraged fluids. Discharge orders & Medications Prescriptions: Continued (DME) Disabled Parking Permit See Rx Instructions .ROUTE .MEDSUPPLY Qty: 1 0RF Rx Instructions: Patient qualifies for disabled parking as per the attached form. Eliquis 5 mg tablet 5 mg PO BID Qty: 180 3RF loratadine [Claritin] 10 mg tablet 10 mg PO DAILY PRN (Reason: allergy symptoms) Qty: 90 3RF (DME) Wheelchair lift for car See Rx Instructions .Route .MEDSUPPLY Qty: 1 0RF Rx Instructions: As directed nortriptyline 10 mg capsule 10 mg PO BEDTIME Qty: 90 3RF trazodone 100 mg tablet 100 mg PO BEDTIME PRN (Reason: Insomnia) Qty: 90 3RF fluticasone propionate 220 mcg/actuation HFA aerosol inhaler 2 puff inhalation BID PRN (Reason: SOB) Qty: 36 6RF lorazepam 2 mg tablet 2 mg PO BEDTIME PRN (Reason: sleep) Qty: 30 5RF ondansetron HCl 4 mg tablet 4 mg PO QID PRN (Reason: Nausea) Qty: 30 0RF hydrocodone-acetaminophen 5-325 mg tablet 1 tab PO TID PRN (Reason: pain) Qty: 180 0RF Rx Instructions: Patient plans 2 month travel to [place] starting 07/29/2024 and returning 09/26/2024 tamsulosin 0.4 mg capsule 0.4 mg PO DAILY Qty: 90 3RF pregabalin 100 mg capsule 100 mg PO TID Qty: 90 1RF omeprazole 40 mg capsule,delayed release(DR/EC) 40 mg PO BID L. acidophilus/Bifid. animalis [Daily Probiotic] 1 tab PO DAILY tizanidine 4 mg tablet 4 mg PO 3XD rosuvastatin 10 mg tablet 10 mg PO DAILY Qty: 90 3RF montelukast 10 mg tablet 10 mg PO DAILY PRN (Reason: for allergies) olopatadine 0.1 % drops 1 drp EYE-BOTH ONCE PRN (Reason: allergy eyes) sucralfate [Carafate] 100 mg/mL suspension 10 ml PO QACHS Qty: 420 0RF albuterol sulfate 90 mcg/actuation HFA aerosol inhaler 2 puff inhalation Q6H PRN (Reason: shortness of breath or wheezing) Qty: 8.5 0RF duloxetine 60 mg capsule,delayed release(DR/EC) 120 mg PO DAILY colestipol 1 gram tablet 2 g PO BID Follow up/Referrals: Jerry Lopez MD [Primary Care Provider] - Discharge Health Status Multidrug resistant organism: No MDRO Diet/Activity/Treatments Diet: Regular Visit Report/Discharge Packet Instructions: DI for Dehydration -- Adult Stand Alone Forms: Patient Portal/API, Stroke Signs & Symptoms Discharge Data Primary Care Provider: Jerry Lopez V
--- NOTE | 2024-07-17 16:12 | PC.NURSE ---
Admit Note Patient admitted from ER at approx 0840 via wheelchair, steady on feet. Alert and oriented x4. VSS. Denies pain, denies dizziness. IVF infusing per MD order. Oriented to room and to call light/bed/tv controls.
--- NOTE | 2024-07-17 16:23 | PC.NURSE ---
Patient teaching done at bedside with patient. Aware to call office of PCP to seek a f/u appt. with provider. IV and tele removed, pt tolerated well. Pt req. to take wheelchair to private vehicle. Patient drove self here to ED. Patient left in stable condition.
== END 2024-07-17 16:26 | disposition home or self-care (01) | DRG 314 ==
LOC: ED 01:35 → AC 04:45 → ICU 05:30
PROVIDERS: Admitting Provider Internal Medicine; Emergency Provider Emergency Medicine; Family Provider Internal Medicine; PCP Internal Medicine; Referring Provider Emergency Medicine; Visit Provider Internal Medicine
DX: I95.9 Hypotension, unspecified (principal); R57.1 Hypovolemic shock; N17.9 Acute kidney failure, unspecified; E78.5 Hyperlipidemia, unspecified; E86.0 Dehydration; F32.A Depression, unspecified; G47.00 Insomnia, unspecified; G89.29 Other chronic pain; M54.9 Dorsalgia, unspecified; N40.0 Benign prostatic hyperplasia without lower urinary tract symptoms; K21.9 Gastro-esophageal reflux disease without esophagitis; E78.2 Mixed hyperlipidemia; Z86.718 Personal history of other venous thrombosis and embolism; Z79.01 Long term (current) use of anticoagulants
CPT/HCPCS: 36415; 71045; 71275; 74174; 80048; 80053; 81003; 81015; 82550; 83605; 83690; 83880; 84145; 84484; 85025; 86850; 86900; 86901; 87040; 87797; 93005; 96361; 96365; 99284; 99291; J2543; Q9967

== ENCOUNTER → 2024-10-29 09:15 | Outpatient (CLI) | payer MEDICARE, MEDICAID, SELFPAY ==
[2024-07-17 12:10] VITALS: BMI 24.4
--- NOTE | 2024-10-29 17:55 | DI.NM.S_ITS ---
DATE OF SERVICE: 10/29/2024 NUCLEAR CARDIOLOGY MYOCARDIAL PERFUSION STUDY PROCEDURE: Exercise treadmill stress and rest myocardial perfusion imaging with gating to assess ejection fraction and regional wall motion. ORDERING PROVIDER: Jerry Lopez MD INDICATIONS: The patient is a 59-year-old male with multiple medical problems including chronic aspiration, chronic back pain, and coronary artery calcifications noted on CT scanning who requires risk stratification prior to upcoming hiatal hernia surgery. CARDIAC STRESS: The patient was able to exercise for 8 minutes 38 seconds on a standard Caesar protocol suggesting average exercise capacity with an JOHN of -1%, achieving 10.1 METS. He had a normal heart rate and blood pressure response to exercise, achieving a maximum heart rate of 143 bpm (90% of his predicted maximum). He had no chest discomfort or other anginal pain. His resting ECG showed sinus rhythm with subtle, nonspecific ST abnormalities. With stress, there are no obvious ST-segment shifts although there was considerable motion artifact. Yet, on the immediate recovery images, there were no concerning ECG changes. No arrhythmias are seen. At 7 minutes and 30 seconds of exercise at a heart rate of 135 bpm, 24.8 millicurie of technetium-99m Myoview was injected and he was imaged 10 minutes later using a gated SPECT acquisition protocol. Earlier in the day while at rest, he had been injected with 12.9 millicuries of technetium-99m Myoview and was imaged 15 minutes later, again using a gated SPECT acquisition protocol. FINDINGS: 1. Raw data. There is fairly good myocardial tracer uptake. The lung/heart ratio is mildly increased at 0.44, which can be a sign of pulmonary congestion, but requires clinical correlation. The TID ratio is normal at 0.70. 2. Quantitated gated SPECT: Post-stress ejection fraction is 70% without any focal wall motion abnormality, and specifically the inferior wall has normal contractility. The resting ejection fraction is 73% with a normal resting end-diastolic volume of 82 mL. 3. Myocardial perfusion imaging: Post-stress supine images show a mild perfusion defect in the inferior wall that completely resolves on prone imaging, consistent with diaphragmatic attenuation artifact. There is no other concerning perfusion defects. The resting images show a similar perfusion pattern to that of the post-stress supine images, although the inferior defect is slightly less intense. IMPRESSION: 1. Normal myocardial perfusion study for ischemia. 2. Mild, predominantly fixed, slightly reversible inferior perfusion defect that completely resolves on prone imaging, most consistent with diaphragmatic attenuation artifact. There is no compelling evidence for any significant myocardial ischemia or previous myocardial infarction. 3. Normal left ventricular size and systolic function without focal abnormality. While the lung/heart ratio is mildly elevated at 0.44, which can be a sign of pulmonary congestion, this requires clinical correlation. 4. Average exercise capacity without angina or ECG evidence of ischemia. Kervin Webb - DRISS/derrick/NEETU doc#: [id number]/job#: [id number] dd: 10/29/2024 17:29:00 dt: 10/29/2024 17:38:00 DICTATING MD/COPIES TO: Kevin Vaughn MD; Jerry Lopez MD COPIES MNE: TIBURCIO;
== END ==
PROVIDERS: Family Provider Internal Medicine; PCP Internal Medicine; Referring Provider Internal Medicine; Visit Provider Internal Medicine
DX: I25.10 Atherosclerotic heart disease of native coronary artery without angina pectoris (principal); E78.2 Mixed hyperlipidemia
CPT/HCPCS: 78452; 93017; A9502

== ENCOUNTER → 2024-11-09 13:44 | Outpatient (CLI) | payer MEDICARE, MEDICAID, SELFPAY ==
[2024-07-17 12:10] VITALS: BMI 24.4
--- NOTE | 2024-11-09 13:47 | DI.RAD.S_ITS ---
PROCEDURE: XR KUB INDICATIONS: Follow-up kidney stones TECHNIQUE: One view of the abdomen acquired. COMPARISON: [facility], CR, XR KUB, 07/10/2024, 15:15. FINDINGS: Surgical changes and devices: None. Bowel: Bowel gas pattern is normal. Soft tissues: No suspicious abdominal calcifications. Visualized solid organ contours appear normal in size. Bones: No suspicious bony lesions. Posterior spinal fixation hardware noted bilaterally at the L4 through S1 levels. IMPRESSION: No acute abnormality. Dictated by: Law Verma M.D. on 11/10/2024 at 6:52 Approved by: Law Verma M.D. on 11/10/2024 at 6:55
[2024-11-09 15:25] LABS: Vitamin B12 Reflex MMA if <400 889 pg/mL (239-931)
[2024-11-13 07:11] LABS: PSA Free % 18.9 % (.); PSA, Total 5.7 ng/mL (0.0-4.0)
== END ==
LOC: LAB 13:45
PROVIDERS: Urology; Family Provider Internal Medicine; PCP Internal Medicine; Referring Provider Internal Medicine; Visit Provider Internal Medicine
DX: E53.9 Vitamin B deficiency, unspecified (principal); Z87.442 Personal history of urinary calculi; R97.20 Elevated prostate specific antigen [PSA]
CPT/HCPCS: 36415; 74018; 82607; 84153; 84154; 84207; 84425

== ENCOUNTER → 2024-11-19 12:09 | Outpatient (CLI) | payer MEDICARE, MEDICAID, SELFPAY ==
[2024-07-17 12:10] VITALS: BMI 24.4
--- NOTE | 2024-11-19 | DI.RAD.S_ITS ---
PROCEDURE: XR CERVICAL SPINE 4V OR 5V INDICATIONS: NECK AND LOW BACK PAIN TECHNIQUE: 5 views of the cervical spine acquired. COMPARISON: None. FINDINGS: Bones: No fractures or dislocations to the T1 level. Moderate to severe disc height loss at the C4-C5 through C6-C7 levels with adjacent endplate sclerosis and multilevel anterior osteophytosis. Approximately 0.2 cm retrolisthesis of C4 on C5. Moderate multilevel bilateral facet hypertrophy. Oblique images demonstrate no bony foraminal stenoses. Soft tissues: No prevertebral soft tissue swelling. IMPRESSION: Degenerative change of the cervical spine and retrolisthesis of C4 on C5 without evidence of acute osseous abnormality. Dictated by: aLw Verma M.D. on 11/20/2024 at 3:13 Approved by: Law Verma M.D. on 11/20/2024 at 3:15
--- NOTE | 2024-11-19 | DI.RAD.S_ITS ---
PROCEDURE: XR LUMBAR SPINE MIN 4V INDICATIONS: NECK AND LOW BACK PAIN TECHNIQUE: 5 views of the lumbar spine were acquired, including bilateral oblique views. COMPARISON: None. FINDINGS: Bones: 5 nonrib-bearing vertebrae are present. Bilateral posterior pedicle screw fixation hardware with interbody disc spacers at levels L4 through S1. No evidence of hardware complication. Retrolisthesis of L3 on L4 measures 0.5 cm. Multilevel anterior osteophytosis noted. There is normal bony alignment. No vertebral body compression fractures. No suspicious bony lesions. Soft tissues: Overlying bowel gas pattern is normal. No suspicious soft tissue calcifications. Oblique images: No pars defects. IMPRESSION: Degenerative and postsurgical change without evidence of acute bony abnormality. Dictated by: Law Verma M.D. on 11/20/2024 at 3:15 Approved by: Law Verma M.D. on 11/20/2024 at 3:18
--- NOTE | 2024-11-19 12:11 | DI.CT.S_ITS ---
PROCEDURE: CT LUMBAR SPINE WO CON INDICATIONS: Low back TECHNIQUE: Noncontrast 3 mm thick sections acquired from the T12 level to the sacrum. Sagittal and coronal reformats were constructed. For radiation dose reduction, the following was used: automated exposure control. COMPARISON: [facility], CT, CT LUMBAR SPINE WO CON, 08/16/2023, 15:42. FINDINGS: Image quality: Excellent. Bones: Mild retrolisthesis of L1 on L2 and L2 on L3 and L3 on L4. Multilevel degenerative changes with disc height loss, vacuum disc phenomenon, osteophytosis and facet arthropathy. Postsurgical changes from L4 through S1 posterior spinal fixation, discectomy and laminectomy. There is moderate to severe bilateral neural foraminal stenosis at L3-L4 and at moderate bilateral neural foraminal stenosis at L1-L2 and L2-L3. No significant central canal stenosis is seen throughout. No acute vertebral body compression fractures. No suspicious lytic or blastic bony lesions. No pars defects. Soft tissues: No retroperitoneal masses or hematomas. Visualized aorta is normal in caliber. Few right renal calcifications are partially visualized measuring up to 3 mm. No hydronephrosis. Diverticulosis is noted within the visualized sigmoid colon. IMPRESSION: Postsurgical changes from L4 through S1 posterior spinal fixation. No findings concerning for hardware complication. Multilevel degenerative changes of the lumbar spine are similar compared to prior and most pronounced involving the superior lumbar spine. Dictated by: Shon Parra M.D. on 11/19/2024 at 14:04 Approved by: Shon Parra M.D. on 11/19/2024 at 14:27
== END ==
PROVIDERS: Family Provider Internal Medicine; PCP Internal Medicine; Referring Provider Neurological Surgery; Visit Provider Neurological Surgery
DX: M47.22 Other spondylosis with radiculopathy, cervical region (principal); M48.02 Spinal stenosis, cervical region; M43.12 Spondylolisthesis, cervical region; M47.26 Other spondylosis with radiculopathy, lumbar region; M48.062 Spinal stenosis, lumbar region with neurogenic claudication; Z98.1 Arthrodesis status
CPT/HCPCS: 72050; 72110; 72131

== ENCOUNTER 2024-12-15 11:23 | Emergency (ER) | payer MEDICARE, MEDICAID, SELFPAY ==
[2024-07-17 12:10] VITALS: BMI 24.4
[2024-12-15] VITALS (46 sets, daily range): BP systolic 83–151; BP diastolic 50–90; PULSE 50–74; RESP 10–27; TEMP 36.6; O2SAT 92–99; BMI 24.3
--- NOTE | 2024-12-15 11:34 | EKG_ITS ---
[address] [address] Test Date: 2024-12-15 Pat Name: Kervin Webb Department: ER Room: Gender: Male [employer] Supervisor: : [id number] Requested By: Order Number: [id number] Reading MD: Mohan Watson MD Measurements Intervals Hector Rate: 60 P: 33 IA: 184 QRS: 6 QRSD: 92 T: 49 QT: 404 QTc: 404 Interpretive Statements Normal sinus rhythm Nonspecific T wave abnormality Electronically Signed On 12-15-2024 14:08:41 PDT by Mohan Watson MD
--- NOTE | 2024-12-15 11:48 | DI.CT.S_ITS ---
PROCEDURE: CT ABDOMEN PELVIS W CON INDICATIONS: post hiatal hernia surgery with hypotension TECHNIQUE: After the administration of intravenous contrast, axial sections acquired from the lung bases to the pubic symphysis. Coronal and sagittal reformats were performed. For radiation dose reduction, the following was used: automated exposure control, adjustment of mA and/or kV according to patient size. COMPARISON: [facility], CT, CT ABDOMEN PELVIS W CON, 01/14/2024, 3:27. FINDINGS: Lower Chest: Mild bibasilar atelectasis. ABDOMEN: Liver: No solid mass. Small right hepatic cavernous hemangioma measures 1.4 cm Gallbladder: No radiopaque gallstones or wall thickening. Biliary ducts: No biliary dilation. Pancreas: No ductal dilation. Spleen: Focal wedge shaped 1.2 cm hypodensity in the spleen is new from the prior may reflect splenic infarct Adrenal Glands: No adrenal nodules. Kidneys and Ureters: No hydronephrosis. No solid mass. No complex renal cystic lesion which requires follow up. 2.8 cm right renal cyst. Nonobstructing right renal calculi. No hydronephrosis bilaterally.6 Stomach and Bowel: Small amount of free air consistent with recent surgery. Multiple diverticula arise from the sigmoid colon without evidence of diverticulitis. Edema around the gastric fundus consistent with recent fundoplication. No evidence of obstruction esophageal dilation. Additionally, multiple diverticula arise from the descending and sigmoid colon. There is mild edema and wall thickening around the mid descending colon which is new from the prior exam. No abscess or obstruction. Peritoneum: No abnormal intraperitoneal fluid. No free air. Ventral Wall: No significant ventral hernia. Abdominal Nodes: No retroperitoneal or mesenteric adenopathy by size criteria. Vessels: Aorta and inferior vena cava are normal in size. PELVIS: Pelvic Organs: Unremarkable. Bladder: No bladder wall thickening, accounting for underdistention. Pelvic Nodes: No enlarged lymph nodes. Miscellaneous: No inguinal hernias are seen. Bones: Lower cervical spine discectomy and fusion with posterior decompression and instrumentation IMPRESSION: Diverticulosis. Mild focal pericolonic edema on the mid left descending colon could reflect mild diverticulitis in the proper clinical setting. No abscess or obstruction. 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 on 12/15/2024 at 11:46
[2024-12-15] MEDS: SODIUM CHLORIDE 0.9% 1,000 ML 1000 ML IV ×2 (11:54→13:11)
[2024-12-15 12:10] LABS: Add Manual Diff / Slide Review NO; Basophils Absolute Auto 0 /uL (0-100); Basophils Percent Auto 0.7 % (0-2); Eosinophils Absolute Auto 300 /uL (0-450); Eosinophils Percent Auto 5.3 % (2-4); Hematocrit 35.7 % (41-53); Hemoglobin 12.2 g/dL (13.5-17.5); Lymphocytes Absolute Auto 1600 /uL (1100-4500); Lymphocytes Percent Auto 28.5 % (25-40); Mean Corpuscular HGB Conc 34.2 % (30-36); Mean Corpuscular Hemoglobin 30.7 PG (26-34); Mean Corpuscular Volume 89.9 fL (80-100); Monocytes Absolute Auto 400 /uL (0-900); Monocytes Percent Auto 7.1 % (3-14); Neutrophils Absolute Auto 3200 /uL (1500-7000); Neutrophils Percent Auto 58.4 % (50-75); Platelet Count 252 X10^3/uL (150-400); Red Blood Cell Count 3.97 X10^6/uL (4.5-5.9); Red Cell Distribution Width 13.9 % (11.6-14.8); White Blood Cell Count 5.5 X10^3/uL (4.5-11.0)
[2024-12-15 12:11] LABS: INR 1.2 (0.9-1.3); Prothrombin Time 13.4 SECONDS (9.4-12.5)
[2024-12-15 12:13] LABS: PTT Partial Thromboplastin Tim 39 SECONDS (25.1-36.5)
[2024-12-15 12:16] LABS: Lactate (Lactic Acid) 1.5 mmol/L (0.7-2.1)
[2024-12-15 12:17] LABS: Alanine Aminotransferase 18 IU/L (<50); Albumin 3.8 g/dL (3.5-5.0); Albumin Globulin Ratio 1.5 (1.0-2.8); Alkaline Phosphatase 68 U/L (38-126); Aspartate Aminotransferase 25 IU/L (17-59); BUN Creatinine Ratio 7.1 (6-22); Bilirubin Total 0.5 mg/dL (0.2-1.3); Blood Urea Nitrogen 8 mg/dL (9-20); Carbon Dioxide 28 mmol/L (22-32); Chloride 102 mmol/L (98-107); Estimated Glomerular Filt Rate > 60 mL/min (>60); Globulin 2.5 g/dL (1.7-4.1); Glucose 94 mg/dL (70-99); HEMOLYSIS < 15 (0-50); Potassium 3.7 mmol/L (3.4-5.1); Sodium 137 mmol/L (137-145); Total Protein 6.3 g/dL (6.3-8.2)
--- NOTE | 2024-12-15 12:18 | ED_ITS ---
HPI - Abdominal Pain General Chief Complaint: Abdominal Pain Stated Complaint: 1day post surgery; feels like wanting to passout Time Seen by Provider: 12/15/24 11:38 History of Present Illness HPI narrative: Patient is a 59-year-old male history of chronic pain with recent hiatal hernia surgery done at [facility] released yesterday presenting today with dizziness lightheadedness. Found to be hypotensive with a blood pressure in the 90s. He reports he was dizzy lightheaded this morning. [place] like he was going to pass out but did not pass out. No significant abdominal pain. Reports he has started retaking his Eliquis yesterday. Reports that he was having some bowel movements Related Data Home Medications Medication Instructions Recorded Confirmed olopatadine 0.1 % eye drops 1 drp EYE-BOTH ONCE PRN allergy 11/08/23 12/12/24 eyes L. acidophilus/Bifid. animalis 1 tab PO DAILY 01/24/24 12/12/24 [Daily Probiotic] colestipol 1 gram tablet 2 g PO BID 02/07/24 12/12/24 Previous Rx's Medication Instructions Recorded Disabled Parking Permit #1 ea 01/20/23 loratadine 10 mg tablet (Claritin) 10 mg PO DAILY PRN allergy 09/09/23 symptoms #90 tabs Wheelchair lift for car #1 ea 12/13/23 trazodone 100 mg tablet 100 mg PO BEDTIME PRN Insomnia #90 01/31/24 tabs rosuvastatin 10 mg tablet 10 mg PO DAILY #90 tabs 07/10/24 omeprazole 40 mg capsule,delayed 40 mg PO BID #120 caps 07/23/24 release sucralfate 1 gram tablet 1 g PO QACHS PRN acid reflux, gi 09/17/24 upset #240 tabs nortriptyline 10 mg capsule 10 mg PO BEDTIME #90 caps 09/24/24 tamsulosin 0.4 mg capsule 0.4 mg PO DAILY #90 caps 09/24/24 apixaban 5 mg tablet (Eliquis) 5 mg PO BID #180 tabs 10/01/24 duloxetine 60 mg capsule,delayed 120 mg (2 x 60 mg) PO DAILY #180 10/08/24 release caps montelukast 10 mg tablet 10 mg PO DAILY PRN for allergies 10/08/24 #90 tabs tizanidine 2 mg tablet 6 mg (3 x 2 mg) PO TID PRN muscle 10/31/24 spasticity #270 tabs lorazepam 2 mg tablet 2 mg PO BEDTIME PRN sleep #30 tabs 11/12/24 ondansetron HCl 4 mg tablet 4 mg PO QID PRN Nausea #30 tabs 12/12/24 pregabalin 100 mg capsule 100 mg PO TID #90 caps 12/12/24 Allergies Allergy/AdvReac Type Severity Reaction Status Date / Time amitriptyline [AMITRIPTYLINE] Allergy Unknown Verified 12/12/24 16:15 quetiapine [From SEROQUEL] Allergy Unknown Verified 12/12/24 16:15 tetracycline Allergy Blister Verified 12/12/24 16:15 celecoxib [From Celebrex] AdvReac Severe lose his Verified 12/12/24 16:15 voice fluoxetine [From Prozac] AdvReac Unknown No Verified 12/12/24 16:15 emotion, pain becomes really sharp Patient History Medical History Mixed hyperlipidemia Coronary artery calcification Irritable bowel syndrome with constipation and diarrhea Hearing loss Kidney stones Benign prostatic hyperplasia with lower urinary tract symptoms Microscopic hematuria History of kidney stones Slow transit constipation Cholelithiasis Chronic, continuous use of opioids Chronic embolism and thrombosis of unspecified deep veins of right lower extremity Major depressive disorder, single episode, mild Primary osteoarthritis involving multiple joints Chronic anticoagulation Bladder outlet obstruction Eosinophilic esophagitis Factor 5 Leiden mutation, heterozygous Neck mass Bronchitis Costochondritis History of DVT (deep vein thrombosis) Diverticulitis Allergic conjunctivitis Allergic rhinitis Hx of nephrolithotomy with removal of calculi History of depression Elevated PSA Lipoma of arm Umbilical hernia Chronic back pain (Unknown) Insomnia (Unknown) Restless leg syndrome (Unknown) Obstructive sleep apnea (Unknown) GERD (gastroesophageal reflux disease) (Unknown) Surgical History Hx of circumcision History of ureter stent Hx of hernia repair History of lumbar fusion History of carpal tunnel release History of tonsillectomy Family History Father Cancer Migraine Kidney stones Mother Hearing impairment Inflammatory bowel disease Urinary tract infection Brother Diabetes mellitus Hyperlipidemia Migraine Kidney stones Social History marital status: unknown details: Mary Ann Sierra) household members: significant other, none and other lives independently: Yes occupational status: previously employed and disabled alcohol intake: never substance use type: does not use caffeine: Yes Type(s) of exercise: none alcohol intake frequency: holidays/special occasions only Exam Initial Vital Signs Initial Vital Signs: Vital Signs Pulse Rate 63 12/15/24 11:29 Blood Pressure 92/54 L 12/15/24 11:29 Pulse Oximetry 97 12/15/24 11:29 GENERAL: Alert well-appearing 59-year-old male HEENT: Head atraumatic,EOMI, pupils reactive, face symmetric, moist mucous membranes CARDIOVASCULAR: Regular rate and rhythm without murmurs, rubs or gallops. RESPIRATORY: Breath sounds equal bilaterally, no wheezes rales or rhonchi. ABDOMEN: Soft, incision sites are clean and dry with no erythema no significant distention Bedside ultrasound does not show any evidence of free fluid in the abdomen EXTREMITIES: Normal range of motion, no clubbing or edema. Neurovascularly intact NEUROLOGICAL: Alert and oriented x4.Normal gait and speech. Cranial nerves II through XII grossly intact. SKIN: Warm, dry, no laceration, no petechiae, no rashes or lesions. Course Orders Ordered: ED Orders 12/15/24 11:34 EKG-12 Lead Routine 12/15/24 11:40 CBC Auto Diff [Complete Blood Count AUTO DIFF] Stat CMP [Comprehensive Metabolic Panel] Stat Lactate (Lactic Acid) Stat PT [Prothrombin Time INR] Stat PTT Partial Thromboplastin Balaji Stat Type and Screen Stat 12/15/24 11:48 CT abdomen pelvis w con Stat 12/15/24 13:05 Hemoglobin and Hematocrit Stat 12/15/24 16:06 Chest [XR chest 1V] Stat Discontinued Medications Acetaminophen (Acetaminophen 325 Mg Tablet) 975 mg PO NOW ONE Stop: 12/15/24 17:01 Last Admin: 12/15/24 17:15 Dose: Not Given Documented By: RB Acetaminophen (Acetaminophen 325 Mg Tablet) 650 mg PO NOW ONE Stop: 12/15/24 17:03 Last Admin: 12/15/24 17:13 Dose: 650 mg Documented By: RB Sodium Chloride (Normal Saline 0.9%) 1,000 mls @ 1,000 mls/hr IV BOLUS ONE Stop: 12/15/24 12:40 Last Infusion: 12/15/24 13:10 Dose: Infused Documented By: Admin: 12/15/24 11:54 Dose: 1,000 mls/hr Documented By: DEMETRIA Sodium Chloride (Normal Saline 0.9%) 1,000 mls @ 1,000 mls/hr IV BOLUS ONE Stop: 12/15/24 14:02 Last Infusion: 12/15/24 15:08 Dose: Infused Documented By: Admin: 12/15/24 13:11 Dose: 1,000 mls/hr Documented By: DEMETRIA Piperacillin Sod/Tazobactam (Sod 4.5 gm/ Sodium Chloride) 100 mls @ 200 mls/hr IV NOW ONE Stop: 12/15/24 13:13 Last Infusion: 12/15/24 13:57 Dose: Infused Documented By: Admin: 12/15/24 13:18 Dose: 200 mls/hr Documented By: ROMULO Oxycodone/Acetaminophen (Oxycodone/Acetaminophen 5/325 Tablet) 1 tab PO NOW ONE Stop: 12/15/24 17:03 Last Admin: 12/15/24 17:13 Dose: 1 tab Documented By: DEMETRIA Vital Signs Vital signs: Vital Signs - 8 hr 12/15/24 11:29 12/15/24 11:29 12/15/24 11:30 Temperature Pulse Rate 63 66 Respiratory Rate 24 Blood Pressure 92/54 L Pulse Oximetry 97 95 Oxygen Delivery Method 12/15/24 11:30 12/15/24 11:36 12/15/24 11:44 Temperature 97.8 F Pulse Rate 65 62 Respiratory Rate 16 20 Blood Pressure 91/56 L 92/54 L Pulse Oximetry 95 96 Oxygen Delivery Method Room Air 12/15/24 11:44 12/15/24 11:47 12/15/24 11:47 Temperature Pulse Rate 65 Respiratory Rate 27 H Blood Pressure 85/56 L 86/55 L Pulse Oximetry 94 Oxygen Delivery Method 12/15/24 11:50 12/15/24 11:50 12/15/24 11:55 Temperature Pulse Rate 62 61 Respiratory Rate 18 16 Blood Pressure 86/50 L Pulse Oximetry 97 95 Oxygen Delivery Method 12/15/24 11:55 12/15/24 12:00 12/15/24 12:00 Temperature Pulse Rate 62 Respiratory Rate 17 Blood Pressure 83/50 L 88/53 L Pulse Oximetry 96 Oxygen Delivery Method 12/15/24 12:30 12/15/24 13:00 12/15/24 13:02 Temperature Pulse Rate 60 52 L 54 L Respiratory Rate 16 14 10 L Blood Pressure Pulse Oximetry 92 93 Oxygen Delivery Method Room Air 12/15/24 13:02 12/15/24 13:03 12/15/24 13:03 Temperature Pulse Rate 61 Respiratory Rate 24 Blood Pressure 95/62 87/59 L Pulse Oximetry 93 Oxygen Delivery Method 12/15/24 13:10 12/15/24 13:10 12/15/24 13:20 Temperature Pulse Rate 55 L Respiratory Rate 25 H Blood Pressure 89/61 L 93/61 Pulse Oximetry 94 Oxygen Delivery Method 12/15/24 13:20 12/15/24 13:30 12/15/24 13:30 Temperature Pulse Rate 54 L 52 L Respiratory Rate 16 15 Blood Pressure 96/62 Pulse Oximetry 94 94 Oxygen Delivery Method 12/15/24 13:40 12/15/24 13:40 12/15/24 13:50 Temperature Pulse Rate 50 L 51 L Respiratory Rate 14 13 Blood Pressure 90/59 L Pulse Oximetry 95 95 Oxygen Delivery Method 12/15/24 13:50 12/15/24 14:00 12/15/24 14:00 Temperature Pulse Rate 52 L Respiratory Rate 11 L Blood Pressure 94/58 L 104/63 Pulse Oximetry 95 Oxygen Delivery Method 12/15/24 14:10 12/15/24 14:10 12/15/24 14:20 Temperature Pulse Rate 52 L Respiratory Rate 13 Blood Pressure 93/56 L 113/67 Pulse Oximetry 96 Oxygen Delivery Method 12/15/24 14:20 12/15/24 14:30 12/15/24 14:32 Temperature Pulse Rate 57 L 74 Respiratory Rate 14 Blood Pressure 111/70 Pulse Oximetry 95 94 Oxygen Delivery Method 12/15/24 14:32 12/15/24 14:40 12/15/24 14:40 Temperature Pulse Rate 59 L 51 L Respiratory Rate 21 18 Blood Pressure 111/69 Pulse Oximetry 94 97 Oxygen Delivery Method 12/15/24 14:50 12/15/24 14:50 12/15/24 15:00 Temperature Pulse Rate 55 L 59 L Respiratory Rate 19 19 Blood Pressure 110/66 Pulse Oximetry 96 95 Oxygen Delivery Method 12/15/24 15:00 12/15/24 15:10 12/15/24 15:10 Temperature Pulse Rate 59 L Respiratory Rate 23 Blood Pressure 99/64 114/71 Pulse Oximetry 96 Oxygen Delivery Method 12/15/24 15:20 12/15/24 15:20 12/15/24 15:30 Temperature Pulse Rate 59 L 56 L Respiratory Rate 17 14 Blood Pressure 104/63 Pulse Oximetry 93 94 Oxygen Delivery Method 12/15/24 15:30 12/15/24 15:40 12/15/24 15:40 Temperature Pulse Rate 60 Respiratory Rate 19 Blood Pressure 115/69 115/69 Pulse Oximetry 95 Oxygen Delivery Method 12/15/24 15:50 12/15/24 15:50 12/15/24 16:00 Temperature Pulse Rate 57 L 59 L Respiratory Rate 17 17 Blood Pressure 115/72 Pulse Oximetry 92 92 Oxygen Delivery Method 12/15/24 16:00 12/15/24 16:10 12/15/24 16:10 Temperature Pulse Rate 64 Respiratory Rate 24 Blood Pressure 123/75 119/75 Pulse Oximetry 92 Oxygen Delivery Method 12/15/24 16:20 12/15/24 16:20 12/15/24 16:30 Temperature Pulse Rate 56 L 59 L Respiratory Rate 16 24 Blood Pressure 122/78 Pulse Oximetry 95 97 Oxygen Delivery Method 12/15/24 16:30 12/15/24 16:40 12/15/24 16:40 Temperature Pulse Rate 56 L Respiratory Rate 18 Blood Pressure 124/80 135/84 Pulse Oximetry 98 Oxygen Delivery Method 12/15/24 16:50 12/15/24 16:50 12/15/24 17:00 Temperature Pulse Rate 55 L Respiratory Rate 19 Blood Pressure 151/89 H 146/86 H Pulse Oximetry 99 Oxygen Delivery Method 12/15/24 17:00 12/15/24 17:05 12/15/24 17:05 Temperature Pulse Rate 61 61 Respiratory Rate 21 18 Blood Pressure 141/85 H Pulse Oximetry 98 96 Oxygen Delivery Method 12/15/24 17:10 12/15/24 17:10 12/15/24 17:20 Temperature Pulse Rate 61 73 Respiratory Rate 16 20 Blood Pressure 146/86 H Pulse Oximetry 95 97 Oxygen Delivery Method 12/15/24 17:20 12/15/24 17:30 12/15/24 17:30 Temperature Pulse Rate 63 Respiratory Rate 18 Blood Pressure 139/80 141/75 H Pulse Oximetry 97 Oxygen Delivery Method 12/15/24 17:41 12/15/24 17:41 12/15/24 17:50 Temperature Pulse Rate 63 65 Respiratory Rate 16 13 Blood Pressure 138/86 Pulse Oximetry 97 96 Oxygen Delivery Method 12/15/24 17:50 12/15/24 18:00 12/15/24 18:00 Temperature Pulse Rate 68 Respiratory Rate 12 Blood Pressure 136/87 151/90 H Pulse Oximetry 95 Oxygen Delivery Method 12/15/24 18:10 12/15/24 18:10 12/15/24 18:21 Temperature Pulse Rate 72 73 Respiratory Rate 12 18 Blood Pressure 134/71 Pulse Oximetry 96 96 Oxygen Delivery Method 12/15/24 18:21 Temperature Pulse Rate Respiratory Rate Blood Pressure 148/82 H Pulse Oximetry Oxygen Delivery Method MDM - Abdominal Pain Lab Data 12/15/24 13:05 12/15/24 11:40 Labs: Lab Results 12/15/24 12/15/24 Range/Units 11:40 13:05 WBC 5.5 (4.5-11.0) X10^3/uL RBC 3.97 L (4.5-5.9) X10^6/uL Hgb 12.2 L 10.8 L (13.5-17.5) g/dL Hct 35.7 L 31.1 L (41-53) % MCV 89.9 (80-100) fL MCH 30.7 (26-34) PG MCHC 34.2 (30-36) % RDW 13.9 (11.6-14.8) % Plt Count 252 (150-400) X10^3/uL Neut % (Auto) 58.4 (50-75) % Lymph % (Auto) 28.5 (25-40) % [place] % (Auto) 7.1 (3-14) % Eos % (Auto) 5.3 H (2-4) % Baso % (Auto) 0.7 (0-2) % Neut # (Auto) 3200 (0442-7438) /uL Lymph # (Auto) 1600 (9062-9256) /uL [place] # (Auto) 400 (0-900) /uL Eos # (Auto) 300 (0-450) /uL Baso # (Auto) 0 (0-100) /uL PT 13.4 H (9.4-12.5) SECONDS INR 1.2 (0.9-1.3) APTT 39 H (25.1-36.5) SECONDS Sodium 137 (137-145) mmol/L Potassium 3.7 (3.4-5.1) mmol/L Chloride 102 (98-107) mmol/L Carbon Dioxide 28 (22-32) mmol/L BUN 8 L (9-20) mg/dL Creatinine 1.13 (0.66-1.25) mg/dL Estimated GFR > 60 (>60) mL/min BUN/Creatinine Ratio 7.1 (6-22) Glucose 94 (70-99) mg/dL Lactate 1.5 (0.7-2.1) mmol/L Calcium 9.0 (8.4-10.2) mg/dL Total Bilirubin 0.5 (0.2-1.3) mg/dL AST 25 (17-59) IU/L ALT 18 (<50) IU/L Alkaline Phosphatase 68 (38-126) U/L Total Protein 6.3 (6.3-8.2) g/dL Albumin 3.8 (3.5-5.0) g/dL Globulin 2.5 (1.7-4.1) g/dL Albumin/Globulin Ratio 1.5 (1.0-2.8) Blood Type A Positive Antibody Screen Negative MDM Narrative Medical decision making narrative: [facility] CC: Dizziness lightheadedness Complicating co-morbidities: Recent hiatal hernia surgery at [facility] Data collected from: Patient Medical records reviewed: Differential considered: Perforation postoperative hemorrhage Exam documented above, pertinent findings include: Alert week 59-year-old male abdomen is soft nontender incision sites are clean and dry and nonerythematous Lab Test results independently reviewed as above. Pertinent findings: WBC 5.5 hemoglobin 12.2 hematocrit 35.6, repeat 10.8/31.1 thought to be somewhat dilution CMP sodium 137 potassium 3.7 chloride 102 carbon dioxide 28 BUN 8 creatinine 1.1 glucose 94 lactate 1.5 Independently reviewed EKG as above Imaging studies independently reviewed: CT imaging does show a pericolonic edema on mid left descending colon also postoperative gastric fundoplication include mild edema at the gastroesophageal junction and trace postoperative free air. Possible small splenic infarct new from prior Chest x-ray no pneumothorax but does show left basilar atelectasis Consultations: 1400 Dr. Bauer, surgery at [facility] updated patient's symptoms test results. It is happy to have patient back at [facility] but needs to be admitted to the hospitalist no need for any kind of surgical intervention at this time. 1430 Dr. Rogel, surgery at [facility] agrees that probably no surgical intervention needed however we do not do this surgery here should be sent back to [facility] Dr. Garcia hospitalist here Treatments: Fluids Zosyn Re-evaluations: Patient's blood pressure initially stayed in the 80s but was fluid responsive. Ultimately tolerating p.o. fluids and blood pressure within normal limits. Discussion: Patient 59-year-old male presenting today with hypotension postoperatively. Initial concern was for postoperative hemorrhage he is on anticoagulation. CT actually does not show any complication from surgery. He does have some postoperative gastric fundoplication edema at the GE junction along with some mild pericolonic edema as well. Splenic infarct is not likely an infarct likely bruising from surgery. He had mild drop in hemoglobin but thought to be delusional. He had no episodes of bleeding here. Blood pressure actually responded slowly over a couple of hours with IV fluids. It is now normal he was awake alert oriented eating and drinking normally. Attempted to get patient transferred back to [facility]. However they are unable to accept him. Talked about accepting patient here however patient's blood pressure now normal, he is eating and drinking feels ready able to go home. Discussion with patient about if he should be hypotensive again he needs to call 911 come in by ambulance. Discussion with him and son at bedside he was going to be going home alone tonight but they are both comfortable with it son will call and check on him. Patient previously was admitted for hypotension back in June and was quickly fluid responsive but required an overnight admission. Discharge Plan Departure Patient Disposition: Home Clinical Impression: Dehydration Instructions: DI for Dehydration -- Adult Activity Restrictions/Additional Instructions: *You have been diagnosed with dehydration *What to do: At this time drink fluids recommend Pedialyte Gatorade increase diet as tolerated *Continue to take medications as directed Hold oxycodone tonight Take Tylenol before bed *Follow up with your primary care provider in 2-3 days or call [phone] Follow-up with your surgeon *Return to ER if you should have increasing pain lightheadedness passing out or any new, worsening or concerning symptoms Prescriptions: No Action (DME) Disabled Parking Permit See Rx Instructions .ROUTE .MEDSUPPLY Qty: 1 0RF Rx Instructions: Patient qualifies for disabled parking as per the attached form. loratadine [Claritin] 10 mg tablet 10 mg PO DAILY PRN (Reason: allergy symptoms) Qty: 90 3RF (DME) Wheelchair lift for car See Rx Instructions .Route .MEDSUPPLY Qty: 1 0RF Rx Instructions: As directed trazodone 100 mg tablet 100 mg PO BEDTIME PRN (Reason: Insomnia) Qty: 90 3RF omeprazole 40 mg capsule,delayed release(DR/EC) 40 mg PO BID Qty: 120 0RF sucralfate 1 gram tablet 1 g PO QACHS PRN (Reason: acid reflux, gi upset) Qty: 240 0RF nortriptyline 10 mg capsule 10 mg PO BEDTIME Qty: 90 3RF tamsulosin 0.4 mg capsule 0.4 mg PO DAILY Qty: 90 3RF Eliquis 5 mg tablet 5 mg PO BID Qty: 180 3RF duloxetine 60 mg capsule,delayed release(DR/EC) 120 mg PO DAILY Qty: 180 0RF montelukast 10 mg tablet 10 mg PO DAILY PRN (Reason: for allergies) Qty: 90 0RF tizanidine 2 mg tablet 6 mg PO TID PRN (Reason: muscle spasticity) Qty: 270 5RF lorazepam 2 mg tablet 2 mg PO BEDTIME PRN (Reason: sleep) Qty: 30 5RF ondansetron HCl 4 mg tablet 4 mg PO QID PRN (Reason: Nausea) Qty: 30 5RF pregabalin 100 mg capsule 100 mg PO TID Qty: 90 1RF L. acidophilus/Bifid. animalis [Daily Probiotic] 1 tab PO DAILY rosuvastatin 10 mg tablet 10 mg PO DAILY Qty: 90 3RF olopatadine 0.1 % drops 1 drp EYE-BOTH ONCE PRN (Reason: allergy eyes) colestipol 1 gram tablet 2 g PO BID Referrals: Jerry Lopez MD [Primary Care Provider] - Stand Alone Forms: Patient Portal/API/Survey
[2024-12-15 13:16] LABS: Hematocrit 31.1 % (41-53); Hemoglobin 10.8 g/dL (13.5-17.5)
[2024-12-15] MEDS: PIPERACILLIN/TAZO 4.5 GM in SODIUM CHLORIDE 0.9% 100 ML IV (13:18)
--- NOTE | 2024-12-15 16:06 | DI.RAD.S_ITS ---
PROCEDURE: XR CHEST 1V INDICATIONS: post surgical TECHNIQUE: One view of the chest was acquired. COMPARISON: [facility], CR, XR CHEST 1V, 07/17/2024, 2:20. FINDINGS: Surgical changes and devices: None. Lungs and pleura: Left basilar atelectasis and infiltrate Mediastinum: Mediastinal contours appear normal. Heart size is normal. Bones and chest wall: No suspicious bony lesions. Overlying soft tissues appear unremarkable. IMPRESSION: Left basilar atelectasis and or infiltrate Approved by: Samuel Dunham M.D. on 12/15/2024 at 15:51
[2024-12-15] MEDS: ACETAMINOPHEN 325 MG TABLET 650 MG PO (17:13)
[2024-12-15] MEDS: OXYCODONE/ACETAMINOPHEN 5/325 TABLET 1 TAB PO (17:13)
== END 2024-12-15 18:41 | disposition home or self-care (01) ==
PROVIDERS: Emergency Provider Emergency Medicine; Family Provider Internal Medicine; PCP Internal Medicine
DX: E86.0 Dehydration (principal); Z98.890 Other specified postprocedural states; Z79.01 Long term (current) use of anticoagulants
CPT/HCPCS: 36415; 71045; 74177; 80053; 83605; 85014; 85018; 85025; 85610; 85730; 86850; 86900; 86901; 93005; 93010; 96361; 96365; 99284; 99285; J2543; Q9967

== ENCOUNTER 2024-12-15 21:25 | Observation (INO) | payer MEDICARE, MEDICAID, SELFPAY ==
[2024-07-17 12:10] VITALS: BMI 24.4
[2024-12-15] VITALS (33 sets, daily range): BP systolic 71–102; BP diastolic 44–62; PULSE 54–69; RESP 10–21; TEMP 36.3; O2SAT 89–98; BMI 23.1
--- NOTE | 2024-12-15 21:38 | DI.RAD.S_ITS ---
PROCEDURE: XR CHEST 1V INDICATIONS: chest pain TECHNIQUE: One view of the chest was acquired. COMPARISON: [facility], CR, XR CHEST 1V, 07/17/2024, 2:20. [facility], CR, XR CHEST 1V, 12/15/2024, 16:09. FINDINGS: Surgical changes and devices: None. Lungs and pleura: On this supine examination, no large pneumothorax or large pleural effusions are seen. No focal areas of lung consolidation are seen. Mediastinum: The cardiac contours are within normal limits. The aorta demonstrates calcification and tortuosity. Bones and chest wall: No suspicious bony lesions. Age-appropriate bony degenerative changes are seen. Overlying soft tissues appear unremarkable. IMPRESSION: No acute cardiopulmonary abnormality is seen. Dictated by: Redd Arauz M.D. on 12/15/2024 at 20:56 Approved by: Redd Arauz M.D. on 12/15/2024 at 20:57
[2024-12-15] MEDS: SODIUM CHLORIDE 0.9% 1,000 ML 1000 ML IV (21:46)
--- NOTE | 2024-12-15 21:46 | EKG_ITS ---
[place] [address] [place] [id number] Test Date: 2024-12-15 Pat Name: Kervin Webb Department: [facility] Room: Gender: Male [employer] Driver: PEG ARVIZU : 1965 Requested By: Order Number: [id number] Reading MD: Mohan Watson MD Measurements Intervals [place] Rate: 61 P: 43 DC: 174 QRS: 21 QRSD: 100 T: 35 QT: 514 QTc: 517 Interpretive Statements Sinus rhythm with occasional premature ventricular complexes Possible Left atrial enlargement NO SIGNIFICANT CHANGE FROM PRIOR TRACING Prolonged QT Electronically Signed On 12-16-2024 7:58:47 PDT by Mohan Watson MD
--- NOTE | 2024-12-15 21:47 | ED_ITS ---
HPI - Recheck/Abnormal Lab/Rx General Chief Complaint: Recheck/Abnormal Lab/Rx Stated Complaint: rtrning pt, low blood pressure Time Seen by Provider: 12/15/24 21:44 History of Present Illness HPI narrative: 59-year-old male seen here earlier postoperatively from hiatal hernia repair on done at [facility], had low blood pressures, given IV fluids, blood pressure seemed to be improved, provider here spoke with inpatient team and apparently also with [facility] providers, patient was sent home with improved blood pressure. Returns feeling dizzy with low blood pressure measured 78/54 at home. Denies feeling fevers or chills. Denies shortness of breath. Some chest discomfort with deep breathing. Did take his Eliquis dose this evening. No black or red stools. No nausea or vomiting or emesis. Denies injury or trauma falls. Related Data Home Medications Medication Instructions Recorded Confirmed olopatadine 0.1 % eye drops 1 drp EYE-BOTH ONCE PRN allergy 11/08/23 12/16/24 eyes L. acidophilus/Bifid. animalis 1 tab PO DAILY 01/24/24 12/16/24 [Daily Probiotic] colestipol 1 gram tablet 2 g PO BID PRN Diarrhea 02/07/24 12/16/24 Previous Rx's Medication Instructions Recorded Disabled Parking Permit #1 ea 01/20/23 loratadine 10 mg tablet (Claritin) 10 mg PO DAILY PRN allergy 09/09/23 symptoms #90 tabs Wheelchair lift for car #1 ea 12/13/23 trazodone 100 mg tablet 100 mg PO BEDTIME PRN Insomnia #90 01/31/24 tabs rosuvastatin 10 mg tablet 10 mg PO DAILY #90 tabs 07/10/24 nortriptyline 10 mg capsule 10 mg PO BEDTIME #90 caps 09/24/24 tamsulosin 0.4 mg capsule 0.4 mg PO DAILY #90 caps 09/24/24 apixaban 5 mg tablet (Eliquis) 5 mg PO BID #180 tabs 10/01/24 duloxetine 60 mg capsule,delayed 120 mg (2 x 60 mg) PO DAILY #180 10/08/24 release caps montelukast 10 mg tablet 10 mg PO DAILY PRN for allergies 10/08/24 #90 tabs tizanidine 2 mg tablet 6 mg (3 x 2 mg) PO TID PRN muscle 10/31/24 spasticity #270 tabs lorazepam 2 mg tablet 2 mg PO BEDTIME PRN sleep #30 tabs 11/12/24 ondansetron HCl 4 mg tablet 4 mg PO QID PRN Nausea #30 tabs 12/12/24 pregabalin 100 mg capsule 100 mg PO TID #90 caps 12/12/24 Allergies Allergy/AdvReac Type Severity Reaction Status Date / Time amitriptyline [AMITRIPTYLINE] Allergy Unknown Verified 12/12/24 16:15 quetiapine [From SEROQUEL] Allergy Unknown Verified 12/12/24 16:15 tetracycline Allergy Blister Verified 12/12/24 16:15 celecoxib [From Celebrex] AdvReac Severe lose his Verified 12/12/24 16:15 voice fluoxetine [From Prozac] AdvReac Unknown No Verified 12/12/24 16:15 emotion, pain becomes really sharp Patient History Medical History Mixed hyperlipidemia Coronary artery calcification Irritable bowel syndrome with constipation and diarrhea Hearing loss Kidney stones Benign prostatic hyperplasia with lower urinary tract symptoms Microscopic hematuria History of kidney stones Slow transit constipation Cholelithiasis Chronic, continuous use of opioids Chronic embolism and thrombosis of unspecified deep veins of right lower extremity Major depressive disorder, single episode, mild Primary osteoarthritis involving multiple joints Chronic anticoagulation Bladder outlet obstruction Eosinophilic esophagitis Factor 5 Leiden mutation, heterozygous Neck mass Bronchitis Costochondritis History of DVT (deep vein thrombosis) Diverticulitis Allergic conjunctivitis Allergic rhinitis Hx of nephrolithotomy with removal of calculi History of depression Elevated PSA Lipoma of arm Umbilical hernia Chronic back pain (Unknown) Insomnia (Unknown) Restless leg syndrome (Unknown) Obstructive sleep apnea (Unknown) GERD (gastroesophageal reflux disease) (Unknown) Surgical History Hx of circumcision History of ureter stent Hx of hernia repair History of lumbar fusion History of carpal tunnel release History of tonsillectomy Family History Father Cancer Migraine Kidney stones Mother Hearing impairment Inflammatory bowel disease Urinary tract infection Brother Diabetes mellitus Hyperlipidemia Migraine Kidney stones Social History household members: none lives independently: Yes occupational status: previously employed and disabled Smoking Status: Never smoker alcohol intake: never substance use type: does not use caffeine: Yes Type(s) of exercise: none alcohol intake frequency: holidays/special occasions only Exam Narrative Exam Narrative: GENERAL: Well-developed patient, in mild distress. HEAD: Atraumatic. Normocephalic. EYES: Pupils equal round and reactive. Extraocular motions intact. No scleral icterus. No injection or drainage. ENT: Nose without bleeding, purulent drainage. Throat without erythema, tonsillar hypertrophy or exudate. Airway patent. NECK: Trachea midline. Non tender CARDIOVASCULAR: Regular rate and rhythm without murmurs, gallops, or rubs. RESPIRATORY: Clear to auscultation. Breath sounds equal bilaterally. No wheezes, rales, or rhonchi. GASTROINTESTINAL: Abdomen soft, surgical port sites unremarkable, no bleeding from sites, no significant anterior abdominal hematoma. Nonrigid. Nondistended. Hypoactive bowel tones without rushes or tinkles. EXTREMITIES: No edema or joint tenderness. BACK: Nontender without deformity or crepitance. No flank tenderness. NEURO: AOx3. Motor functions grossly nonfocal SKIN: No rash or erythema of visible areas Initial Vital Signs Initial Vital Signs: Vital Signs Temperature 97.3 F L 12/15/24 21:27 Pulse Rate 69 12/15/24 21:27 Respiratory Rate 17 12/15/24 21:27 Blood Pressure 71/44 L 12/15/24 21:27 Pulse Oximetry 96 12/15/24 21:27 Oxygen Delivery Method Room Air 12/15/24 21:27 Course Orders Ordered: ED Orders 12/16/24 07:20 Urinalysis and Microscopic Stat 12/16/24 07:24 Consult to Physical Therapy Evaluate & Treat 12/17/24 05:00 Basic Metabolic Panel Routine Complete Blood Count AUTO DIFF Routine Acetaminophen (Acetaminophen 325 Mg Tablet) 650 mg PO Q6H PRN PRN Reason: Fever/Mild Pain (1-3) Last Admin: 12/16/24 11:44 Dose: 650 mg Documented By: MONSERRAT Apixaban (Apixaban 5 Mg Tablet) 5 mg PO BID LE Atorvastatin Calcium (Atorvastatin 20 Mg Tablet) 20 mg PO BEDTIME LE Sodium Chloride (Normal Saline 0.9%) 1,000 mls @ 100 mls/hr IV CONT LE Last Admin: 12/16/24 10:43 Dose: 100 mls/hr Documented By: Infusion: 12/16/24 09:40 Dose: Infused Documented By: Admin: 12/16/24 07:42 Dose: 100 mls/hr Documented By: SHAHBAZ Lactobacillus Acidophilus (Lactobacillus Acidophilus Tablet) 1 each PO DAILY LE Loratadine (Loratadine 10 Mg Tablet) 10 mg PO DAILY PRN PRN Reason: allergy symptoms Montelukast Sodium (Montelukast 10 Mg Tablet) 10 mg PO DAILY PRN PRN Reason: for allergies Naloxone HCl (Naloxone 0.4 Mg/Ml Vial) 0.2 mg IV Q2MIN PRN PRN Reason: Opiate Reversal Nf - Colestipol 1 (Gram Tablet) 2 gram PO BID PRN PRN Reason: Diarrhea Nortriptyline HCl (Nortriptyline 10 Mg Capsule) 10 mg PO BEDTIME LE Olopatadine HCl (Olopatadine 0.1% Ophth Drops 5 Ml) 1 drops EYE-BOTH DAILY PRN PRN Reason: Allergic Symptoms Ondansetron HCl (Ondansetron 4 Mg Odt) 4 mg PO QID PRN PRN Reason: Nausea Last Admin: 12/16/24 15:53 Dose: 4 mg Documented By: MONSERRAT Oxycodone HCl (Oxycodone Ir 5 Mg Tablet) 5 mg PO Q4H PRN PRN Reason: Pain, Moderate (4-6) Last Admin: 12/16/24 11:40 Dose: 5 mg Documented By: MONSERRAT Pregabalin (Pregabalin 50 Mg Capsule) 100 mg PO TID LE Discontinued Medications Sodium Chloride (Normal Saline 0.9%) 1,000 mls @ 1,000 mls/hr IV BOLUS ONE Stop: 12/15/24 22:43 Last Infusion: 12/15/24 22:20 Dose: Infused Documented By: Admin: 12/15/24 21:46 Dose: 1,000 mls/hr Documented By: ROMULO Sodium Chloride (Normal Saline 0.9%) 1,000 mls @ 125 mls/hr IV CONT LE Last Infusion: 12/16/24 03:49 Dose: Infused Documented By: Infusion: 12/16/24 03:48 Dose: 125 mls/hr Documented By: Admin: 12/15/24 22:30 Dose: 125 mls/hr Documented By: ROMULO Sodium Chloride (Normal Saline 0.9%) 1,000 mls @ 125 mls/hr IV CONT LE Last Admin: 12/16/24 07:41 Dose: Not Given Documented By: DEMETRIA Vital Signs Vital signs: Vital Signs - 8 hr 12/15/24 23:45 12/15/24 23:45 12/15/24 23:50 Pulse Rate 57 L 57 L Respiratory Rate 14 14 Blood Pressure 99/61 Pulse Oximetry 93 93 12/15/24 23:55 12/16/24 00:00 12/16/24 00:00 Pulse Rate 57 L 64 Respiratory Rate 14 16 Blood Pressure 110/69 Pulse Oximetry 93 93 12/16/24 00:05 12/16/24 00:15 12/16/24 00:15 Pulse Rate 77 69 Respiratory Rate 21 18 Blood Pressure 107/66 Pulse Oximetry 94 92 12/16/24 00:20 12/16/24 00:25 12/16/24 00:30 Pulse Rate 66 62 68 Respiratory Rate 18 15 15 Blood Pressure Pulse Oximetry 94 95 94 12/16/24 00:30 12/16/24 00:35 12/16/24 00:40 Pulse Rate 63 62 Respiratory Rate 14 11 L Blood Pressure 106/72 Pulse Oximetry 95 96 12/16/24 00:45 12/16/24 00:45 12/16/24 00:50 Pulse Rate 63 60 Respiratory Rate 14 12 Blood Pressure 105/70 Pulse Oximetry 96 96 12/16/24 00:55 12/16/24 01:00 12/16/24 01:00 Pulse Rate 59 L 59 L Respiratory Rate 12 13 Blood Pressure 111/71 Pulse Oximetry 96 96 12/16/24 01:05 12/16/24 01:10 12/16/24 01:15 Pulse Rate 60 61 Respiratory Rate 14 13 Blood Pressure 110/74 Pulse Oximetry 96 96 12/16/24 01:15 12/16/24 01:20 12/16/24 01:25 Pulse Rate 61 61 60 Respiratory Rate 15 13 14 Blood Pressure Pulse Oximetry 96 96 96 12/16/24 01:30 12/16/24 01:30 12/16/24 01:35 Pulse Rate 63 60 Respiratory Rate 13 13 Blood Pressure 114/78 Pulse Oximetry 96 96 04/27/25 01:45 12/16/24 01:46 12/16/24 01:46 Pulse Rate 79 79 Respiratory Rate 22 26 H Blood Pressure 108/73 Pulse Oximetry 95 95 12/16/24 01:50 12/16/24 01:55 12/16/24 02:00 Pulse Rate 65 62 Respiratory Rate 20 18 Blood Pressure 136/79 Pulse Oximetry 93 94 12/16/24 02:00 12/16/24 02:05 12/16/24 02:10 Pulse Rate 64 64 65 Respiratory Rate 17 17 16 Blood Pressure Pulse Oximetry 95 96 97 12/16/24 02:15 12/16/24 02:15 12/16/24 02:20 Pulse Rate 66 65 Respiratory Rate 17 16 Blood Pressure 126/76 Pulse Oximetry 97 95 12/16/24 02:25 12/16/24 02:30 12/16/24 02:30 Pulse Rate 65 64 Respiratory Rate 17 17 Blood Pressure 112/68 Pulse Oximetry 95 95 12/16/24 02:35 12/16/24 02:40 12/16/24 02:45 Pulse Rate 63 72 Respiratory Rate 15 21 Blood Pressure 110/69 Pulse Oximetry 95 93 12/16/24 02:45 12/16/24 02:50 12/16/24 02:55 Pulse Rate 65 63 66 Respiratory Rate 17 16 12 Blood Pressure Pulse Oximetry 93 93 94 12/16/24 03:00 12/16/24 03:05 12/16/24 03:10 Pulse Rate 62 63 Respiratory Rate 14 20 Blood Pressure 116/71 Pulse Oximetry 96 94 12/16/24 03:15 12/16/24 03:15 12/16/24 03:20 Pulse Rate 63 63 Respiratory Rate 15 15 Blood Pressure 120/71 Pulse Oximetry 94 95 12/16/24 03:25 12/16/24 03:30 12/16/24 03:30 Pulse Rate 63 64 Respiratory Rate 18 16 Blood Pressure 125/74 Pulse Oximetry 94 96 12/16/24 03:35 12/16/24 03:40 12/16/24 03:45 Pulse Rate 62 64 66 Respiratory Rate 16 20 18 Blood Pressure Pulse Oximetry 95 95 97 12/16/24 03:45 12/16/24 03:50 12/16/24 03:55 Pulse Rate 65 59 L Respiratory Rate 16 8 L Blood Pressure 104/59 L Pulse Oximetry 94 97 12/16/24 04:00 12/16/24 04:00 12/16/24 04:05 Pulse Rate 60 60 Respiratory Rate 15 9 L Blood Pressure 101/57 L Pulse Oximetry 96 96 12/16/24 04:10 12/16/24 04:15 12/16/24 04:15 Pulse Rate 61 61 Respiratory Rate 16 9 L Blood Pressure 113/62 Pulse Oximetry 96 96 12/16/24 04:20 12/16/24 04:25 12/16/24 04:30 Pulse Rate 61 63 Respiratory Rate 12 8 L Blood Pressure 113/61 Pulse Oximetry 96 96 12/16/24 04:30 12/16/24 04:35 12/16/24 04:40 Pulse Rate 60 63 87 Respiratory Rate 16 16 24 Blood Pressure Pulse Oximetry 97 97 97 12/16/24 04:45 12/16/24 04:45 12/16/24 04:50 Pulse Rate 66 63 Respiratory Rate 19 18 Blood Pressure 134/79 Pulse Oximetry 95 94 12/16/24 04:55 12/16/24 05:00 12/16/24 05:00 Pulse Rate 63 64 Respiratory Rate 18 17 Blood Pressure 135/87 Pulse Oximetry 94 96 12/16/24 05:05 12/16/24 05:10 12/16/24 05:15 Pulse Rate 65 65 65 Respiratory Rate 17 17 19 Blood Pressure Pulse Oximetry 95 95 94 12/16/24 05:15 12/16/24 05:20 12/16/24 05:25 Pulse Rate 61 61 Respiratory Rate 16 16 Blood Pressure 135/83 Pulse Oximetry 95 95 12/16/24 05:30 12/16/24 05:30 12/16/24 05:35 Pulse Rate 59 L 60 Respiratory Rate 14 15 Blood Pressure 123/77 Pulse Oximetry 94 95 12/16/24 05:40 12/16/24 05:45 12/16/24 06:36 Pulse Rate 60 70 69 Respiratory Rate 15 21 22 Blood Pressure Pulse Oximetry 94 94 95 12/16/24 06:36 Pulse Rate Respiratory Rate Blood Pressure 139/84 Pulse Oximetry MDM - Recheck/Abnormal Lab/Rx Lab Data Attestation: I reviewed the patient's lab results. Lab results narrative: White blood cell count 5600, hemoglobin 11.7, platelets 246,000. Glucose 160. BUN 7 with creatinine 1.08. Electrolytes and serum CO2 unremarkable. Magnesium normal. Liver functions normal. Lipase normal. 12/15/24 21:46 12/15/24 21:46 Labs: Lab Results 12/15/24 12/16/24 12/16/24 Range/Units 21:46 00:30 07:20 WBC 5.6 (4.5-11.0) X10^3/uL RBC 3.85 L (4.5-5.9) X10^6/uL Hgb 11.7 L (13.5-17.5) g/dL Hct 34.9 L (41-53) % MCV 90.6 (80-100) fL MCH 30.5 (26-34) PG MCHC 33.6 (30-36) % RDW 13.8 (11.6-14.8) % Plt Count 246 (150-400) X10^3/uL Neut % (Auto) 61.7 (50-75) % Lymph % (Auto) 24.4 L (25-40) % Jessamine % (Auto) 7.3 (3-14) % Eos % (Auto) 5.9 H (2-4) % Baso % (Auto) 0.7 (0-2) % Neut # (Auto) 3400 (9006-1897) /uL Lymph # (Auto) 1400 (3407-1020) /uL Jessamine # (Auto) 400 (0-900) /uL Eos # (Auto) 300 (0-450) /uL Baso # (Auto) 0 (0-100) /uL PT 12.8 H (9.4-12.5) SECONDS INR 1.1 (0.9-1.3) APTT 38 H (25.1-36.5) SECONDS Sodium 137 (137-145) mmol/L Potassium 3.6 (3.4-5.1) mmol/L Chloride 105 (98-107) mmol/L Carbon Dioxide 27 (22-32) mmol/L BUN 7 L (9-20) mg/dL Creatinine 1.08 (0.66-1.25) mg/dL Estimated GFR > 60 (>60) mL/min BUN/Creatinine Ratio 6.5 (6-22) Glucose 160 H (70-99) mg/dL Calcium 8.6 (8.4-10.2) mg/dL Magnesium 2.1 (1.6-2.3) mg/dL Total Bilirubin 0.4 (0.2-1.3) mg/dL AST 21 (17-59) IU/L ALT 16 (<50) IU/L Alkaline Phosphatase 64 (38-126) U/L Total Creatine Kinase 136 (55-170) U/L Troponin I < 0.012 < 0.012 (0.01-0.034) ng/mL NT-Pro-B Natriuret Pep 245 H (<125) pg/mL Total Protein 5.8 L (6.3-8.2) g/dL Albumin 3.4 L (3.5-5.0) g/dL Globulin 2.4 (1.7-4.1) g/dL Albumin/Globulin Ratio 1.4 (1.0-2.8) Lipase 47 (23-300) U/L Urine Color Yellow Urine Appearance Clear Urine pH 7.0 (4.5-8.0) Ur Specific [place] <=1.005 (1.000-1.035) Urine Protein Negative (Negative) Urine Glucose (UA) Negative (Negative) g/dL Urine Ketones Negative (NEGATIVE) Urine Occult Blood Negative (Negative) Urine Nitrate Negative (Negative) Urine Bilirubin Negative (NEGATIVE) Urine Urobilinogen 0.2 (0.2) E.U./dL Ur Leukocyte Esterase Negative (NEGATIVE) Urine RBC 0-1/hpf (0-5/HPF) Urine WBC 0-1/hpf (0-5/HPF) Ur Squamous Epith Cells 0-1 /hpf (0-5/HPF) Urine Bacteria Occasional (0-1) (None) Ur Culture Indicated? Cult not indicated Vol Urine Centrifuged Low vol <10ml (spun) A Imaging Data Chest x-ray: Radiologist's Impression: [address] [address] XRay Report Signed Patient: Kervin Webb MR#: [id number] : 1965 Acct:[id number] Age/Sex: 59 / M Date of Service: 12/15/24 Loc: ED Accession Number: [id number] Procedure: XR chest 1V Ordering Provider: Tacho Goldstein MD PROCEDURE: XR CHEST 1V INDICATIONS: chest pain TECHNIQUE: One view of the chest was acquired. COMPARISON: [facility], CR, XR CHEST 1V, 07/17/2024, 2:20. [facility], CR, XR CHEST 1V, 12/15/2024, 16:09. FINDINGS: Surgical changes and devices: None. Lungs and pleura: On this supine examination, no large pneumothorax or large pleural effusions are seen. No focal areas of lung consolidation are seen. Mediastinum: The cardiac contours are within normal limits. The aorta demonstrates calcification and tortuosity. Bones and chest wall: No suspicious bony lesions. Age-appropriate bony degenerative changes are seen. Overlying soft tissues appear unremarkable. IMPRESSION: No acute cardiopulmonary abnormality is seen. Dictated by: Redd Arauz M.D. on 12/15/2024 at 20:56 Approved by: Redd Arauz M.D. on 12/15/2024 at 20:57 CT angiogram chest abdomen and pelvis: Radiologist's Impression: [place] [address] CT Scan Report Signed Patient: Kervin Webb MR#: [id number] : 1965 Acct:[id number] Age/Sex: 59 / M Date of Service: 12/15/24 Loc: ED Accession Number: [id number] Procedure: CT angio chest abdomen pelvis Ordering Provider: Tacho Goldstein MD PROCEDURE: CT ANGIO CHEST ABDOMEN PELVIS INDICATIONS: low BP SBP 70, recent HH surgery Thurs, near syncope TECHNIQUE: Precontrast 5 mm thick sections acquired from the lung apices to the iliac crests. After the administration of intravenous contrast, 2.5 mm thick sections again acquired from the lung apices to the iliac crests. Maximum intensity projection (MIP) oblique sagittal and coronal reformats were then acquired. For radiation dose reduction, the following was used: automated exposure control. COMPARISON: [facility], CT, CT ABDOMEN PELVIS W CON, 12/15/2024, 12:05. [facility], CR, XR CHEST 1V, 12/15/2024, 21:39. [facility], CR, XR CHEST 1V, 12/15/2024, 16:09. [facility], CT, CT ANGIO CHEST ABDOMEN PELVIS, 07/17/2024, 2:12. FINDINGS: Image quality: Diagnostic. AORTA: No aortic aneurysm. No acute aortic syndrome. No dissection flap can be seen. CHEST: Lower Neck: No enlarged lymph nodes. Thyroid: No thyroid nodules which require sonographic evaluation. Axillae: No enlarged lymph nodes. Chest Wall: Several foci of soft tissue gas can be seen within the soft tissues of the shoulders. Lungs and Pleura: No pneumothorax or pleural effusions. No consolidation or suspicious nodules. Heart: Heart size is mildly enlarged. No pericardial effusion. Thoracic Vessels: Pulmonary arteries demonstrate normal size. Mediastinum and Malorie: A few bubbles of mediastinal gas can be seen. No enlarged lymph nodes. Esophagus: Refluxed fluid can be seen within the esophagus. No wall thickening. No hiatal hernia. ABDOMEN: Liver: No solid mass. Gallbladder: No radiopaque gallstones or wall thickening. Biliary ducts: No biliary dilation. Pancreas: No ductal dilation. Spleen: Size is within normal limits. There is a potential splenic infarct seen medially. Adrenal Glands: No adrenal nodules. Kidneys and Ureters: No hydronephrosis. No solid mass. No complex renal cystic lesion which requires follow up. Stomach and Bowel: Postoperative change of the gastroesophageal junction is seen. Normal colonic caliber, without significant wall thickening. Colonic diverticulosis is seen, without findings of active diverticulitis. No dilated loops of small bowel are seen. Peritoneum: No abnormal intraperitoneal fluid. No free air. Ventral Wall: No hernia. Abdominal Nodes: No retroperitoneal or mesenteric adenopathy by size criteria. Vessels: Inferior vena cava is normal in size. PELVIS: Pelvic Organs: The prostate is enlarged, measuring 5.4 cm transversely. Bladder: Unremarkable. Pelvic Nodes: No enlarged lymph nodes. Miscellaneous: No inguinal hernias are seen. Bones: Lumbosacral fixation hardware can be seen. Generalized degenerative changes are seen. IMPRESSION: Normal appearing aorta, without findings of aneurysm or dissection. Multiple foci of gas can be seen within the chest wall and the mediastinum, which is consistent with the given clinical history of gastroesophageal junction surgery. Mild cardiomegaly. Additional findings: Fluid within the esophagus, attributed to refluxed material Potential splenic infarct medially Lumbosacral fixation hardware Diverticulosis, without active diverticulitis Enlarged prostate Dictated by: Redd Arauz M.D. on 12/15/2024 at 22:19 Approved by: Redd Arauz M.D. on 12/15/2024 at 22:24 ECG Data Attestation: I personally reviewed and interpreted this ECG as follows: Interpretation: Sinus bradycardia with a rate of 58, no obvious ST segment elevation or depression changes. Flat T-waves lead 3, upright T-waves in lead 2 and F. [place] 170, QRS 96, QTC 420. MDM Narrative Medical decision making narrative: 59-year-old male status post hiatal hernia Bebeto fundoplication 2 days ago [facility], reports low blood pressures during hospital stay postoperatively, but was discharge, presented earlier today and had low blood pressure, with workup unrevealing including CT abdominopelvic imaging. Now having some chest discomfort and very low blood pressure again at home systolic blood pressure 70s. Confirmed here on arrival as well. IV fluid bolus. Improved blood pressure systolic 100 after 1 L crystalloid. Hemoglobin 11.7 noted. No obvious external bleeding. He did take his dose of Eliquis today. CT angiogram chest abdomen and pelvis ordered. Patient agreeable to this plan. Keep NPO. CTA chest abdomen pelvis showed no acute changes, some intraperitoneal gas consistent with recent surgery. See radiology report. Initial troponin negative, repeat interval study also negative. 0300, last systolic blood pressure 116, heart rate 70s. Patient equivocal about whether or not he wants to be admitted. We will Hep-Lock his IV for now and watch for additional 2-3 hours for disposition decision. Patient agreeable. 0600, patient nervous about going home given recurrent postoperative hypotensive episodes. We will consult hospitalist at change of shift. 0700, case discussed with hospitalist Dr. Garcia who was familiar with patient case yesterday, accepts patient for observation. Patient agreeable to this plan. Discharge Plan Departure Patient Disposition: Admitted as Observation Clinical Impression: Hypotension Admit Date/Time: 12/16/24 07:40 Admit Provider: Maria Esther Garcia
[2024-12-15 21:56] LABS: Add Manual Diff / Slide Review NO; Basophils Absolute Auto 0 /uL (0-100); Basophils Percent Auto 0.7 % (0-2); Eosinophils Absolute Auto 300 /uL (0-450); Eosinophils Percent Auto 5.9 % (2-4); Hematocrit 34.9 % (41-53); Hemoglobin 11.7 g/dL (13.5-17.5); Lymphocytes Absolute Auto 1400 /uL (1100-4500); Lymphocytes Percent Auto 24.4 % (25-40); Mean Corpuscular HGB Conc 33.6 % (30-36); Mean Corpuscular Hemoglobin 30.5 PG (26-34); Mean Corpuscular Volume 90.6 fL (80-100); Monocytes Absolute Auto 400 /uL (0-900); Monocytes Percent Auto 7.3 % (3-14); Neutrophils Absolute Auto 3400 /uL (1500-7000); Neutrophils Percent Auto 61.7 % (50-75); Platelet Count 246 X10^3/uL (150-400); Red Blood Cell Count 3.85 X10^6/uL (4.5-5.9); Red Cell Distribution Width 13.8 % (11.6-14.8); White Blood Cell Count 5.6 X10^3/uL (4.5-11.0)
[2024-12-15 22:01] LABS: INR 1.1 (0.9-1.3); Prothrombin Time 12.8 SECONDS (9.4-12.5)
[2024-12-15 22:03] LABS: PTT Partial Thromboplastin Tim 38 SECONDS (25.1-36.5)
[2024-12-15 22:05] LABS: Alanine Aminotransferase 16 IU/L (<50); Albumin 3.4 g/dL (3.5-5.0); Albumin Globulin Ratio 1.4 (1.0-2.8); Alkaline Phosphatase 64 U/L (38-126); Aspartate Aminotransferase 21 IU/L (17-59); BUN Creatinine Ratio 6.5 (6-22); Bilirubin Total 0.4 mg/dL (0.2-1.3); Blood Urea Nitrogen 7 mg/dL (9-20); Calcium 8.6 mg/dL (8.4-10.2); Carbon Dioxide 27 mmol/L (22-32); Chloride 105 mmol/L (98-107); Creatine Kinase 136 U/L (55-170); Estimated Glomerular Filt Rate > 60 mL/min (>60); Globulin 2.4 g/dL (1.7-4.1); Glucose 160 mg/dL (70-99); HEMOLYSIS < 15 (0-50); Lipase 47 U/L (23-300); Magnesium 2.1 mg/dL (1.6-2.3); Potassium 3.6 mmol/L (3.4-5.1); Sodium 137 mmol/L (137-145); Total Protein 5.8 g/dL (6.3-8.2)
--- NOTE | 2024-12-15 22:08 | PC.NURSE ---
PT reports that he was having chest pain with deep inspiration at home before arrival to ED. Still having left sided pain intermittently with deep breathing in ED also. Provider notified. Pt room air sats 89% on room air. Placed on 2L. Pt uses BiPap at home with sleep.
[2024-12-15 22:16] LABS: NT-proBNP (BNP-Adult 18+) 245 pg/mL (<125); Troponin I < 0.012 ng/mL (0.01-0.034)
--- NOTE | 2024-12-15 22:25 | DI.CT.S_ITS ---
PROCEDURE: CT ANGIO CHEST ABDOMEN PELVIS INDICATIONS: low BP SBP 70, recent HH surgery Thurs, near syncope TECHNIQUE: Precontrast 5 mm thick sections acquired from the lung apices to the iliac crests. After the administration of intravenous contrast, 2.5 mm thick sections again acquired from the lung apices to the iliac crests. Maximum intensity projection (MIP) oblique sagittal and coronal reformats were then acquired. For radiation dose reduction, the following was used: automated exposure control. COMPARISON: [facility], CT, CT ABDOMEN PELVIS W CON, 12/15/2024, 12:05. [facility], CR, XR CHEST 1V, 12/15/2024, 21:39. [facility], CR, XR CHEST 1V, 12/15/2024, 16:09. [facility], CT, CT ANGIO CHEST ABDOMEN PELVIS, 07/17/2024, 2:12. FINDINGS: Image quality: Diagnostic. AORTA: No aortic aneurysm. No acute aortic syndrome. No dissection flap can be seen. CHEST: Lower Neck: No enlarged lymph nodes. Thyroid: No thyroid nodules which require sonographic evaluation. Axillae: No enlarged lymph nodes. Chest Wall: Several foci of soft tissue gas can be seen within the soft tissues of the shoulders. Lungs and Pleura: No pneumothorax or pleural effusions. No consolidation or suspicious nodules. Heart: Heart size is mildly enlarged. No pericardial effusion. Thoracic Vessels: Pulmonary arteries demonstrate normal size. Mediastinum and Malorie: A few bubbles of mediastinal gas can be seen. No enlarged lymph nodes. Esophagus: Refluxed fluid can be seen within the esophagus. No wall thickening. No hiatal hernia. ABDOMEN: Liver: No solid mass. Gallbladder: No radiopaque gallstones or wall thickening. Biliary ducts: No biliary dilation. Pancreas: No ductal dilation. Spleen: Size is within normal limits. There is a potential splenic infarct seen medially. Adrenal Glands: No adrenal nodules. Kidneys and Ureters: No hydronephrosis. No solid mass. No complex renal cystic lesion which requires follow up. Stomach and Bowel: Postoperative change of the gastroesophageal junction is seen. Normal colonic caliber, without significant wall thickening. Colonic diverticulosis is seen, without findings of active diverticulitis. No dilated loops of small bowel are seen. Peritoneum: No abnormal intraperitoneal fluid. No free air. Ventral Wall: No hernia. Abdominal Nodes: No retroperitoneal or mesenteric adenopathy by size criteria. Vessels: Inferior vena cava is normal in size. PELVIS: Pelvic Organs: The prostate is enlarged, measuring 5.4 cm transversely. Bladder: Unremarkable. Pelvic Nodes: No enlarged lymph nodes. Miscellaneous: No inguinal hernias are seen. Bones: Lumbosacral fixation hardware can be seen. Generalized degenerative changes are seen. IMPRESSION: Normal appearing aorta, without findings of aneurysm or dissection. Multiple foci of gas can be seen within the chest wall and the mediastinum, which is consistent with the given clinical history of gastroesophageal junction surgery. Mild cardiomegaly. Additional findings: Fluid within the esophagus, attributed to refluxed material Potential splenic infarct medially Lumbosacral fixation hardware Diverticulosis, without active diverticulitis Enlarged prostate Dictated by: Redd Arauz M.D. on 12/15/2024 at 22:19 Approved by: Redd Arauz M.D. on 12/15/2024 at 22:24
[2024-12-15] MEDS: SODIUM CHLORIDE 0.9% 1,000 ML 125 ML IV (22:30)
[2024-12-16] VITALS (107 sets, daily range): BP systolic 101–141; BP diastolic 57–96; PULSE 59–87; RESP 8–32; TEMP 36.4–37.4; O2SAT 91–97; BMI 23.1
[2024-12-16 01:01] LABS: Troponin I < 0.012 ng/mL (0.01-0.034)
--- NOTE | 2024-12-16 01:51 | PC.NURSE ---
Patient was up to urinate
--- NOTE | 2024-12-16 05:49 | PC.NURSE ---
Ambulated patient in the department. Patient able to walk unassisted. Would like to speak to the physician before being discharged
[2024-12-16 07:37] LABS: Appearance Urine UA CLEAR; Bilirubin Urine UA NEGATIVE (NEGATIVE); Color Urine UA YELLOW; Glucose Urine UA NEGATIVE (Negative); Ketones Urine UA NEGATIVE (NEGATIVE); Leukocyte Esterase Urine UA NEGATIVE (NEGATIVE); Nitrite Urine UA NEGATIVE (Negative); Occult Blood Urine UA NEGATIVE (Negative); Protein Urine UA NEGATIVE (Negative); Specific Gravity Urine UA <=1.005 (1.000-1.035); Urobilinogen Urine UA 0.2 E.U./dL (0.2)
[2024-12-16 07:41] LABS: Urine Volume Low Vol <10mL (spun)
[2024-12-16] MEDS: SODIUM CHLORIDE 0.9% 1,000 ML 100 ML IV ×3 (07:42→18:27)
[2024-12-16 07:44] LABS: Bacteria Urine Occasional (0-1); Culture Indicated Urine Cult Not Indicated; RBC Urine 0-1/HPF (0-5/HPF); Squamous Epithelial Cell Urine 0-1 /HPF (0-5/HPF); WBC Urine 0-1/HPF (0-5/HPF)
--- NOTE | 2024-12-16 08:38 | PT-IP ANOTE ---
Pt adm with hypotension after surgery at outside facility. PT order received. On order, physician writes for PT to assess orthostasis with activity on next date, 12/17/24. Pt's PT and APTT are elevated today as well. Will initiate acute PT assessment next date. It may be beneficial for nsg to also assess orthostasis given pt may be limited in ability to participate with PT for mobility assessment if he is still hypotensive or orthostatic with PT.
[2024-12-16] MEDS: OXYCODONE IR 5 MG TABLET PO ×2 (11:40→19:44)
[2024-12-16] MEDS: ACETAMINOPHEN 325 MG TABLET 650 MG PO ×2 (11:44→21:40)
--- NOTE | 2024-12-16 14:56 | CM.DANOTE ---
Initial DCP Assessment Note Pt is a 59 yo male, resident of [place], lives in an RV, presents after recent hernia repair surgery at [facility] for complaint of low blood pressure. PCP: Jerry Lopez Payer: [facility] MCR/MARTINEZ Spend Down Reviewed chart, pt discussed in multidisciplinary rounds this morning. According to Dr Garcia, blood pressure appears to be stabilizing and patient is likely to be ready for DC 12/17. Patient lives independently alone in an RV. Patient uses his electric scooter when he leaves the RV. Local and supportive son at bedside today. Patient appears to be at his functional and cognitive baseline. No needs from this CM team identified at this time. No barriers identified at this time to patient's safe discharge home w/family to assist as needed; close outpatient f/u recommended. CM team will plan to follow clinical course closely in case any DC needs or concerns arise. GREGORY Martínez Discharge Planning/Care Management CM Discharge Assessment Start: 12/16/24 14:45 Freq: Status: Active Protocol: Document 12/16/24 14:45 BRYON (Rec: 12/16/24 14:56 BRYON Desktop) Discharge Planning Assessment Assigned Fruit Dumper GREGORY Zhao DPOA/Assigned Designee Name luis James Contact Information [phone] Advance Directives? Yes Advance Directives on File No History Provided By Patient,Family Member,Medical Record Has Patient been admitted in last 30 No days? Prior Living Arrangements RV Household Members none Type of transporation used prior to Relies on Others admit Independent with ADL's Yes Is patient alert and oriented? Yes Needs Assistance With Home Chores / Shopping Caregiver for Another No Comment electric w/c Barriers to Discharge No Discharge Plan Home Transportation Arrangement MARTINEZ transport vs family Additional Comment Referral to Marlon Martinez Pencil Inspector made Jun 2024
[2024-12-16] MEDS: ONDANSETRON 4 MG ODT PO (15:53)
--- NOTE | 2024-12-16 19:01 | PM.HP.1 ---
History of Present Illness History of Present Illness Chief complaint: rtrning pt, low blood pressure Narrative: 59-year-old male with factor 5 Leiden disease with history of pulmonary emboli on chronic anticoagulation, chronic back pain on chronic opioid analgesia, obstructive sleep apnea newly prescribed BiPAP, irritable bowel syndrome with both constipation and diarrhea, hyperlipidemia and restless leg syndrome who underwent repair of a small hiatal hernia on 12/13/2024 at [facility]. It was done robotically and was uncomplicated. He stayed overnight. He did have some chest pain postoperatively but no complications. He was placed on a full liquid diet and was advised to crush all medications at discharge. He presented to the emergency department late yesterday morning complaining of dizziness and lightheadedness. He was found to be hypotensive with systolic blood pressure in the 90s. He had presyncope. He underwent workup inclusive of abdominal pelvic CT and chest x-ray, which revealed expected postoperative changes. No electrolyte abnormalities and minimal anemia. He received IV fluids with improvement of his symptoms. He was ultimately discharged home. Last evening, he took his typical nighttime medications which include oxycodone, trazodone, nortriptyline, and lorazepam. They were crushed as he was instructed to. He notes he felt sleepy pretty quickly. He reports he knew he needed to put his BiPAP on but was so sleepy he felt he could not even accomplish that. He ultimately was able to get up and check his blood pressure and notes it was down in the 70 systolic. He called his son who advised he recheck in 10 minutes. It remained low. He subsequently came back to the emergency department. He underwent chest CT which again did not reveal any significant abnormalities. He received additional IV fluids and was monitored overnight. He felt concerned and uncomfortable returning home given his 2 ER visits in short order. He was admitted for observation. He reports he did have diarrhea on the day of surgery and has had diarrhea since. He has a typical IBS pattern alternating between constipation and diarrhea. With regard to his GI system, he reports multiple food sensitivities. He states he has difficulty tolerating dairy. He states he is undergone testing for allergies in his been advised he does not have allergies but finds he is quite sensitive to many things. He states he will often go 2 days without eating. He does report he was taking adequate fluids, but agrees that he may not have been getting an adequate protein as he has been on a full liquid diet. [facility] Medical History Mixed hyperlipidemia Coronary artery calcification Irritable bowel syndrome with constipation and diarrhea Hearing loss Kidney stones Benign prostatic hyperplasia with lower urinary tract symptoms Microscopic hematuria History of kidney stones Slow transit constipation Cholelithiasis Chronic, continuous use of opioids Chronic embolism and thrombosis of unspecified deep veins of right lower extremity Major depressive disorder, single episode, mild Primary osteoarthritis involving multiple joints Chronic anticoagulation Bladder outlet obstruction Eosinophilic esophagitis Factor 5 Leiden mutation, heterozygous Neck mass Bronchitis Costochondritis History of DVT (deep vein thrombosis) Diverticulitis Allergic conjunctivitis Allergic rhinitis Hx of nephrolithotomy with removal of calculi History of depression Elevated PSA Lipoma of arm Umbilical hernia Chronic back pain (Unknown) Insomnia (Unknown) Restless leg syndrome (Unknown) Obstructive sleep apnea (Unknown) GERD (gastroesophageal reflux disease) (Unknown) Surgical History Hx of circumcision History of ureter stent Hx of hernia repair History of lumbar fusion History of carpal tunnel release History of tonsillectomy Family History Father Cancer Migraine Kidney stones Mother Hearing impairment Inflammatory bowel disease Urinary tract infection Brother Diabetes mellitus Hyperlipidemia Migraine Kidney stones Social History marital status: unknown details: Mary Ann (Krupa) household members: none lives independently: Yes occupational status: previously employed and disabled Smoking Status: Never smoker alcohol intake: never substance use type: does not use caffeine: Yes Type(s) of exercise: none Meds Home Medications and Allergies Home Medications Medication Instructions Recorded Confirmed Type Disabled Parking Permit #1 ea 01/20/23 12/16/24 Rx loratadine 10 mg tablet (Claritin) 10 mg PO DAILY PRN allergy 09/09/23 12/16/24 Rx symptoms #90 tabs olopatadine 0.1 % eye drops 1 drp EYE-BOTH ONCE PRN allergy 11/08/23 12/16/24 History eyes Wheelchair lift for car #1 ea 12/13/23 12/16/24 Rx L. acidophilus/Bifid. animalis 1 tab PO DAILY 01/24/24 12/16/24 History [Daily Probiotic] trazodone 100 mg tablet 100 mg PO BEDTIME PRN Insomnia #90 01/31/24 12/16/24 Rx tabs colestipol 1 gram tablet 2 g PO BID PRN Diarrhea 02/07/24 12/16/24 History rosuvastatin 10 mg tablet 10 mg PO DAILY #90 tabs 07/10/24 12/16/24 Rx nortriptyline 10 mg capsule 10 mg PO BEDTIME #90 caps 09/24/24 12/16/24 Rx tamsulosin 0.4 mg capsule 0.4 mg PO DAILY #90 caps 09/24/24 12/16/24 Rx apixaban 5 mg tablet (Eliquis) 5 mg PO BID #180 tabs 10/01/24 12/16/24 Rx duloxetine 60 mg capsule,delayed 120 mg (2 x 60 mg) PO DAILY #180 10/08/24 12/16/24 Rx release caps montelukast 10 mg tablet 10 mg PO DAILY PRN for allergies 10/08/24 12/16/24 Rx #90 tabs tizanidine 2 mg tablet 6 mg (3 x 2 mg) PO TID PRN muscle 10/31/24 12/16/24 Rx spasticity #270 tabs lorazepam 2 mg tablet 2 mg PO BEDTIME PRN sleep #30 tabs 11/12/24 12/16/24 Rx ondansetron HCl 4 mg tablet 4 mg PO QID PRN Nausea #30 tabs 12/12/24 12/16/24 Rx pregabalin 100 mg capsule 100 mg PO TID #90 caps 12/12/24 12/16/24 Rx Allergies Allergy/AdvReac Type Severity Reaction Status Date / Time amitriptyline [AMITRIPTYLINE] Allergy Unknown Verified 12/12/24 16:15 quetiapine [From SEROQUEL] Allergy Unknown Verified 12/12/24 16:15 tetracycline Allergy Blister Verified 12/12/24 16:15 celecoxib [From Celebrex] AdvReac Severe lose his Verified 12/12/24 16:15 voice fluoxetine [From Prozac] AdvReac Unknown No Verified 12/12/24 16:15 emotion, pain becomes really sharp Review of Systems Review of Systems Narrative: All other systems were reviewed negative Exam Vital Signs (past 8 hours): - 12/16/24 13:49 12/16/24 17:00 Temperature 98.7 F 98.9 F Pulse Rate 77 80 Respiratory Rate 18 18 Blood Pressure 130/88 131/87 Pulse Oximetry 97 96 Oxygen Flow Rate 0 0 Oxygen Delivery Method Room Air Oxygen Flow Rate 0 Narrative Exam Narrative: GEN: Pleasant middle-aged male, Alert and oriented x3, no acute distress HEENT: Normocephalic, face symmetric, pupils equal round reactive to light, extraocular movements intact, sclerae anicteric, conjunctiva clear, nares patent, oropharynx reveals an intact soft and hard palate with moist mucous membranes, dentition is fair NECK: Supple, no lymphadenopathy, thyroid without enlargement or nodularity, carotids no bruits CHEST: Respiratory excursions symmetric, clear to auscultation bilaterally CV: Regular rate and rhythm, no murmurs, rubs, gallops, PMI nondisplaced ABD: Soft, nontender, nondistended, bowel sounds present in all 4 quadrants, no organomegaly or masses appreciated EXTR: Warm, well perfused, no clubbing/cyanosis/edema SKIN: Warm and dry, without rash NEURO: Alert and oriented x3, nonfocal PSYCH: Mood and affect is within normal limits, judgment and insight are appropriate Objective Labs 12/15/24 21:46 12/15/24 21:46 Labs: Laboratory Results - last 24 hr 12/15/24 12/16/24 12/16/24 21:46 00:30 07:20 WBC 5.6 RBC 3.85 L Hgb 11.7 L Hct 34.9 L MCV 90.6 MCH 30.5 MCHC 33.6 RDW 13.8 Plt Count 246 Neut % (Auto) 61.7 Lymph % (Auto) 24.4 L Barren % (Auto) 7.3 Eos % (Auto) 5.9 H Baso % (Auto) 0.7 Neut # (Auto) 3400 Lymph # (Auto) 1400 Barren # (Auto) 400 Eos # (Auto) 300 Baso # (Auto) 0 PT 12.8 H INR 1.1 APTT 38 H Sodium 137 Potassium 3.6 Chloride 105 Carbon Dioxide 27 BUN 7 L Creatinine 1.08 Estimated GFR > 60 BUN/Creatinine Ratio 6.5 Glucose 160 H Calcium 8.6 Magnesium 2.1 Total Bilirubin 0.4 AST 21 ALT 16 Alkaline Phosphatase 64 Total Creatine Kinase 136 Troponin I < 0.012 < 0.012 NT-Pro-B Natriuret Pep 245 H Total Protein 5.8 L Albumin 3.4 L Globulin 2.4 Albumin/Globulin Ratio 1.4 Lipase 47 Urine Color Yellow Urine Appearance Clear Urine pH 7.0 Ur Specific [place] <=1.005 Urine Protein Negative Urine Glucose (UA) Negative Urine Ketones Negative Urine Occult Blood Negative Urine Nitrate Negative Urine Bilirubin Negative Urine Urobilinogen 0.2 Ur Leukocyte Esterase Negative Urine RBC 0-1/hpf Urine WBC 0-1/hpf Ur Squamous Epith Cells 0-1 /hpf Urine Bacteria Occasional (0-1) Ur Culture Indicated? Cult not indicated Vol Urine Centrifuged Low vol <10ml (spun) A Assessment & Plan Assessment & Plan narrative: 1. Postoperative hypotension Suspect this is secondary to a combination of : decreased intake of fluids and protein as he has been on a full liquid diet and has had decreased oral intake recently due to GI issues; taking all of his night medications at once, crushed and without protein in his belly which led to more rapid absorption; recent surgery and anesthesia. After receiving IV fluids and adequate time relapsing, his blood pressures have normalized. Discussed ways to increase his protein intake such as having a nondairy protein shake or lactose free protein shakes such as fair life. This will allow him to stick to a full liquid diet but obtain adequate protein to help delay his medication absorption at night. Encouraged him to take his pain medication and perhaps just trazodone for sleep rather than his pain medication, trazodone, nortriptyline, and lorazepam while at once as those medications will augment 1 another particularly in light of more rapid absorption when they are crushed. He expresses understanding. We will continue IV fluids overnight and plan to saline lock his IV in the morning. 2. Postoperative day 3 from hiatal hernia repair Imaging showed no evidence of complication. Continue crushing medications and continue full liquid diet. He received extensive instructions on dietary management from Dr. Hernandez upon discharge from [facility]. 3. Factor 5 Leiden deficiency Continue apixaban 4. IBS with current diarrhea Continue working on improving fluid intake Code status Full Prophylaxis Low Zev score Disposition Admit to observation status with anticipated discharge home tomorrow Time-Based Coding :: [TOTAL MINUTES] spent with patient and on the chart (including review of chart, obtaining history, exam, reviewing outside data, placing orders, documenting exam and treatment plan, and counseling patient) on [DATE]. Quality VTE Deep Vein Thrombosis/Pulmonary Embolism Present on Admission: No
[2024-12-16] MEDS: APIXABAN 5 MG TABLET PO (21:34)
[2024-12-16] MEDS: PREGABALIN 50 MG CAPSULE 100 MG PO (21:34)
[2024-12-16] MEDS: NORTRIPTYLINE 10 MG CAPSULE PO (21:34)
[2024-12-16] MEDS: ATORVASTATIN 20 MG TABLET PO (21:34)
[2024-12-16] MEDS: TRAZODONE 50 MG TABLET 100 MG PO (21:34)
[2024-12-17 00:13] VITALS: BP 147/89; PULSE 67; RESP 19; TEMP 36.7; O2SAT 96
[2024-12-17] MEDS: OXYCODONE IR 5 MG TABLET PO ×2 (02:42→06:25)
[2024-12-17 04:00] VITALS: BP 144/86; PULSE 60; RESP 19; TEMP 36.4; O2SAT 96
[2024-12-17] MEDS: SODIUM CHLORIDE 0.9% 1,000 ML 100 ML IV (04:01)
[2024-12-17] MEDS: ACETAMINOPHEN 325 MG TABLET 650 MG PO (04:03)
[2024-12-17 06:08] LABS: Add Manual Diff / Slide Review NO; Basophils Absolute Auto 0 /uL (0-100); Basophils Percent Auto 0.7 % (0-2); Eosinophils Absolute Auto 400 /uL (0-450); Eosinophils Percent Auto 10.4 % (2-4); Hematocrit 38.1 % (41-53); Hemoglobin 12.9 g/dL (13.5-17.5); Lymphocytes Absolute Auto 1100 /uL (1100-4500); Lymphocytes Percent Auto 25.5 % (25-40); Mean Corpuscular HGB Conc 33.9 % (30-36); Mean Corpuscular Hemoglobin 30.4 PG (26-34); Mean Corpuscular Volume 89.7 fL (80-100); Monocytes Absolute Auto 500 /uL (0-900); Neutrophils Absolute Auto 2100 /uL (1500-7000); Neutrophils Percent Auto 50.4 % (50-75); Platelet Count 241 X10^3/uL (150-400); Red Blood Cell Count 4.25 X10^6/uL (4.5-5.9); Red Cell Distribution Width 13.8 % (11.6-14.8); White Blood Cell Count 4.1 X10^3/uL (4.5-11.0)
[2024-12-17 06:22] LABS: BUN Creatinine Ratio 4.1 (6-22); Blood Urea Nitrogen 4 mg/dL (9-20); Calcium 8.8 mg/dL (8.4-10.2); Carbon Dioxide 30 mmol/L (22-32); Chloride 104 mmol/L (98-107); Estimated Glomerular Filt Rate > 60 mL/min (>60); Glucose 97 mg/dL (70-99); HEMOLYSIS < 15 (0-50); Potassium 3.9 mmol/L (3.4-5.1); Sodium 138 mmol/L (137-145)
[2024-12-17] MEDS: ONDANSETRON 4 MG ODT PO (07:47)
[2024-12-17 08:00] VITALS: BP 130/91; PULSE 78; RESP 18; TEMP 36.6; O2SAT 93
[2024-12-17] MEDS: APIXABAN 5 MG TABLET PO (08:50)
[2024-12-17] MEDS: LACTOBACILLUS ACIDOPHILUS TABLET 1 EACH PO (08:50)
[2024-12-17] MEDS: PREGABALIN 50 MG CAPSULE 100 MG PO (08:50)
--- NOTE | 2024-12-17 09:43 | PM.DS.1 ---
History of Present Illness History of Present Illness Date Patient Seen: 12/17/24 Time Patient Seen: 09:43 Chief complaint: rtrning pt, low blood pressure Narrative: 59-year-old male with factor 5 Leiden disease with history of pulmonary emboli on chronic anticoagulation, chronic back pain on chronic opioid analgesia, obstructive sleep apnea newly prescribed BiPAP, irritable bowel syndrome with both constipation and diarrhea, hyperlipidemia and restless leg syndrome who underwent repair of a small hiatal hernia on 12/13/2024 at [facility]. It was done robotically and was uncomplicated. He stayed overnight. He did have some chest pain postoperatively but no complications. He was placed on a full liquid diet and was advised to crush all medications at discharge. He presented to the emergency department late yesterday morning complaining of dizziness and lightheadedness. He was found to be hypotensive with systolic blood pressure in the 90s. He had presyncope. He underwent workup inclusive of abdominal pelvic CT and chest x-ray, which revealed expected postoperative changes. No electrolyte abnormalities and minimal anemia. He received IV fluids with improvement of his symptoms. He was ultimately discharged home. Last evening, he took his typical nighttime medications which include oxycodone, trazodone, nortriptyline, and lorazepam. They were crushed as he was instructed to. He notes he felt sleepy pretty quickly. He reports he knew he needed to put his BiPAP on but was so sleepy he felt he could not even accomplish that. He ultimately was able to get up and check his blood pressure and notes it was down in the 70 systolic. He called his son who advised he recheck in 10 minutes. It remained low. He subsequently came back to the emergency department. He underwent chest CT which again did not reveal any significant abnormalities. He received additional IV fluids and was monitored overnight. He felt concerned and uncomfortable returning home given his 2 ER visits in short order. He was admitted for observation. He reports he did have diarrhea on the day of surgery and has had diarrhea since. He has a typical IBS pattern alternating between constipation and diarrhea. With regard to his GI system, he reports multiple food sensitivities. He states he has difficulty tolerating dairy. He states he is undergone testing for allergies in his been advised he does not have allergies but finds he is quite sensitive to many things. He states he will often go 2 days without eating. He does report he was taking adequate fluids, but agrees that he may not have been getting an adequate protein as he has been on a full liquid diet. Discharge Providers Provider Date of admission: 12/16/24 07:40 Discharge Date: 12/17/24 Primary care physician: Jerry Lopez MD Consults: 12/16/24 07:24 Consult to Physical Therapy Evaluate & Treat Comment: Please evaluate on 12/17 for orthostasis w/activity Physician Instructions: Evaluate and Treat Discharge provider: Kana Watson DO Summary Hospital Course Discharge Diagnosis: 1. Postoperative hypotension 2. Postoperative day 3 from hiatal hernia repair 3. Factor 5 Leiden deficiency 4. IBS with current diarrhea Hospital Course: Is a 59-year-old male with a past medical history of IBS, factor 5 Leiden, and recent hiatal hernia repair who was admitted with postoperative hypotension. He was given IV fluids with improvement in his blood pressures. He was continued on IV fluids overnight and into the morning, with no significant changes. IV fluids were discontinued with continued stability in his blood pressures and he was mobilizing his usual level and was comfortable with discharge home. Dietary recommendations while on full liquid diet were discussed with the patient, and he should continued diet advancement as previously recommended by his surgeon. Time Spent with Patient Time spent: Greater than 30 minutes Exam Vital Signs (past 8 hours): - 12/17/24 04:00 12/17/24 08:00 Temperature 97.6 F 98 F Pulse Rate 60 78 Respiratory Rate 19 18 Blood Pressure 144/86 H 130/91 H Pulse Oximetry 96 93 Oxygen Flow Rate 0 Oxygen Delivery Method Room Air Oxygen Flow Rate 0 Narrative Exam Narrative: GEN: Pleasant middle-aged male, Alert and oriented x3, no acute distress CHEST: Respiratory excursions symmetric, clear to auscultation bilaterally CV: Regular rate and rhythm, no murmurs, rubs, gallops, PMI nondisplaced ABD: Soft, nontender, nondistended EXTR: Warm, well perfused, no clubbing/cyanosis/edema SKIN: Warm and dry, without rash NEURO: Alert and oriented x3, nonfocal PSYCH: Mood and affect is within normal limits, judgment and insight are appropriate Objective Labs 12/17/24 06:00 12/17/24 06:00 Labs: Laboratory Results - last 24 hr 12/17/24 06:00 WBC 4.1 L RBC 4.25 L Hgb 12.9 L Hct 38.1 L MCV 89.7 MCH 30.4 MCHC 33.9 RDW 13.8 Plt Count 241 Neut % (Auto) 50.4 Lymph % (Auto) 25.5 [place] % (Auto) 13.0 Eos % (Auto) 10.4 H Baso % (Auto) 0.7 Neut # (Auto) 2100 Lymph # (Auto) 1100 [place] # (Auto) 500 Eos # (Auto) 400 Baso # (Auto) 0 Sodium 138 Potassium 3.9 Chloride 104 Carbon Dioxide 30 BUN 4 L Creatinine 0.98 Estimated GFR > 60 BUN/Creatinine Ratio 4.1 L Glucose 97 Calcium 8.8 PFSH Medical History Mixed hyperlipidemia Coronary artery calcification Irritable bowel syndrome with constipation and diarrhea Hearing loss Kidney stones Benign prostatic hyperplasia with lower urinary tract symptoms Microscopic hematuria History of kidney stones Slow transit constipation Cholelithiasis Chronic, continuous use of opioids Chronic embolism and thrombosis of unspecified deep veins of right lower extremity Major depressive disorder, single episode, mild Primary osteoarthritis involving multiple joints Chronic anticoagulation Bladder outlet obstruction Eosinophilic esophagitis Factor 5 Leiden mutation, heterozygous Neck mass Bronchitis Costochondritis History of DVT (deep vein thrombosis) Diverticulitis Allergic conjunctivitis Allergic rhinitis Hx of nephrolithotomy with removal of calculi History of depression Elevated PSA Lipoma of arm Umbilical hernia Chronic back pain (Unknown) Insomnia (Unknown) Restless leg syndrome (Unknown) Obstructive sleep apnea (Unknown) GERD (gastroesophageal reflux disease) (Unknown) Surgical History Hx of circumcision History of ureter stent Hx of hernia repair History of lumbar fusion History of carpal tunnel release History of tonsillectomy Family History Father Cancer Migraine Kidney stones Mother Hearing impairment Inflammatory bowel disease Urinary tract infection Brother Diabetes mellitus Hyperlipidemia Migraine Kidney stones Social History marital status: unknown details: Carlosbillatilio Mariela) household members: none lives independently: Yes occupational status: previously employed and disabled Smoking Status: Never smoker alcohol intake: never substance use type: does not use caffeine: Yes Type(s) of exercise: none Discharge Plan Discharge Plan Patient Disposition: Home Provider Discharge Comment: You were admitted to the hospital with low BP. Improved with fluids and time. No medication changes are necessary at this time. Continue to advance diet per your surgeon's instructions. Discharge orders & Medications Prescriptions: Continued (DME) Disabled Parking Permit See Rx Instructions .ROUTE .MEDSUPPLY Qty: 1 0RF Rx Instructions: Patient qualifies for disabled parking as per the attached form. loratadine [Claritin] 10 mg tablet 10 mg PO DAILY PRN (Reason: allergy symptoms) Qty: 90 3RF (DME) Wheelchair lift for car See Rx Instructions .Route .MEDSUPPLY Qty: 1 0RF Rx Instructions: As directed trazodone 100 mg tablet 100 mg PO BEDTIME PRN (Reason: Insomnia) Qty: 90 3RF nortriptyline 10 mg capsule 10 mg PO BEDTIME Qty: 90 3RF tamsulosin 0.4 mg capsule 0.4 mg PO DAILY Qty: 90 3RF Eliquis 5 mg tablet 5 mg PO BID Qty: 180 3RF duloxetine 60 mg capsule,delayed release(DR/EC) 120 mg PO DAILY Qty: 180 0RF montelukast 10 mg tablet 10 mg PO DAILY PRN (Reason: for allergies) Qty: 90 0RF tizanidine 2 mg tablet 6 mg PO TID PRN (Reason: muscle spasticity) Qty: 270 5RF lorazepam 2 mg tablet 2 mg PO BEDTIME PRN (Reason: sleep) Qty: 30 5RF ondansetron HCl 4 mg tablet 4 mg PO QID PRN (Reason: Nausea) Qty: 30 5RF pregabalin 100 mg capsule 100 mg PO TID Qty: 90 1RF L. acidophilus/Bifid. animalis [Daily Probiotic] 1 tab PO DAILY rosuvastatin 10 mg tablet 10 mg PO DAILY Qty: 90 3RF olopatadine 0.1 % drops 1 drp EYE-BOTH ONCE PRN (Reason: allergy eyes) colestipol 1 gram tablet 2 g PO BID PRN (Reason: Diarrhea) Follow up/Referrals: Jerry Lopez MD [Primary Care Provider] - Diet/Activity/Treatments Diet: Diet as Tolerated Activity: No restrictions, except per surgeon recommendations. Skin/Wound/Dressing Care Report to your healthcare provider any signs of infection, such as:: chills, fever Visit Report/Discharge Packet Instructions: DI for Hypotension Stand Alone Forms: Patient Portal/API, Stroke Signs & Symptoms Discharge Data Primary Care Provider: Jerry Lopez V Attending Provider: Maria Esther Garcia Admit Date/Time: 12/16/24 07:40 Quality VTE Deep Vein Thrombosis/Pulmonary Embolism Present on Admission: No
--- NOTE | 2024-12-17 11:22 | PC.NURSE ---
Day shift: DIscharge instructions gone over with patient. Patient states understanding, all questions answered. PIV and tele removed prior to discharge. All belongings with patient. PCT Chidi escorted patient to exit where [employer] will come pick him up.
--- NOTE | 2024-12-17 11:23 | CM.DPC ---
DCP Discharge Home Per MD, pt is medically stable to d/c home today with outpt follow up. CHAZ updated TCM group requesting f/u appointment with his PCP Dr. Jerry Lopez. CHAZ met bedside with pt and he confirms he is agreeable to discharge [facility] his [facility] [place] today and will call and pay for [employer] to get home. Pt wondering if any resources for help with laundry and chores and things. CHAZ discussed once his Medicaid Spenddown is completed then he can request Functional Assessment for [facility] to see if he qualifies. CHAZ also provided Community Action flyer and Senior Resource Guidebook and encouraged him to reach out to the [facility]. Pt appreciative. Was up walking independently in the room and was about to take a shower independently before he discharges. RN updated. Plan: Patient to d/c to his RV today via [employer] private pay and has community resources. GREGORY Sanchez
== END 2024-12-17 11:15 | disposition home or self-care (01) ==
LOC: ED 12-16 07:10 → AC 12-16 07:41
PROVIDERS: Admitting Provider Family Medicine; Emergency Provider Emergency Medicine; Family Provider Internal Medicine; PCP Internal Medicine; Referring Provider Emergency Medicine; Visit Provider Family Medicine
DX: I95.81 Postprocedural hypotension (principal); Z98.890 Other specified postprocedural states; D68.51 Activated protein C resistance; G47.33 Obstructive sleep apnea (adult) (pediatric); G89.29 Other chronic pain; K58.2 Mixed irritable bowel syndrome; M54.9 Dorsalgia, unspecified; F11.90 Opioid use, unspecified, uncomplicated; Z86.711 Personal history of pulmonary embolism; Z79.01 Long term (current) use of anticoagulants
CPT/HCPCS: 36415; 71045; 71275; 74174; 80048; 80053; 81001; 82550; 83690; 83735; 83880; 84484; 85025; 85610; 85730; 93005; 96360; 96361; 99285; G0378; A9270; Q9967

== ENCOUNTER → 2025-01-07 15:16 | Outpatient (CLI) | payer MEDICARE, MEDICAID, SELFPAY ==
[2024-12-16 08:36] VITALS: BMI 23.1
[2025-01-07 17:03] LABS: Hemoglobin A1C% w Est Avg Glu 5.3 % (4.0-6.0)
[2025-01-07 17:04] LABS: Add Manual Diff / Slide Review NO; Basophils Absolute Auto 0 /uL (0-100); Basophils Percent Auto 0.7 % (0-2); Eosinophils Absolute Auto 300 /uL (0-450); Eosinophils Percent Auto 5.4 % (2-4); Hematocrit 40.6 % (41-53); Hemoglobin 13.7 g/dL (13.5-17.5); Lymphocytes Absolute Auto 1200 /uL (1100-4500); Lymphocytes Percent Auto 19.9 % (25-40); Mean Corpuscular HGB Conc 33.8 % (30-36); Mean Corpuscular Hemoglobin 30.8 PG (26-34); Mean Corpuscular Volume 91.2 fL (80-100); Monocytes Absolute Auto 500 /uL (0-900); Monocytes Percent Auto 7.9 % (3-14); Neutrophils Absolute Auto 4000 /uL (1500-7000); Neutrophils Percent Auto 66.1 % (50-75); Platelet Count 222 X10^3/uL (150-400); Red Blood Cell Count 4.45 X10^6/uL (4.5-5.9); Red Cell Distribution Width 14.9 % (11.6-14.8); White Blood Cell Count 6.1 X10^3/uL (4.5-11.0)
[2025-01-07 17:41] LABS: Alanine Aminotransferase 56 IU/L (<50); Albumin 4.3 g/dL (3.5-5.0); Albumin Globulin Ratio 1.8 (1.0-2.8); Alkaline Phosphatase 77 U/L (38-126); Aspartate Aminotransferase 32 IU/L (17-59); BUN Creatinine Ratio 11.9 (6-22); Bilirubin Total 0.9 mg/dL (0.2-1.3); Blood Urea Nitrogen 12 mg/dL (9-20); Calcium 9.6 mg/dL (8.4-10.2); Carbon Dioxide 30 mmol/L (22-32); Chloride 101 mmol/L (98-107); Cholesterol 182 mg/dL (140-199); Estimated Glomerular Filt Rate > 60 mL/min (>60); Globulin 2.4 g/dL (1.7-4.1); Glucose 87 mg/dL (70-99); HDL Cholesterol 76 mg/dL (40-60); HEMOLYSIS < 15 (0-50); LDL Cholesterol Calculated 67 mg/dL (<100); Potassium 4.8 mmol/L (3.4-5.1); Sodium 139 mmol/L (137-145); Total Protein 6.7 g/dL (6.3-8.2); Triglycerides 197 mg/dL (35-150)
[2025-01-09 07:09] LABS: PSA Free % 21.6 % (.); PSA, Total 6.1 ng/mL (0.0-4.0)
== END ==
PROVIDERS: Urology; Family Provider Internal Medicine; PCP Student in an Organized Health Care Education/Training Program; Referring Provider Student in an Organized Health Care Education/Training Program; Visit Provider Student in an Organized Health Care Education/Training Program
DX: D68.51 Activated protein C resistance (principal); E78.5 Hyperlipidemia, unspecified; Z86.718 Personal history of other venous thrombosis and embolism; N40.1 Benign prostatic hyperplasia with lower urinary tract symptoms; F32.A Depression, unspecified; G47.30 Sleep apnea, unspecified; R97.20 Elevated prostate specific antigen [PSA]
CPT/HCPCS: 36415; 80053; 80061; 83036; 84153; 84154; 85025

== ENCOUNTER → 2025-01-26 11:48 | Outpatient (CLI) | payer MEDICARE, MEDICAID, SELFPAY ==
[2024-12-16 08:36] VITALS: BMI 23.1
[2025-01-26 12:43] LABS: UR Morphine/Opiate cutoff 300 Negative (Negative); Ur Creatinine Normal (Normal); Ur Specific Gravity Normal (Normal); Urine Amphetamines Negative (Negative); Urine Cocaine Negative (Negative); Urine Tetrahydrocannabinol Negative (Negative); Urine pH Normal (Normal)
[2025-01-26 12:44] LABS: Urine Barbiturates Negative (Negative); Urine Benzodiazepines Positive (Negative); Urine MDMA Negative (Negative); Urine Methadone Negative (Negative); Urine Methamphetamines Negative (Negative); Urine Oxycodone Positive (Negative); Urine Phencyclidine Negative (Negative); Urine Tricyclic Antidepressant Positive (Negative)
== END ==
PROVIDERS: Family Provider Internal Medicine; PCP Student in an Organized Health Care Education/Training Program; Referring Provider Student in an Organized Health Care Education/Training Program; Visit Provider Student in an Organized Health Care Education/Training Program
DX: F11.20 Opioid dependence, uncomplicated (principal)
CPT/HCPCS: 80305

== ENCOUNTER 2025-08-12 14:49 | Emergency (ER) | payer MEDICARE, MEDICAID, SELFPAY ==
[2024-12-16 08:36] VITALS: BMI 23.1
[2025-08-12] VITALS (15 sets, daily range): BP systolic 128–162; BP diastolic 83–103; PULSE 67–78; RESP 15–33; TEMP 37; O2SAT 93–99; BMI 25.0
--- OUTSIDE RECORDS SUMMARY | 2025-08-12 14:53 | XMS_ITS | Encounter Summary ---
Author Organization [facility] Address [address] [place] [address] Care Team Providers Care Case Checker Name Role Phone Tank Salmon MD Primary Care Provider [phone] Encounter Details Date Type Department Care Team (Late Contact Info) Description 07/03/2024 Orders Only [facility] Orthopedics and Sports Medicine [address] [phone] Kana Proctor, DO [address] [phone] Spondylosis of cervical spine Social History Tobacco Use Types Packs/Day Years Used Date Smoking Tobacco: Never Passive Smoke Exposure: Never Smokeless Tobacco: Never Alcohol Use Standard Drinks/Week Comments Yes 0 (1 standard drink = 0.6 oz pur e alcohol) Beer every 2 weeks Sex and Gender Information Value Date Recorded Sex Assigned at Male 10/06/2022 9:10 AM PST Legal Sex Male 1:13 PM PDT Gender Identity Male 10/06/2022 9:10 AM PST Sexual Orientation Straight 10/06/2022 9: 10 AM PST documented as of this encounter Plan of Treatment Upcoming Encounters Date Type Department Care Team (Late Contact Info) Description 09/18/2025 1:00 PM PST Office Visit [facility] Gastroenterology [address] [phone] Kevin Alford DO [address] [phone] 10/24/2025 1:30 PM PST Lab [facility] [address] [place] [address], [address] [place] [phone] 10/24/2025 2:00 PM PST Office Visit [facility] Oncology [address], [facility] [address] [place] [phone] Luz Cardenas ARNP [address] [place] [address] [address] [place] [phone] Get Foy MD [address] [place] [address] [address] [place] [phone] 11/26/2025 1:00 PM PDT Office Visit [facility] - Sleep Medicine [address] [facility] [address] [place] [address] Adi Vieira PA-C [address] [place] [address] documented as of this encounter Procedures Procedure Name Priority Date/Time Associated Diagnosis Comments MR CERVICAL SPINE WITHOUT CONTRAST Routine 06/29/2024 Spondylosis of cervical spine documented in this encounter Results * MR CERVICAL SPINE WITHOUT CONTRAST (06/29/2024) Anatomical Region Laterality Modality Spine, C-spine N/A Magnetic Resonan ce us Kana Proctor DO [facility] MR PROCEDURES Fi nal Result documented in this encounter Visit Diagnoses Diagnosis Spondylosis of cervical spine documented in this encounter Care Teams Case Checker Relationship Specialty Start Date End Date Tank Salmon MD PCP - General High Climber 01/15/25 documented as of this encounter
--- NOTE | 2025-08-12 14:56 | DI.RAD.S_ITS ---
PROCEDURE: XR CHEST 1V INDICATIONS: Chest Pain TECHNIQUE: One view of the chest was acquired. COMPARISON: [facility], CR, XR CHEST 1V, 12/15/2024, 21:39. FINDINGS: Surgical changes and devices: None. Lungs and pleura: Lungs are clear. No pleural effusions or pneumothorax. Mediastinum: Mediastinal contours appear normal. Heart size is normal. Bones and chest wall: No suspicious bony lesions. Overlying soft tissues appear unremarkable. IMPRESSION: No acute cardiopulmonary abnormality is seen. Approved by: Alberta Zabala M.D.,Ph.D. on 08/12/2025 at 16:41
--- NOTE | 2025-08-12 15:03 | EKG_ITS ---
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
--- NOTE | 2025-08-12 15:20 | ED_ITS ---
HPI - Chest Pain General Chief Complaint: Chest Pain Stated Complaint: PC ref, poss Heart attack Time Seen by Provider: 08/12/25 15:19 Source: patient Mode of arrival: Family Vehicle Limitations: no limitations History of Present Illness HPI narrative: 59-year-old past medical history of neurocognitive disorder, hld, nm stress test 10/29/24, recurrent DVT on eliquis, dominic, hiatal hernia surgery cholecystectomy presents with thoracic back pain radiating to chest and abdomen along with the abdominal distention and nausea with the past few days. His last bowel movement was about an hour ago feel feels bloated and constipated. Patient denies any rectal bleeding diaphoresis vomiting difficulty urinating but did so about a week ago when they doubled up his Flomax and he was able to urinate completely. Other than what is stated 14 point review of system is negative. Related Data Home Medications ?Medication ?Instructions ?Recorded ?Confirmed olopatadine 0.1 % eye drops 1 drp EYE-BOTH ONCE PRN al lergy 11/08/23 04/03/25 eyes L. acidophilus/Bifid. animalis 1 tab PO DAILY 01/24/24 04/03/25 [Daily Probiotic] colestipol 1 gram tablet 2 g PO BID PRN Diarrhea 01/2004/03/25 acetaminophen 500 mg tablet 1,000 mg PO Q8H 04/03/25 0 04/03/25 (Tylenol Extra Strength) docusate sodium 100 mg capsule 100 mg PO DAILY 5 04/03/25 oxycodone 5 mg tablet 5 mg PO Q6H 04/03/25 5 Previous Rx's ?Medication ?Instructions ?Recorded Disabled Parking Permit #1 ea 01/20/23 loratadine 10 mg tablet (Claritin) 10 mg PO DAILY PRN allergy 09/09/23 symptoms #90 tabs Wheelchair lift for car #1 ea 12/13/23 trazodone 100 mg tablet 100 mg PO BEDTIME PRN Insomn ia #90 01/31/24 tabs rosuvastatin 10 mg tablet 10 mg PO DAILY #90 tabs 06/22 05/15 nortriptyline 10 mg capsule 10 mg PO BEDTIME #90 caps 09/24/24 apixaban 5 mg tablet (Eliquis) 5 mg PO BID #180 tabs 0 10/01/24 lorazepam 2 mg tablet 2 mg PO BEDTIME PRN sleep #3 0 tabs 11/12/24 ondansetron HCl 4 mg tablet 4 mg PO QID PRN Nausea #30 tabs 12/12/24 pregabalin 100 mg capsule 100 mg PO TID #90 caps 12/12 duloxetine 60 mg capsule,delayed 120 mg (2 x 60 mg) PO DAILY #180 01/01/25 release caps montelukast 10 mg tablet 10 mg PO DAILY PRN for aller gies 01/01/25 #90 tabs tamsulosin 0.4 mg capsule 0.8 mg (2 x 0.4 mg) PO DAILY #180 08/06/25 caps metoclopramide HCl 10 mg tablet 10 mg PO Q6H PRN nause a and 08/12/25 (Reglan) vomiting #30 tabs Allergies Allergy/AdvReac Type Severity Reaction Status Date / Time amitriptyline (AMITRIPTYLINE) Allergy Unknown Verified 08/12/25 15:07 quetiapine (From SEROQUEL) Allergy Unknown Verified 08/12/25 15:07 tetracycline Allergy Blister Verified 08/12/25 15:07 celecoxib (From Celebrex) AdvReac Severe lose his Verified 08/12/25 15:07 voice fluoxetine (From Prozac) AdvReac Unknown No Verified 08/12/25 15:07 emotion, pain becomes really sharp Review of Systems Review of Systems ROS Unobtainable: All systems reviewed & are unremarkable except as noted in HPI and below Patient History Medical History Chronic low back pain Mixed hyperlipidemia Coronary artery calcification Irritable bowel syndrome with constipation and diarrhea Hearing loss Kidney stones Benign prostatic hyperplasia with lower urinary tract symptoms Microscopic hematuria History of kidney stones Slow transit constipation Cholelithiasis Chronic, continuous use of opioids Chronic embolism and thrombosis of unspecified deep veins of right lower extremity Major depressive disorder, single episode, mild Primary osteoarthritis involving multiple joints Chronic anticoagulation Bladder outlet obstruction Eosinophilic esophagitis Factor 5 Leiden mutation, heterozygous Neck mass Bronchitis Costochondritis History of DVT (deep vein thrombosis) Diverticulitis Allergic conjunctivitis Allergic rhinitis Hx of nephrolithotomy with removal of calculi History of depression Elevated PSA Lipoma of arm Umbilical hernia Chronic back pain (Unknown) Insomnia (Unknown) Restless leg syndrome (Unknown) Obstructive sleep apnea (Unknown) GERD (gastroesophageal reflux disease) (Unknown) Surgical History Hx of circumcision History of ureter stent Hx of hernia repair History of lumbar fusion History of carpal tunnel release History of tonsillectomy Family History Father Cancer Migraine Kidney stones Mother Hearing impairment Inflammatory bowel disease Urinary tract infection Brother Diabetes mellitus Hyperlipidemia Migraine Kidney stones Social History marital status: unknown details: Mary Ann (Krupa) household members: none lives independently: Yes occupational status: previously employed and disabled alcohol intake: never substance use type: does not use caffeine: Yes Type(s) of exercise: none alcohol intake frequency: holidays/special occasions only Exam Narrative Exam Narrative: GENERAL: [59] year old patient appears stated age. Well-developed patient, in mild distress. HEAD: Atraumatic. Normocephalic. EYES: Pupils equal round and reactive. Extraocular motions intact. No scleral icterus. No injection or drainage. ENT: Nose without bleeding, purulent drainage. Throat without erythema, tonsillar hypertrophy or exudate. Airway patent. NECK: Trachea midline. Non tender CARDIOVASCULAR: Regular rate and rhythm without murmurs, gallops, or rubs. RESPIRATORY: Clear to auscultation. Breath sounds equal bilaterally. No wheezes, rales, or rhonchi. GASTROINTESTINAL: Abdomen soft, non-tender, nondistended. EXTREMITIES: No edema or joint tenderness. BACK: Nontender without deformity or crepitance. No flank tenderness. NEURO: AOx3. SKIN: No rash or erythema of visible areas Initial Vital Signs Initial Vital Signs: Vital Signs Temperature 98.6 F 08/12/25 15:00 Pulse Rate 78 08/12/25 15:00 Respiratory Rate 20 08/12/25 15:00 Blood Pressure 157/94 H 08/12/25 15:00 Pulse Oximetry 97 08/12/25 15:00 Oxygen Delivery Method Room Air 08/12/25 15:00 Course Orders Ordered: ED Orders 08/12/25 14:56 XR chest 1V Stat EKG-12 Lead Stat 08/12/25 15:17 Complete Blood Count AUTO DIFF Stat Comprehensive Metabolic Panel Stat Lipase Stat Magnesium Stat NT-proBNP (BNP-Adult 18+) Stat PTT Partial Thromboplastin Balaji Stat Prothrombin Time INR Stat Troponin & CK Cardiac Panel Stat 08/12/25 15:37 CT angio chest abdomen pelvis Stat 08/12/25 18:30 Troponin I Stat Discontinued Medications Aspirin (Aspirin 81 Mg Chew Tab) 324 mg PO NOW ONE Stop: 08/12/25 14:57 Last Admin: 08/12/25 15:57 Dose: Not Given Documented By: BILLY Metoclopramide HCl (Metoclopramide 10 Mg/2 Ml Inj) 10 mg IV NOW ONE Stop: 08/12/25 15:39 Last Admin: 08/12/25 15:58 Dose: 10 mg Documented By: BILLY Morphine Sulfate (Morphine 4 Mg/Ml Inj) 4 mg IV NOW ONE Stop: 08/12/25 15:39 Last Admin: 08/12/25 16:01 Dose: 4 mg Documented By: BILLY Morphine Sulfate (Morphine 4 Mg/Ml Inj) 4 mg IV NOW ONE Stop: 08/12/25 17:38 Last Admin: 08/12/25 18:25 Dose: 4 mg Documented By: ALPA Vital Signs Vital signs: Vital Signs - 8 hr 08/12/25 15:00 08/12/25 15:41 08/12/25 15:55 Temperature 98.6 F Pulse Rate 78 76 Respiratory Rate 20 Blood Pressure 157/94 H 162/88 H Pulse Oximetry 97 97 Oxygen Delivery Method Room Air 08/12/25 15:55 08/12/25 16:00 08/12/25 16:00 Temperature Pulse Rate 76 76 Respiratory Rate 21 19 Blood Pressure 155/95 H Pulse Oximetry 96 96 Oxygen Delivery Method Room Air 08/12/25 16:30 08/12/25 16:30 08/12/25 17:00 Temperature Pulse Rate 71 73 Respiratory Rate 20 20 Blood Pressure 138/85 Pulse Oximetry 94 95 Oxygen Delivery Method 08/12/25 17:01 08/12/25 17:01 08/12/25 17:30 Temperature Pulse Rate 71 69 Respiratory Rate 18 20 Blood Pressure 160/87 H Pulse Oximetry 93 94 Oxygen Delivery Method 08/12/25 17:31 08/12/25 17:31 08/12/25 18:00 Temperature Pulse Rate 70 69 Respiratory Rate 21 20 Blood Pressure 139/83 Pulse Oximetry 94 94 Oxygen Delivery Method 08/12/25 18:00 08/12/25 18:30 08/12/25 18:30 Temperature Pulse Rate 70 Respiratory Rate 15 Blood Pressure 134/85 147/96 H Pulse Oximetry 99 Oxygen Delivery Method MDM - Chest Pain Lab Data 08/12/25 15:17 08/12/25 15:17 Labs: Lab Results 08/12/25 08/12/25 Range/Units 15:17 18:30 WBC 3.9 L (4.5-11.0) X10^3/uL RBC 4.40 L (4.5-5.9) X10^6/uL Hgb 13.3 L (13.5-17.5) g/dL Hct 39.5 L (41-53) % MCV 89.8 (80-100) fL MCH 30.3 (26-34) PG MCHC 33.7 (30-36) % RDW 13.8 (11.6-14.8) % Plt Count 234 (150-400) X10^3/uL Neut % (Auto) 67.9 (50-75) % Lymph % (Auto) 22.6 L (25-40) % Cowley % (Auto) 6.6 (3-14) % Eos % (Auto) 2.2 (2-4) % Baso % (Auto) 0.7 (0-2) % Neut # (Auto) 2700 (7427-6532) /uL Lymph # (Auto) 900 L (1683-3220) /uL Cowley # (Auto) 300 (0-900) /uL Eos # (Auto) 100 (0-450) /uL Baso # (Auto) 0 (0-100) /uL PT 10.9 (9.4-12.5) SECONDS INR 1.0 (0.9-1.3) APTT 33 (25.1-36.5) SECONDS Sodium 141 (137-145) mmol/L Potassium 4.2 (3.4-5.1) mmol/L Chloride 105 (98-107) mmol/L Carbon Dioxide 28 (22-32) mmol/L BUN 11 (9-20) mg/dL Creatinine 0.93 (0.66-1.25) mg/dL Estimated GFR > 60 (>60) mL/min BUN/Creatinine Ratio 11.8 (6-22) Glucose 126 H (70-99) mg/dL Calcium 9.3 (8.4-10.2) mg/dL Magnesium 2.2 (1.6-2.3) mg/dL Total Bilirubin 0.5 (0.2-1.3) mg/dL AST 23 (17-59) IU/L ALT 17 (<50) IU/L Alkaline Phosphatase 71 (38-126) U/L Total Creatine Kinase 67 (55-170) U/L Troponin I < 0.012 < 0.012 (0.01-0.034) ng/mL NT-Pro-B Natriuret Pep < 20 (<125) pg/mL Total Protein 7.2 (6.3-8.2) g/dL Albumin 4.3 (3.5-5.0) g/dL Globulin 2.9 (1.7-4.1) g/dL Albumin/Globulin Ratio 1.5 (1.0-2.8) Lipase 59 (23-300) U/L Urine Dip Bedside Urine Glucose Negative Bedside Urine Bilirubin - Negative Bedside Urine Ketone - Negative Urine Specific [place] 1 Bedside Urine Occult Blood - Negative Bedside Urine pH 7.5 Bedside Urine Protein - Negative Bedside Urine Urobilinogen - Negative Bedside Urine Nitrite - Negative Bedside Urine Leukocytes - Negative Esterase Imaging Data CT scan - abdomen/pelvis: Radiologist's Impression: [place] [address] CT Scan Report Signed Patient: Kervin Webb MR#: [id number] : 1965 Acct:[id number] Age/Sex: 59 / M Date of Service: 08/12/25 Loc: ED Accession Number: [id number] Procedure: CT angio chest abdomen pelvis Ordering Provider: Mohan Foy D.O. PROCEDURE: CT ANGIO CHEST ABDOMEN PELVIS INDICATIONS: chest /abd /back pain TECHNIQUE: Precontrast 5 mm thick sections acquired from the lung apices to the iliac crests. After the administration of intravenous contrast, 2.5 mm thick sections again acquired from the lung apices to the iliac crests. Maximum intensity projection (MIP) oblique sagittal and coronal reformats were then acquired. For radiation dose reduction, the following was used: automated exposure control. COMPARISON: [facility], CT, CT ANGIO CHEST ABDOMEN PELVIS, 12/15/2024, 22:32. FINDINGS: Image quality: Diagnostic. AORTA: No aortic aneurysm. No acute aortic syndrome. CHEST: Lower Neck: No enlarged lymph nodes. Thyroid: No thyroid nodules which require sonographic evaluation. Axillae: No enlarged lymph nodes. Chest Wall: Unremarkable. Lungs and Pleura: No pneumothorax or pleural effusions. No consolidation or suspicious nodules. Heart: Heart size is normal. No pericardial effusion. Moderate coronary artery calcifications. Thoracic Vessels: Pulmonary arteries demonstrate normal size. Mediastinum and Malorie: No enlarged lymph nodes. Esophagus: No wall thickening. No hiatal hernia. ABDOMEN: Liver: No solid mass. Subcentimeter hypodensities are too small to characterize by CT. Gallbladder: Surgically absent. Biliary ducts: No biliary dilation. Pancreas: No ductal dilation. Spleen: Size is within normal limits. Adrenal Glands: No adrenal nodules. Kidneys and Ureters: Nonobstructing bilateral punctate calculi. No hydronephrosis. No solid mass. No complex renal cystic lesion which requires follow up. Stomach and Bowel: Normal colonic caliber, without significant wall thickening. Scattered diverticulosis without acute inflammation. Normal caliber appendix. Peritoneum: No abnormal intraperitoneal fluid. No free air. Ventral Wall: No hernia. Abdominal Nodes: No retroperitoneal or mesenteric adenopathy by size criteria. Vessels: Inferior vena cava is normal in size. PELVIS: Pelvic Organs: Prostatomegaly. Bladder: Unremarkable. Pelvic Nodes: No enlarged lymph nodes. Miscellaneous: No inguinal hernias are seen. Bones: Status post L4-S1 posterior spinal fusion with intervertebral disc spacers at L4-L5 and L5-S1. Multilevel degenerative changes without acute vertebral body compression fracture. IMPRESSION: No aortic aneurysm, dissection or CT evidence of acute aortic syndrome. Bilateral nonobstructing punctate nephrolithiasis. No hydroureteronephrosis. Colonic diverticulosis without CT evidence of acute diverticulitis. ECG Data Interpretation: NSR HR 73 OR 166 QRS [address]-t wave change Unchanged from 12/15/24 [facility] Narrative Medical decision making narrative: All lab work, vital signs, nurse triage note, medication list, previous ER visits, and all imaging studies reviewed. WBC 3.9 hemoglobin 13.3 platelets 234 Na 141 potassium 4.2 chloride 105 CO2 28 BUN 11 creatinine 0.93 glucose 126 LFTs and magnesium all normal 1st set troponin less than 0.012 BNP less than 20 lipase 159. EKG showed sinus rhythm. Patient given morphine 4 mg IV x2. CTA abdomen chest showed no aortic aneurysm dissection or CT evidence of acute aortic syndrome, Bilateral nonobstructing punctate nephrolithiasis. No hydroureteronephrosis. Colonic diverticulosis without evidence CT of acute diverticulitis. status post L4-S1 posterior spinal fusion with interview vertebral disc spacers at L4-L5 and L5-S1. multi level degenerative changes without acute vertebral body compression fracture. D/c home on reglan rx. differential diagnosis chronic back pain STEMI NSTEMI unstable angina anxiety GERD ulcer pancreatitis diverticulitis pneumonia Discharge Plan Departure Patient Disposition: Home Clinical Impression: Chronic back pain, Nausea, Abdominal pain Instructions: DI for Nausea -- Adult Activity Restrictions/Additional Instructions: return with new or worsening symptoms. follow up with PC this week for re- evaluation. keep hydrated. Prescriptions: New metoclopramide HCl [Reglan] 10 mg tablet 10 mg PO Q6H PRN (Reason: nausea and vomiting) Qty: 30 0RF No Action (DME) Disabled Parking Permit See Rx Instructions .ROUTE .MEDSUPPLY Qty: 1 0RF Rx Instructions: Patient qualifies for disabled parking as per the attached form. loratadine [Claritin] 10 mg tablet 10 mg PO DAILY PRN (Reason: allergy symptoms) Qty: 90 3RF (DME) Wheelchair lift for car See Rx Instructions .Route .MEDSUPPLY Qty: 1 0RF Rx Instructions: As directed trazodone 100 mg tablet 100 mg PO BEDTIME PRN (Reason: Insomnia) Qty: 90 3RF nortriptyline 10 mg capsule 10 mg PO BEDTIME Qty: 90 3RF Eliquis 5 mg tablet 5 mg PO BID Qty: 180 3RF lorazepam 2 mg tablet 2 mg PO BEDTIME PRN (Reason: sleep) Qty: 30 5RF ondansetron HCl 4 mg tablet 4 mg PO QID PRN (Reason: Nausea) Qty: 30 5RF pregabalin 100 mg capsule 100 mg PO TID Qty: 90 1RF montelukast 10 mg tablet 10 mg PO DAILY PRN (Reason: for allergies) Qty: 90 1RF duloxetine 60 mg capsule,delayed release(DR/EC) 120 mg PO DAILY Qty: 180 1RF tamsulosin 0.4 mg capsule 0.8 mg PO DAILY Qty: 180 3RF L. acidophilus/Bifid. animalis [Daily Probiotic] 1 tab PO DAILY rosuvastatin 10 mg tablet 10 mg PO DAILY Qty: 90 3RF olopatadine 0.1 % drops 1 drp EYE-BOTH ONCE PRN (Reason: allergy eyes) colestipol 1 gram tablet 2 g PO BID PRN (Reason: Diarrhea) acetaminophen [Tylenol Extra Strength] 500 mg tablet 1,000 mg PO Q8H docusate sodium 100 mg capsule 100 mg PO DAILY oxycodone 5 mg tablet 5 mg PO Q6H Referrals: Tank Salmon MD [Primary Care Provider, General Surgery] Stand Alone Forms: Patient Portal/API
[2025-08-12 15:24] LABS: Add Manual Diff / Slide Review NO; Hematocrit 39.5 % (41-53); Hemoglobin 13.3 g/dL (13.5-17.5); Lymphocytes Absolute Auto 900 /uL (1100-4500); Mean Corpuscular HGB Conc 33.7 % (30-36); Mean Corpuscular Hemoglobin 30.3 PG (26-34); Mean Corpuscular Volume 89.8 fL (80-100); Platelet Count 234 X10^3/uL (150-400)
--- NOTE | 2025-08-12 15:37 | DI.CT.S_ITS ---
PROCEDURE: CT ANGIO CHEST ABDOMEN PELVIS INDICATIONS: chest /abd /back pain TECHNIQUE: Precontrast 5 mm thick sections acquired from the lung apices to the iliac crests. After the administration of intravenous contrast, 2.5 mm thick sections again acquired from the lung apices to the iliac crests. Maximum intensity projection (MIP) oblique sagittal and coronal reformats were then acquired. For radiation dose reduction, the following was used: automated exposure control. COMPARISON: [facility], CT, CT ANGIO CHEST ABDOMEN PELVIS, 12/15/2024, 22:32. FINDINGS: Image quality: Diagnostic. AORTA: No aortic aneurysm. No acute aortic syndrome. CHEST: Lower Neck: No enlarged lymph nodes. Thyroid: No thyroid nodules which require sonographic evaluation. Axillae: No enlarged lymph nodes. Chest Wall: Unremarkable. Lungs and Pleura: No pneumothorax or pleural effusions. No consolidation or suspicious nodules. Heart: Heart size is normal. No pericardial effusion. Moderate coronary artery calcifications. Thoracic Vessels: Pulmonary arteries demonstrate normal size. Mediastinum and Malorie: No enlarged lymph nodes. Esophagus: No wall thickening. No hiatal hernia. ABDOMEN: Liver: No solid mass. Subcentimeter hypodensities are too small to characterize by CT. Gallbladder: Surgically absent. Biliary ducts: No biliary dilation. Pancreas: No ductal dilation. Spleen: Size is within normal limits. Adrenal Glands: No adrenal nodules. Kidneys and Ureters: Nonobstructing bilateral punctate calculi. No hydronephrosis. No solid mass. No complex renal cystic lesion which requires follow up. Stomach and Bowel: Normal colonic caliber, without significant wall thickening. Scattered diverticulosis without acute inflammation. Normal caliber appendix. Peritoneum: No abnormal intraperitoneal fluid. No free air. Ventral Wall: No hernia. Abdominal Nodes: No retroperitoneal or mesenteric adenopathy by size criteria. Vessels: Inferior vena cava is normal in size. PELVIS: Pelvic Organs: Prostatomegaly. Bladder: Unremarkable. Pelvic Nodes: No enlarged lymph nodes. Miscellaneous: No inguinal hernias are seen. Bones: Status post L4-S1 posterior spinal fusion with intervertebral disc spacers at L4-L5 and L5-S1. Multilevel degenerative changes without acute vertebral body compression fracture. IMPRESSION: No aortic aneurysm, dissection or CT evidence of acute aortic syndrome. Bilateral nonobstructing punctate nephrolithiasis. No hydroureteronephrosis. Colonic diverticulosis without CT evidence of acute diverticulitis. Approved by: Alberta Zabala M.D.,Ph.D. on 08/12/2025 at 17:03
[2025-08-12 15:40] LABS: INR 1.0 (0.9-1.3); Prothrombin Time 10.9 SECONDS (9.4-12.5)
[2025-08-12 15:42] LABS: Alanine Aminotransferase 17 IU/L (<50); Albumin 4.3 g/dL (3.5-5.0); Albumin Globulin Ratio 1.5 (1.0-2.8); Alkaline Phosphatase 71 U/L (38-126); Blood Urea Nitrogen 11 mg/dL (9-20); Calcium 9.3 mg/dL (8.4-10.2); Carbon Dioxide 28 mmol/L (22-32); Chloride 105 mmol/L (98-107); Creatine Kinase 67 U/L (55-170); Estimated Glomerular Filt Rate > 60 mL/min (>60); Globulin 2.9 g/dL (1.7-4.1); Glucose 126 mg/dL (70-99); HEMOLYSIS < 15 (0-50); Lipase 59 U/L (23-300); Magnesium 2.2 mg/dL (1.6-2.3); PTT Partial Thromboplastin Tim 33 SECONDS (25.1-36.5); Potassium 4.2 mmol/L (3.4-5.1); Sodium 141 mmol/L (137-145); Total Protein 7.2 g/dL (6.3-8.2)
[2025-08-12 15:54] LABS: NT-proBNP (BNP-Adult 18+) < 20 pg/mL (<125); Troponin I < 0.012 ng/mL (0.01-0.034)
[2025-08-12] MEDS: METOCLOPRAMIDE 10 MG/2 ML INJ IV (15:58)
[2025-08-12] MEDS: MORPHINE 4 MG/ML INJ IV ×2 (16:01→18:25)
[2025-08-12 19:04] LABS: Troponin I < 0.012 ng/mL (0.01-0.034)
== END 2025-08-12 20:18 | disposition home or self-care (01) ==
PROVIDERS: Emergency Medicine; Emergency Provider Family Medicine; Family Provider Internal Medicine; PCP Student in an Organized Health Care Education/Training Program
DX: M54.6 Pain in thoracic spine (principal); R11.0 Nausea; R10.9 Unspecified abdominal pain; R14.0 Abdominal distension (gaseous); K59.00 Constipation, unspecified
CPT/HCPCS: 36415; 71045; 71275; 74174; 80053; 81003; 82550; 83690; 83735; 83880; 84484; 85025; 85610; 85730; 93005; 93010; 96374; 96375; 96376; 99284; J2272; J2765; Q9967

== ENCOUNTER → 2025-08-17 11:56 | Outpatient (CLI) | payer MEDICARE, MEDICAID, SELFPAY ==
[2024-12-16 08:36] VITALS: BMI 23.1
[2025-08-17 13:12] LABS: Add Manual Diff / Slide Review NO; Hematocrit 40.1 % (41-53); Hemoglobin 13.6 g/dL (13.5-17.5); Lymphocytes Absolute Auto 1300 /uL (1100-4500); Mean Corpuscular HGB Conc 33.8 % (30-36); Mean Corpuscular Hemoglobin 30.6 PG (26-34); Mean Corpuscular Volume 90.4 fL (80-100); Platelet Count 227 X10^3/uL (150-400)
[2025-08-17 13:19] LABS: Alanine Aminotransferase 17 IU/L (<50); Albumin 4.6 g/dL (3.5-5.0); Albumin Globulin Ratio 1.8 (1.0-2.8); Alkaline Phosphatase 72 U/L (38-126); Blood Urea Nitrogen 9 mg/dL (9-20); Calcium 9.9 mg/dL (8.4-10.2); Carbon Dioxide 27 mmol/L (22-32); Chloride 103 mmol/L (98-107); Estimated Glomerular Filt Rate > 60 mL/min (>60); Globulin 2.6 g/dL (1.7-4.1); Glucose 101 mg/dL (70-99); HEMOLYSIS < 15 (0-50); Lipase 63 U/L (23-300); Potassium 5.0 mmol/L (3.4-5.1); Sodium 138 mmol/L (137-145); Total Protein 7.2 g/dL (6.3-8.2)
[2025-08-17 13:49] LABS: Thyroid Stimulating Hormone 1.24 uIU/mL (0.47-4.68)
[2025-08-18 07:36] LABS: PSA, Total 6.7 ng/mL (0.0-4.0)
== END ==
PROVIDERS: Urology; Family Provider Internal Medicine; PCP Student in an Organized Health Care Education/Training Program; Referring Provider Internal Medicine Gastroenterology; Visit Provider Internal Medicine Gastroenterology
DX: R10.84 Generalized abdominal pain (principal); R19.8 Other specified symptoms and signs involving the digestive system and abdomen; N40.1 Benign prostatic hyperplasia with lower urinary tract symptoms; R39.12 Poor urinary stream; R97.20 Elevated prostate specific antigen [PSA]
CPT/HCPCS: 36415; 80053; 83690; 84153; 84154; 84443; 85025